=== PATIENT | male | born 1930 | race Caucasian/White ===

== ENCOUNTER 2018-04-02 04:56 | Inpatient (IN) ==
[2018-04-02 05:44] LABS: ALLEN TEST YES; BE 1.8 mmoll (-3.0-3.0); BLOOD TYPE ARTERIAL; HCO3-(ACT) 26.2 mmoll (20.0-26.0); METHB 0.7 % (0.0-1.5); O2(CT) 15.1 mL/dL (15.0-23.0); O2HB 91.6 % (95.0-99.0); PCO2(98.6) 48 mmHg (35-45); PO2(98.6) 63 mmHg (60-100); SAMPLE BLOOD; SAO2 93.9 % (95.0-100.0); THB 11.7 g/dL (11.5-17.4); pH(98.6) 7.37 (7.35-7.45)
[2018-04-02 05:45] LABS: MODALITY ROOM AIR
[2018-04-02] MEDS ORDERED: NS 1,000 ML IV ONE (06:03)
[2018-04-02] MEDS ORDERED: VANCOMYCIN 1 GM/NS 1 GM/250 ML IVPB IV ONE (06:03)
[2018-04-02] MEDS ORDERED: ZOSYN 3.375 GM in NS 50 ML IV ONE (06:03)
[2018-04-02 06:11] LABS: INR 0.92; PROTIME 13.1 Seconds (11.0-16.0)
[2018-04-02 06:12] LABS: PTT 23.3 Seconds (22.3-41.8)
[2018-04-02 06:28] LABS: BASO# 0.02 X1000 (0.0-0.2); BASO% 0.1 % (0.0-0.8); EOS# 0.07 X1000 (0.0-0.7); EOS% 0.3 % (0.0-10.0); HEMATOCRIT 38.5 % (42.0-52.0); HEMOGLOBIN 12.2 g/dL (14.0-18.0); IMM GRAN# 0.06 X1000 (0.0-0.04); IMM GRAN% 0.3 % (0.0-0.5); LYMPH# 1.61 X1000 (1.2-3.4); LYMPH% 7.8 % (20.5-51.1); MCH 29.5 PG (27-31); MCHC 31.7 g/dL (33-37); MONO# 2.12 X1000 (0.11-0.59); MONO% 10.3 % (1.7-9.3); MPV 8.9 FL (7.4-10.4); NEUT# 16.66 X1000 (1.4-6.5); NEUT% 81.2 % (42.2-75.2); PLT 328 X1000 (130-400); RBC 4.14 XMIL (4.7-6.1); RDW 13.2 % (11.5-14.5); WBC 20.54 X1000 (4.8-10.8)
--- NOTE | 2018-04-02 06:29 | Diag Imaging Result Doc PS360 ---
CHEST-1 VIEW - 04/02/2018 INDICATION: fever, sob COMPARISON: None FINDINGS: There is a left-sided dual-chamber pacemaker in good position. There is cardiomegaly and mild pulmonary vascular congestion. There are ill-defined interstitial markings laterally suggesting mild interstitial pulmonary edema. No pneumothorax or pleural effusion. IMPRESSION: Cardiomegaly. Mild interstitial pulmonary edema. Electronically signed by Ru Chen 04/02/2018 6:26 AM
[2018-04-02 06:32] LABS: ALBUMIN 4.1 g/dL (3.5-5.0); CALCIUM 9.3 mg/dL (8.8-10.2); CREATININE 1.2 mg/dL (0.7-1.2); TOTAL BILIRUBIN 0.24 mg/dL (0.20-1.00); TOTAL PROTEIN 8.4 g/dL (6.3-8.3)
--- NOTE | 2018-04-02 07:37 | PROVIDER DOCUMENTATION ---
HPI-General Adult - General Chief Complaint: Possible Sepsis-D Stated Complaint: SOB Time Seen by Provider: 04/02/18 05:19 Source: patient, EMS Allergies/Adverse Reactions: Patient Allergies Allergy/AdvReac Type Severity Reaction Status Date / Time No Known Allergies Allergy Verified 04/02/18 05:58 Home Medications: Home Medication List Medication Instructions Recorded Confirmed Last Taken Type Amlodipine Besylate [Norvasc] 10 mg PO HS 04/02/18 04/02/18 Unknown History Aspirin 81 mg PO DAILY 04/02/18 04/02/18 Unknown History Carbamazepine 200 mg PO TID 04/02/18 04/02/18 Unknown History Carvedilol 25 mg PO BID 04/02/18 04/02/18 Unknown History Clonidine HCl 0.1 mg PO DAILY PRN PRN 04/02/18 04/02/18 Unknown History Clopidogrel [Plavix] 75 mg PO DAILY 04/02/18 04/02/18 Unknown History Docusate Sodium 100 mg PO DAILY 04/02/18 04/02/18 Unknown History Duloxetine HCl 60 mg PO DAILY 04/02/18 04/02/18 Unknown History Furosemide 40 mg PO DAILY 04/02/18 04/02/18 Unknown History Gabapentin 400 mg PO TID 04/02/18 04/02/18 Unknown History Guanfacine HCl 2 mg PO HS 04/02/18 04/02/18 Unknown History Hydrocodone Bit/Acetaminophen 1 each PO Q4H PRN PRN 04/02/18 04/02/18 Unknown History [Hydrocodon-Acetaminophn 10-325] Ipratropium/Albuterol Sulfate 3 ml IH Q6HR 04/02/18 04/02/18 Unknown History [Iprat-Albut 0.5-3(2.5) mg/3 ml] Isosorbide Mononitrate [Isosorbide 30 mg PO DAILY 04/02/18 04/02/18 Unknown History Mononitrate ER] Levothyroxine Sodium 25 mcg PO DAILY 04/02/18 04/02/18 Unknown History Lisinopril 40 mg PO DAILY 04/02/18 04/02/18 Unknown History Mag Hydrox/Al Hydrox/Simeth [Mi 30 ml PO Q4H PRN PRN 04/02/18 04/02/18 Unknown History Acid Suspension] Multivits,Ca,Minerals/Iron/FA 1 each PO DAILY 04/02/18 04/02/18 Unknown History [Thera-M Tablet] Nicotine Patch [Nicoderm Patch] 21 mg TD DAILY 04/02/18 04/02/18 Unknown History Nitroglycerin Sl [Nitroglycerin] 0.4 mg SL PRN PRN 04/02/18 04/02/18 Unknown History Pantoprazole Sodium 40 mg PO DAILY 04/02/18 04/02/18 Unknown History Potassium Chloride E.r. [Klor-Con] 10 meq PO DAILY 04/02/18 04/02/18 Unknown History Sertraline HCl 25 mg PO DAILY 04/02/18 04/02/18 Unknown History Simvastatin 20 mg PO HS 04/02/18 04/02/18 Unknown History Review of Systems - Adult - REVIEW OF SYSTEMS - ADULT Constitutional: reports: no symptoms reported Eyes: reports: no symptoms reported Ears, Nose, Mouth & Throat: reports: no symptoms reported Cardiovascular: reports: no symptoms reported Respiratory: reports: see HPI Gastrointestinal: reports: no symptoms reported Genitourinary: reports: no symptoms reported Musculoskeletal: reports: no symptoms reported Integumentary: reports: no symptoms reported Neurological: reports: no symptoms reported Psychiatric: reports: no symptoms reported Endocrine: reports: no symptoms reported Hematologic/Lymphatic: reports: no symptoms reported Allergic/Immunologic: reports: no symptoms reported All Other Systems: Reviewed and Negative Past History - Adult - PAST MEDICAL HISTORY-ADULT Review of Records: reports: Nursing Assessment Review Physical Exam-General - PHYSICAL EXAM-ADULT Initial Vital Signs Reviewed: Yes - CONSTITUTIONAL General Appearance: appears well - EYES Eyes: PERRL/EOMI - HEAD, EARS, NOSE, MOUTH & THROAT HENMT: normocephalic/atraumatic - NECK Neck: non-tender - RESPIRATORY Respiratory: crackles - CARDIOVASCULAR Cardiovascular: normal peripheral pulses - GASTROINTESTINAL (ABDOMEN) Abdominal Exam: normal bowel sounds - LYMPHATIC Lymphatic: no adenopathy - MUSCULOSKELETAL Back Exam: normal inspection Extremity: normal range of motion - SKIN Integumentary: normal color - NEUROLOGIC 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 - PSYCHIATRIC Psych/Mental Status: normal mood/affect Progress - PLAN OF CARE/RESULTS Progress/Plan/Lab Results: Vital Signs - 8 hr 04/02/18 05:07 04/02/18 05:10 04/02/18 05:20 Temperature Pulse Rate 60 Respiratory Rate 25 H Blood Pressure O2 Sat by Pulse Oximetry 74 L 89 L 94 L 04/02/18 05:22 04/02/18 05:30 04/02/18 05:37 Temperature 98.3 F Pulse Rate 60 60 60 Respiratory Rate 21 20 22 Blood Pressure 141/80 141/80 O2 Sat by Pulse Oximetry 95 95 95 04/02/18 05:40 04/02/18 05:50 04/02/18 06:00 Temperature Pulse Rate 60 61 60 Respiratory Rate 19 20 23 Blood Pressure O2 Sat by Pulse Oximetry 96 98 95 04/02/18 06:04 04/02/18 06:10 04/02/18 06:20 Temperature Pulse Rate 60 62 60 Respiratory Rate 18 22 22 Blood Pressure 144/65 O2 Sat by Pulse Oximetry 95 94 L 93 L 04/02/18 06:30 04/02/18 06:34 04/02/18 06:40 Temperature Pulse Rate 60 60 60 Respiratory Rate 16 20 13 Blood Pressure 132/64 O2 Sat by Pulse Oximetry 94 L 93 L 94 L Laboratory Results - last 24 hr 04/02/18 04/02/18 04/02/18 05:15 05:15 05:15 WBC 20.54 H RBC 4.14 L Hgb 12.2 L Hct 38.5 L MCV 93.0 MCH 29.5 MCHC 31.7 L RDW Std Deviation 13.2 Plt Count 328 MPV 8.9 Immature Gran % (Auto) 0.3 Neut % (Auto) 81.2 H Lymph % (Auto) 7.8 L Summers % (Auto) 10.3 H Eos % (Auto) 0.3 Baso % (Auto) 0.1 Immature Gran # (Auto) 0.06 H Neut # (Auto) 16.66 H Lymph # (Auto) 1.61 Summers # (Auto) 2.12 H Eos # (Auto) 0.07 Baso # (Auto) 0.02 Segmented Neutrophils Not Reportable PT INR PTT (Actin FS) Specimen Type Sample Site pH pCO2 pO2 HCO3 Base Excess Oxyhemoglobin ABG O2 Sat (Calculated) ABG O2 Saturation ABG Carboxyhemoglobin ABG Methemoglobin Junior Test A-a O2 Difference Total Hemoglobin Lactate Liter Flow Blood Gas Modality FiO2 % Sodium 143 Potassium 5.0 Chloride 98 Carbon Dioxide 29 Anion Gap 16 BUN 29 H Creatinine 1.2 Estimated GFR/1.73 m2 57 BUN/Creatinine Ratio 24 Glucose 111 H Calculated Osmolality 292 Calcium 9.3 Total Bilirubin 0.24 AST 20 ALT 12 Alkaline Phosphatase 129 H Creatine Kinase 90 Troponin T Total Protein 8.4 H Albumin 4.1 Globulin 4.3 Albumin/Globulin Ratio 1.0 Plasma Lactate 1.0 04/02/18 04/02/18 04/02/18 05:15 05:15 05:34 WBC RBC Hgb Hct MCV MCH MCHC RDW Std Deviation Plt Count MPV Immature Gran % (Auto) Neut % (Auto) Lymph % (Auto) Summers % (Auto) Eos % (Auto) Baso % (Auto) Immature Gran # (Auto) Neut # (Auto) Lymph # (Auto) Summers # (Auto) Eos # (Auto) Baso # (Auto) Segmented Neutrophils PT 13.1 INR 0.92 PTT (Actin FS) 23.3 Specimen Type ARTERIAL Sample Site R RADIAL pH 7.37 pCO2 48 H pO2 63 HCO3 26.2 H Base Excess 1.8 Oxyhemoglobin 91.6 L ABG O2 Sat (Calculated) 15.1 ABG O2 Saturation 93.9 L ABG Carboxyhemoglobin 1.70 ABG Methemoglobin 0.7 Junior Test YES A-a O2 Difference 105.0 Total Hemoglobin 11.7 Lactate 0.80 Liter Flow 3.0 Blood Gas Modality ROOM AIR FiO2 % 32.0 Sodium Potassium Chloride Carbon Dioxide Anion Gap BUN Creatinine Estimated GFR/1.73 m2 BUN/Creatinine Ratio Glucose Calculated Osmolality Calcium Total Bilirubin AST ALT Alkaline Phosphatase Creatine Kinase Troponin T 0.021 Total Protein Albumin Globulin Albumin/Globulin Ratio Plasma Lactate Orders Category Date Time Status Cardiac Monitoring DIRECTED Care 04/02/18 05:20 Active IV Insertion ORDERED Care 04/02/18 05:20 Completed Notify MD of + Sepsis Screen NOW Care 04/02/18 05:20 Active Notify Physician As Ordered Care 04/02/18 05:20 Active CHEST-1 VIEW [RAD] Stat Exams 04/02/18 05:20 Completed ABG [RESP] Routine Lab 04/02/18 05:34 Completed BLOOD CULTURE [BLDCUL] Stat Lab 04/02/18 05:32 Results CBC WITH DIFF [HEME] Stat Lab 04/02/18 05:15 Completed CK PROFILE [SP CHEM] Stat Lab 04/02/18 05:15 Completed COMPREHENSIVE METABOLIC PANEL [CHEM] Stat Lab 04/02/18 05:15 Completed LACTATE, PLASMA [CHEM] Stat Lab 04/02/18 05:15 Completed PROTIME WITH INR [COAG] Stat Lab 04/02/18 05:15 Completed PTT [COAG] Stat Lab 04/02/18 05:15 Completed TROPONIN T Stat Lab 04/02/18 05:15 Completed URINALYSIS W/POSS RFLX CULT [URINALYSIS] Stat Lab 04/02/18 05:20 Uncollected 0.9% Sodium Chloride Inj [Ns] 1,000 ml Med 04/02/18 06:03 Discontinued IV 999 mls/hr Piperacillin/Tazobactam [Zosyn] 3.375 gm Med 04/02/18 06:03 Discontinued 0.9% Sodium Chloride Inj [Ns] 50 ml IV NOW Vancomycin 1 gm/Ns Med 04/02/18 06:03 Discontinued 1 gm in 250 ml IV NOW Oxygen Device Stat Oth 04/02/18 05:20 Completed Result Diagrams: 04/02/18 05:15 04/02/18 05:15 Departure - Departure Date of Disposition Decision: 04/02/18 Time of Disposition Decision: 07:34 DIAGNOSIS: Pneumonia Qualifiers: Pneumonia type: due to unspecified organism Laterality: unspecified laterality Lung location: unspecified part of lung Qualified Code(s): J18.9 - Pneumonia, unspecified organism Disposition: ADMITTED INPATIENT 09 Certified Medical Emergency: Emergent Condition: Stable Referrals and Follow-Ups: Cristian Hendrickson MD [Primary Care Provider] - - Critical Care Note This patient required my direct & personal management of CC.: No Attestation - Physician/ JARED Attestation Patient care was provided by Advanced Practice Provider:: No The physician spent face to face time with patient:: Yes Advanced Practice Provider documentation review:: Supervising physician onsite and consulted in the evaluation and care of this patient. The physician did have a face to face encounter with the patient.
[2018-04-02 08:22] LABS: URINE SOURCE CATH
[2018-04-02 08:25] LABS: BILIRUBIN URINE NEGATIVE (NEGATIVE); BLOOD URINE NEGATIVE (NEGATIVE); COLOR YELLOW; GLUCOSE URINE NEGATIVE (NEGATIVE); KETONE URINE NEGATIVE (NEGATIVE); LEUKOCYTES URINE NEGATIVE (NEGATIVE); NITRITE URINE NEGATIVE (NEGATIVE); PH URINE 5.5; PROTEIN URINE NEGATIVE (NEGATIVE); SP GRAVITY URINE 1.017; TURBIDITY URINE CLEAR (CLEAR); UROBILINOGEN URINE NORMAL (NORMAL)
[2018-04-02 08:26] LABS: UR EPITHELIAL CELLS <10 /HPF (<10); URINE BACTERIA NEGATIVE /HPF; URINE RBC <10 /HPF (<10); URINE WBC <10 /HPF (<10)
[2018-04-02] MEDS ORDERED: NITROGLYCERIN SL PRN (08:55)
[2018-04-02] MEDS ORDERED: MAALOX PLUS LIQUID PO PRN (08:55)
--- NOTE | 2018-04-02 09:09 | HISTORY AND PHYSICAL ---
HISTORY OF PRESENT ILLNESS: He is in a care home at [facility]. Apparently, he had been treating for pneumonia over there. He has been off antibiotics. For the last 3 or 4 days, it has just felt worse and increased cough, increased general malaise. He is very hard of hearing. I do not have much in the way of past medical history. PAST MEDICAL HISTORY: It appears that he has a history of hypertension, hypothyroidism. He does have a nicotine patch. He has presumed coronary artery disease. He is also on nitroglycerin p.r.n. He has peripheral neuropathy and a history of hypercholesterolemia. I do not know the details of his coronary history. FAMILY HISTORY: There is apparently history of coronary artery disease in his family. SOCIAL HISTORY: He has a history of smoking. He does have a nicotine patch. No history of illicit drugs or alcohol. REVIEW OF SYSTEMS: General: Does not report any weight gain or loss. No fever or chills that he is aware. It is just general malaise. Apparently, his appetite is good. His weight has held steady. HEENT: No complaints of change in his vision. He is very hard of hearing. 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 You have to speak loudly, close to his left ear. Respiratory: No increased work of breathing, but he has had increased cough and sputum production. Cardiovascular: No chest pain reported. No complaints palpitations. Gastrointestinal and Genitourinary: No gross hematuria or dysuria. Endocrinologic/Hematologic: No significant history. PHYSICAL EXAMINATION: VITAL SIGNS: Temperature 98.3 degrees, pulse 66, respirations 21, blood pressure 149/75. EYES: Pupils are equal and round. LUNGS: Clear in all lung katz. He does have a cough provoked by deep inspiration. No wheezing at this time. CARDIOVASCULAR: Regular rhythm and rate without murmur S3. Monitor shows sinus rhythm. ABDOMEN: Soft. SKIN: Warm and dry. No pedal edema. LAB: White count 20,540, hematocrit 38, platelet count 328,000. Sodium 143, potassium 5.0, chloride 98, BUN 29, creatinine 1.2. Albumin 4.1. Pro-time is 13. Blood gases pH is 7.37, pCO2 48, pO2 is 63. O2 saturation is 91% and his chest x-ray shows cardiomegaly, mild interstitial pulmonary edema. Suspect pneumonia as well. Ill-defined interstitial markings. ASSESSMENT AND PLAN: 1. Appears to have pulmonary venous hypertension with pulmonary edema and some pleural effusions. We will try to diurese a little bit. 2. Clinically, it sounds like he has probable bronchopneumonia, we will cover broad spectrum since he is from [facility], and will obtain sputum cultures and blood cultures. 3. It appears that he has a history of coronary artery disease. See if we get some old records and get that defined a little better. 4. History of smoking. He is on a nicotine patch, which will continue. 5. History of hypercholesterolemia. 6. History of hypertension. At present time, we will put him on vancomycin and Zosyn. Give him bronchodilators and some supplementary O2. We will give him some guaifenesin as well try to thin secretions. We probably need to obtain an echocardiogram to look at his left ventricular function. It appears he has an element of congestive heart failure. Whether that is systolic or diastolic, probably needs to be defined. cc: Junior Berrios MD
--- NOTE | 2018-04-02 09:23 | EKG Report ---
Test Performed on : 04/02/2018 05:17:28 AM Test Reason : NO EKG ORDER FOR MUSE Blood Pressure : / mmHG Vent. Rate : 060 BPM Atrial Rate : 113 BPM P-R Int : 000 ms QRS Dur : 148 ms QT Int : 458 ms P-R-T Axes : 000 -74 099 degrees QTc Int : 458 ms Ventricular-paced rhythm with frequent supraventricular complexes Abnormal ECG No previous ECGs available Unconfirmed Result
[2018-04-02] MEDS: DUONEB (A & A) INH SCH ×3 (10:00→21:00)
[2018-04-02] MEDS ORDERED: NITROGLYCERIN ONE (10:54)
[2018-04-02] MEDS: LEVAQUIN 750 MG/D5W 750 MG/150 ML IVPB IV SCH (11:10)
[2018-04-02] MEDS: LASIX IV SCH ×2 (11:10→20:04)
[2018-04-02] MEDS: NICODERM PATCH TD SCH (11:12)
[2018-04-02] MEDS: NS 1,000 ML IV SCH (11:14)
[2018-04-02] MEDS: CYMBALTA PO SCH (11:15)
[2018-04-02] MEDS: MUCINEX DM PO SCH ×2 (11:16→20:24)
[2018-04-02] MEDS: NEURONTIN PO SCH ×3 (11:17→20:11)
[2018-04-02] MEDS: SYNTHROID PO SCH (11:18)
[2018-04-02] MEDS: TEGRETOL PO SCH ×3 (11:18→20:24)
[2018-04-02] MEDS: THERA M PLUS PO SCH (11:18)
[2018-04-02] MEDS: ZOLOFT PO SCH (11:19)
[2018-04-02 11:20] LABS: ALLEN TEST YES; BE 1.3 mmoll (-3.0-3.0); BLOOD TYPE ARTERIAL; HCO3-(ACT) 25.8 mmoll (20.0-26.0); O2(CT) 14.9 mL/dL (15.0-23.0); PCO2(98.6) 44 mmHg (35-45); PO2(98.6) 55 mmHg (60-100); SAMPLE BLOOD; SAO2 92.3 % (95.0-100.0); THB 11.8 g/dL (11.5-17.4); pH(98.6) 7.39 (7.35-7.45)
[2018-04-02 11:21] LABS: MODALITY CANNULA; O2HB 89.9 % (95.0-99.0)
[2018-04-02] MEDS: PROTONIX PO SCH (11:32)
[2018-04-02] MEDS: ASPIRIN PO SCH (11:32)
[2018-04-02] MEDS: IMDUR PO SCH (11:33)
[2018-04-02] MEDS: COREG PO SCH ×2 (11:33→20:11)
[2018-04-02] MEDS: PRINIVIL PO SCH (11:33)
[2018-04-02] MEDS: PLAVIX PO SCH (11:33)
[2018-04-02] MEDS: COLACE PO SCH (11:34)
[2018-04-02] MEDS ORDERED: NITROGLYCERIN TOP ONE (11:35)
--- NOTE | 2018-04-02 14:10 | ECHO REPORT ---
ORDER DATE: 04/02/2018 SUMMARY: 1. Technically suboptimal study. Very poor acoustic window. 2. This is a limited echocardiogram. 3. Aortic valve leaflets were sclerosed. Not well visualized. 4. Mitral valve was normal. 5. Tricuspid valve was normal. 6. Pulmonic valve was normal. 7. Definity was used to assess left ventricular systolic function. 8. Normal left ventricular cavity size. Estimated ejection fraction of 60% to 65%. 9. There is no pericardial effusion. cc: MD Junior Ly MD
[2018-04-02] MEDS: ZOCOR PO SCH (20:11)
[2018-04-02] MEDS: NORVASC PO SCH (20:11)
[2018-04-03] MEDS: DUONEB (A & A) INH SCH ×4 (03:10→21:02)
[2018-04-03] MEDS ORDERED: LASIX IV SCH (06:00)
[2018-04-03 06:20] LABS: AGAP 14; ALB/GLOB RATIO 0.9; ALBUMIN 3.2 g/dL (3.5-5.0); ALKALINE PHOSPHATASE 101 U/L (32-122); BUN 27 mg/dL (8-22); CALCIUM 8.6 mg/dL (8.8-10.2); CHLORIDE 100 mmol/L (98-107); COSMO 281; CREATININE 1.1 mg/dL (0.7-1.2); ESTIMATED GFR > 60; GLUCOSE 110 mg/dL (70-104); GOT 12 U/L (10-34); GPT 10 U/L (10-44); POTASSIUM 4.2 mmol/L (3.5-5.1); SODIUM 138 mmol/L (136-145); TCO2 24 mmol/L (25-35); TOTAL BILIRUBIN 0.26 mg/dL (0.20-1.00); TOTAL PROTEIN 6.7 g/dL (6.3-8.3)
[2018-04-03 06:22] LABS: BASO# 0.03 X1000 (0.0-0.2); BASO% 0.2 % (0.0-0.8); EOS# 0.09 X1000 (0.0-0.7); EOS% 0.5 % (0.0-10.0); HEMATOCRIT 31.5 % (42.0-52.0); IMM GRAN# 0.07 X1000 (0.0-0.04); IMM GRAN% 0.4 % (0.0-0.5); LYMPH# 1.59 X1000 (1.2-3.4); LYMPH% 8.6 % (20.5-51.1); MCH 29.9 PG (27-31); MCHC 31.7 g/dL (33-37); MCV 94.3 FL (81-99); MONO# 1.89 X1000 (0.11-0.59); MONO% 10.2 % (1.7-9.3); NEUT# 14.79 X1000 (1.4-6.5); NEUT% 80.1 % (42.2-75.2); PLT 257 X1000 (130-400); RBC 3.34 XMIL (4.7-6.1); RDW 13.1 % (11.5-14.5); WBC 18.46 X1000 (4.8-10.8)
[2018-04-03 06:30] LABS: FREE T4 0.9 ng/dL (0.93-1.70); TSH 0.8 uIUmL (0.27-4.20)
[2018-04-03] MEDS: SYNTHROID PO SCH (06:35)
[2018-04-03] MEDS: PROTONIX PO SCH (06:35)
--- NOTE | 2018-04-03 07:21 | Diag Imaging Result Doc PS360 ---
EXAM: CHEST-PORTABLE INDICATION: Pneumonia TECHNIQUE: One view COMPARISON: 04/02/2018 FINDINGS: Bilateral interstitial infiltrates are approximately stable. No new consolidation is appreciated. Cardiac silhouette is stable. IMPRESSION: Essentially stable chest. Electronically signed by Marcial Goel 04/03/2018 7:18 AM
--- NOTE | 2018-04-03 08:16 | PROGRESS NOTE ---
DATE: 04/03/2018 SUBJECTIVE: Mr. Burch was admitted yesterday. He is followed by Dr. Hendrickson. He comes from [facility]. He has been on some antibiotics, treating for a respiratory tract infection. On presentation, appeared to have significant pulmonary hypertension. Could not get much in the way of past medical history. But this morning, he had some trouble breathing, a lot of gurgling. Put him on a little nitro paste and diuresed him some yesterday. This morning, he has got quite a bit of airway secretions and rattling. OBJECTIVE: Vital signs: Temp 98.9 degrees, pulse 80, respirations 19, blood pressure 103/37. Eyes: Pupils are equal and round. Neck: He appears to have elevated CVP. Lungs: With scattered rhonchi. Prolonged expiratory phase. Abdomen: Soft. Cardiovascular: Regular rhythm and rate. DIAGNOSTIC DATA: Urine output was 2400 mL. Of note, he appears to have a paced rhythm at a rate of 60. Echocardiogram done yesterday, technically suboptimal study. Aortic valve was sclerosed but not well visualized. Mitral valve normal. Tricuspid valve normal. His left ventricular ejection fraction appeared to be 60% to 65%. Normal left ventricular cavity size. No pericardial effusion. Chest x-ray from this morning, essentially stable chest. Bilateral interstitial infiltrates. No consolidation. ASSESSMENT AND PLAN: 1. Appears to have nonspecific infiltrates in the face of what appears to be normal ventricular function and some pleural effusions. We have him on vancomycin and Zosyn initially. I am giving him levofloxacin now 750 mg IV daily. Chest x-ray really unchanged, no fever. 2. Left ventricular function appears normal. So, he may have some pulmonary congestion from diastolic dysfunction. We are unable to assess his diastolic function on the echocardiogram. 3. He does have a history of coronary artery disease. His troponin and CPK, just a mild elevation in the troponin and CK look okay. I am going to stop his Lasix. I am going to ask Cardiology to help with his management, and decrease the Coreg down to 12.5 twice a day. His blood pressure is running a low. He is on carbamazepine 200 mg, and he takes that 3 times a day. cc: Junior Berrios MD
[2018-04-03] MEDS ORDERED: COREG PO SCH (09:00)
[2018-04-03] MEDS: LEVAQUIN 750 MG/D5W 750 MG/150 ML IVPB IV SCH (09:32)
[2018-04-03] MEDS: CYMBALTA PO SCH (09:32)
[2018-04-03] MEDS: PLAVIX PO SCH (09:33)
[2018-04-03] MEDS: ZOLOFT PO SCH (09:33)
[2018-04-03] MEDS: IMDUR PO SCH (09:33)
[2018-04-03] MEDS: ASPIRIN PO SCH (09:33)
[2018-04-03] MEDS: NEURONTIN PO SCH ×3 (09:33→21:57)
[2018-04-03] MEDS: THERA M PLUS PO SCH (09:33)
[2018-04-03] MEDS: NICODERM PATCH TD SCH (09:33)
[2018-04-03] MEDS: TEGRETOL PO SCH ×3 (09:33→21:58)
[2018-04-03] MEDS: PRINIVIL PO SCH (09:33)
[2018-04-03] MEDS: COLACE PO SCH (09:33)
[2018-04-03] MEDS: MUCINEX DM PO SCH ×2 (09:34→21:59)
[2018-04-03] MEDS: NS 1,000 ML IV SCH (14:48)
[2018-04-03] MEDS: ZOCOR PO SCH (21:57)
[2018-04-03] MEDS: COREG PO SCH (21:57)
[2018-04-03] MEDS: NORVASC PO SCH (21:58)
[2018-04-04] MEDS: DUONEB (A & A) INH SCH ×4 (03:33→21:00)
[2018-04-04] MEDS ORDERED: LASIX IV ONE (03:54)
[2018-04-04] MEDS: PROTONIX PO SCH (06:38)
[2018-04-04] MEDS: SYNTHROID PO SCH (06:38)
[2018-04-04] MEDS: COLACE PO SCH (08:57)
[2018-04-04] MEDS: CYMBALTA PO SCH (08:57)
[2018-04-04] MEDS: NEURONTIN PO SCH ×4 (08:57→20:55)
[2018-04-04] MEDS: COREG PO SCH ×3 (08:57→20:55)
[2018-04-04] MEDS: PLAVIX PO SCH (08:57)
[2018-04-04] MEDS: THERA M PLUS PO SCH (08:57)
[2018-04-04] MEDS: ASPIRIN PO SCH (08:57)
[2018-04-04] MEDS: PRINIVIL PO SCH (08:57)
[2018-04-04] MEDS: ZOLOFT PO SCH (08:57)
[2018-04-04] MEDS: MUCINEX DM PO SCH ×3 (08:58→20:55)
[2018-04-04] MEDS: LEVAQUIN 750 MG/D5W 750 MG/150 ML IVPB IV SCH (08:58)
[2018-04-04] MEDS: TEGRETOL PO SCH ×4 (08:58→20:55)
[2018-04-04] MEDS: NICODERM PATCH TD SCH (08:58)
[2018-04-04] MEDS: NS 1,000 ML IV SCH (08:58)
--- NOTE | 2018-04-04 09:07 | PROGRESS NOTE ---
DATE: 04/04/2018 SUBJECTIVE: Mr. Burch sounds like he has a lot of upper airway secretions. He was sleeping, was easy to arouse. He is coughing. The sputum seems to be looser and overall, he says he feels better. His breathing is better. OBJECTIVE: Vital signs: Temperature 98.1 degrees, pulse 57, respirations 18, blood pressure 115/58. Pupils: Are equal and round. Lungs: Clear in all lung katz. Cardiovascular: Regular rate without murmur or S3. He has upper airway noise, but he seems to be moving air well. Urine output is 4400 mL. ASSESSMENT AND PLAN: 1. Essentially stable chest on chest x-ray from yesterday, bilateral interstitial infiltrates are proximally stable. Clinically, seems to be doing a little better. He seems to have more bronchitis picture. So continue present antibiotics and bronchodilators. I am going to put him on a steroid inhaler. We will use Advair and continue his guaifenesin. 2. Left ventricular function. Appears normal. I suspect he may have some diastolic dysfunction. 3. History of coronary artery disease. I do not see any active sign of ischemia at this time. Echocardiogram shows normal left ventricular function. Ejection fraction 60% to 65%. So will add Advair inhaler, and I may give him a little bit of Solu-Medrol too and see if that will help with his bronchitis. cc: Junior Berrios MD
[2018-04-04] MEDS: SOLU-MEDROL IV SCH ×2 (09:15→15:50)
[2018-04-04] MEDS: ADVAIR 250/50 DISKUS INH SCH ×2 (09:45→21:00)
[2018-04-04] MEDS: ZOCOR PO SCH ×2 (20:55)
[2018-04-04] MEDS: NORVASC PO SCH ×2 (20:55)
[2018-04-04 21:45] LABS: ALLEN TEST YES; BE 1.5 mmoll (-3.0-3.0); BLOOD TYPE ARTERIAL; METHB 1.6 % (0.0-1.5); O2(CT) 13.6 mL/dL (15.0-23.0); PO2(98.6) 80 mmHg (60-100); SAMPLE BLOOD; SAO2 97.1 % (95.0-100.0); THB 10.2 g/dL (11.5-17.4); pH(98.6) 7.32 (7.35-7.45)
[2018-04-04 21:50] LABS: MODALITY VENTIMASK; PCO2(98.6) 55 mmHg (35-45)
[2018-04-05] MEDS: SOLU-MEDROL IV SCH ×4 (01:01→23:56)
[2018-04-05] MEDS: DUONEB (A & A) INH SCH ×4 (03:07→22:40)
[2018-04-05] MEDS: TEGRETOL PO SCH ×4 (06:09→22:02)
[2018-04-05] MEDS: SYNTHROID PO SCH (06:29)
[2018-04-05] MEDS: PROTONIX PO SCH (06:29)
--- NOTE | 2018-04-05 09:22 | PROGRESS NOTE ---
DATE: 04/05/2018 SUBJECTIVE: Mr. Burch has got some wheezing at the present time, but he seems to go in spells where he gets very short of breath, and it sounds like he has increased pulmonary venous hypertension. I believe he has got bibasilar infiltrates, so we are treating for bibasilar pneumonia, but concerned about possible flash edema. He seems to be seems cyclic, where he will get very short of breath. I contemplated moving him to the floor, but he came short of breath again yesterday. OBJECTIVE: Vital Signs: Temperature 97.7 degrees, pulse 62, respirations 20, blood pressure 164/71. Eyes: Pupils are equal. Lungs: At the present time, he has expiratory wheezing throughout, but he is moving air pretty good. Cardiovascular exam: Regular rhythm and rate without murmur or S3. Abdomen: Soft. Skin: Warm and dry. : Urine output was 1500 mL. LABS: His lab reviewed from yesterday. We will check another basic metabolic profile today. X-RAYS: Note that his echocardiogram seems to show ejection fraction of 60% to 65%. Normal left ventricular size and no significant valvular dysfunction. ASSESSMENT AND PLAN: 1. Treated for bibasilar pneumonia. He seems to have a cyclic event where it sounds like his lungs are wet, and I wonder about a flash edema or something that could be disturbing his left ventricular function. Echocardiogram shows a normal ventricle. Continue his present antibiotics and bronchodilators. He is on a steroid inhaler. 2. Left ventricular function appears normal. 3. History of coronary artery disease. I am going to ask Pulmonary if they could assist. He will have times where he seems to be moving air well, and then an hour later seemed to be in trouble. I am going to put him back on some Lasix and diurese him. We will check his basic metabolic profile today. Continue levofloxacin. Also, his family has noticed that his blood pressures would be very labile and seemed to bounce up and down. He is on lisinopril 40 mg a day and he is on Coreg 6.25 mg twice daily. I may see if we can add Apresoline 25 mg three times a day, and I am going to diurese him a little more. cc: Junior Berrios MD
[2018-04-05] MEDS: NICODERM PATCH TD SCH (09:29)
[2018-04-05] MEDS: ASPIRIN PO SCH (09:31)
[2018-04-05] MEDS: LASIX IV SCH ×2 (09:31→21:14)
[2018-04-05] MEDS: PRINIVIL PO SCH (09:31)
[2018-04-05] MEDS: CYMBALTA PO SCH (09:32)
[2018-04-05] MEDS: COLACE PO SCH (09:32)
[2018-04-05] MEDS: NEURONTIN PO SCH ×3 (09:32→21:13)
[2018-04-05] MEDS: PLAVIX PO SCH (09:32)
[2018-04-05] MEDS: THERA M PLUS PO SCH (09:33)
[2018-04-05] MEDS: COREG PO SCH ×2 (09:33→21:14)
[2018-04-05] MEDS: ZOLOFT PO SCH (09:34)
[2018-04-05] MEDS: MUCINEX DM PO SCH ×2 (09:34→22:02)
[2018-04-05] MEDS: LEVAQUIN 750 MG/D5W 750 MG/150 ML IVPB IV SCH (09:40)
[2018-04-05 10:21] LABS: AGAP 13; BUN 27 mg/dL (8-22); CALCIUM 9.3 mg/dL (8.8-10.2); CHLORIDE 101 mmol/L (98-107); COSMO 285; CREATININE 0.9 mg/dL (0.7-1.2); ESTIMATED GFR > 60; GLUCOSE 138 mg/dL (70-104); MAGNESIUM 1.7 mg/dL (1.5-2.7); POTASSIUM 4.2 mmol/L (3.5-5.1); SODIUM 139 mmol/L (136-145); TCO2 25 mmol/L (25-35)
[2018-04-05 11:31] LABS: I-STAT BE 3 mmoll (-2-3); I-STAT GLUCOSE 214 mg/dL (70-105); I-STAT HEMOGLOBIN 10.5 g/dL (11.5-17.5); I-STAT K 3.7 mmoll (3.5-4.9); I-STAT TCO2 28 mmoll (23-27); I-STAT pH 7.449 (7.350-7.450)
[2018-04-05 11:37] LABS: BLOOD TYPE ARTERIAL; HCO3-(ACT) 26.6 mmoll (20.0-26.0); PCO2(98.6) 38 mmHg (35-45); PO2(98.6) 144 mmHg (60-100); SAMPLE BLOOD; pH(98.6) 7.44 (7.35-7.45)
[2018-04-05 11:38] LABS: MODALITY VENTIMASK
[2018-04-05 11:39] LABS: ALLEN TEST YES
--- NOTE | 2018-04-05 12:07 | Diag Imaging Result Doc PS360 ---
CHEST-PORTABLE - 04/05/2018 INDICATION: chf COMPARISON: 04/03/2018 FINDINGS: Stable left-sided pacemaker. Stable cardiomegaly and pulmonary vascular congestion. Stable background interstitial pulmonary edema. Stable patchy infiltrates or atelectasis in both lung bases. IMPRESSION: No change from prior. Electronically signed by Ru Chen 04/05/2018 12:05 PM
[2018-04-05] MEDS: APRESOLINE PO SCH ×2 (13:00→16:50)
[2018-04-05] MEDS: ADVAIR 250/50 DISKUS INH SCH ×2 (18:00→19:26)
[2018-04-05] MEDS: NORVASC PO SCH (21:13)
[2018-04-05] MEDS: ZOCOR PO SCH (21:13)
[2018-04-05] MEDS: NS 1,000 ML IV SCH (21:54)
[2018-04-05] MEDS: CATAPRES PO PRN (22:22)
[2018-04-06] MEDS: DUONEB (A & A) INH SCH ×4 (03:09→21:50)
[2018-04-06 04:17] LABS: ALLEN TEST YES; BE 6.7 mmoll (-3.0-3.0); BLOOD TYPE ARTERIAL; HCO3-(ACT) 30.1 mmoll (20.0-26.0); METHB 0.1 % (0.0-1.5); O2(CT) 13.3 mL/dL (15.0-23.0); O2HB 92.4 % (95.0-99.0); PO2(98.6) 60 mmHg (60-100); SAMPLE BLOOD; SAO2 96.4 % (95.0-100.0); THB 10.2 g/dL (11.5-17.4); pH(98.6) 7.38 (7.35-7.45)
[2018-04-06 04:28] LABS: MODALITY BI PAP; PCO2(98.6) 56 mmHg (35-45)
[2018-04-06] MEDS: PROTONIX PO SCH ×2 (05:29→06:05)
[2018-04-06] MEDS: CATAPRES PO PRN ×2 (05:29→20:52)
[2018-04-06] MEDS: SYNTHROID PO SCH (05:29)
[2018-04-06 06:02] LABS: BASO# 0.01 X1000 (0.0-0.2); BASO% 0.1 % (0.0-0.8); EOS# 0.01 X1000 (0.0-0.7); EOS% 0.1 % (0.0-10.0); HEMOGLOBIN 10.7 g/dL (14.0-18.0); IMM GRAN# 0.08 X1000 (0.0-0.04); IMM GRAN% 0.5 % (0.0-0.5); LYMPH# 1.16 X1000 (1.2-3.4); LYMPH% 7.9 % (20.5-51.1); MCH 29.9 PG (27-31); MCHC 32.4 g/dL (33-37); MCV 92.2 FL (81-99); MONO# 0.88 X1000 (0.11-0.59); MPV 8.7 FL (7.4-10.4); NEUT% 85.4 % (42.2-75.2); PLT 351 X1000 (130-400); RBC 3.58 XMIL (4.7-6.1); RDW 12.8 % (11.5-14.5); WBC 14.64 X1000 (4.8-10.8)
[2018-04-06 06:06] LABS: AGAP 11; BUN 30 mg/dL (8-22); CALCIUM 9.2 mg/dL (8.8-10.2); CHLORIDE 98 mmol/L (98-107); COSMO 284; CREATININE 0.9 mg/dL (0.7-1.2); ESTIMATED GFR > 60; GLUCOSE 137 mg/dL (70-104); POTASSIUM 3.9 mmol/L (3.5-5.1); SODIUM 138 mmol/L (136-145); TCO2 29 mmol/L (25-35)
--- NOTE | 2018-04-06 07:52 | CONSULTATION ---
DATE OF CONSULTATION: 04/05/2018 REQUESTING PROVIDER: Dr. Junior Berrios REASON FOR CONSULTATION: Help with evaluation and treatment. HISTORY OF PRESENT ILLNESS: This is an 88-year-old, male, with a medical history of coronary artery disease, hypertension, hypothyroidism, hypercholesterolemia, peripheral neuropathy and bradyarrhythmia with pacemaker placement. He was transferred on 04/02/2018 from [facility] with worsening cough, dyspnea, and general malaise after antibiotics therapy for pneumonia. He has been admitted since then with probable bronchopneumonia, pulmonary venous hypertension and some pleural effusions. Currently, patient is lying in bed on his right side with moderate respiratory distress. There is no family at bedside. The patient reports he still has productive cough with thick yellow sputum, shortness of breath with activities, and generalized weakness . He denies headache, fever, chill, nausea, vomiting, constipation, diarrhea, chest pain or palpitations. PAST MEDICAL HISTORY: 1. Coronary artery disease 2. hypertension 3. hypothyroidism 4. hypercholesterolemia 5. Peripheral neuropathy. 6. Kristian arrhythmia status post dual-chamber permanent pacemaker placement; followed by [facility] chief port director. SOCIAL HISTORY: The patient has a history of heavy smoking, but quit for several years. The patient lives in a longterm facility. He reports no history of alcohol or illicit drug use. FAMILY HISTORY: Unknown. ALLERGIES: Iodinated contrast REVIEW OF SYSTEMS: A 10 point review of systems is conducted, and the pertinent is listed within the HPI, otherwise noncontributory. PHYSICAL EXAMINATION: VITAL SIGNS: Temperature 97.7 degrees Fahrenheit, pulse 62, blood pressure 164/ 71, respiratory rate 28. Oxygen saturation 96% on Ventimask with FiO2 50%. GENERAL: The patient is lying on his right side with left hand holding the bedside rail. He coughs frequently with thick yellow sputum. He is in mild respiratory distress. HEENT: Atraumatic. trachea midline, he has some levels of hearing loss. RESPIRATORY: tachypnea; diminished breathing sounds with scattered rhonchi, expiratory wheezing throughout and mild inspiratory crackles bibasilarly. CARDIOVASCULAR: Regular rate and rhythm. GASTROINTESTINAL: Normoactive bowel sounds in all four quadrants. soft. and obese EXTREMITIES: No pedal edema. No cyanosis. NEUROLOGIC: Alert and oriented x3. IMAGING: Chest x-ray reveals stable cardiomegaly, pulmonary vascular congestion and background interstitial pulmonary edema with patchy infiltrates or atelectasis in both lung bases. LABORATORY DATA: Sodium 139, potassium 4.2, chloride 101, carbon dioxide 25, BUN 27, creatinine 0.9, glucose 138. ProBNP 3122. Blood gas pH 7.44, pCO2 38, pO2 144 and HCO3 26.6. ASSESSMENT: This is an 88-year-old, male, with a medical history of coronary artery disease, hypertension, hypothyroidism, hypercholesterolemia, peripheral neuropathy and kristian arrhythmias with pacemaker placement. He has been admitted since 04/02/2018 with probable brochopneumonia, pulmonary venous hypertension with pulmonary edema and some pleural effusions. 1. Respiratory failure. 2. Probable pneumonia. 3. probable congestive heart failure PLAN: 1. Continue diuretics, antibiotics, steroids, and bronchodilators as prescribed 2. Supplemental oxygen and routine BiPAP 3. routine ABG, proBNP, chest x-ray, CBC and BMP. 4. check procalcitonin. 5. Continue GI and DVT prophylaxis. Thank you for this consult. Dictated by LARS Casas for Jaimee Espinoza MD cc: LARS Casas MD [facility]
[2018-04-06] MEDS: SOLU-MEDROL IV SCH ×2 (08:09→17:15)
--- NOTE | 2018-04-06 08:44 | PROGRESS NOTE ---
DATE: 04/06/2018 SUBJECTIVE: Mr. Burch is breathing better. He is on the BiPAP at the present time. No wheezing. Moving air well. Says he ate a little bit last night and slept pretty well last night. OBJECTIVE: Vital signs: Temperature 97.4 degrees, pulse 62, respirations 13, blood pressure 183/82. Eyes: Pupils are equal. Neck: No distended neck veins. Lungs: Clear in all lung katz. Cardiovascular: Regular rhythm and rate without murmur or S3. URINE OUTPUT: Over 7 L. ASSESSMENT: 1. His chest x-ray from yesterday stable. Left-sided pacemaker stable. Cardiomegaly, pulmonary vascular congestion. Stable background interstitial pulmonary edema. Stable patchy infiltrates and atelectasis in both lung bases. We are treating for bibasilar pneumonia, but this seemed to be a cyclic event. He seems to have pulmonary venous hypertension in spite of what appears to be normal ventricle on echocardiogram. I have adjusted his medications to try and decrease his afterload. The thought is possible flash edema, but he also could have renal artery disease. His blood pressure appears to be a little better controlled and clinically he seems a little better. 2. History of coronary artery disease. Aware. 3. He seemed to have some bronchospasm and bronchial irritation, which seems better. He is on a steroid inhaler. We need to start getting him out of bed and think about getting his Hoyos catheter out, so we will ask Physical Therapy to start working with him. I should also add that he is on carbamazepine, he takes 200 mg 3 times a day. He is on Coreg 6.25 mg b.i.d., aspirin 81 mg a day, amlodipine 10 mg a day, started hydralazine 25 mg t.i.d. We are giving him Levaquin 750 mg IV 24 hours, Synthroid 25 mcg p.o. daily, Prinivil 40 mg a day and he is on methylprednisone 40 mg IV q.8, multivitamin, nicotine patch, and Protonix 40 mg daily for gastrointestinal prophylaxis, Zoloft 25 mg a day, and Zocor 20 mg at bedtime. We also are giving him breathing treatments, albuterol, ipratropium. I think he has made a little bit of progress. I had given him Lasix. He is getting it 40 mg IV q.12h. 4. His laboratory, white count has come down to 14,000, hematocrit is 33, hemoglobin 10. Electrolytes look good. Sodium 138, potassium 3.9, chloride 98, BUN 30, creatinine 0.9. We will start some physical therapy. Note his proBNP was 2914 at present time. cc: Junior Berrios MD
[2018-04-06] MEDS: NICODERM PATCH TD SCH (08:47)
[2018-04-06] MEDS: LASIX IV SCH ×2 (08:47→22:58)
[2018-04-06] MEDS: COLACE PO SCH (08:48)
[2018-04-06] MEDS: ASPIRIN PO SCH (08:48)
[2018-04-06] MEDS: PLAVIX PO SCH (08:48)
[2018-04-06] MEDS: LEVAQUIN 750 MG/D5W 750 MG/150 ML IVPB IV SCH (08:48)
[2018-04-06] MEDS: NEURONTIN PO SCH ×3 (08:49→20:51)
[2018-04-06] MEDS: APRESOLINE PO SCH ×3 (08:49→17:15)
[2018-04-06] MEDS: CYMBALTA PO SCH (08:49)
[2018-04-06] MEDS: THERA M PLUS PO SCH (08:50)
[2018-04-06] MEDS: ZOLOFT PO SCH (08:50)
[2018-04-06] MEDS: COREG PO SCH ×2 (08:50→20:52)
[2018-04-06] MEDS: PRINIVIL PO SCH (08:51)
[2018-04-06] MEDS: MUCINEX DM PO SCH ×2 (08:51→20:52)
[2018-04-06] MEDS: TEGRETOL PO SCH ×3 (08:52→22:32)
[2018-04-06] MEDS: ADVAIR 250/50 DISKUS INH SCH ×2 (11:52→21:50)
--- NOTE | 2018-04-06 13:08 | Diag Imaging Result Doc PS360 ---
CHEST-1 VIEW - 04/06/2018 INDICATION: SOB COMPARISON: 04/05/2018 FINDINGS: Stable pacemaker. Stable severe cardiomegaly and pulmonary vascular congestion. There is increase in size and density of a focal infiltrate in the right lung base. No pneumothorax or large pleural effusion. IMPRESSION: Increasing infiltrate in the right lung base. Electronically signed by Ru Chen 04/06/2018 1:06 PM
[2018-04-06] MEDS: NORVASC PO SCH (20:51)
[2018-04-06] MEDS: ZOCOR PO SCH (20:52)
[2018-04-06] MEDS ORDERED: LASIX IV SCH (22:15)
[2018-04-06] MEDS: NS 1,000 ML IV SCH (23:49)
[2018-04-07] MEDS: SOLU-MEDROL IV SCH ×3 (01:32→16:01)
[2018-04-07] MEDS: DUONEB (A & A) INH SCH ×4 (03:28→22:09)
[2018-04-07 04:17] LABS: ALLEN TEST YES; BLOOD TYPE ARTERIAL; HCO3-(ACT) 31.8 mmoll (20.0-26.0); METHB 1.3 % (0.0-1.5); O2HB 92.5 % (95.0-99.0); PO2(98.6) 65 mmHg (60-100); SAMPLE BLOOD; SAO2 95.2 % (95.0-100.0); THB 11.5 g/dL (11.5-17.4); pH(98.6) 7.42 (7.35-7.45)
[2018-04-07 04:18] LABS: MODALITY VENTIMASK
[2018-04-07 04:20] LABS: PCO2(98.6) 54 mmHg (35-45)
[2018-04-07] MEDS: LASIX IV SCH ×3 (05:53→21:30)
[2018-04-07 06:00] LABS: AGAP 11; BUN 30 mg/dL (8-22); CALCIUM 9.2 mg/dL (8.8-10.2); CHLORIDE 97 mmol/L (98-107); COSMO 283; CREATININE 0.9 mg/dL (0.7-1.2); ESTIMATED GFR > 60; GLUCOSE 124 mg/dL (70-104); MAGNESIUM 1.6 mg/dL (1.5-2.7); SODIUM 138 mmol/L (136-145); TCO2 30 mmol/L (25-35)
[2018-04-07] MEDS: SYNTHROID PO SCH (06:42)
[2018-04-07] MEDS: PROTONIX PO SCH (06:42)
--- NOTE | 2018-04-07 08:50 | PROGRESS NOTE ---
DATE: 04/07/2018 SUBJECTIVE: Mr. Burch seems like he is moving air better. He seems to feel like he is breathing better. He is a little stronger. The chest x-ray shows a little more density in the left middle and left lower lung. OBJECTIVE: Vital Signs: Temperature 97.5 degrees, pulse 66, respirations 16, blood pressure 195/79. Blood pressure is still fluctuating from 145 to 195 over 55 to 82. HEENT: Pupils are equal. Neck: No distended neck veins. Lungs: Scattered rhonchi on the left side. No wheezing today. He was using BiPAP last night. Abdomen: Soft. Skin: Warm and dry. DIAGNOSTIC STUDIES: Chest x-ray: Increasing infiltrate in the right lung base. It looks like there is increased haziness in the left as well. ASSESSMENT AND PLAN: 1. I am going to expand his antibiotics, continue his bronchodilators and steroid dilators, and continue to use BiPAP as needed. 2. Hypertension. Blood pressure still seems to go above 170s to 180s. Suspicious of possible renal artery disease. I will go up on the Apresoline to 50 mg p.o. t.i.d. and continue to diurese. He is on Lasix 40 mg intravenously q.12. Creatinine is 0.9. Electrolytes look good. 3. History of coronary artery disease. Aware. 4. He was having some bronchospasm and bronchial irritation. That seems to be a little better. 5. He is eating pretty good. 6. General weakness and deconditioning. We need to have physical therapy ordered and need to keep working on his strength. cc: Junior Berrios MD
[2018-04-07] MEDS: ZOSYN 3.375 GM in NS 50 ML IV SCH ×3 (09:33→21:24)
--- NOTE | 2018-04-07 10:00 | Diag Imaging Result Doc PS360 ---
CHEST-PORTABLE - 04/07/2018 INDICATION: pulmonary HTN COMPARISON: 04/06/2018 FINDINGS: Stable pacemaker. Stable significant cardiomegaly and pulmonary vascular congestion. There has been improvement in the right basilar infiltrate or atelectasis. There is worsening left perihilar infiltrate or atelectasis. No large pleural effusion. IMPRESSION: Mixed changes, with overall little change from prior. Likely representing shifting atelectasis. Electronically signed by Ru Chen 04/07/2018 9:58 AM
[2018-04-07] MEDS: LEVAQUIN 750 MG/D5W 750 MG/150 ML IVPB IV SCH (10:09)
[2018-04-07] MEDS: ADVAIR 250/50 DISKUS INH SCH ×2 (10:09→22:09)
[2018-04-07] MEDS: NICODERM PATCH TD SCH (10:12)
[2018-04-07] MEDS: PLAVIX PO SCH (10:12)
[2018-04-07] MEDS: COLACE PO SCH (10:12)
[2018-04-07] MEDS: ASPIRIN PO SCH (10:12)
[2018-04-07] MEDS: CYMBALTA PO SCH (10:12)
[2018-04-07] MEDS: PRINIVIL PO SCH (10:12)
[2018-04-07] MEDS: COREG PO SCH ×2 (10:12→21:27)
[2018-04-07] MEDS: THERA M PLUS PO SCH (10:12)
[2018-04-07] MEDS: APRESOLINE PO SCH ×3 (10:13→21:29)
[2018-04-07] MEDS: ZOLOFT PO SCH (10:13)
[2018-04-07] MEDS: MUCINEX DM PO SCH ×2 (10:13→21:31)
[2018-04-07] MEDS: TEGRETOL PO SCH ×3 (10:13→21:28)
[2018-04-07] MEDS: NEURONTIN PO SCH ×3 (10:13→21:28)
[2018-04-07] MEDS: NS 1,000 ML IV SCH ×2 (11:09→21:23)
[2018-04-07] MEDS: ZOCOR PO SCH (21:29)
[2018-04-07] MEDS: NORVASC PO SCH (21:29)
[2018-04-08] MEDS: SOLU-MEDROL IV SCH ×3 (01:27→15:57)
[2018-04-08] MEDS: ZOSYN 3.375 GM in NS 50 ML IV SCH ×4 (01:30→21:40)
[2018-04-08] MEDS: DUONEB (A & A) INH SCH ×4 (03:03→21:22)
[2018-04-08 03:56] LABS: ALLEN TEST YES; BE 12.5 mmoll (-3.0-3.0); BLOOD TYPE ARTERIAL; HCO3-(ACT) 34.5 mmoll (20.0-26.0); METHB 0.9 % (0.0-1.5); O2(CT) 15.7 mL/dL (15.0-23.0); O2HB 91.5 % (95.0-99.0); PO2(98.6) 64 mmHg (60-100); SAMPLE BLOOD; SAO2 93.5 % (95.0-100.0); THB 12.2 g/dL (11.5-17.4); pH(98.6) 7.46 (7.35-7.45)
[2018-04-08 04:06] LABS: MODALITY BI PAP; PCO2(98.6) 54 mmHg (35-45)
[2018-04-08] MEDS: PROTONIX PO SCH (06:34)
[2018-04-08] MEDS: SYNTHROID PO SCH (06:34)
--- NOTE | 2018-04-08 07:13 | Diag Imaging Result Doc PS360 ---
CHEST-1 VIEW - 04/08/2018 INDICATION: SOB COMPARISON: 04/07/2018 FINDINGS: Stable pacemaker. Stable significant cardiomegaly and pulmonary vascular congestion. Stable infiltrate or collapse in the retrocardiac left lower lobe. There has been significant improvement in the left perihilar infiltrate. There are probably small pleural effusions. IMPRESSION: Improvement in the left perihilar infiltrate. Other findings are stable. Electronically signed by Ru Chen 04/08/2018 7:11 AM
[2018-04-08] MEDS: NICODERM PATCH TD SCH (08:29)
[2018-04-08] MEDS: COLACE PO SCH (08:31)
[2018-04-08] MEDS: THERA M PLUS PO SCH (08:31)
[2018-04-08] MEDS: MUCINEX DM PO SCH ×2 (08:31→21:41)
[2018-04-08] MEDS: PLAVIX PO SCH (08:31)
[2018-04-08] MEDS: NEURONTIN PO SCH ×3 (08:32→21:41)
[2018-04-08] MEDS: PRINIVIL PO SCH (08:32)
[2018-04-08] MEDS: CYMBALTA PO SCH (08:33)
[2018-04-08] MEDS: COREG PO SCH ×2 (08:33→21:41)
[2018-04-08] MEDS: ZOLOFT PO SCH (08:34)
[2018-04-08] MEDS: ASPIRIN PO SCH (08:34)
[2018-04-08] MEDS: TEGRETOL PO SCH ×3 (08:34→21:41)
[2018-04-08] MEDS: APRESOLINE PO SCH ×2 (08:35→12:35)
[2018-04-08] MEDS: LEVAQUIN 750 MG/D5W 750 MG/150 ML IVPB IV SCH (08:39)
--- NOTE | 2018-04-08 08:42 | PROGRESS NOTE ---
DATE: 04/08/2018 SUBJECTIVE: Seems to be breathing better. Seems to be getting a little stronger, but very slowly. OBJECTIVE: Vital Signs: Temperature 98.3 degrees, pulse 67, respirations 20, blood pressure 139/89. Eyes: Pupils are equal and round. Lungs: Clear in all lung katz anterolateral. Cardiovascular exam: Regular rhythm and rate without murmur or S3. Abdomen: Soft. Skin: Warm and dry. IMAGING STUDIES: Note, x-ray improvement in left perihilar infiltrate. ASSESSMENT AND PLAN: 1. Pneumonia and bronchial irritation. Continue present treatment with antibiotics, bronchodilators. I had changed his antibiotics yesterday. Added to his Levaquin 750 mg 24 hours. I added Zosyn 3.375 grams intravenous every 6 hours. 2. Sporadic blood pressure with hypertension that seems to be better. I increased his hydralazine. 3. General weakness and deconditioning. Continue to work on physical therapy. 4. History of coronary artery disease. No sign of active ischemia. He is still requiring some BiPAP and supplemental O2. Hopefully this is going to improve. My thoughts were possible flash edema, but also possible renal artery disease the way his blood pressure has bounced around. Continue to adjust medications. I think we are making progress. He may need to go to rehab for awhile. cc: Junior Berrios MD
[2018-04-08] MEDS: ADVAIR 250/50 DISKUS INH SCH ×2 (09:42→21:22)
[2018-04-08] MEDS: LASIX IV SCH ×2 (12:15→21:40)
[2018-04-08] MEDS: ZOCOR PO SCH (21:41)
[2018-04-08] MEDS: NORVASC PO SCH (21:42)
[2018-04-09] MEDS: NS 1,000 ML IV SCH ×2 (01:59→09:31)
[2018-04-09] MEDS: SOLU-MEDROL IV SCH ×3 (01:59→16:19)
[2018-04-09] MEDS: ZOSYN 3.375 GM in NS 50 ML IV SCH ×4 (01:59→21:36)
[2018-04-09] MEDS: DUONEB (A & A) INH SCH ×5 (03:39→23:01)
[2018-04-09 04:24] LABS: ALLEN TEST YES; BE 10.5 mmoll (-3.0-3.0); BLOOD TYPE ARTERIAL; METHB 1.1 % (0.0-1.5); O2(CT) 17.7 mL/dL (15.0-23.0); O2HB 93.7 % (95.0-99.0); PCO2(98.6) 45 mmHg (35-45); PO2(98.6) 72 mmHg (60-100); SAMPLE BLOOD; SAO2 95.9 % (95.0-100.0); THB 13.4 g/dL (11.5-17.4)
[2018-04-09 04:25] LABS: MODALITY BI PAP
[2018-04-09] MEDS: PROTONIX PO SCH ×2 (05:40→06:28)
[2018-04-09] MEDS: SYNTHROID PO SCH (05:41)
--- NOTE | 2018-04-09 07:40 | Diag Imaging Result Doc PS360 ---
CHEST-1 VIEW - 04/09/2018 INDICATION: SOB COMPARISON: 04/08/2018 FINDINGS: Stable pacemaker. Stable severe cardiomegaly and pulmonary vascular congestion. Stable fine interstitial pulmonary edema. No new infiltrates. No large pleural effusion. IMPRESSION: No change from prior. Electronically signed by Ru Chen 04/09/2018 7:37 AM
--- NOTE | 2018-04-09 08:17 | PROGRESS NOTE ---
DATE: 04/09/2018 SUBJECTIVE: This patient is complaining of generalized weakness and shortness of breath. As per the patient, he did not have a good night because he has been coughing a lot. He is having a lot off green phlegm. OBJECTIVE: Vital Signs: Temperature 98 degrees, pulse 61, respiratory rate 18, blood pressure 131/53, oxygen saturation 94% on nasal cannula. HEENT: Head normocephalic. No trauma. PERRLA. Neck: Supple. No JVD. No masses. Central trachea. Chest: Coarse breath sounds bilaterally with crackles at the bases and some rhonchi. Abdomen: Soft, nontender, nondistended. No hepatosplenomegaly. Extremities: No edema. No clubbing. No cyanosis. Neurological: The patient is alert and oriented x3. No focal neurological deficits. LABORATORY: Pending CBC and CMP. pCO2 45, pO2 72. ASSESSMENT AND PLAN: 1. Hypoxemic respiratory failure likely secondary to bilateral lower lobe pneumonia. We will continue with antibiotics. No fever has been reported since admission. He is getting Zosyn and also, he is getting levofloxacin. This patient used to be a smoker, and there is a possibility of underlying COPD, but has never been diagnosed. He has been placed on breathing treatment and steroids, which I will continue for today, and I will start decreasing the dose slowly. 2. Bilateral lower lobe pneumonia. 3. Continue with antibiotics as per #1. 4. Hypertension, controlled. 5. History of coronary artery disease. No chest pain at this moment. No signs of ischemic heart disease, currently. 6. Hypothyroidism. I will continue with levothyroxine. 7. Nicotine dependence. As per the patient, he stopped smoking a year ago. This patient has been highly advised against tobacco use, and I will continue with daily cessation education. 8. Gastrointestinal prophylaxis with Protonix. 9. Deep vein thrombosis prophylaxis with sequential compression devices. cc: Jevon Hobson MD
[2018-04-09 08:24] LABS: BASO# 0.02 X1000 (0.0-0.2); BASO% 0.1 % (0.0-0.8); EOS# 0.03 X1000 (0.0-0.7); EOS% 0.2 % (0.0-10.0); HEMATOCRIT 37.1 % (42.0-52.0); IMM GRAN# 0.51 X1000 (0.0-0.04); IMM GRAN% 2.7 % (0.0-0.5); LYMPH# 2.13 X1000 (1.2-3.4); LYMPH% 11.2 % (20.5-51.1); MCH 29.4 PG (27-31); MCHC 32.3 g/dL (33-37); MCV 90.9 FL (81-99); MONO# 1.02 X1000 (0.11-0.59); MONO% 5.4 % (1.7-9.3); MPV 8.5 FL (7.4-10.4); NEUT# 15.23 X1000 (1.4-6.5); NEUT% 80.4 % (42.2-75.2); PLT 508 X1000 (130-400); RBC 4.08 XMIL (4.7-6.1); WBC 18.94 X1000 (4.8-10.8)
[2018-04-09 08:45] LABS: LYMPHS 13 % (21-51); MONO 3 % (1-9); SEGS 84 % (42-75)
[2018-04-09 08:46] LABS: AGAP 12; ALB/GLOB RATIO 0.9; ALBUMIN 3.2 g/dL (3.5-5.0); ALKALINE PHOSPHATASE 96 U/L (32-122); BUN 23 mg/dL (8-22); CALCIUM 8.8 mg/dL (8.8-10.2); CHLORIDE 95 mmol/L (98-107); COSMO 281; CREATININE 0.9 mg/dL (0.7-1.2); ESTIMATED GFR > 60; GLUCOSE 129 mg/dL (70-104); GOT 17 U/L (10-34); GPT 37 U/L (10-44); POTASSIUM 4.2 mmol/L (3.5-5.1); SODIUM 138 mmol/L (136-145); TCO2 31 mmol/L (25-35); TOTAL BILIRUBIN 0.24 mg/dL (0.20-1.00); TOTAL PROTEIN 6.9 g/dL (6.3-8.3)
[2018-04-09] MEDS: CYMBALTA PO SCH (09:28)
[2018-04-09] MEDS: COLACE PO SCH (09:28)
[2018-04-09] MEDS: COREG PO SCH ×2 (09:28→21:37)
[2018-04-09] MEDS: ASPIRIN PO SCH (09:28)
[2018-04-09] MEDS: PLAVIX PO SCH (09:29)
[2018-04-09] MEDS: THERA M PLUS PO SCH (09:29)
[2018-04-09] MEDS: APRESOLINE PO SCH ×3 (09:29→16:28)
[2018-04-09] MEDS: NEURONTIN PO SCH ×3 (09:29→21:37)
[2018-04-09] MEDS: NICODERM PATCH TD SCH (09:29)
[2018-04-09] MEDS: TEGRETOL PO SCH ×3 (09:29→21:37)
[2018-04-09] MEDS: PRINIVIL PO SCH (09:29)
[2018-04-09] MEDS: LEVAQUIN 750 MG/D5W 750 MG/150 ML IVPB IV SCH (09:30)
[2018-04-09] MEDS: MUCINEX DM PO SCH ×2 (09:30→21:37)
[2018-04-09] MEDS: ZOLOFT PO SCH (09:31)
[2018-04-09] MEDS: LASIX IV SCH ×2 (09:31→21:37)
[2018-04-09] MEDS: ADVAIR 250/50 DISKUS INH SCH ×2 (11:27→19:04)
[2018-04-09] MEDS: ZOCOR PO SCH (21:37)
[2018-04-09] MEDS: NORVASC PO SCH (21:37)
[2018-04-10] MEDS: SOLU-MEDROL IV SCH ×4 (01:35→23:41)
[2018-04-10] MEDS: ZOSYN 3.375 GM in NS 50 ML IV SCH ×2 (01:35→08:07)
[2018-04-10] MEDS: DUONEB (A & A) INH SCH ×6 (03:26→23:16)
[2018-04-10 04:44] LABS: ALLEN TEST YES; BE 10.5 mmoll (-3.0-3.0); BLOOD TYPE ARTERIAL; O2(CT) 18.9 mL/dL (15.0-23.0); O2HB 93.3 % (95.0-99.0); PO2(98.6) 73 mmHg (60-100); SAMPLE BLOOD; SAO2 95.3 % (95.0-100.0); THB 14.4 g/dL (11.5-17.4); pH(98.6) 7.46 (7.35-7.45)
[2018-04-10 05:03] LABS: MODALITY CANNULA; PCO2(98.6) 51 mmHg (35-45)
[2018-04-10 05:39] LABS: BASO# 0.03 X1000 (0.0-0.2); BASO% 0.2 % (0.0-0.8); EOS# 0.04 X1000 (0.0-0.7); EOS% 0.2 % (0.0-10.0); HEMATOCRIT 38.7 % (42.0-52.0); HEMOGLOBIN 12.8 g/dL (14.0-18.0); IMM GRAN# 0.49 X1000 (0.0-0.04); IMM GRAN% 2.8 % (0.0-0.5); LYMPH# 1.75 X1000 (1.2-3.4); LYMPH% 10.1 % (20.5-51.1); MCH 29.8 PG (27-31); MCHC 33.1 g/dL (33-37); MCV 90.2 FL (81-99); MONO# 0.56 X1000 (0.11-0.59); MONO% 3.2 % (1.7-9.3); MPV 8.1 FL (7.4-10.4); NEUT# 14.51 X1000 (1.4-6.5); NEUT% 83.5 % (42.2-75.2); PLT 499 X1000 (130-400); RBC 4.29 XMIL (4.7-6.1); RDW 13.1 % (11.5-14.5); WBC 17.38 X1000 (4.8-10.8)
[2018-04-10 05:40] LABS: AGAP 11; BUN 28 mg/dL (8-22); CALCIUM 9.1 mg/dL (8.8-10.2); CHLORIDE 95 mmol/L (98-107); COSMO 282; ESTIMATED GFR > 60; GLUCOSE 145 mg/dL (70-104); SODIUM 137 mmol/L (136-145); TCO2 31 mmol/L (25-35)
[2018-04-10] MEDS: PROTONIX PO SCH ×2 (05:45→06:05)
[2018-04-10] MEDS: SYNTHROID PO SCH (05:45)
--- NOTE | 2018-04-10 07:55 | Diag Imaging Result Doc PS360 ---
EXAM: CHEST-1 VIEW 04/10/2018 HISTORY: SOB TECHNIQUE: AP portable at 0540 COMMENT: There is cardiomegaly. There are multiple old rib fractures, particularly on the left. There is some retrocardiac opacity on both sides which has not changed since the previous study. Otherwise, there is no evidence of focal opacity. IMPRESSION: Cardiomegaly. Questionable atelectasis versus pneumonia both lower lobes. Electronically signed by Mika Graham 04/10/2018 7:53 AM
[2018-04-10] MEDS: MUCINEX DM PO SCH ×2 (08:11→21:45)
[2018-04-10] MEDS: NICODERM PATCH TD SCH (08:11)
[2018-04-10] MEDS: TEGRETOL PO SCH ×3 (08:12→21:45)
[2018-04-10] MEDS: CYMBALTA PO SCH (08:12)
[2018-04-10] MEDS: PRINIVIL PO SCH (08:12)
[2018-04-10] MEDS: NEURONTIN PO SCH ×3 (08:13→21:45)
[2018-04-10] MEDS: COREG PO SCH ×2 (08:13→21:45)
[2018-04-10] MEDS: ZOLOFT PO SCH (08:13)
[2018-04-10] MEDS: ASPIRIN PO SCH (08:14)
[2018-04-10] MEDS: PLAVIX PO SCH (08:14)
[2018-04-10] MEDS: THERA M PLUS PO SCH (08:14)
[2018-04-10] MEDS: COLACE PO SCH (08:14)
[2018-04-10] MEDS: APRESOLINE PO SCH ×4 (08:15→16:19)
[2018-04-10] MEDS: LEVAQUIN 750 MG/D5W 750 MG/150 ML IVPB IV SCH (08:42)
--- NOTE | 2018-04-10 10:39 | PROGRESS NOTE ---
DATE: 04/10/2018 SUBJECTIVE: This patient feels a little bit better compared with yesterday. He is still coughing up a lot of green phlegm. I have requested an evaluation by the infectious disease department since he still seems to be coughing up a lot of phlegm and the white blood cells are still elevated. It looks like he spent the night without using the BiPAP machine and the oxygen saturation has been stable with only nasal cannula. We will continue with the same treatment. I have requested an evaluation by occupational therapy and physical therapy. This patient seems to be very weak. OBJECTIVE: Vital Signs: Temperature 96.8 degrees, pulse 65, respiratory rate 17, blood pressure 128/63, oxygen saturation 95% on 5 L of nasal cannula. HEENT: Head normocephalic. No trauma. PERRLA. Neck: Supple. No JVD. No masses. Central trachea. Chest: Coarse breath sounds bilaterally with rhonchi, mostly at the bases. Abdomen: Soft, nontender, nondistended. No hepatosplenomegaly. Extremities: No edema. No clubbing. No cyanosis. Neurological Examination: The patient is alert and oriented x3. No focal neurological deficits. Laboratory: WBCs 17.3, hemoglobin 12.8, hematocrit 38.7, platelets 499,000. Sodium 137, potassium 4, chloride 95, bicarbonate 31, BUN 28, creatinine 1, glucose 145, calcium 9.1. PCO2 51. ASSESSMENT AND PLAN: 1. Hypoxemic and hypercapnic respiratory failure secondary to bilateral lower lobe pneumonia. I will continue with antibiotics. I have requested an evaluation by infectious disease department. He is getting Zosyn and levofloxacin. This patient used to be a smoker and there is a possibility of underlying chronic obstructive pulmonary disease but he has never been diagnosed. He has been placed on breathing treatments, steroids which I have decreased, and I will continue decreasing the dose slowly. 2. Bilateral lower lobe pneumonia. As above. 3. Hypertension, controlled. 4. Leukocytosis, likely a combination of pneumonia and steroids. I have decreased the dose of the steroids today. 5. History of coronary artery disease. No chest pain at this moment. No signs of ischemic heart disease currently. 6. Hypothyroidism. Continue with levothyroxine. 7. Nicotine dependence. Apparently, this patient already stopped smoking, I believe a year ago. This patient has been highly advised against tobacco use. I will continue with cessation education on a daily basis. 8. Gastrointestinal prophylaxis with Protonix. 9. Deep vein thrombosis prophylaxis with sequential compression devices. 10. Physical deconditioning and generalized weakness. I have requested an evaluation by physical therapy again and occupational therapy. Likely, this patient will be discharged to a rehabilitation facility/long-term care once he is better. cc: Jevon Hobson MD
[2018-04-10] MEDS ORDERED: LASIX PO ONE (10:53)
[2018-04-10] MEDS: ADVAIR 250/50 DISKUS INH SCH ×2 (11:44→19:01)
[2018-04-10] MEDS ORDERED: LASIX IV ONE (14:41)
[2018-04-10] MEDS: NS 1,000 ML IV SCH (14:51)
--- NOTE | 2018-04-10 15:57 | INFECTIOUS DISEASE CONSULT REP ---
DATE: 04/10/2018 CONCLUSION: The patient was sent from [facility] with possible pneumonia. There may be bibasilar infiltrates suggestive of pneumonia on the patient's x-ray. Against this patient having pneumonia is the fact that his procalcitonin was only 0.11. RECOMMENDATIONS: I have discontinued Levaquin and Zosyn, and I placed the patient on ceftaroline. DISCUSSION: The patient is very hard of hearing. I was unable to get any history from him. The history I did get was from the computer. He was in [facility] where he was given antibiotics for presumed pneumonia. It got worse with increased cough and increased general malaise, and was transferred to [facility]. The patient is very hard of hearing. PAST MEDICAL HISTORY: Positive for hypertension, hypothyroidism, coronary artery disease, peripheral neuropathy, hyperlipidemia. FAMILY HISTORY: Positive for coronary artery disease. SOCIAL HISTORY: The patient has a history of smoking cigarettes and no history of illicit drug use or alcoholism. REVIEW OF SYSTEMS: Unable to be obtained. PHYSICAL EXAMINATION: Vital Signs: Temperature is 97.2, pulse 60, respirations 19, blood pressure 151/48. The patient is 6 feet 2 inches tall, weighs 233 pounds. General: This is an obese, elderly male. He is in no acute distress. Head, Eyes, Ears, Nose and Throat: He has decreased hearing. There is no drainage from the nose or ears. The patient's tongue does not have any white patches on it. He is very hard of hearing. Neck: No stiffness. Thorax: Increased AP diameter of the chest. Lungs: Clear to auscultation. Cardiovascular: Heart rate was regular. Abdomen: Soft, without masses or tenderness. Extremities: There was bilateral leg edema, but no erythema. LABORATORY STUDIES: The patient's CBC shows a white count of 17,380, hemoglobin 12.8 and platelet count 499,000. Creatinine is 1. GFR is greater than 60. Stool was negative for Clostridium difficile toxin and antigen. The influenza screen was negative. Chest x-ray shows bilateral atelectasis versus pneumonia. Thank you for the consult. cc: Javier Alamo MD
[2018-04-10] MEDS: TEFLARO 600 MG in NS 250 ML IV SCH (16:19)
[2018-04-10] MEDS: ZOCOR PO SCH (21:45)
[2018-04-10] MEDS: NORVASC PO SCH (21:45)
[2018-04-11] MEDS: TEFLARO 600 MG in NS 250 ML IV SCH ×2 (03:27→15:10)
[2018-04-11] MEDS: DUONEB (A & A) INH SCH ×6 (03:39→23:10)
[2018-04-11 05:26] LABS: BASO# 0.03 X1000 (0.0-0.2); BASO% 0.2 % (0.0-0.8); EOS# 0.04 X1000 (0.0-0.7); EOS% 0.2 % (0.0-10.0); HEMATOCRIT 39.9 % (42.0-52.0); IMM GRAN# 0.48 X1000 (0.0-0.04); IMM GRAN% 2.9 % (0.0-0.5); LYMPH% 13.1 % (20.5-51.1); MCH 29.5 PG (27-31); MCHC 32.6 g/dL (33-37); MCV 90.7 FL (81-99); MONO# 1.04 X1000 (0.11-0.59); MONO% 6.2 % (1.7-9.3); MPV 8.2 FL (7.4-10.4); NEUT# 12.98 X1000 (1.4-6.5); NEUT% 77.4 % (42.2-75.2); PLT 475 X1000 (130-400); RDW 13.4 % (11.5-14.5); WBC 16.77 X1000 (4.8-10.8)
[2018-04-11] MEDS: SYNTHROID PO SCH (05:41)
[2018-04-11] MEDS: PROTONIX PO SCH ×2 (05:42→06:29)
[2018-04-11 05:55] LABS: AGAP 13; BUN 32 mg/dL (8-22); CHLORIDE 94 mmol/L (98-107); COSMO 282; ESTIMATED GFR > 60; GLUCOSE 122 mg/dL (70-104); POTASSIUM 3.8 mmol/L (3.5-5.1); SODIUM 137 mmol/L (136-145); TCO2 30 mmol/L (25-35)
--- NOTE | 2018-04-11 07:42 | INFECTIOUS DISEASE PROGRESS NO ---
DATE: 04/11/2018 PRESENT ILLNESS: The patient may have a bibasilar pneumonia. In his favor that he does have a bibasilar pneumonia is the fact that the patient has a leukocytosis. Against the fact that he has pneumonia is that his procalcitonin is 0.11. MEDICATIONS: The patient is on ceftaroline. This is day 1 of treatment with it. PHYSICAL EXAMINATION: Vital Signs: Temperature is 98.4 degrees, pulse 60, respirations 14, blood pressure 118/54. General: This is an ill-appearing, obese, elderly male. He is in no acute distress. Head/eyes/ears/nose/throat: He has a BiPAP mask on. There is no drainage from his nose or the ears. Neck: No meningismus. Lungs: There were some expiratory rales bilaterally. Cardiovascular: Heart rate is regular. Abdomen: Soft and nontender. Neurologic: The patient currently is sleeping. He does not have a tremor. Integument: No rash noted. MEDICATIONS: This is day 1 of treatment with ceftaroline. LAB AND X-RAY: Chest x-ray shows bibasilar left and right pneumonia versus atelectasis. Creatinine is 1. GFR is greater than 60. [place] [address], hemoglobin 13, platelet count is 475,000. PHYSICAL EXAMINATION: Temperature is 98.4 degrees, pulse 60, respirations 14, blood pressure 118/54.GENERAL: This is an obese, elderly male. He does not appear to be in any acute distress, although he does have some audible expiratory wheezes. Head, Eyes, Ears, Nose, and throat: No drainage noted from the nose or the ears. Neck: Not stiff. Lungs: The patient had some distant breath sounds that appeared clear with the stethoscope, but hearing just with the ear and not the stethoscope that there were times the patient appeared to be having wheezes. Abdomen: Soft and nontender Neurologic: The patient is sleeping. There is no tremor. Integument: No rash. LAB AND X-RAY: A procalcitonin is 0.11. Chest x-ray shows bibasilar left and right pneumonias versus atelectasis. Creatinine is 1. GFR is greater than 60. [place] [address]. Hemoglobin 13 and platelet count 475,000. ASSESSMENT AND PLAN: The patient may have a bibasilar pneumonia. I am going to continue his ceftaroline as it appears that he is getting somewhat better. COMORBIDITIES: He is elderly and has other diseases such as hypertension, coronary artery disease, peripheral neuropathy and hyperlipidemia. The patient also has a history of smoking cigarettes. cc: Javier Alamo MD
[2018-04-11] MEDS: ADVAIR 250/50 DISKUS INH SCH ×2 (08:00→19:18)
[2018-04-11] MEDS ORDERED: LASIX PO SCH (09:00)
[2018-04-11] MEDS: MUCINEX DM PO SCH ×2 (09:03→20:13)
[2018-04-11] MEDS: SOLU-MEDROL IV SCH ×2 (09:03→20:13)
[2018-04-11] MEDS: ZOLOFT PO SCH (09:03)
[2018-04-11] MEDS: NICODERM PATCH TD SCH (09:03)
[2018-04-11] MEDS: COLACE PO SCH (09:03)
[2018-04-11] MEDS: PRINIVIL PO SCH (09:04)
[2018-04-11] MEDS: THERA M PLUS PO SCH (09:04)
[2018-04-11] MEDS: APRESOLINE PO SCH ×3 (09:04→17:57)
[2018-04-11] MEDS: COREG PO SCH ×2 (09:04→20:12)
[2018-04-11] MEDS: PLAVIX PO SCH (09:04)
[2018-04-11] MEDS: ASPIRIN PO SCH (09:04)
[2018-04-11] MEDS: CYMBALTA PO SCH (09:04)
[2018-04-11] MEDS: TEGRETOL PO SCH ×3 (09:04→20:12)
[2018-04-11] MEDS: NS 1,000 ML IV SCH (09:05)
[2018-04-11] MEDS: NEURONTIN PO SCH ×3 (09:05→20:13)
--- NOTE | 2018-04-11 10:39 | PROGRESS NOTE ---
DATE: 04/11/2018 SUBJECTIVE: This patient seems to be doing better today. So far, his balance has been 20 L negative. I have stopped the furosemide IV and I put him on p.o. Usually he takes once a day at home, but I will put him on twice a day to see how he does. Since admission he has been getting IV 40 twice a day, and the kidney function has been stable. OBJECTIVE: Vital Signs: Temperature 97.5 degrees, pulse 64, respiratory rate 12, blood pressure 133/54, oxygen saturation 96 on 5 L of nasal cannula. HEENT: Head normocephalic. No trauma. PERRLA. Neck: Supple. No JVD. No masses. Central trachea. Chest: Coarse breath sounds bilaterally with rhonchi mostly at the bases. Abdomen: Soft, nontender, nondistended. No hepatosplenomegaly. Extremities: No edema. No clubbing. No cyanosis. Neurological examination: This patient is alert. He is oriented x3. He is hard of hearing. No neurological or focal deficits. LABORATORY: WBC 16.7, hemoglobin 13, hematocrit 39.9, platelets 475. Sodium 137, potassium 3.8, chloride 94, bicarbonate 30. BUN 32, creatinine 1, glucose 122, calcium 9. ProBNP 886 and upon admission was 3122. ASSESSMENT AND PLAN: 1. Hypoxemic and hypercapnic respiratory failure secondary to bilateral lower lobe pneumonia. Probably this patient also has an underlying chronic obstructive pulmonary disease, but it has been never diagnosed. Infectious Disease Department and Pulmonary Department following this patient. We will continue with antibiotics, breathing treatment and BiPAP on and off. 2. Bilateral lower lobe pneumonia, as above. 3. Hypertension, controlled. 4. Leukocytosis likely a combination of pneumonia and steroids, which I have decreased from 40 mg intravenous every 8 hours to 20 mg intravenous every 8 hours yesterday. Today, I will go ahead and put it every 12 hours. 5. History of coronary artery disease. No chest pain at this moment. 6. Hypothyroidism. Continue levothyroxine. 7. Nicotine dependence. Apparently this patient already stopped smoking I believe a year ago. I will continue with daily cessation education. 8. Gastrointestinal prophylaxis with Protonix. 9. Deep vein thrombosis prophylaxis with sequential compression devices. 10. Physical deconditioning and generalized weakness. As per the patient, he has not been walking for about 10 months; he has been using a wheelchair, I have requested an evaluation by physical therapy, occupational therapy to see how he does. cc: Jevon Hobson MD
--- NOTE | 2018-04-11 16:24 | PULMONOLOGY PROGRESS NOTE ---
DATE: 04/11/2018 SUBJECTIVE: The patient is awake and alert. He reports that he feels better. He has a cough productive of grossly purulent sputum. OBJECTIVE: Vital Signs: The patient has been afebrile for the last 24 hours. BP is 148/71, heart rate 65, respiratory rate 17, and oxygen saturation 96% on nasal cannula. HEENT: Pupils are equal and reactive. Oropharynx is clear. Neck: Supple. Respiratory: Chest reveals a prolonged expiratory phase with coarse rhonchi. Cardiac: S1, S2. Abdomen: The abdomen is soft without hepatosplenomegaly. Extremities: The extremities are without edema. LABORATORIES: White blood count is 16.77, hemoglobin 13, and platelet count 475,000. Sodium is 137, potassium 3.8, chloride 94, bicarbonate 30, BUN 32, and creatinine 1. Chest x-ray yesterday revealed bibasilar infiltrates and cardiomegaly. Microbiology preliminary culture reveals normal yoselin. IMPRESSION: An 88-year-old with grossly purulent sputum, bibasilar pneumonia, leukocytosis, chronic hypercapnic respiratory failure, and acute hypoxemic respiratory failure. RECOMMENDATIONS: 1. Continue oxygen for hypoxemic respiratory failure. 2. Continue bronchodilators and bronchial hygiene. 3. Continue antibiotics under the direction of Dr. Javier Alamo. cc: Vance Keene MD
[2018-04-11] MEDS: ZOCOR PO SCH (20:13)
[2018-04-11] MEDS: NORVASC PO SCH (20:13)
[2018-04-11] MEDS: LASIX PO SCH (20:13)
[2018-04-12] MEDS: DUONEB (A & A) INH SCH ×6 (03:22→23:20)
[2018-04-12] MEDS: TEFLARO 600 MG in NS 250 ML IV SCH ×2 (04:57→15:52)
[2018-04-12 05:31] LABS: ALLEN TEST YES; BE 5.7 mmoll (-3.0-3.0); BLOOD TYPE ARTERIAL; HCO3-(ACT) 29.2 mmoll (20.0-26.0); METHB 0.9 % (0.0-1.5); O2(CT) 18.6 mL/dL (15.0-23.0); O2HB 90.5 % (95.0-99.0); PO2(98.6) 61 mmHg (60-100); SAMPLE BLOOD; SAO2 92.2 % (95.0-100.0); THB 14.6 g/dL (11.5-17.4); pH(98.6) 7.38 (7.35-7.45)
[2018-04-12 05:34] LABS: BASO# 0.04 X1000 (0.0-0.2); BASO% 0.2 % (0.0-0.8); EOS% 0.6 % (0.0-10.0); HEMATOCRIT 37.9 % (42.0-52.0); HEMOGLOBIN 12.3 g/dL (14.0-18.0); IMM GRAN# 0.48 X1000 (0.0-0.04); LYMPH# 3.19 X1000 (1.2-3.4); LYMPH% 19.6 % (20.5-51.1); MCH 29.3 PG (27-31); MCHC 32.5 g/dL (33-37); MCV 90.2 FL (81-99); MONO# 0.99 X1000 (0.11-0.59); MONO% 6.1 % (1.7-9.3); MPV 8.2 FL (7.4-10.4); NEUT# 11.44 X1000 (1.4-6.5); NEUT% 70.5 % (42.2-75.2); PLT 443 X1000 (130-400); RDW 13.2 % (11.5-14.5); WBC 16.24 X1000 (4.8-10.8)
[2018-04-12 05:44] LABS: MODALITY CANNULA; PCO2(98.6) 55 mmHg (35-45)
[2018-04-12 05:57] LABS: ALB/GLOB RATIO 0.9; CALCIUM 8.9 mg/dL (8.8-10.2); CREATININE 1.2 mg/dL (0.7-1.2); POTASSIUM 3.9 mmol/L (3.5-5.1); TOTAL BILIRUBIN 0.2 mg/dL (0.20-1.00); TOTAL PROTEIN 6.3 g/dL (6.3-8.3)
[2018-04-12] MEDS: PROTONIX PO SCH (06:15)
[2018-04-12] MEDS: SYNTHROID PO SCH (06:15)
[2018-04-12] MEDS: ADVAIR 250/50 DISKUS INH SCH ×2 (07:43→18:56)
--- NOTE | 2018-04-12 07:59 | Diag Imaging Result Doc PS360 ---
EXAM: CHEST-PORTABLE INDICATION: dyspnea TECHNIQUE: One view COMPARISON: 04/10/2018 FINDINGS: There is worsening infiltrate at both lung bases probably representing pulmonary edema +/- pneumonia. No other new consolidations are appreciated. Cardiac silhouette is stable. IMPRESSION: Worsening bibasilar infiltrates. Electronically signed by Marcial Goel 04/12/2018 7:57 AM
[2018-04-12] MEDS: PRINIVIL PO SCH (08:09)
[2018-04-12] MEDS: NICODERM PATCH TD SCH (08:09)
[2018-04-12] MEDS: TEGRETOL PO SCH ×3 (08:09→21:10)
[2018-04-12] MEDS: APRESOLINE PO SCH ×3 (08:09→16:42)
[2018-04-12] MEDS: ASPIRIN PO SCH (08:10)
[2018-04-12] MEDS: NEURONTIN PO SCH ×3 (08:10→21:10)
[2018-04-12] MEDS: LASIX PO SCH (08:10)
[2018-04-12] MEDS: NS 1,000 ML IV SCH (08:10)
[2018-04-12] MEDS: THERA M PLUS PO SCH (08:10)
[2018-04-12] MEDS: SOLU-MEDROL IV SCH (08:10)
[2018-04-12] MEDS: COLACE PO SCH (08:10)
[2018-04-12] MEDS: PLAVIX PO SCH (08:10)
[2018-04-12] MEDS: ZOLOFT PO SCH (08:10)
[2018-04-12] MEDS: MUCINEX DM PO SCH ×2 (08:10→21:10)
[2018-04-12] MEDS: CYMBALTA PO SCH (08:10)
[2018-04-12] MEDS: COREG PO SCH ×2 (08:10→21:10)
--- NOTE | 2018-04-12 13:34 | PROGRESS NOTE ---
DATE: 04/12/2018 SUBJECTIVE: No acute events overnight. This patient is resting comfortably in bed. He is still complaining of some shortness of breath. He is still having negative balance and bowel movement. OBJECTIVE: Vital Signs: Temperature 98.4, pulse 61, respiratory rate 17, blood pressure 110/68, oxygen saturation 95% on 3 L of nasal cannula. HEENT: Head normocephalic. No trauma. PERRLA. Neck: Supple. No JVD. No masses. Central trachea. Chest: Coarse breath sounds bilaterally with rhonchi at the bases. Abdomen: Soft, nontender, nondistended. No hepatosplenomegaly. Extremities: No edema. No clubbing. No cyanosis. Neurological: The patient is sleepy, but arousable. Oriented x3. He is hard of hearing. No focal deficits. LABORATORY: WBC 6.2, hemoglobin 12.3, hematocrit 37.9, platelets 443. Sodium 137, potassium 3.9, chloride 98, bicarbonate 28, BUN 39, creatinine 1.2, glucose 111. Calcium 8.9. Albumin 3. ASSESSMENT AND PLAN: 1. Hypoxemic and hypercapnic respiratory failure secondary to lower lobe pneumonia. Probably this patient has an underlying COPD, but he has never been diagnosed. Infectious Disease Department and Pulmonary Department following this patient. Continue with antibiotics, breathing treatment, oxygen supplementation. 2. Bilateral lower lobe pneumonia. As above. 3. Hypertension, controlled. 4. Leukocytosis, likely a combination of pneumonia and steroids. I will decrease the dose of IV steroids from 20 IV q.12 hours to 20 daily. 5. History of coronary artery disease. No chest pain at this moment. 6. Hypothyroidism, continue with levothyroxine. 7. Nicotine dependence. Apparently, this patient already stopped smoking a year ago. I will continue with daily cessation education. 8. Gastrointestinal prophylaxis with Protonix. 9. Deep vein thrombosis prophylaxis with sequential compression devices. 10. Physical deconditioning and generalized weakness. Apparently, he has not been walking for about 10 months. He has been not using a wheelchair. I have requested an evaluation by physical therapy and occupational therapy already and they are working on this patient. cc: Jevon Hobson MD
--- NOTE | 2018-04-12 17:19 | PULMONOLOGY PROGRESS NOTE ---
DATE: 04/12/2018 SUBJECTIVE: The patient reports that he is doing okay. He has decreased cough. Sputum production appears to have diminished. OBJECTIVE: Vital signs: The patient has been afebrile for the last 24 hours. Blood pressure 110/68, heart rate 61, respiratory rate 17 and oxygen saturation 95% on nasal cannula. HEENT: Pupils are equal and reactive. Oropharynx is clear. Neck: Supple. Chest: Reveals scattered rhonchi bilaterally. Cardiac: S1, S2. Abdomen: Soft without hepatosplenomegaly. Extremities: Trace edema. LABORATORY: Chest x-ray showed some rotation and appears slightly worse in the lung bases. Microbiology showed normal yoselin on sputum cultures. WBC 16.24, hemoglobin 12.3 and platelet count 443,000. Arterial blood gas reveals a pH of 7.38, pCO2 of 55 and pO2 of 61. IMPRESSION: 88-year-old with bilateral pneumonia, hypercapnic respiratory failure which is chronic, acute hypoxemic respiratory failure and leukocytosis. Sputum production appears to be decreased. His prognosis remains guarded. RECOMMENDATIONS: 1. Continue current antibiotics per Dr. Javier Alamo. 2. Continue bronchial hygiene. 3. Continue oxygen for hypoxemic respiratory failure. 4. Overall prognosis is guarded. Consider end of life discussions if clinical status declines. cc: Vance Keene MD
[2018-04-12] MEDS: ZOCOR PO SCH (21:09)
[2018-04-12] MEDS: NORVASC PO SCH (21:10)
[2018-04-13] MEDS: TEFLARO 600 MG in NS 250 ML IV SCH ×2 (03:30→17:08)
[2018-04-13] MEDS: DUONEB (A & A) INH SCH ×6 (03:38→23:32)
[2018-04-13 05:02] LABS: ALLEN TEST YES; BE 2.2 mmoll (-3.0-3.0); BLOOD TYPE ARTERIAL; HCO3-(ACT) 26.6 mmoll (20.0-26.0); METHB 0.9 % (0.0-1.5); O2(CT) 17.2 mL/dL (15.0-23.0); O2HB 94.6 % (95.0-99.0); PCO2(98.6) 49 mmHg (35-45); PO2(98.6) 78 mmHg (60-100); SAMPLE BLOOD; SAO2 96.5 % (95.0-100.0); THB 12.9 g/dL (11.5-17.4); pH(98.6) 7.37 (7.35-7.45)
[2018-04-13 05:05] LABS: MODALITY CANNULA
[2018-04-13 05:32] LABS: BASO# 0.04 X1000 (0.0-0.2); BASO% 0.2 % (0.0-0.8); EOS# 0.32 X1000 (0.0-0.7); EOS% 1.9 % (0.0-10.0); HEMATOCRIT 35.6 % (42.0-52.0); HEMOGLOBIN 11.6 g/dL (14.0-18.0); IMM GRAN# 0.44 X1000 (0.0-0.04); IMM GRAN% 2.7 % (0.0-0.5); LYMPH# 3.48 X1000 (1.2-3.4); LYMPH% 21.2 % (20.5-51.1); MCH 29.7 PG (27-31); MCHC 32.6 g/dL (33-37); MONO# 1.23 X1000 (0.11-0.59); MONO% 7.5 % (1.7-9.3); MPV 8.6 FL (7.4-10.4); NEUT# 10.92 X1000 (1.4-6.5); NEUT% 66.5 % (42.2-75.2); PLT 429 X1000 (130-400); RBC 3.91 XMIL (4.7-6.1); RDW 13.3 % (11.5-14.5); WBC 16.43 X1000 (4.8-10.8)
[2018-04-13 06:02] LABS: AGAP 9; BUN 34 mg/dL (8-22); CALCIUM 7.6 mg/dL (8.8-10.2); CHLORIDE 97 mmol/L (98-107); COSMO 274; CREATININE 1.1 mg/dL (0.7-1.2); ESTIMATED GFR > 60; GLUCOSE 101 mg/dL (70-104); SODIUM 133 mmol/L (136-145); TCO2 27 mmol/L (25-35)
[2018-04-13] MEDS: SYNTHROID PO SCH (06:03)
[2018-04-13] MEDS: PROTONIX PO SCH (06:03)
[2018-04-13] MEDS: ADVAIR 250/50 DISKUS INH SCH ×2 (07:06→19:17)
[2018-04-13] MEDS: NEURONTIN PO SCH ×3 (08:32→21:41)
[2018-04-13] MEDS: THERA M PLUS PO SCH (08:32)
[2018-04-13] MEDS: PLAVIX PO SCH (08:32)
[2018-04-13] MEDS: NICODERM PATCH TD SCH (08:32)
[2018-04-13] MEDS: TEGRETOL PO SCH ×3 (08:33→21:41)
[2018-04-13] MEDS: ZOLOFT PO SCH (08:33)
[2018-04-13] MEDS: CYMBALTA PO SCH (08:33)
[2018-04-13] MEDS: COLACE PO SCH (08:33)
[2018-04-13] MEDS: MUCINEX DM PO SCH ×2 (08:33→21:41)
[2018-04-13] MEDS: PRINIVIL PO SCH (08:33)
[2018-04-13] MEDS: APRESOLINE PO SCH ×3 (08:33→17:08)
[2018-04-13] MEDS: ASPIRIN PO SCH (08:33)
[2018-04-13] MEDS: COREG PO SCH ×2 (08:33→21:41)
[2018-04-13] MEDS: LASIX PO SCH (08:33)
[2018-04-13] MEDS: NS 1,000 ML IV SCH (08:37)
[2018-04-13] MEDS ORDERED: SOLU-MEDROL IV SCH (09:00)
--- NOTE | 2018-04-13 11:24 | PROGRESS NOTE ---
DATE: 04/13/2018 SUBJECTIVE: No acute events overnight. This patient seems to be a little bit better today. He is sitting up and eating at the edge of the bed. He is oriented. He is still coughing up a lot of green phlegm. Generalized weakness. OBJECTIVE: Vital Signs: Temperature 96.7 degrees, pulse 60, respiratory rate 17, blood pressure 143/63, oxygen saturation 95% on 3 L of nasal cannula. HEENT: Head normocephalic, no trauma. PERRLA. Neck: Supple. No JVD. No masses. Central trachea. Chest: Coarse breath sounds bilaterally with rhonchi, mostly at the bases, and expiratory wheezing. Abdomen: Soft, nontender, nondistended. No hepatosplenomegaly. Extremities: No edema. No clubbing. No cyanosis. Neurological: The patient is completely alert. He is sitting at the edge of the bed, and he is eating by himself. Oriented x3. He is hard of hearing. No focal deficits. LABORATORY: WBC 16.4, hemoglobin 11.6, hematocrit 35.6, platelets 429,000. Sodium 133, potassium 4, chloride 97, bicarbonate 27, BUN 34, creatinine 1.1, glucose 101, calcium 7.6. ASSESSMENT AND PLAN: 1. Hypoxemic and hypercapnic respiratory failure, secondary to lower lobe pneumonia, probably underlying chronic obstructive pulmonary disease. Infectious Disease Department and Pulmonary Department are following this patient. Continue with antibiotics, breathing treatment, and oxygen supplementation. 2. Bilateral lower lobe pneumonia. As above. 3. Hypertension, controlled. 4. Leukocytosis, likely a combination of pneumonia and steroids. I will continue with IV steroids low dose because this patient is still wheezing. 5. History of coronary artery disease. No chest pain at this moment. 6. Hypothyroidism. Continue with levothyroxine. 7. Nicotine dependence. Apparently, this patient stopped smoking a year ago, and I will continue with daily cessation education. 8. Gastrointestinal prophylaxis with Protonix. 9. Deep vein thrombosis prophylaxis with SCDs. 10. Physical deconditioning and generalized weakness. Apparently, he has not been walking for about 10 months. Apparently, also he has been using a wheelchair. Occupational Therapy and Physical Therapy are working on this patient. I do believe he can be probably discharged in the next 48 to 72 hours, depending on his progression. cc: Jevon Hobson MD
--- NOTE | 2018-04-13 19:43 | PULMONOLOGY PROGRESS NOTE ---
DATE: 04/13/2018 SUBJECTIVE: The patient is arousable. He denies complaints. He continues to have cough with purulent sputum production. OBJECTIVE: Vital signs: The patient has been afebrile for the last 24 hours. Blood pressure 164/65, heart rate 62, respiratory rate 18 and oxygen saturation 98% on 3 L. HEENT: Pupils are equal and reactive. Oropharynx is clear. Neck: Supple. Chest: Reveals coarse rhonchi bilaterally. Cardiac: S1, S2. Abdomen: Soft and obese. Extremities: Without edema. LABORATORY: No new microbiology data. White blood count 16.43, hemoglobin 11.6 and platelet count 429,000. Chemistries: Sodium 133, potassium 4.0, chloride 97, bicarbonate 27, BUN 34, creatinine 1.1. IMPRESSION: An 88-year-old male with bilateral pneumonia, hypercapnic respiratory failure which is chronic, acute hypoxemic respiratory failure with purulent sputum production. Sputum cultures have been unrevealing as to the pathogens associated with his pneumonia. RECOMMENDATIONS: 1. Continue bronchial hygiene. 2. Continue oxygen for hypoxemic respiratory failure. 3. Continue antibiotics per Dr. Javier Alamo. 4. Follow up chest x-ray tomorrow. 5. Recommend end-of-life discussions if patient's clinical status declines. cc: Vance Keene MD
[2018-04-13] MEDS: NORVASC PO SCH (21:41)
[2018-04-13] MEDS: ZOCOR PO SCH (21:41)
[2018-04-14] MEDS: DUONEB (A & A) INH SCH ×6 (03:00→22:59)
[2018-04-14 03:29] LABS: BLOOD TYPE ARTERIAL; SAMPLE BLOOD
[2018-04-14 03:31] LABS: HCO3-(ACT) 27.2 mmoll (20.0-26.0); METHB 0.8 % (0.0-1.5); O2(CT) 17.9 mL/dL (15.0-23.0); PCO2(98.6) 46 mmHg (35-45); PO2(98.6) 76 mmHg (60-100); SAO2 96.8 % (95.0-100.0); THB 13.4 g/dL (11.5-17.4)
[2018-04-14 03:32] LABS: MODALITY CANNULA
[2018-04-14] MEDS: TEFLARO 600 MG in NS 250 ML IV SCH ×2 (04:20→15:00)
[2018-04-14 05:54] LABS: BASO# 0.03 X1000 (0.0-0.2); BASO% 0.2 % (0.0-0.8); EOS# 0.33 X1000 (0.0-0.7); EOS% 2.5 % (0.0-10.0); HEMATOCRIT 35.5 % (42.0-52.0); HEMOGLOBIN 11.5 g/dL (14.0-18.0); IMM GRAN# 0.23 X1000 (0.0-0.04); IMM GRAN% 1.8 % (0.0-0.5); LYMPH# 2.84 X1000 (1.2-3.4); LYMPH% 21.6 % (20.5-51.1); MCH 29.6 PG (27-31); MCHC 32.4 g/dL (33-37); MCV 91.3 FL (81-99); MONO# 0.96 X1000 (0.11-0.59); MONO% 7.3 % (1.7-9.3); MPV 8.4 FL (7.4-10.4); NEUT# 8.75 X1000 (1.4-6.5); NEUT% 66.6 % (42.2-75.2); PLT 398 X1000 (130-400); RBC 3.89 XMIL (4.7-6.1); RDW 13.4 % (11.5-14.5); WBC 13.14 X1000 (4.8-10.8)
[2018-04-14] MEDS: PROTONIX PO SCH (06:07)
[2018-04-14] MEDS: SYNTHROID PO SCH (06:07)
[2018-04-14 06:48] LABS: AGAP 9; BUN 27 mg/dL (8-22); CALCIUM 8.7 mg/dL (8.8-10.2); CHLORIDE 102 mmol/L (98-107); COSMO 283; CREATININE 1.1 mg/dL (0.7-1.2); ESTIMATED GFR > 60; GLUCOSE 105 mg/dL (70-104); SODIUM 139 mmol/L (136-145); TCO2 28 mmol/L (25-35)
[2018-04-14 06:58] LABS: ALLEN TEST YES
--- NOTE | 2018-04-14 07:11 | INFECTIOUS DISEASE PROGRESS NO ---
DATE: 04/14/2018 DISCUSSION: The patient has bibasilar pneumonia and/or pulmonary edema. MEDICATIONS: This is the 4th day of treatment with ceftaroline. PHYSICAL EXAMINATION: Vital Signs: Temperature is 97.6 degrees, pulse 62, respirations 18, blood pressure 124/47. General: This is an ill-appearing, elderly male. He is in no acute distress. Head, Eyes, Ears, Nose, and Throat: He does not have any white coating on his tongue. He can hear my spoken words and see near objects. Neck: No stiffness. Thorax: Increased AP diameter. On the left side, there is a pacemaker present. The site is not erythematous or swollen. Lungs: There were some bibasilar rales. Cardiovascular: Heart rate is regular. Abdomen: Soft and nontender. Neurologic: The patient remains lethargic. He is arousable. He did follow requests to move his extremities. There was no tremor. Integument: No rash noted. LAB AND X-RAY: CBC shows a white count of 13,140, hemoglobin 11.5, and platelet count 398,000. Sputum is growing normal florae. Creatinine is 1.1. GFR is greater than 60. Blood gases show a pH of 7.4, a PO2 of 76, a pCO2 of 46. Chest x-ray shows bibasilar infiltrates, worsening pulmonary edema and/or pneumonia. ASSESSMENT AND PLAN: The patient appears to have a bibasilar pneumonia and/or pulmonary venous congestion. I plan to continue the patient's current antibiotic. He is afebrile and his white count has come down. I am going to get a procalcitonin level also. COMORBIDITIES: The patient is elderly and he has a history of being a smoker, although he is not currently smoking. To me, the patient has elements of COPD. cc: Javier Alamo MD [facility] CENTERMark
--- NOTE | 2018-04-14 07:24 | Diag Imaging Result Doc PS360 ---
EXAM: CHEST-PORTABLE 04/14/2018 HISTORY: dyspnea TECHNIQUE: AP portable at 0611 COMMENT: There is cardiomegaly and increased pulmonary vascularity. There is interstitial and some alveolar opacity particularly the latter in the lower portions of the right upper and lower lobes. There is definitely been clearing of opacity in the left base compared to 04/12/2018. The opacity in the right upper lobe is more conspicuous but some of this may be due to differences in positioning. IMPRESSION: Improved pulmonary edema plus minus pneumonia in the left lower lobe. Electronically signed by Mika Graham 04/14/2018 7:21 AM
[2018-04-14] MEDS: ADVAIR 250/50 DISKUS INH SCH ×2 (07:27→19:50)
--- NOTE | 2018-04-14 08:34 | PROGRESS NOTE ---
DATE: 04/14/2018 SUBJECTIVE: Patient seems to be doing much better. His oxygen saturation has been stable only with 3 L of nasal cannula. Vital signs are stable as well. X-ray showed an improved pulmonary edema plus/minus pneumonia in the left lower lobe. Infectious Disease Department following this patient. We will continue with the antibiotics since he is getting better. OBJECTIVE: Vital Signs: Temperature 97.6 degrees, pulse 62, respiratory rate 18, blood pressure 124/47, oxygen saturation 95% on 3 L of nasal cannula. HEENT: Head normocephalic. No trauma. PERRLA. Neck: Supple. No JVD. No masses. Central trachea. Chest: Coarse breath sounds mostly at the bases with some rhonchi at the bases as well. Abdomen: Soft, nontender, nondistended. No hepatosplenomegaly. Extremities: No edema. No clubbing. No cyanosis. Neurological: The patient is alert. He is sitting at the edge of the bed, and he is eating by himself, oriented x3. He is hard of hearing. No focal deficits, but generalized weakness mostly at the level of the lower extremities. LABORATORY: WBC 13.1, hemoglobin 11.5, hematocrit 35.5, platelets 398. Sodium 139, potassium 4, chloride 102, bicarbonate 28, BUN 27, creatinine 1.1, glucose 105, calcium 8.7. ASSESSMENT AND PLAN: 1. Hypoxemic and hypercapnic respiratory failure secondary to lower lobe pneumonia, probably underlying chronic obstructive pulmonary disease. Infectious Disease Department and Pulmonary Department following this patient. This is getting better. Continue with antibiotics. White blood cell trending down. X-ray looks better also. 2. Bilateral lower lobe pneumonia. As above. 3. Hypertension, controlled. 4. Leukocytosis trending down nicely. Since this patient is no longer wheezing, I will stop the steroids completely and monitor. 5. History of coronary artery disease. No chest pain at this moment. 6. Hypothyroidism. Continue with levothyroxine. 7. Nicotine dependence. This patient has been highly advised to stop smoking and apparently, he stopped a year ago. I will continue with daily cessation education. 8. Gastrointestinal prophylaxis with Protonix. 9. Deep vein thrombosis prophylaxis with sequential compression devices. 10. Physical deconditioning and generalized weakness. Apparently, he has not been walking for about 10 months or so. Apparently, also he has been using a wheelchair. Occupational therapy and physical therapy are working on this patient. I do believe he probably can be discharged in the next 72 hours depending on his progress. cc: Jevon Hobson MD
[2018-04-14] MEDS: CYMBALTA PO SCH (09:13)
[2018-04-14] MEDS: MUCINEX DM PO SCH ×2 (09:13→20:17)
[2018-04-14] MEDS: NEURONTIN PO SCH ×3 (09:13→20:18)
[2018-04-14] MEDS: COREG PO SCH ×2 (09:13→20:18)
[2018-04-14] MEDS: ASPIRIN PO SCH (09:13)
[2018-04-14] MEDS: LASIX PO SCH (09:13)
[2018-04-14] MEDS: COLACE PO SCH (09:13)
[2018-04-14] MEDS: PRINIVIL PO SCH (09:13)
[2018-04-14] MEDS: APRESOLINE PO SCH ×3 (09:13→17:31)
[2018-04-14] MEDS: PLAVIX PO SCH (09:13)
[2018-04-14] MEDS: TEGRETOL PO SCH ×3 (09:13→20:17)
[2018-04-14] MEDS: THERA M PLUS PO SCH (09:13)
[2018-04-14] MEDS: NICODERM PATCH TD SCH (09:13)
[2018-04-14] MEDS: NS 1,000 ML IV SCH (09:14)
[2018-04-14] MEDS: ZOLOFT PO SCH (09:14)
--- NOTE | 2018-04-14 17:05 | PULMONOLOGY PROGRESS NOTE ---
DATE: 04/14/2018 SUBJECTIVE: The patient is awake, alert, and conversant. He is hard of hearing. He reports he feels better. His sputum production appears less purulent. OBJECTIVE: The patient has been afebrile for the last 24 hours. Blood pressure is 143/66, heart rate 65, respiratory rate 16, oxygen saturation 95% on 3 L per nasal cannula. HEENT: Pupils are equal and reactive. Oropharynx is clear. Neck is supple. Chest reveals scattered rhonchi bilaterally. Cardiac: S1, S2. Abdomen is soft. Extremities without edema. DIAGNOSTIC DATA: White blood count is 13.1, hemoglobin 11.5, platelet count 398,000. Arterial blood gas reveals a pH of 7.40, pCO2 of 46, pO2 of 76. Chemistry shows sodium 139, potassium 4.0, chloride 102, bicarbonate 28, BUN is 27, creatinine 1.1. Chest x-ray reveals decreased infiltrates in both lung bases along with right upper lobe. IMPRESSION: An 88 year old with bilateral pneumonia, hypercapnic respiratory failure, acute hypoxemic respiratory failure. Clinically and radiographically, he continues to improve. RECOMMENDATIONS: 1. Continue current antibiotic regimen. 2. Continue bronchial hygiene. 3. Continue oxygen for hypoxemic respiratory failure. 4. Consider end of life discussions if the patient has a clinical decline, but he appears to be improving. cc: Vance Keene MD
[2018-04-14] MEDS: NORVASC PO SCH (20:18)
[2018-04-14] MEDS: ZOCOR PO SCH (20:18)
[2018-04-15] MEDS: DUONEB (A & A) INH SCH ×6 (04:28→23:22)
[2018-04-15] MEDS: PROTONIX PO SCH ×2 (05:51→06:18)
[2018-04-15] MEDS: SYNTHROID PO SCH (05:51)
[2018-04-15] MEDS: TEFLARO 600 MG in NS 250 ML IV SCH ×2 (05:51→17:44)
[2018-04-15 07:04] LABS: BASO# 0.03 X1000 (0.0-0.2); BASO% 0.2 % (0.0-0.8); EOS# 0.34 X1000 (0.0-0.7); EOS% 2.8 % (0.0-10.0); HEMATOCRIT 36.9 % (42.0-52.0); IMM GRAN# 0.18 X1000 (0.0-0.04); IMM GRAN% 1.5 % (0.0-0.5); LYMPH# 1.96 X1000 (1.2-3.4); LYMPH% 16.1 % (20.5-51.1); MCH 29.8 PG (27-31); MCHC 32.5 g/dL (33-37); MCV 91.6 FL (81-99); MONO# 1.11 X1000 (0.11-0.59); MONO% 9.1 % (1.7-9.3); MPV 8.6 FL (7.4-10.4); NEUT# 8.59 X1000 (1.4-6.5); NEUT% 70.3 % (42.2-75.2); PLT 358 X1000 (130-400); RBC 4.03 XMIL (4.7-6.1); RDW 13.3 % (11.5-14.5); WBC 12.21 X1000 (4.8-10.8)
[2018-04-15 07:33] LABS: AGAP 10; BUN 20 mg/dL (8-22); CALCIUM 8.8 mg/dL (8.8-10.2); CHLORIDE 101 mmol/L (98-107); COSMO 281; CREATININE 0.8 mg/dL (0.7-1.2); ESTIMATED GFR > 60; GLUCOSE 106 mg/dL (70-104); POTASSIUM 4.4 mmol/L (3.5-5.1); SODIUM 139 mmol/L (136-145); TCO2 28 mmol/L (25-35)
[2018-04-15] MEDS: ADVAIR 250/50 DISKUS INH SCH ×2 (07:38→19:22)
[2018-04-15] MEDS: TEGRETOL PO SCH ×3 (10:26→20:23)
[2018-04-15] MEDS: THERA M PLUS PO SCH (10:26)
[2018-04-15] MEDS: NICODERM PATCH TD SCH (10:26)
[2018-04-15] MEDS: PLAVIX PO SCH (10:26)
[2018-04-15] MEDS: APRESOLINE PO SCH ×3 (10:26→20:23)
[2018-04-15] MEDS: COLACE PO SCH (10:26)
[2018-04-15] MEDS: MUCINEX DM PO SCH ×2 (10:26→20:23)
[2018-04-15] MEDS: CYMBALTA PO SCH (10:27)
[2018-04-15] MEDS: ASPIRIN PO SCH (10:27)
[2018-04-15] MEDS: NEURONTIN PO SCH ×3 (10:27→20:23)
[2018-04-15] MEDS: ZOLOFT PO SCH (10:27)
[2018-04-15] MEDS: NS 1,000 ML IV SCH (10:27)
[2018-04-15] MEDS: COREG PO SCH ×2 (10:27→20:23)
[2018-04-15] MEDS: PRINIVIL PO SCH (10:27)
[2018-04-15] MEDS: LASIX PO SCH (10:27)
--- NOTE | 2018-04-15 13:11 | PROGRESS NOTE ---
DATE: 04/15/2018 SUBJECTIVE: Mr. Burch is doing better. He is getting a little stronger. His breathing is better. So, he was moved to the regular floor. OBJECTIVE: Vital signs: Temperature 97.5 degrees, pulse 61, respirations 16, blood pressure 119/60. HEENT: Pupils are equal and round. Lungs: Clear in all lung katz. Cardiovascular: Regular rhythm and rate without murmur or S3. Abdomen: Soft. Skin: Warm and dry. Urine output 5,300 mL. ASSESSMENT: 1. Hypoxemic, hypercapnic respiratory failure secondary to lower lobe pneumonia, probably underlying chronic obstructive pulmonary disease. Infectious Disease Department and Pulmonary Department continue to follow. He seems to be making some improvement. White blood cell count seems to be diminishing. 2. Bilateral lower lobe pneumonia. 3. Hypertension. 4. Leukocytosis. The patient's wheezing and bronchospasm has improving and we have been able to cut down on steroids. 5. History of coronary artery disease. No chest pain at this time. 6. Hypothyroidism. 7. Nicotine dependence. 8. Gastrointestinal prophylaxis. 9. Deep venous thrombosis prophylaxis still in place. REVIEW OF ORDERS: The patient is on albuterol ipratropium q.4 hours treatment, Norvasc 10 mg a day, aspirin 81 mg a day, Tegretol 200 mg 3 times a day, Coreg 12.5 mg b.i.d., ceftaroline 600 mg q.12, clonidine or Catapres 0.1 mg p.r.n., Plavix 75 mg a day, Colace 100 mg daily, Cymbalta 60 mg a day, fluticasone salmeterol 1 treatment inhalation b.i.d., Lasix 40 mg a day, Neurontin 400 mg 3 times a day, guaifenesin and dextromethorphan ER 1 b.i.d., hydralazine 50 mg t.i.d., Synthroid 25 mcg a day, lisinopril 40 mg a day, multivitamin 1 a day, nicotine patch 21 mg daily, Protonix 40 mg daily, sertraline or Zoloft 25 mg a day, and Zocor 20 mg at bedtime. PLAN: He seems to be clinically improving. Continue present regimen. Dr. Keene following as well, bilateral pneumonia, hypercapnic respiratory failure, acute hypoxemic respiratory failure. Dr. Alamo is following and treating for bibasilar pneumonia. cc: Junior Berrios MD
--- NOTE | 2018-04-15 15:58 | INFECTIOUS DISEASE PROGRESS NO ---
DATE: 04/15/2018 PRESENT ILLNESS: The patient has a bibasilar pneumonia and/or pulmonary edema. MEDICATION The patient has been on ceftaroline now for 5 days. PHYSICAL EXAMINATION: Vital Signs: Temperature is 97.5 degrees, pulse 61, respirations 16, blood pressure 119/60. General: This is an ill-appearing elderly male. He is in no acute distress. He is lethargic. Head, eyes, ears, nose, and throat: He does not have any drainage coming from his nose or ears. He does not have any white coating on his tongue. Thorax: The patient has an increased AP diameter of the chest. The patient has a pacemaker present on the left side. The site is not erythematous or tender Lungs: Have bibasilar rales. Cardiovascular: Heart rate is regular. Abdomen: Soft and nontender. Neurologic: The patient is lethargic. He does not have any tremor. He did not answer my questions. LAB AND X-RAY: There is no x-ray for today. Lab tests for today show a CBC with a white count of 12,210, hemoglobin 12, and platelet count 358,000. Creatinine 0.8. GFR is greater than 60. Two different sputum specimens are growing normal yoselin. ASSESSMENT AND PLAN: The patient has bibasilar pneumonia and/or pulmonary venous congestion. I am going to continue his current antibiotics pending the results of the procalcitonin level. The patient is not running a fever now, and his white count is not as high as it was , so he may well have a component of pneumonia. COMORBIDITIES: The patient is elderly. He has a history of cigarette smoking, and he also has COPD. cc: Javier Alamo MD MTDD
[2018-04-15] MEDS: NORVASC PO SCH (20:23)
[2018-04-15] MEDS: ZOCOR PO SCH (20:24)
--- NOTE | 2018-04-15 21:09 | PULMONOLOGY PROGRESS NOTE ---
DATE: 04/15/2018 SUBJECTIVE: The patient is awake and alert. He is hard of hearing. He reports he does feel better. His cough has diminished, and it appears less purulent. OBJECTIVE: Vital Signs: The patient is afebrile. Blood pressure is 145/71, heart rate 76, respiratory rate 15, oxygen saturation 96% on 3 liters per nasal cannula. HEENT: Pupils are equal and reactive. Oropharynx is clear. Neck: Supple. Chest: Reveals rhonchi bilaterally which have diminished. Cardiac: S1 and S2. Abdomen: Soft and without hepatosplenomegaly. Extremities: Reveal trace edema. LABORATORIES: White blood count 12.21, hemoglobin 358,000. Chemistries: Sodium 139, potassium 4.4, chloride 101, bicarbonate 28, BUN 20, creatinine 0.8. IMPRESSION: An 88-year-old with bilateral pneumonia, hypercapnic respiratory failure, and acute hypoxemic respiratory failure. His sputum production continues to decrease in amount and appears less purulent. RECOMMENDATIONS: 1. Continue current antibiotic regimen. 2. Schedule followup chest x-ray tomorrow morning. cc: Vance Keene MD
[2018-04-16] MEDS: DUONEB (A & A) INH SCH ×6 (03:22→23:07)
[2018-04-16] MEDS: TEFLARO 600 MG in NS 250 ML IV SCH ×2 (05:21→15:38)
[2018-04-16] MEDS: SYNTHROID PO SCH (06:11)
[2018-04-16] MEDS: PROTONIX PO SCH (06:11)
--- NOTE | 2018-04-16 07:24 | Diag Imaging Result Doc PS360 ---
EXAM: CHEST-PORTABLE 04/16/2018 HISTORY: abnormal exam TECHNIQUE: AP portable at 0609 COMMENT: There is interstitial and alveolar opacity in the left lower lobe, the right lower lobe, and the right upper lobe. This is slightly worse than on 04/14/2018, particularly with regard to the left lower lobe. IMPRESSION: Worsened pulmonary edema and/or pneumonia. Electronically signed by Mika Graham 04/16/2018 7:21 AM
[2018-04-16] MEDS: ADVAIR 250/50 DISKUS INH SCH ×2 (07:40→19:07)
[2018-04-16] MEDS: ASPIRIN PO SCH (09:04)
[2018-04-16] MEDS: PRINIVIL PO SCH (09:05)
[2018-04-16] MEDS: LASIX PO SCH (09:05)
[2018-04-16] MEDS: COREG PO SCH ×2 (09:05→20:09)
[2018-04-16] MEDS: TEGRETOL PO SCH ×3 (09:05→20:09)
[2018-04-16] MEDS: THERA M PLUS PO SCH (09:05)
[2018-04-16] MEDS: CYMBALTA PO SCH (09:05)
[2018-04-16] MEDS: PLAVIX PO SCH (09:05)
[2018-04-16] MEDS: MUCINEX DM PO SCH ×2 (09:06→20:09)
[2018-04-16] MEDS: NEURONTIN PO SCH ×3 (09:06→20:10)
[2018-04-16] MEDS: APRESOLINE PO SCH ×3 (09:06→21:00)
[2018-04-16] MEDS: ZOLOFT PO SCH (09:06)
[2018-04-16] MEDS: COLACE PO SCH (09:06)
[2018-04-16] MEDS: NICODERM PATCH TD SCH (09:10)
[2018-04-16 14:01] LABS: ALLEN TEST YES; BE 5.6 mmoll (-3.0-3.0); BLOOD TYPE ARTERIAL; HCO3-(ACT) 29.2 mmoll (20.0-26.0); METHB 1.2 % (0.0-1.5); O2(CT) 16.3 mL/dL (15.0-23.0); O2HB 93.5 % (95.0-99.0); PCO2(98.6) 45 mmHg (35-45); PO2(98.6) 69 mmHg (60-100); SAMPLE BLOOD; SAO2 96.3 % (95.0-100.0); THB 12.4 g/dL (11.5-17.4); pH(98.6) 7.44 (7.35-7.45)
[2018-04-16 14:02] LABS: MODALITY CANNULA
[2018-04-16] MEDS: NS 1,000 ML IV SCH (15:47)
--- NOTE | 2018-04-16 15:52 | INFECTIOUS DISEASE PROGRESS NO ---
DATE: 04/16/2018 PRESENT ILLNESS: Mr. Burch has a bibasilar pneumonia and/or pulmonary edema. MEDICATIONS: Today is day 6 of ceftaroline 600 mg IV every 12 hours. PHYSICAL EXAMINATION: Vital Signs: Temperature is 96.3, pulse rate 87, respiratory rate 16, blood pressure 102/52, O2 saturation 93% on 5 L nasal cannula. General: This is a chronically ill-appearing, elderly gentleman. He is lying in bed, on his right lateral side in no acute distress. HEENT: Atraumatic, normocephalic. Oral mucous membranes are pink and moist. Conjunctivae are pink. Neck: Supple. Trachea is midline. Cardiovascular: Heart rate and rhythm are regular. Paced rhythm on the monitor. Pedal and radial pulses are palpable bilaterally. Mild lower extremity edema noted bilaterally. Lung Sounds: Have wheezes bilaterally with some rhonchi in the upper lobes. He does have a cough which is dry at this point. Abdomen: Soft, round and nontender. Bowel sounds are active. Neurologic: He is drowsy, but arousable and appropriate. He is, however, extremely hard of hearing. No tremor is noted. LABORATORY AND X-RAY: Today on 3 L nasal cannula his pH is 7.44, pCO2 of 45, pO2 of 69, and HCO-3 of 29.2. No CBC or BMP today. Chest x-ray shows worsening pulmonary edema and/or pneumonia with interstitial and alveolar opacities in the left lower lobe, the right lower lobe and the right upper lobe. ASSESSMENT AND PLAN: Mr. Burch has bibasilar pneumonia and/or pulmonary venous congestion. He is on day 6 of ceftaroline which we will continue at this time. We still have not received his procalcitonin level as of yet. He is afebrile. However, we do not have a white count drawn today, so I have gone ahead and ordered CBC and BMP for in the morning. These plans have been discussed with and recommended by Dr. Alamo. COMORBIDITIES: For Mr. Burch include that he is elderly with a history of cigarette smoking and COPD, peripheral neuropathy and pacemaker. Dictated by LARS Cortes for Javier Alamo MD This chart was documented by, LARS Cortes and accurately reflects the services performed, treatment plan and medical decisions as attested by the providers signature Javier Alamo MD. cc: Javier Alamo MD MTDD
--- NOTE | 2018-04-16 18:08 | PROGRESS NOTE ---
DATE: 04/16/2018 SUBJECTIVE: Mr. Burch is feeling better, and he feels like he could go back to [facility]. We will try to get him back to [facility]. He came from [facility] originally. OBJECTIVE: Vital Signs: He remains afebrile. Temperature 97.7 degrees, pulse 56, respirations 16, blood pressure 130/67. Pupils are equal and round. Lungs: Clear anterior lateral. Moving air easily. Cardiovascular: Regular rhythm and rate without murmur or S3. Abdomen: Soft. Skin: Warm and dry. LABORATORY DATA: Urine output was 6600 mL which is really good. ASSESSMENT AND PLAN: 1. Bibasilar pneumonia. Pulmonary edema. He is on ceftaroline 600 mg IV q.12. This is day 6 of that, and he seems to be breathing better. His chest x-ray from this morning showed worsened pulmonary edema but clinically seems to be doing better. 2. Bilateral pneumonia with hypercapnic respiratory failure and acute hypoxemic respiratory failure. Sputum production continues to decrease, and amount appears to be less purulent. So he is making improvement. We will see about possibly going to rehab tomorrow. We will discuss this with Dr. Keene and Dr. Alamo. 3. Hypertension. Blood pressure very well controlled. He did have a history coming in of very sporadic blood pressures, and these appear to be much more stable. He was put on some Apresoline. 4. History of coronary artery disease. No chest pain or sign of ischemia. 5. Hypothyroidism. Appears euthyroid. 6. Nicotine dependence. 7. Continue gastrointestinal prophylaxis, and we will see about discharge. 8. Looking at his white count, it has come down to 12,000, and his kidney function has come down to creatinine of 0.8. cc: Junior Berrios MD
[2018-04-16] MEDS: NORVASC PO SCH (20:09)
[2018-04-16] MEDS: ZOCOR PO SCH (20:10)
[2018-04-17] MEDS: DUONEB (A & A) INH SCH ×6 (03:10→23:32)
[2018-04-17] MEDS: TEFLARO 600 MG in NS 250 ML IV SCH (05:10)
[2018-04-17] MEDS: SYNTHROID PO SCH (05:10)
[2018-04-17 05:50] LABS: ALLEN TEST YES; BE 5.2 mmoll (-3.0-3.0); BLOOD TYPE ARTERIAL; HCO3-(ACT) 28.8 mmoll (20.0-26.0); METHB 1.1 % (0.0-1.5); O2(CT) 14.4 mL/dL (15.0-23.0); PCO2(98.6) 47 mmHg (35-45); PO2(98.6) 50 mmHg (60-100); SAMPLE BLOOD; SAO2 89.8 % (95.0-100.0); THB 11.7 g/dL (11.5-17.4); pH(98.6) 7.42 (7.35-7.45)
[2018-04-17 05:53] LABS: MODALITY CANNULA; O2HB 87.4 % (95.0-99.0)
[2018-04-17] MEDS: PROTONIX PO SCH (06:00)
[2018-04-17 07:04] LABS: BASO# 0.06 X1000 (0.0-0.2); BASO% 0.4 % (0.0-0.8); EOS# 0.42 X1000 (0.0-0.7); EOS% 3.1 % (0.0-10.0); HEMATOCRIT 36.1 % (42.0-52.0); HEMOGLOBIN 11.6 g/dL (14.0-18.0); IMM GRAN% 0.7 % (0.0-0.5); LYMPH# 1.79 X1000 (1.2-3.4); LYMPH% 13.2 % (20.5-51.1); MCH 29.2 PG (27-31); MCHC 32.1 g/dL (33-37); MCV 90.9 FL (81-99); MONO# 1.41 X1000 (0.11-0.59); MONO% 10.4 % (1.7-9.3); MPV 8.6 FL (7.4-10.4); NEUT# 9.77 X1000 (1.4-6.5); NEUT% 72.2 % (42.2-75.2); PLT 332 X1000 (130-400); RBC 3.97 XMIL (4.7-6.1); RDW 13.3 % (11.5-14.5); WBC 13.55 X1000 (4.8-10.8)
[2018-04-17 07:26] LABS: AGAP 11; BUN 15 mg/dL (8-22); CALCIUM 8.9 mg/dL (8.8-10.2); CHLORIDE 96 mmol/L (98-107); COSMO 271; CREATININE 0.7 mg/dL (0.7-1.2); ESTIMATED GFR > 60; GLUCOSE 100 mg/dL (70-104); POTASSIUM 4.4 mmol/L (3.5-5.1); SODIUM 135 mmol/L (136-145); TCO2 28 mmol/L (25-35)
[2018-04-17] MEDS: ADVAIR 250/50 DISKUS INH SCH ×2 (08:01→19:04)
[2018-04-17] MEDS: TEGRETOL PO SCH ×3 (08:39→21:00)
[2018-04-17] MEDS: PLAVIX PO SCH (08:39)
[2018-04-17] MEDS: CYMBALTA PO SCH (08:39)
[2018-04-17] MEDS: THERA M PLUS PO SCH (08:39)
[2018-04-17] MEDS: COREG PO SCH ×2 (08:39→21:00)
[2018-04-17] MEDS: ASPIRIN PO SCH (08:39)
[2018-04-17] MEDS: PRINIVIL PO SCH (08:39)
[2018-04-17] MEDS: NEURONTIN PO SCH ×3 (08:39→21:00)
[2018-04-17] MEDS: NS 1,000 ML IV SCH (08:40)
[2018-04-17] MEDS: APRESOLINE PO SCH ×3 (08:40→17:18)
[2018-04-17] MEDS: NICODERM PATCH TD SCH (08:40)
[2018-04-17] MEDS: MUCINEX DM PO SCH ×2 (08:40→21:00)
[2018-04-17] MEDS: LASIX PO SCH (08:40)
[2018-04-17] MEDS: ZOLOFT PO SCH (08:40)
[2018-04-17] MEDS: COLACE PO SCH (08:40)
--- NOTE | 2018-04-17 16:21 | PROGRESS NOTE ---
DATE: 04/17/2018 SUBJECTIVE: Mr. Burch is doing better. His breathing is definitely better. He remains afebrile, still pretty weak. He is eating. His bowels are moving okay. OBJECTIVE: Vital Signs: Temperature 97.9 degrees, pulse 66, respirations 20, blood pressure 104/50. Urine output is 4200 mL. HEENT: The pupils are equal and round. Lungs: Clear in all lung katz. Cardiovascular: Regular rhythm and rate without murmur or S3. Abdomen: Soft. Skin: Warm and dry. ASSESSMENT AND PLAN: 1. Bibasilar pneumonia, pulmonary edema. This is the 7th day, I believe, of ceftaroline. He has bilateral pneumonia, hypercapnic respiratory failure, acute hypoxemic respiratory failure, and these are all improved. 2. Hypertension. Blood pressure well controlled. 3. History of coronary artery disease. 4. Hypothyroidism. 5. Nicotine dependence. 6. Continue gastrointestinal prophylaxis. Hopefully, he is ready to go back to [facility]. cc: Junior Berrios MD
[2018-04-17] MEDS ORDERED: MILK OF MAGNESIA PO ONE (16:52)
[2018-04-17] MEDS: CEFTIN PO SCH (21:00)
[2018-04-17] MEDS: ZOCOR PO SCH (21:00)
[2018-04-17] MEDS: NORVASC PO SCH (21:00)
[2018-04-17] MEDS: DOXYCYCLINE PO SCH (21:00)
[2018-04-18] MEDS: DUONEB (A & A) INH SCH ×4 (03:18→15:36)
--- NOTE | 2018-04-18 04:24 | INFECTIOUS DISEASE PROGRESS NO ---
DATE: 04/17/2018 PRESENT ILLNESS: The patient has bibasilar infiltrates that could be due to pneumonia and/or pulmonary edema. He does have a procalcitonin of less than 0.1, which would make a bacterial pneumonia highly unlikely. MEDICATIONS: This is the seventh day of treatment with ceftaroline 600 mg IV every 12 hours. PHYSICAL EXAMINATION: Vital Signs: Temperature 97.6 degrees, pulse 62, respirations 20, blood pressure 143/71. General: This is an ill-appearing, elderly gentleman. He is sitting up in a chair tonight. Head, eyes, ears, nose, and throat: The patient does not have any drainage from his nose or ears. He has a marked decrease in his hearing. There are no white patches on his tongue. Neck: No meningismus. Lungs: There were bibasilar rales. Cardiovascular: Heart rate is regular. Thorax: The patient has an increased AP diameter of the chest and pacemaker present on the left side. Neurologic: The patient is alert. He has decreased hearing. He can move his extremities. LAB AND X-RAY: There is no new x-ray for today. The patient's CBC shows a white count of 13,550, hemoglobin 11.6, and platelet count 332,000. As mentioned above, procalcitonin was less than 0.1. Creatinine is 0.7. GFR is greater than 60. Blood gases show a pH of 7.42, a PO2 of 50, and a pCO2 of 47. ASSESSMENT AND PLAN: The patient has bilateral pneumonia and/or pulmonary venous congestion. The low procalcitonin level would make a bacterial pneumonia very unlikely. However, the patient does have leukocytosis. My plan is to stop ceftaroline and put the patient on Ceftin 500 mg p.o. every 12 hours and doxycycline 100 mg p.o. every 12 hours for 7 more days. I have also ordered for tomorrow a CBC and a chest x-ray. COMORBIDITIES: He is elderly. He also has a history of cigarette smoking. He does have COPD. cc: Javier Almao MD
[2018-04-18] MEDS: SYNTHROID PO SCH (05:57)
[2018-04-18] MEDS: PROTONIX PO SCH (05:59)
--- NOTE | 2018-04-18 06:39 | Diag Imaging Result Doc PS360 ---
EXAM: CHEST-1 VIEW HISTORY: SOB TECHNIQUE: Chest single view COMPARISON: 04/16/2018 FINDINGS: Poor inspiratory effort. The heart is enlarged. There is a left sided pacemaker. There are increased interstitial markings throughout the lungs which may represent pulmonary edema although the could be underlying infiltrates. There is atelectasis in the right base and there is a small right pleural effusion. IMPRESSION: Mild interval worsening. Electronically signed by Frank Boudreaux 04/18/2018 6:37 AM
[2018-04-18 07:20] LABS: BASO# 0.07 X1000 (0.0-0.2); BASO% 0.6 % (0.0-0.8); EOS# 0.39 X1000 (0.0-0.7); EOS% 3.6 % (0.0-10.0); HEMATOCRIT 35.1 % (42.0-52.0); HEMOGLOBIN 11.4 g/dL (14.0-18.0); IMM GRAN# 0.07 X1000 (0.0-0.04); IMM GRAN% 0.6 % (0.0-0.5); LYMPH% 15.5 % (20.5-51.1); MCH 29.7 PG (27-31); MCHC 32.5 g/dL (33-37); MCV 91.4 FL (81-99); MONO# 1.29 X1000 (0.11-0.59); MONO% 11.8 % (1.7-9.3); MPV 8.6 FL (7.4-10.4); NEUT# 7.43 X1000 (1.4-6.5); NEUT% 67.9 % (42.2-75.2); PLT 329 X1000 (130-400); RBC 3.84 XMIL (4.7-6.1); RDW 13.2 % (11.5-14.5); WBC 10.95 X1000 (4.8-10.8)
[2018-04-18] MEDS: ADVAIR 250/50 DISKUS INH SCH (07:27)
[2018-04-18] MEDS: APRESOLINE PO SCH ×3 (08:10→18:54)
[2018-04-18] MEDS: COLACE PO SCH (08:10)
[2018-04-18] MEDS: THERA M PLUS PO SCH (08:10)
[2018-04-18] MEDS: CEFTIN PO SCH (08:10)
[2018-04-18] MEDS: LASIX PO SCH (08:10)
[2018-04-18] MEDS: NEURONTIN PO SCH ×2 (08:11→15:21)
[2018-04-18] MEDS: CYMBALTA PO SCH (08:11)
[2018-04-18] MEDS: ASPIRIN PO SCH (08:11)
[2018-04-18] MEDS: COREG PO SCH (08:11)
[2018-04-18] MEDS: TEGRETOL PO SCH ×2 (08:11→15:21)
[2018-04-18] MEDS: DOXYCYCLINE PO SCH (08:12)
[2018-04-18] MEDS: PLAVIX PO SCH (08:12)
[2018-04-18] MEDS: NICODERM PATCH TD SCH (08:12)
[2018-04-18] MEDS: ZOLOFT PO SCH (08:12)
[2018-04-18] MEDS: MUCINEX DM PO SCH (08:12)
[2018-04-18] MEDS: PRINIVIL PO SCH (08:12)
--- NOTE | 2018-04-18 12:32 | PROGRESS NOTE ---
DATE: 04/18/2018 SUBJECTIVE: Mr. Burch is feeling much better. He would like to get his Hoyos catheter out. He is very hard of hearing, so you have to speak loudly in his left ear. OBJECTIVE: He is afebrile, temperature 97.4, pulse 60, respirations 16, blood pressure 142/68. Pupils are equal and round. Lungs are clear in all lung katz. Cardiovascular: Regular rate and rhythm without murmur or S3. Abdomen is soft. Skin is warm and dry. Urine output is 5700 mL. DIAGNOSTIC DATA: Chest x-ray with mild interval worsening, poor inspiratory effort, left-sided pacemaker appreciated. Increased interstitial markings to the lungs which may be pulmonary edema. ASSESSMENT AND PLAN: 1. He has bibasilar infiltrates that could be due to pneumonia or pulmonary edema. His procalcitonin was less than 0.1, which would make bacterial pneumonia less likely. This is the eighth day of treatment with ceftaroline 600 mg IV q.12. I will give some additional Lasix today. 2. Hypertension. Blood pressures appear well controlled. 3. History of coronary artery disease. I do not see any evidence of coronary ischemia. 4. Hypothyroidism. 5. Nicotine dependence. 6. Gastroesophageal reflux. 7. We will discontinue his Hoyos catheter. I think he is able to go back to [facility]. We might see if we can get him back today. Make sure he can void okay. cc: Junior Berrios MD
[2018-04-18 14:45] VITALS: BP 130/63
--- NOTE | 2018-04-18 18:35 | DISCHARGE SUMMARY ---
ADMISSION DATE: 04/02/2018 DISCHARGE DATE: His doctor is Dr. Cristian Hendrickson, came from [facility], had been treating for pneumonia over there, had been off his antibiotics but breathing became more labored and seemed to have blood pressures fluctuating, appeared to have some pulmonary edema and appeared to have bibasilar pneumonia, was put in, treated with antibiotics. We did an echocardiogram on 04/02. His left ventricular function was normal. Ejection fraction 60% to 65%. I did not see significant valvular dysfunction. He had aortic sclerosis but no stenosis. Breathing seemed to wax and wane for a while wondered about possible flash edema. I did get pulmonary to evaluate. He has known underlying coronary artery disease but no definite evidence of ischemia and wondered about possible renal artery insufficiency or renal artery stenosis. Blood pressures remained high and we added some Apresoline and adjusted his medicines. He seemed to show steady improvement. He had to use BiPAP and supplemental O2. We are treating for bilateral pneumonia. He seemed to get better and we never I think had any culture data, his procalcitonin was 0.11 and it clinically improved, chest x-ray improved and felt he could go back to [facility]. He is very weak, general weakness, deconditioning so we will continue physical therapy. He will continue his current medications DuoNeb treatments, Norvasc 10 mg at bedtime, aspirin 81 mg a day, Tegretol was at 200 mg 3 times a day, will keep him on Ceftin 500 mg twice a day just for another 7 days, Coreg 12.5 b.i.d., Plavix 75 mg a day, Colace 100 mg twice a day, Cymbalta 60 mg a day, Lasix 40 mg a day, Mucinex 1 twice a day, Apresoline 50 mg t.i.d., Synthroid 25 mcg daily, lisinopril 40 mg a day, Thera M Plus 1 a day, nicotine patch 21 mg daily, Protonix 40 mg a day, Zoloft 25 mg a day, Zocor 20 mg daily. cc: Junior Berrios MD
[2018-04-18] MEDS: NS 1,000 ML IV SCH (18:53)
--- NOTE | 2018-04-19 02:56 | INFECTIOUS DISEASE PROGRESS NO ---
DATE: 04/18/2018 PRESENT ILLNESS: The patient has bilateral infiltrates that could be due to pneumonia and/or pulmonary edema. His low procalcitonin level would make bacterial pneumonia highly unlikely; however, the patient did have leukocytosis and now it is coming down, possibly secondary to the patient's antibiotics. MEDICATIONS: The patient has been on since yesterday p.o. Ceftin and doxycycline. LAB AND RADIOLOGY: CBC-WBC 10.95, hgb 11.4, platelets 329K. Chest x-ray- increased interstitial markings bilaterally. PHYSICAL EXAMINATION: Vital Signs: Temperature is 97.4 degrees, pulse 60, respirations 17, blood pressure 130/63. General: This is an ill-appearing elderly male. He is in no acute distress. He does cough fairly frequently however and he brings up sputum, but it has no color to it and there is no blood in it. Head/eyes/ears/nose/throat: The patient has decreased hearing. He does not have any white patches on his tongue. Neck: No stiffness. Lungs: There were some bibasilar rales. Cardiovascular: Heart rate is regular. Thorax: The patient has an increased AP diameter of the chest. He also has a left-sided pacemaker. The pacemaker site is not erythematous or swollen. Abdomen: Soft and nontender. Neurologic: The patient is alert. He has decreased hearing. He can see close objects. He can move his extremities. There is no tremor. ASSESSMENT AND PLAN: The patient is to be discharged today on his current antibiotics namely p.o. Ceftin and doxycycline for another week. [facility]. COMORBIDITIES: The patient is elderly. He has a history of cigarette smoking and he also has chronic obstructive pulmonary disease. cc: Javier Alamo MD [facility] CENTERMark
== END 2018-04-18 19:40 | DRG 291 ==
LOC: ED 04:56 → SUATTDRO 09:28 → EDIPHOLD 09:28 → 3S 16:02 → 3N 04-14 09:29
PROVIDERS: ATTEND Emergency Medicine
CPT/HCPCS: 51702; 71010; 71045; 80048; 80053; 81001; 82330; 82550; 82805; 82947; 82948; 83605; 83735; 83880; 84132; 84145; 84295; 84439; 84443; 84484; 85014; 85018; 85025; 85610; 85730; 87040; 87070; 87205; 87275; 87276; 87324; 87449; 87804; 93005; 93306; 93308; 94640; 94660; 94667; 94668; 94761; 94762; 94799; 96365; 96367; 96368; 96375; 97110; 97161; 97165; 97530; 99285; A9270; C8924; J0712; J1940; J1956; J2543; J2920; J3370; J7030; J7050; Q9957; XXXXX

== ENCOUNTER 2018-06-22 18:34 | Inpatient (IN) ==
[2018-06-22 19:33] LABS: BASO# 0.03 X1000 (0.0-0.2); BASO% 0.3 % (0.0-0.8); EOS# 0.12 X1000 (0.0-0.7); EOS% 1.2 % (0.0-10.0); HEMATOCRIT 36.4 % (42.0-52.0); HEMOGLOBIN 11.9 g/dL (14.0-18.0); IMM GRAN# 0.03 X1000 (0.0-0.04); IMM GRAN% 0.3 % (0.0-0.5); LYMPH# 1.55 X1000 (1.2-3.4); LYMPH% 15.9 % (20.5-51.1); MCH 30.1 PG (27-31); MCHC 32.7 g/dL (33-37); MCV 92.2 FL (81-99); MONO# 0.75 X1000 (0.11-0.59); MONO% 7.7 % (1.7-9.3); MPV 8.9 FL (7.4-10.4); NEUT# 7.25 X1000 (1.4-6.5); NEUT% 74.6 % (42.2-75.2); PLT 299 X1000 (130-400); RBC 3.95 XMIL (4.7-6.1); WBC 9.73 X1000 (4.8-10.8)
[2018-06-22 19:39] LABS: INR 0.83; PROTIME 12.1 Seconds (11.0-16.0)
[2018-06-22 19:40] LABS: PTT 28.5 Seconds (22.3-41.8)
[2018-06-22 19:43] LABS: ALB/GLOB RATIO 1.4; ALBUMIN 3.9 g/dL (3.5-5.0); CALCIUM 8.6 mg/dL (8.8-10.2); CREATININE 2.8 mg/dL (0.7-1.2); POTASSIUM 5.1 mmol/L (3.5-5.1); TOTAL BILIRUBIN 0.19 mg/dL (0.20-1.00); TOTAL PROTEIN 6.7 g/dL (6.3-8.3)
--- NOTE | 2018-06-22 19:44 | Diag Imaging Result Doc PS360 ---
EXAM: CHEST-PORTABLE 06/22/2018 HISTORY: sob TECHNIQUE: AP portable at 1919 COMMENT: There is cardiomegaly. There is interstitial opacity and platelike opacities in the lung bases. The lungs are better expanded than on 04/18/2018, and the pleural thickening or pleural effusion which was present on the right side has resolved. IMPRESSION: Cardiomegaly, pulmonary edema, and bibasilar subsegmental atelectasis. Electronically signed by Mika Graham 06/22/2018 7:42 PM
--- NOTE | 2018-06-22 20:41 | PROVIDER DOCUMENTATION ---
This chart was entered by Sabina Goel Scribe, acting as scribe for Abimael Merritt MD. HPI-General Adult - General Chief Complaint: B/P Problems Stated Complaint: hypotension Time Seen by Provider: 06/22/18 19:42 Source: family Allergies/Adverse Reactions: Patient Allergies Allergy/AdvReac Type Severity Reaction Status Date / Time Iodinated Contrast- Oral and Allergy Unknown Verified 06/12/18 07:34 IV Dye Home Medications: Home Medication List Medication Instructions Recorded Confirmed Last Taken Type Amlodipine Besylate [Norvasc] 10 mg PO DAILY 04/02/18 06/09/18 06/11/18 07:00 History Aspirin 81 mg PO DAILY 04/02/18 06/09/18 06/09/18 History Clonidine HCl 0.1 mg PO DAILY PRN PRN 04/02/18 06/12/18 Unknown History Docusate Sodium 100 mg PO DAILY 04/02/18 06/09/18 06/11/18 07:00 History Duloxetine HCl 60 mg PO DAILY 04/02/18 06/09/18 06/11/18 07:00 History Furosemide 40 mg PO DAILY 04/02/18 06/09/18 06/11/18 07:00 History Gabapentin 400 mg PO TID 04/02/18 06/09/18 06/11/18 18:00 History Isosorbide Mononitrate [Isosorbide 30 mg PO DAILY 04/02/18 06/09/18 06/11/18 07:00 History Mononitrate ER] Levothyroxine Sodium 25 mcg PO DAILY 04/02/18 06/09/18 06/11/18 07:00 History Lisinopril 40 mg PO DAILY 04/02/18 06/09/18 06/11/18 07:00 History Multivits,Ca,Minerals/Iron/FA 1 each PO DAILY 04/02/18 06/09/18 06/11/18 07:00 History [Thera-M Tablet] Nicotine Patch [Nicoderm Patch] 21 mg TD DAILY 04/02/18 06/12/18 06/11/18 History Nitroglycerin Sl [Nitroglycerin] 0.4 mg SL PRN PRN 04/02/18 06/12/18 Unknown History Pantoprazole Sodium 40 mg PO DAILY 12/06/09/18 06/11/18 07:00 History Potassium Chloride E.r. [Klor-Con] 10 meq PO DAILY 04/02/18 06/09/18 06/11/18 07:00 History Sertraline HCl 25 mg PO DAILY 04/02/18 06/09/18 06/11/18 07:00 History Simvastatin 20 mg PO HS 04/02/18 06/09/18 06/11/18 18:00 History Carvedilol [Coreg] 12.5 mg PO BID tablet 04/18/18 06/09/18 06/12/18 05:30 Rx Clopidogrel [Plavix] 75 mg PO DAILY tablet 04/18/18 06/09/18 06/09/18 Rx Fluticasone/Salmet 250/50 INH 1 puff INH RTBID inhaler 04/18/18 06/12/18 06/12/18 05:30 Rx [Advair 250/50 Diskus] Guaifenesin/Dm E.r. [Mucinex Dm] 1 each PO BID tablet 04/18/18 06/09/18 06/11/18 18:00 Rx Albuterol 2.5MG/Ipratrop 0.5MG 1 dose NEB Q4H 06/09/18 06/09/18 06/12/18 05:30 History [Duoneb (A & A)] Carbamazepine [Tegretol] 200 mg PO TID 06/09/18 06/09/18 06/11/18 18:00 History Hydralazine [Apresoline] 50 mg PO TID 06/09/18 06/09/18 06/11/18 18:00 History Doxycycline 50 mg PO BID #10 capsule 06/12/18 Unknown Rx Hydrocodone/Acetaminophen [Linden 1 each PO Q4H PRN PRN #10 tablet 06/12/18 Unknown Rx 7.5-325 Tablet] - History of Present Illness -Gen Adult Nature of Presenting Problems: 88 yom presents w/family to ed w/co pt lives at [facility] and was having trouble breathing and low bp starting today. pt arrived via ems. ems reports ams. 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 pt is responsive to verbal stimuli but talking very minimally. pt has hx of dementia, kidney stones, and has a pacemaker. pt has no cp, fever, or nvd. Blood pressure on arrival is within normal limits Review of Systems - Adult - REVIEW OF SYSTEMS - ADULT ROS:: ROS per family Constitutional: reports: no symptoms reported Eyes: reports: no symptoms reported Ears, Nose, Mouth & Throat: reports: no symptoms reported Cardiovascular: reports: see HPI, other (low bp). denies: chest pain, syncope Respiratory: reports: no symptoms reported, shortness of breath. denies: cough, excessive sputum production, pleurisy Gastrointestinal: reports: no symptoms reported. denies: diarrhea, nausea, vom iting Genitourinary: reports: no symptoms reported Musculoskeletal: reports: no symptoms reported Integumentary: reports: no symptoms reported Neurological: reports: no symptoms reported, other (ams). denies: dizziness/vertigo, loss of balance, numbness Psychiatric: reports: no symptoms reported Endocrine: reports: no symptoms reported Hematologic/Lymphatic: reports: no symptoms reported Allergic/Immunologic: reports: no symptoms reported All Other Systems: Reviewed and Negative Past History - Adult - PAST MEDICAL HISTORY-ADULT Review of Records: reports: Old Records Reviewed, Nursing Assessment Review, Medications Reviewed, Social history reviewed & non-contributory. Major Childhood Illnesses: reports: denies history Cardiovascular: reports: CHF, HTN (hypo), hyperlipidemia, pacemaker Respiratory: reports: asthma Gastrointestinal: reports: GERD Obstetrical/Gynecological: reports: denies history Genitourinary: reports: kidney stones Musculoskeletal: reports: denies history Neurological: reports: dementia Psychiatric: reports: anxiety, depression Endocrine/Immune: reports: denies history Other Conditions: reports: cataract/glaucoma - PRIOR SURGERIES/PROCEDURES Surgical/Procedure History: reports: recent surgery (melanoma removal on face, sutures still in place.), other (cataract removal) - IMMUNIZATION STATUS Childhood Immunizations: See Nurse Assessment Flu Vaccine: See Nurse Assessment - FAMILY HISTORY Family History: reviewed, not pertinent - SOCIAL HISTORY Smoking: other (former) Substance Use: none/never Physical Exam-General - PHYSICAL EXAM-ADULT Initial Vital Signs Reviewed: Yes - CONSTITUTIONAL General Appearance: no apparent distress, slow to respond. negative: alert, anxious, combative - EYES Eyes: PERRL/EOMI, pink conjunctivae - HEAD, EARS, NOSE, MOUTH & THROAT HENMT: normocephalic/atraumatic, moist mucous membranes - NECK Neck: non-tender, full range of motion, supple - RESPIRATORY Respiratory: chest non-tender, lungs clear, decreased breath sounds, crackles (mild). negative: normal breath sounds, rhonchi - CARDIOVASCULAR Cardiovascular: normal peripheral pulses, friction rub - GASTROINTESTINAL (ABDOMEN) Abdominal Exam: normal bowel sounds, non tender, soft - LYMPHATIC Lymphatic: no adenopathy - MUSCULOSKELETAL Back Exam: normal inspection Extremity: normal range of motion, non-tender, normal inspection, no pedal edema - SKIN Integumentary: normal turgor, warm/dry, other (sutures over right infraorbital area noted). negative: diaphoresis, decubitus - NEUROLOGIC Neurologic: no motor/sensory deficits - PSYCHIATRIC Psych/Mental Status: disoriented x 3. negative: disheveled, paranoid, tearful Progress - PLAN OF CARE/RESULTS Progress/Plan/Lab Results: Vital Signs - 8 hr 06/22/18 18:44 06/22/18 18:48 Pulse Rate 84 Respiratory Rate 16 Blood Pressure 97/53 102/61 O2 Sat by Pulse Oximetry 90 L 89 L Laboratory Results - last 24 hr 06/22/18 06/22/18 06/22/18 18:54 18:54 18:54 WBC 9.73 RBC 3.95 L Hgb 11.9 L Hct 36.4 L MCV 92.2 MCH 30.1 MCHC 32.7 L RDW Std Deviation 14.0 Plt Count 299 MPV 8.9 Immature Gran % (Auto) 0.3 Neut % (Auto) 74.6 Lymph % (Auto) 15.9 L Mayes % (Auto) 7.7 Eos % (Auto) 1.2 Baso % (Auto) 0.3 Immature Gran # (Auto) 0.03 Neut # (Auto) 7.25 H Lymph # (Auto) 1.55 Mayes # (Auto) 0.75 H Eos # (Auto) 0.12 Baso # (Auto) 0.03 PT INR PTT (Actin FS) Sodium 134 L Potassium 5.1 Chloride 94 L Carbon Dioxide 26 Anion Gap 14 BUN 56 H Creatinine 2.8 H Estimated GFR/1.73 m2 22 BUN/Creatinine Ratio 20 Glucose 108 H Calculated Osmolality 284 Calcium 8.6 L Total Bilirubin 0.19 L AST 19 ALT 18 Alkaline Phosphatase 84 Creatine Kinase 123 Troponin T Ilf-[id number]-Gslohznkevf Pept 944 H Total Protein 6.7 Albumin 3.9 Globulin 2.8 Albumin/Globulin Ratio 1.4 06/22/18 06/22/18 18:54 18:54 WBC RBC Hgb Hct MCV MCH MCHC RDW Std Deviation Plt Count MPV Immature Gran % (Auto) Neut % (Auto) Lymph % (Auto) Mayes % (Auto) Eos % (Auto) Baso % (Auto) Immature Gran # (Auto) Neut # (Auto) Lymph # (Auto) Mayes # (Auto) Eos # (Auto) Baso # (Auto) PT 12.1 INR 0.83 PTT (Actin FS) 28.5 Sodium Potassium Chloride Carbon Dioxide Anion Gap BUN Creatinine Estimated GFR/1.73 m2 BUN/Creatinine Ratio Glucose Calculated Osmolality Calcium Total Bilirubin AST ALT Alkaline Phosphatase Creatine Kinase Troponin T 0.070 Ukp-M-Phjhrnixmzx Pept Total Protein Albumin Globulin Albumin/Globulin Ratio Orders Category Date Time Status Cardiac Monitoring DIRECTED Care 06/22/18 19:12 Active Oxygen Therapy- ED Nursing DIRECTED Care 06/22/18 19:12 Active Saline Loc NOW Care 06/22/18 19:12 Active CHEST-PORTABLE [RAD] Stat Exams 06/22/18 19:13 Completed CBC WITH ELECTRONIC DIFF [HEME] Stat Lab 06/22/18 18:54 Completed CK PROFILE [SP CHEM] Stat Lab 06/22/18 18:54 Completed COMPREHENSIVE METABOLIC PANEL [CHEM] Stat Lab 06/22/18 18:54 Completed PRO B-NATRIURETIC PEPTIDE Stat Lab 06/22/18 18:54 Completed PROTIME WITH INR [COAG] Stat Lab 06/22/18 18:54 Completed PTT [COAG] Stat Lab 06/22/18 18:54 Completed TROPONIN T Stat Lab 06/22/18 18:54 Completed CP/SOB/Palp >45 yrs of Age Stat Oth 06/22/18 19:12 Ordered EKG [EKG] Stat Ther 06/22/18 19:12 Ordered Result Diagrams: 06/22/18 18:54 06/22/18 18:54 - EKG 1 Time of EKG reading by physician:: 18:52 EKG Read and Signed by:: Kalli Avalos EKG Interpretation (*Must complete 3 of following elements*): Abnormal Rate: 72 Rhythm: Ventricle paced rhythm QRS: other (prolonged qrs duration) NC Interval: prolonged - XRAY 1 XRAY Study: Chest Impression: Abnormal ( EXAM: CHEST-PORTABLE 06/22/2018 HISTORY: sob TECHNIQUE: AP portable at 1919 COMMENT: There is cardiomegaly. There is interstitial opacity and platelike opacities in the lung bases. The lungs are better expanded than on 04/18/2018, and the pleural thickening or pleural effusion which was present on the right side has resolved. IMPRESSION: Cardiomegaly, pulmonary edema, and bibasilar subsegmental atelectasis. Electronically signed by Mika Graham 06/22/2018 7:42 PM 06/22/181941 Interpreting Physician: Mika Graham MD Dictated Date/Time: 06/22/181940) - CONSULTS/PCP/HOSPITALIST Notification #1 *Consult/PCP/Hospitalist*: Dr. Poe Time Discussed: 20:39 Consult Disposition: Admit Departure - Departure Date of Disposition Decision: 06/22/18 Time of Disposition Decision: 20:40 DIAGNOSIS: Shortness of breath Pulmonary edema Qualifiers: Chronicity: acute Qualified Code(s): J81.0 - Acute pulmonary edema Acute on chronic renal failure Qualifiers: Acute renal failure type: unspecified Chronic kidney disease stage: unspecified stage Qualified Code(s): N17.9 - Acute kidney failure, unspecified; N18.9 - Chronic kidney disease, unspecified Hypotension Qualifiers: Hypotension type: other hypotension type Qualified Code(s): I95.89 - Other hypotension Disposition: ADMITTED INPATIENT 09 Certified Medical Emergency: Emergent Condition: Serious Referrals and Follow-Ups: Critsian Hendrickson MD [Primary Care Provider] - - Critical Care Note This patient required my direct & personal management of CC.: No Attestation - Physician/ JARED Attestation Patient care was provided by Advanced Practice Provider:: No The physician spent face to face time with patient:: Yes Advanced Practice Provider documentation review:: Supervising physician onsite and consulted in the evaluation and care of this patient. The physician did have a face to face encounter with the patient. This chart was documented by the indicated scribe, (Sabina Goel Scribe) and accurately reflects the services I performed and decisions made by me, Abimael Merritt MD, as attested by the provider's signature.
[2018-06-22 22:02] LABS: URINE SOURCE CATH
[2018-06-22 22:11] LABS: BILIRUBIN URINE NEGATIVE (NEGATIVE); BLOOD URINE NEGATIVE (NEGATIVE); COLOR YELLOW; GLUCOSE URINE NEGATIVE (NEGATIVE); KETONE URINE NEGATIVE (NEGATIVE); LEUKOCYTES URINE NEGATIVE (NEGATIVE); NITRITE URINE NEGATIVE (NEGATIVE); PROTEIN URINE NEGATIVE (NEGATIVE); SP GRAVITY URINE 1.008; TURBIDITY URINE CLEAR (CLEAR); UR EPITHELIAL CELLS <10 /HPF (<10); URINE BACTERIA NEGATIVE /HPF; URINE WBC <10 /HPF (<10); UROBILINOGEN URINE NORMAL (NORMAL)
[2018-06-22 22:20] LABS: UR AMPHETAMINES QUAL NONE DETECTED (NONE DETECT); UR BARBITUATES QUAL NONE DETECTED (NONE DETECT); UR BENZODIAZEPIN QUAL NONE DETECTED (NONE DETECT); UR CANNABINOIDS QUAL NONE DETECTED (NONE DETECT); UR COCAINE QUAL NONE DETECTED (NONE DETECT); UR METHADONE QUAL NONE DETECTED (NONE DETECT); UR OPIATES QUAL NONE DETECTED (NONE DETECT); UR OXYCODONE QUAL NONE DETECTED (NONE DETECT); UR PCP QUAL NONE DETECTED (NONE DETECT)
[2018-06-22] MEDS: NS 1,000 ML IV SCH (22:39)
[2018-06-23] MEDS ORDERED: NORCO-7.5 PO PRN (01:44)
[2018-06-23] MEDS ORDERED: ZOFRAN IV PRN (01:44)
[2018-06-23] MEDS ORDERED: LASIX IV ONE (01:44)
--- NOTE | 2018-06-23 02:17 | HISTORY AND PHYSICAL ---
PRIMARY CARE PHYSICIAN: Dr. Hendrickson. CHIEF COMPLAINT: The patient was sent from care home for hypotension. HISTORY OF PRESENT ILLNESS: This is a chronically ill-looking 88-year-old male who apparently has a history of dementia according to ER physician, who lives in [facility]. There is no family members in the room. Apparently he was sent here because he was having problems with breathing on low blood pressure. It started today. The patient was brought by ambulance. ER workup revealed white cell count within normal limits, with acute kidney injury. No urinalysis is ordered yet. The patient not able to provide any information at all. He is confused and he does not answer questions. He talks very minimally. The patient denies any chest pain, fever or any other pain. He reports just mild headache. The patient as we mentioned before is unable to provide any pertinent information. As mentioned before this H P information is taken from ER notes and from previous encounters. PAST MEDICAL HISTORY: 1. Hypertension. 2. Hypothyroidism. 3. Coronary artery disease. 4. Peripheral neuropathy. 5. Hypercholesteremia. PAST SURGICAL HISTORY: Unobtainable. FAMILY HISTORY: Apparently there is a history of coronary artery disease running in his family. SOCIAL HISTORY: The patient lives in a care home. The patient does have a nicotine patch. Apparently there is no history of drinking alcohol or using illicit drugs. ALLERGIES: The patient is allergic to iodinated contrast oral and IV dye. REVIEW OF SYSTEMS: Unobtainable. PHYSICAL EXAMINATION: VITAL SIGNS: Temperature 97.4, heart rate 62, respiratory rate 20, blood pressure 130/63, O2 saturation 99% on 3 L nasal cannula. GENERAL: This is a chronically ill-appearing 88-year-old, male lying in bed in no acute distress. HEENT: Head is normocephalic and atraumatic. Mucous membranes are dry. Pupils are equal, round, and reactive to light and accommodation. Anicteric sclerae. Pale conjunctivae. NECK: No JVD noted. No carotid bruits. No lymphadenopathy. No thyromegaly. CARDIOVASCULAR: S1, S2 heard. No murmurs, gallops, or rubs. Regular rate and rhythm. RESPIRATORY: Minimal crackles in both pulmonary bases. The patient is not using any accessory muscles or having work of breathing. ABDOMEN: Soft, a little bit distended, but nontender to palpation. Bowel sounds present. No organomegaly. EXTREMITIES: No clubbing, cyanosis, or edema. Peripheral pulses present in both legs. NEUROLOGICAL: The patient is confused, does not answer my questions appropriately. He does reports some headache and nausea. He does follow basic commands like squeeze my fingers. Not possible to evaluate properly cranial nerves. LABORATORY DATA: White cell count 9.73, hemoglobin 11.9, hematocrit 36.4, platelets 299, with BMP that shows creatinine 2.8, sodium 134, calcium 8.6, total bilirubin 0.19, proBNP 944. LABS: X-ray done here showed cardiomegaly, pulmonary edema and bibasilar subsegmental atelectases. ASSESSMENT AND PLAN: 1. Metabolic encephalopathy. At this point I do not know the reason why this patient has become confused. The patient is basically requiring the same amount of oxygen as in his last hospitalization. Urinalysis and urine drug screen is still pending at the time of dictation. I do not know if this is part of his dementia and he is at his baseline or not. In any case we will continue to monitor this patient closely. 2. Acute kidney injury. The last creatinine that we have checked in the hospital for this patient has been completely normal so this is definitely not acute kidney injury. So at this point we are going to start normal saline at 75 mL per hour. So we will hydrate him gently. We will check basic metabolic panel daily and if no improvement we will make consultation to Nephrology. We will check a renal ultrasound and we will go from there. 3. Pulmonary edema. That is what the x-ray shows even though the patient is requiring the same amount of oxygen, and basically there is minimal crackles noted in both pulmonary bases. The patient has not received anything in the emergency room like Lasix. Considering her renal function that is not good I prefer to hold any Lasix and see how this patient does. We are going to check an echocardiogram limited views, the last one that we have from here was done on 06/03/2018, which basically showed an ejection fraction of 60%-65%. I think at this point we are going to consult Cardiology and we will go from there. 4. Advanced dementia. We will continue with home medications. 5. Hypertension. Blood pressure is better, it is 110/59, and at arrival to the emergency room it was 81/52. We will continue to monitor, but we are going to hold blood pressure medications at this time. 6. Disposition. We will send this patient to [facility] unit. cc: Kash Cano MD MTDD
[2018-06-23] MEDS: HEPARIN SUBQ SCH ×2 (02:50→13:59)
[2018-06-23] MEDS ORDERED: LASIX ONE (03:01)
[2018-06-23 03:55] LABS: ALLEN TEST YES; BE -0.3 mmoll (-3.0-3.0); BLOOD TYPE ARTERIAL; HCO3-(ACT) 24.5 mmoll (20.0-26.0); METHB 1.1 % (0.0-1.5); O2(CT) 15.1 mL/dL (15.0-23.0); PO2(98.6) 59 mmHg (60-100); SAMPLE BLOOD; pH(98.6) 7.31 (7.35-7.45)
[2018-06-23 03:56] LABS: MODALITY CANNULA
[2018-06-23 03:57] LABS: PCO2(98.6) 53 mmHg (35-45)
[2018-06-23 03:58] LABS: O2HB 89.4 % (95.0-99.0)
[2018-06-23 06:53] LABS: ALLEN TEST YES; BE -0.8 mmoll (-3.0-3.0); BLOOD TYPE ARTERIAL; HCO3-(ACT) 24.2 mmoll (20.0-26.0); MODALITY CANNULA; O2(CT) 16.2 mL/dL (15.0-23.0); O2HB 93.5 % (95.0-99.0); PCO2(98.6) 47 mmHg (35-45); PO2(98.6) 72 mmHg (60-100); SAMPLE BLOOD; SAO2 96.1 % (95.0-100.0); THB 12.3 g/dL (11.5-17.4); pH(98.6) 7.34 (7.35-7.45)
--- NOTE | 2018-06-23 07:00 | Diag Imaging Result Doc PS360 ---
EXAM: CT HEAD W/O CONTRAST 06/22/2018 HISTORY: ams, headache TECHNIQUE: This exam was performed using automated exposure control, adjustment of mA or kV according to patient size, and/or use of iterative reconstruction technique. COMMENT: There is moderate generalized cerebral atrophy. There is no evidence of mass effect, bleed, or abnormal extra-axial fluid collection. There is mild periventricular white matter lucency particularly adjacent to the left atrium. There is no evidence of acute bony abnormality. There are effusions in both mastoids and middle ears. IMPRESSION: No evidence of acute intracranial disease. Atrophy and mild microvascular ischemic change. Bilateral mastoid effusions and otitis media. Electronically signed by Mika Graham 06/23/2018 6:57 AM
--- NOTE | 2018-06-23 07:09 | Diag Imaging Result Doc PS360 ---
EXAM: CT THORAX W/O CONTRAST 06/22/2018 HISTORY: pulmonary edema, r/o pna TECHNIQUE: This exam was performed using automated exposure control, adjustment of mA or kV according to patient size, and/or use of iterative reconstruction technique. COMMENT: There is emphysematous change bilaterally particularly in the subpleural zones posteriorly in the upper lobes. There are atelectatic or fibrotic changes present in the right middle lobe inferior lingula and both lower lobes. There is a partially calcified nodule in the left posterior costophrenic sulcus. This was present on the previous study of the abdomen dated 01/01/2012. It is most likely granulomatous. There is slightly more density and consolidation in the right lower lobe posterior costophrenic sulcus which may indicate pneumonia. There is fluid in the esophagus. There is a precarinal node measuring excess of 2.1 cm. There is extensive coronary calcification. Multiple old rib fractures are present. There are spondylotic changes in the thoracic spine. There is a anterior wedge compression fracture which has been treated with kyphoplasty at T5. There is some lobulation of the upper pole of the left kidney which was also present at the time the previous abdominal study. There is enlargement of the left adrenal gland which is probably due to hyperplasia and was also present previously. There is a nodule in the lateral lobe of the right adrenal gland which was present at the time the previous study and is presumably an adenoma. IMPRESSION: COPD, atelectasis, and right lower lobe pneumonia. The possibility of reflux and aspiration cannot be excluded. Electronically signed by Mika Graham 06/23/2018 7:06 AM
[2018-06-23] MEDS: ADVAIR 250/50 DISKUS INH SCH ×2 (07:30→19:30)
--- NOTE | 2018-06-23 08:15 | Diag Imaging Result Doc PS360 ---
EXAM: US RENAL 2 (RETROPER) COMPLETE INDICATION: corine/arf TECHNIQUE: COMPARISON: None. FINDINGS: There is a 1.4 cm simple left renal cyst. The renal echotexture is unremarkable, otherwise. No renal masses or hydronephrosis is identified. The right kidney measures 10.2 cm and the left kidney measures 11.5 cm in the greatest longitudinal axes. The right renal cortex measures up to 0.8 cm and the left renal cortex measures up to 1 cm in thickness. There is a Hoyos catheter in the urinary bladder and the bladder is completely nondistended. IMPRESSION: Essentially unremarkable renal ultrasound. Electronically signed by Marcial Goel 06/23/2018 8:13 AM
[2018-06-23] MEDS: DUONEB (A & A) INH PRN ×5 (08:27→22:47)
[2018-06-23] MEDS ORDERED: LEVAQUIN 500 MG/D5W 500 MG/100 ML IVPB IV SCH (09:00)
--- NOTE | 2018-06-23 09:04 | EKG Report ---
Test Performed on : 06/22/2018 6:47:39 PM Test Reason : sob Blood Pressure : / mmHG Vent. Rate : 072 BPM Atrial Rate : 057 BPM P-R Int : 000 ms QRS Dur : 170 ms QT Int : 456 ms P-R-T Axes : 000 -81 090 degrees QTc Int : 499 ms Ventricular-paced rhythm Abnormal ECG When compared with ECG of 02-APR-2018 05:17, Vent. rate has increased BY 12 BPM Unconfirmed Result
[2018-06-23] MEDS: SYNTHROID PO SCH (09:05)
[2018-06-23] MEDS: PRILOSEC PO SCH (09:05)
[2018-06-23] MEDS: PLAVIX PO SCH (09:05)
[2018-06-23] MEDS: ASPIRIN PO SCH (09:05)
[2018-06-23] MEDS: NICODERM PATCH TD SCH (09:05)
[2018-06-23] MEDS: COLACE PO SCH (09:06)
[2018-06-23] MEDS: CYMBALTA PO SCH (09:06)
[2018-06-23] MEDS: NEURONTIN PO SCH ×4 (09:06→17:51)
[2018-06-23 10:34] LABS: BASO# 0.02 X1000 (0.0-0.2); BASO% 0.2 % (0.0-0.8); EOS# 0.11 X1000 (0.0-0.7); EOS% 1.3 % (0.0-10.0); HEMATOCRIT 38.1 % (42.0-52.0); HEMOGLOBIN 12.5 g/dL (14.0-18.0); IMM GRAN# 0.02 X1000 (0.0-0.04); IMM GRAN% 0.2 % (0.0-0.5); LYMPH# 1.54 X1000 (1.2-3.4); LYMPH% 18.9 % (20.5-51.1); MCH 30.3 PG (27-31); MCHC 32.8 g/dL (33-37); MCV 92.5 FL (81-99); MONO# 0.79 X1000 (0.11-0.59); MONO% 9.7 % (1.7-9.3); MPV 8.7 FL (7.4-10.4); NEUT# 5.68 X1000 (1.4-6.5); NEUT% 69.7 % (42.2-75.2); PLT 298 X1000 (130-400); RBC 4.12 XMIL (4.7-6.1); RDW 14.1 % (11.5-14.5); WBC 8.16 X1000 (4.8-10.8)
--- NOTE | 2018-06-23 10:51 | PROGRESS NOTE ---
DATE: 06/23/2018 SUBJECTIVE: This patient is completely alert. He is oriented x2. He is not oriented to time. He knows who is the president of [employer]. He is following commands. He does not have focal weakness. He does not remember how he came to the hospital or why. I do not have any new lab work today. It is pending. He does have acute kidney injury. He has been getting some IV fluids. It looks like compared with the admission, he is more responsive and he looks better. I have requested a swallow evaluation for this patient so we can start feeding this patient. OBJECTIVE: Vital signs: Pulse 61, respiratory rate 18, blood pressure 108/61, oxygen saturation 96 on 3 L of nasal cannula. HEENT: Head normocephalic. No trauma. PERRLA. He has some stitches on the right cheek right in the intraorbital area. They do not look infected. Neck: Supple. No JVD. Central trachea. Chest: Decreased breath sounds at the bases with some rales. Abdomen: Soft. Nontender, nondistended no hepatosplenomegaly. He does have multiple big scars on his abdomen. Positive bowel sounds. Extremities: No edema. No clubbing. No cyanosis. Neurological: The patient is alert and oriented x2, he is not oriented to time. He is able to follow commands and moves all 4 extremities. LABORATORY: Pending lab work at this moment. ABG pH 7.3, pCO2 47, pO2 72, bicarbonate 24. ASSESSMENT AND PLAN: 1. Metabolic encephalopathy this could be multifactorial due to acute kidney injury, acute respiratory failure with hypercapnia and hypoxemia, dementia. Urinalysis looks fine. No fever. It looks like this is much better. Probably this is his baseline. We will continue to monitor. 2. Acute kidney injury. We stopped all the blood pressure medications and we will avoid nephrotoxic medications. He is getting gentle hydration. It looks like he has a baseline between 0.9 and 1.1. Yesterday the creatinine was 2.8, pending lab work today. Urine toxicology is negative. 3. This patient has some pulmonary edema. He has some rales, probably crackles at the bases. His oxygen is better with oxygen supplementation, will monitor. ABGs are better as well. 4. Advanced dementia, continue home medications. 5. Hypertension. Actually we stopped all the blood medications blood pressure medication because this patient came in hypotensive. Blood pressure seems to be doing better. At this moment in the systolic blood pressure is in the 100. But at some point dropped to the low 80s. We will continue with gentle hydration. We will continue to monitor. 6. Hypoxemic and hypercapnic respiratory failure. This is getting better. Continue with oxygen supplementation. Probably this patient has an underlying chronic obstructive pulmonary disease, no wheezing though. 7. History of coronary artery disease. It looks like he has a pacemaker also. He is not complaining of chest pain at this moment. 8. Deep vein thrombosis prophylaxis with heparin, renally dosed. 9. Possible underlying pneumonia, not sure about these but this patient has been placed on antibiotics. For now, we will continue with the same management. I have requested a sputum culture. Blood culture as well. cc: Jevon Hobson MD
[2018-06-23 10:54] LABS: ALB/GLOB RATIO 1.1; ALBUMIN 3.7 g/dL (3.5-5.0); CALCIUM 8.7 mg/dL (8.8-10.2); CREATININE 1.9 mg/dL (0.7-1.2); POTASSIUM 4.5 mmol/L (3.5-5.1); TOTAL BILIRUBIN 0.26 mg/dL (0.20-1.00); TOTAL PROTEIN 7.2 g/dL (6.3-8.3)
[2018-06-23 12:00] LABS: MAGNESIUM 2.3 mg/dL (1.5-2.7); PHOSPHORUS 4.2 mg/dL (2.7-4.5)
[2018-06-23] MEDS: NS 1,000 ML IV SCH ×2 (12:45→17:52)
[2018-06-23 15:36] LABS: UR CREAT RANDOM 63.7 mg/dL (14-26); UR PROT RANDOM 18.8 mg/dL
[2018-06-23 15:58] LABS: HEMATOCRIT 38.3 % (42.0-52.0); HEMOGLOBIN 12.7 g/dL (14.0-18.0); MCH 30.2 PG (27-31); MCHC 33.2 g/dL (33-37); MCV 91.2 FL (81-99); MPV 8.9 FL (7.4-10.4); RBC 4.2 XMIL (4.7-6.1); RDW 13.9 % (11.5-14.5); WBC 7.59 X1000 (4.8-10.8)
[2018-06-23 16:25] LABS: ALBUMIN 3.8 g/dL (3.5-5.0); CALCIUM 8.7 mg/dL (8.8-10.2); CREATININE 1.5 mg/dL (0.7-1.2); PHOSPHORUS 3.3 mg/dL (2.7-4.5); POTASSIUM 4.4 mmol/L (3.5-5.1)
--- NOTE | 2018-06-23 16:30 | ECHO REPORT ---
ORDER DATE: 06/22/2018 INDICATION: Pulmonary edema. FINDINGS: This is an extremely difficult study with poor resolution the endocardial borders. I do not believe the measurements on this study are accurate. This study is inadequate to assess the left ventricular systolic function. Could consider repetition of the study with Definity echo contrast. There was no Doppler evaluation on this study. There is no evidence of pericardial effusion. Some prominence of the right ventricle but very difficult views of the right ventricle to be conclusive. cc: MD Kash Potter MD
--- NOTE | 2018-06-23 16:50 | CONSULTATION ---
DATE OF CONSULTATION: 06/23/2018 IMPRESSIONS: 1. Recent brief syncope and hypotension. Clinically patient appears to be intravascularly volume depleted. 2. Acute on chronic renal dysfunction. 3. Right lower lobe pneumonia reported on chest x-ray. 4. Hypertension. 5. Hard of hearing. 6. Status post permanent pacemaker. RECOMMENDATIONS: 1. Continue gentle hydration as you are doing. 2. Agree with treatment for pulmonary infectious process. 3. Try to arrange interrogation of pacemaker. HISTORY: This 88-year-old white male with a past history of previous permanent dual-chamber pacemaker for bradyarrhythmias, hypertension, and hyperlipidemia was transfer from the alf for further management after he had an episode of near syncope/syncope while emptying his bladder. He has had some recent GI issues with diarrhea and vomiting over the past week. He describes having diarrhea with green stools. This seemed to improve over the last day or so. He reports that he was sitting on the commode and became lightheaded and momentarily passed out. He was found to be somewhat disoriented and hypotensive. He was brought to the emergency room for evaluation. He denies shortness of breath or chest pain. There has been no orthopnea. Previous echocardiography indicated normal left ventricular ejection fraction. PAST MEDICAL HISTORY: 1. Status post permanent dual-chamber pacemaker for bradyarrhythmias. 2. Hypertension. 3. Hypothyroidism. 4. Atherosclerotic coronary disease by history. 5. Hyperlipidemia. 6. History of allergy to iodinated contrast. 7. History of hearing loss, particularly in the right ear. MEDICATIONS PRIOR TO ADMISSION: As listed. SOCIAL HISTORY: He is and retired. He resides in a alf. He does not smoke or use alcohol. FAMILY HISTORY: Negative for premature coronary disease. REVIEW OF SYSTEMS: Pulmonary: Noncontributory. Gastrointestinal: Noteworthy for recent nausea and vomiting and diarrhea, although he indicates he was still able to eat during this period of time. Constitutional: Noncontributory beyond history of present illness. Remainder of review of systems negative/noncontributory beyond history of present illness with 14 total systems reviewed. PHYSICAL EXAMINATION: General: Exam reveals an elderly white male who is hard of hearing, particularly in right ear, in no distress. Vital signs: Blood pressure 156/89, heart rate 69. HEENT: Extraocular muscles appear intact. Mucous membranes are dry. Neck: Supple. Jugular venous pressure is normal based on inspection of neck veins. Chest: Clear to auscultation bilaterally. Cardiac Exam: Reveals a regular rate and rhythm without appreciable murmur or gallop. Abdomen: Soft. Bowel sounds are normal. Extremities: Without edema. Neurologic: Reveals him to be awake and very responsive. Speech is fluent. He moves all 4 extremities equally well. PERTINENT DATA: Twelve-lead EKG demonstrates a ventricular paced rhythm. Laboratory data includes sodium 137, potassium 4.5, chloride 99, carbon dioxide 26, BUN 50, creatinine 1.9, glucose 126, magnesium 2.3. Pro-B natriuretic peptide level 944. CPK 123. Initial troponin T 0.07. Follow-up troponin T 0.052 and 0.061. White blood cell count 8.16, hematocrit 38.1, hemoglobin 12.5, platelet count 298,000. Chest CT suggests COPD and right lower lobe pneumonia. cc: Romero Tyson MD
--- NOTE | 2018-06-23 17:26 | NEPHROLOGY CONSULTATION ---
DATE: 06/23/2018 REASON FOR ADMISSION: Hypotension at the group home with increased work of breathing. REASON FOR CONSULT: Acute kidney injury on CKD stage 2. PHYSICIAN REQUESTING CONSULT: Kash Cano MD. HISTORY OF PRESENT ILLNESS: Mr. Burch is an 88-year-old, white male, who has a known history of dementia, who lives in [facility]. The patient was sent to [facility]'s Emergency Department today for hypotension. In the ER, his workup revealed that patient's BUN and creatinine were elevated at 56 and 2.8 consecutively. He states that he has not had a good appetite. We have looked at his medication list. He takes lisinopril Lasix, and gabapentin at the clinic. He is very pleasant to talk to. He is a poor historian. He does at this time deny any chest pain, fever, increased work of breathing. No chills. He states he has a mild headache. States that again he has not been eating well, but no nausea, vomiting. Positive for diarrhea. PAST MEDICAL HISTORY: Hypertension, hypothyroidism, coronary artery disease, peripheral neuropathy, hypercholesterolemia, and chronic kidney disease stage 2. Again, baseline creatinine previously noted at 0.7 in April 2018. PAST SURGICAL HISTORY: Unobtainable. FAMILY HISTORY: Unobtainable from the patient. SOCIAL HISTORY: He is a resident of [facility]. History of previous tobacco use. No current tobacco, alcohol or illicit drug use. ALLERGIES: Listed as iodinated oral and IV contrast. HOME MEDICATIONS: Norvasc, aspirin, clonidine, docusate, furosemide, gabapentin, isosorbide, lisinopril, multivitamin, nicotine patch, nitroglycerin, pantoprazole, sertraline, simvastatin, duloxetine, hydrochloride, levothyroxine, potassium chloride, Coreg, Plavix, Advair inhaler, guaifenesin, hydralazine, Tegretol, DuoNeb, and hydrocodone. REVIEW OF SYSTEMS: Unable to obtain per patient except for pertinent positives listed above in the HPI. VITAL SIGNS: His most recent vital signs, temperature has yet been checked. Blood pressure in the ER 129/65, heart rate 62, respirations are 16. He is on 3 L nasal cannula. Last recorded saturation 93%. He has had 0 recorded in, 2670 out of his Hoyos catheter. They just emptied it with a greater than 800 mL. LABS: This a.m. have yet to get to be repeated. His sodium is 134, potassium 5.1, chloride 94, CO2 of 26, BUN 56, creatinine 2.8, glucose 108. Anion gap of 14, calcium 8.6, albumin 3.9. White count 9.73, hemoglobin 11.9, hematocrit 36.4 with a platelet count of 299. His ProTime is 12.1, INR 0.83, PTT 28.5. ABGs: pH 7.34, CO2 of 47, pO2 of 72, bicarb 24.2 on 3 L nasal cannula. PHYSICAL EXAMINATION: General: This is an 88-year-old, elderly gentleman. He is currently resting quietly in bed. He is cooperative though a poor historian. Skin: Warm and dry. HEENT: Normocephalic, atraumatic. Conjunctiva is pale. He has LULÚ. Mucous membranes dry. Neck: Supple. Trachea midline. No evidence of JVD in patient's positioning on the stretcher. Cardiovascular: S1, S2 noted. No appreciable murmur or gallop. Lungs: Clear to auscultation anterior. Equal excursion on O2. Abdomen: Soft, slightly distended. Large, round, nontender. Positive bowel sounds. Genitourinary: The patient has a Hoyos catheter in place with adequate urine out being documented. Neurological: The patient is pleasantly confused except to current status of his condition. Otherwise, poor historian to most recent events. He is able to follow commands. ASSESSMENT AND PLAN: 1. Acute kidney injury on chronic kidney disease stage 2. Patient's baseline creatinine is 0.7. BUN of 56, with a creatinine of 2.8. This more than likely is in context of decreased fluid intake in the context of lisinopril and Lasix. He currently has normal saline at 75 mL an hour infusing. Renal ultrasound had been completed indicating his right kidney measuring 10.2 and the left measuring 11.5. Urine electrolytes are to be sent off for further evaluation. No indications for intervention. Patient was hypotensive in the emergency room now continues with IV fluids of normal saline at 75 mL an hour. 2. Electrolytes and acid-base balance. These are acceptable. 3. Anemia. This is close to target. 4. Metabolic encephalopathy. Patient has known dementia at the group home. 5. Hypertension. Blood pressure is currently stable in the context of having had hypotension on admission. I would like to thank you for allowing us to follow with this patient. Dictated by LARS Morrissey for Иван Le MD cc: LARS Morrissey MD [facility]
--- NOTE | 2018-06-23 19:42 | CONSULTATION ---
DATE OF CONSULTATION: 06/23/2018 REQUESTING PROVIDER: Dr. Kash Poe. REASON FOR CONSULTATION: Acute respiratory failure. HISTORY OF PRESENT ILLNESS: This is an 88-year-old male with a medical history of asthma, coronary artery disease, hypertension, hypothyroidism, hypercholesterolemia, GERD, peripheral neuropathy, bradyarrhythmia, chronic kidney disease and dementia. He had been last admitted on 04/02/2018 to 04/18/2018 with bilateral pneumonia, pulmonary edema and acute hypoxemic hypercapnic respiratory failure. He presented to the ER last night from [facility] with altered mental status, trouble breathing and low blood pressure for one day. Initial workup in the ER revealed metabolic encephalopathy, acute kidney injury, pulmonary edema and acute hypoxemic hypercapnic respiratory failure. Patient has been admitted to the [facility] for further evaluation and management. At the time of my examination, patient is lying in bed with some anxiety and confusion noted. An echocardiogram is pending at the bedside. He keeps stating that I just have one done. When I call his name, he turns to face me, but keeps telling me that he can't hear me. PAST MEDICAL AND SURGICAL HISTORY: 1. Asthma 2. Coronary artery disease. 3. Hypertension. 4. Hypothyroidism. 5. Hypercholesterolemia. 6. GERD 7. Peripheral neuropathy. 8. 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 9. Kidney stones 10. Chronic kidney disease stage II 11. Dementia, advanced. 11. Right ear hearing loss 12. Recent facial melanoma removal, sutures still in place over right infraorbital area 13. Cataract removal. SOCIAL HISTORY: Patient has a history of heavy smoking, but quit for years. The patient lives in lives at [facility]. He reports no history of alcohol or illicit drug use. FAMILY HISTORY: Unknown. ALLERGIES: Iodinated contrast. REVIEW OF SYSTEMS: Difficult to be obtained PHYSICAL EXAMINATION: Vital Signs: Blood pressure 108/61, pulse 60, respiratory rate 18, oxygen saturation 96% on nasal cannula at 3 L. General: The patient is lying on the stretcher in the ER. He is in no acute respiratory distress, but he did show some anxiety and confusion. He keeps stating that he cannot hear me. HEENT: Atraumatic. Trachea midline. He has some levels of hearing loss. Respiratory: Lung expansion equal bilaterally. Auscultation revealed diminished breathing sounds bilaterally with mild early inspiratory crackles bilaterally. Cardiovascular: Regular rate and rhythm. Gastrointestinal: Normoactive bowel sounds in all 4 quadrants. Soft, nontender and obese. Extremities: No pedal edema. No cyanosis. No clubbing. Dorsalis pedis 2+ bilaterally. Neurologic: The patient is awake and alert. He has some anxiety and confusion at this time. His speech is fluent, but not follow commands likely due to hearing loss. IMAGING DATA: Chest CT without contrast on 06/22/2018 revealed COPD, atelectasis, and right lower lobe pneumonia. The possibility of reflux and aspiration cannot be excluded. LABORATORY DATA: ABG: pH 7.34, pCO2 47, PO2 72, HC03 24.2, base excess -0.8, oxyhemoglobin 93.5. ASSESSMENT: This is an 88-year-old male with a medical history of asthma, coronary artery disease, hypertension, hypothyroidism, hypercholesterolemia, GERD, peripheral neuropathy, bradyarrhythmia, chronic kidney disease and dementia. He has been admitted to the [facility] with metabolic encephalopathy, acute kidney injury, pulmonary edema and acute respiratory failure. 1. Acute hypoxemic hypercapnic respiratory failure. 2. Pulmonary edema. Pneumonia possible. 3. Acute kidney injury. 4. Metabolic encephalopathy. PLAN: 1. Continue supplemental oxygen as needed 2. Follow up with CBC and BMP and chest x-ray. 3. Consider BiPAP and follow up ABG if indicated 4. Follow up with blood culture and sputum culture. 5. Continue antibiotic therapy and bronchodilators. Dr. Tyson, the garbage truck driver, is on board. 5. Continue GI and DVT prophylaxis. 6. Further recommendations pending hospital course. Thank you for the courtesy of this consult. Dictated by LARS Casas for Jaimee Espinoza MD cc: LARS Casas MD [facility]
[2018-06-23] MEDS ORDERED: ZOCOR PO SCH (21:00)
[2018-06-23] MEDS ORDERED: LEVAQUIN 250 MG/D5W 250 MG/50 ML IVPB IV SCH (22:30)
[2018-06-23] MEDS: ZOCOR PO SCH (23:52)
[2018-06-24] MEDS: HEPARIN SUBQ SCH ×2 (02:13→13:39)
[2018-06-24] MEDS: DUONEB (A & A) INH PRN ×4 (03:00→19:12)
[2018-06-24 05:40] LABS: BASO# 0.03 X1000 (0.0-0.2); BASO% 0.4 % (0.0-0.8); EOS# 0.15 X1000 (0.0-0.7); EOS% 1.8 % (0.0-10.0); HEMATOCRIT 37.7 % (42.0-52.0); HEMOGLOBIN 12.3 g/dL (14.0-18.0); IMM GRAN# 0.04 X1000 (0.0-0.04); IMM GRAN% 0.5 % (0.0-0.5); LYMPH# 2.08 X1000 (1.2-3.4); LYMPH% 25.2 % (20.5-51.1); MCHC 32.6 g/dL (33-37); MONO# 0.76 X1000 (0.11-0.59); MONO% 9.2 % (1.7-9.3); MPV 8.9 FL (7.4-10.4); NEUT# 5.18 X1000 (1.4-6.5); NEUT% 62.9 % (42.2-75.2); PLT 290 X1000 (130-400); RDW 14.1 % (11.5-14.5); WBC 8.24 X1000 (4.8-10.8)
[2018-06-24] MEDS: SYNTHROID PO SCH (06:03)
[2018-06-24] MEDS: PRILOSEC PO SCH (06:03)
[2018-06-24 06:05] LABS: AGAP 13; ALBUMIN 3.4 g/dL (3.5-5.0); ALKALINE PHOSPHATASE 77 U/L (32-122); BUN 36 mg/dL (8-22); CALCIUM 8.3 mg/dL (8.8-10.2); CHLORIDE 100 mmol/L (98-107); COSMO 277; CREATININE 1.1 mg/dL (0.7-1.2); ESTIMATED GFR > 60; GLUCOSE 104 mg/dL (70-104); GOT 17 U/L (10-34); GPT 14 U/L (10-44); MAGNESIUM 2.1 mg/dL (1.5-2.7); POTASSIUM 4.3 mmol/L (3.5-5.1); SODIUM 134 mmol/L (136-145); TCO2 21 mmol/L (25-35); TOTAL BILIRUBIN 0.22 mg/dL (0.20-1.00); TOTAL PROTEIN 6.7 g/dL (6.3-8.3)
[2018-06-24] MEDS: NS 1,000 ML IV SCH ×3 (06:05→20:20)
--- NOTE | 2018-06-24 07:45 | EKG Report ---
Test Performed on : 06/23/2018 6:29:49 PM Test Reason : ED. NO EKG ORDER FOR MUSE Blood Pressure : / mmHG Vent. Rate : 060 BPM Atrial Rate : 066 BPM P-R Int : 000 ms QRS Dur : 168 ms QT Int : 468 ms P-R-T Axes : 000 -75 099 degrees QTc Int : 468 ms Ventricular-paced rhythm Abnormal ECG When compared with ECG of 22-JUN-2018 18:47, (Unconfirmed) Vent. rate has decreased BY 12 BPM Unconfirmed Result
--- NOTE | 2018-06-24 07:56 | PROGRESS NOTE ---
DATE: 06/24/2018 SUBJECTIVE: The patient is more awake, but still confused. He does not know where he is. OBJECTIVE: Vital Signs: Temperature 97.8 degrees, heart rate 70, respiratory rate 16, blood pressure 146/84, O2 saturation 100% on 2 L nasal cannula. General: This is a chronically ill- appearing, 88-year-old, male, lying in bed in no acute distress. HEENT: Head is normocephalic. Pupils equal, round, and reactive to light and accommodation. Anicteric sclerae. [place] conjunctivae. The patient has some stitches in the right cheek, also near the right eye that do not look infected. Neck: No JVD noted. No carotid bruit. No lymphadenopathy. Cardiovascular: S1, S2 heard. No murmurs, gallops, or rubs. Regular rate and rhythm. Respiratory: Decreased breath sounds globally with some rales in both bases. The patient is not using any accessory muscles or having work of breathing. Abdomen: Soft, nontender to palpation, nondistended. Bowel sounds present. He has multiple big scars on his abdomen. Extremities: No clubbing, cyanosis, or edema. Peripheral pulses are present in both legs. Neurological: The patient is awake, but he is not oriented in time and place. He follows commands. He moves all 4 extremities. LABORATORY DATA: White cell count 8.24, hemoglobin 12.3, hematocrit 37.7, platelets 290,000. BMP remarkable for creatinine 1.1, with GFR greater than 60. ASSESSMENT AND PLAN: 1. Metabolic encephalopathy. This condition is multifactorial considering his acute kidney injury, acute respiratory failure with hypercapnia, and advanced dementia as well. The patient looks like he is back to his baseline, more awake, although still confused. At this point, will continue to monitor this patient. 2. Acute kidney injury, completely resolved. The patient looks, at admission, intravascularly depleted, but after gentle hydration, the patient's renal function, as we mentioned before, is back to normal. Nephrology has been consulted. We appreciate their input. 3. Advance dementia. Will continue home medications. 4. Hypertension. Blood pressure when he came in was low. Now, blood pressure is much better. It is 146/84, last reading, and that has been around that range during the last 24 hours. At this point, I think we may need to continue monitoring this patient, but no need to restart any blood pressure medications yet. 5. Right lower lobe pneumonia. This is what we found out on the CT of the chest. Will continue with levofloxacin, but will adjust the doses accordingly because renal function is back to normal. 6. Acute on chronic hypoxemic respiratory failure. We know that this patient used oxygen at home. Now, he is requiring 2 liters of oxygen by nasal cannula. I think he is more stable. Will continue to monitor. 7. History of coronary artery disease. The patient has also a pacemaker. He did not complain of any chest pain. Cardiology was consulted. They are considering to interrogate pacemaker. 8. Deep vein thrombosis prophylaxis with heparin. 9. Disposition. I think this patient is much more stable, so will send him to regular floor. Will observe him 24 hours, and if labs and the patient continues to look better, will consider discharging him back to his senior care. cc: Kash Cano MD MTDD
[2018-06-24] MEDS: NEURONTIN PO SCH ×3 (08:27→16:52)
[2018-06-24] MEDS: LEVAQUIN 750 MG/D5W 750 MG/150 ML IVPB IV SCH (08:27)
[2018-06-24] MEDS: CYMBALTA PO SCH (08:27)
[2018-06-24] MEDS: NICODERM PATCH TD SCH (08:27)
[2018-06-24] MEDS: COLACE PO SCH (08:28)
[2018-06-24] MEDS: PLAVIX PO SCH (08:28)
[2018-06-24] MEDS: ASPIRIN PO SCH (08:28)
[2018-06-24] MEDS: TEGRETOL PO SCH ×3 (09:56→16:52)
[2018-06-24] MEDS: COREG PO SCH ×2 (09:56→20:24)
[2018-06-24] MEDS: ADVAIR 250/50 DISKUS INH SCH ×2 (09:58→19:12)
--- NOTE | 2018-06-24 14:11 | NEPHROLOGY PROGRESS NOTE ---
DATE: 06/24/2018 TIME SEEN: 0855. SUBJECTIVE: Mr. Burch is sitting up in bed. His is sitting at his bedside. He states that he is feeling much better today. He remains on IV fluids at 100 mL an hour. OBJECTIVE: Vital Signs: The patient's most recent vital signs, temperature 97.8 degrees, blood pressure 146/84, heart rate 70, respirations 16. He is on 2 L nasal cannula. Last recorded saturation was 100%. He has had 2539 in. He has had 2100 out to Hoyos catheter. Labs: Sodium 134, potassium 4.3, chloride is 100, CO2 21, BUN 36, creatinine 1.1, glucose 104, his anion gap is 13, calcium 8.3, albumin 3.4. White count 8.24, hemoglobin 12.3, hematocrit 37.7, with a platelet count of 290,000. Physical Examination: General: This is an 88-year-old, white male. He is resting quietly in bed. He appears chronically ill. No acute distress. Skin: Warm and dry. HEENT: Normocephalic. He does have stitches that are now in appearance under his left eye, approximately four. His pupils are equal and reactive. Mucous membranes are dry. Neck: Supple. Trachea midline. He has no evidence of JVD. Cardiovascular: Regular rate and rhythm. He is without any appreciable murmur or gallop. Lungs: Clear to auscultation anteriorly. Equal excursion. He is on O2. Abdomen: Soft, slightly distended, nontender. Positive bowel sounds. Genitourinary: Hoyos catheter is in place with large amounts of urine undocumented. Neurological: The patient is alert to person and to place today, though according to his , he does drift off into a confused state at times. Neurological as mentioned. ASSESSMENT AND PLAN: Acute kidney injury on chronic kidney disease stage 2. Patient's historical baseline creatinine is 0.7 in April of this year. His BUN is 36 with a creatinine of 1.1 with adequate urine output. Due to these findings, we will sign off at this time. The patient is close to his historical baseline. We will remain available if needed. I would like to thank you for allowing us to follow with this patient. Dictated by LARS Morrissey for Иван Le MD cc: LARS Morrissey MD [facility]TD[facility]
--- NOTE | 2018-06-24 18:26 | PROGRESS NOTE ---
DATE: 06/24/2018 SUBJECTIVE: Patient reports feeling better. He reports some pleuritic chest pain, as well as some cough productive of white to yellow to green sputum. He denies shortness of breath. OBJECTIVE: VITAL SIGNS: Blood pressure 117/52, heart rate 64, oxygen saturation 96% on nasal cannula oxygen. Neck: Jugular venous distention cannot be appreciated. Chest: Auscultation of the chest reveals bibasilar coarse crackles. Cardiac Exam: Reveals a regular rate and rhythm without appreciable murmur or gallop. There is no evidence of peripheral edema. LABORATORY DATA: Includes a white blood cell count 8.24, hematocrit 37.7, hemoglobin 12.3, platelet count 290. Sodium 134, potassium 4.3, chloride 100, carbon dioxide 21, BUN 36, creatinine 1.1, glucose 104. Albumin 3.4. IMPRESSION: 1. Brief syncope and hypotension prior to admission with clinical evidence of intravascular volume depletion. Appears to be improving clinically with hydration. 2. Acute on chronic renal dysfunction. This also is improving with hydration. 3. Right lower lobe pneumonia reported on chest x-ray. 4. Hypertension. 5. Status post permanent pacemaker. 6. Very hard of hearing. Essentially, he has no hearing in the right ear and can only interact when you talk to him from his left side. RECOMMENDATIONS: 1. Continue gentle hydration. 2. Arrange pacemaker interrogation. 3. Conservative cardiovascular management overall. cc: Romero Tyson MD
[2018-06-24] MEDS: ZOCOR PO SCH (20:23)
[2018-06-25] MEDS: HEPARIN SUBQ SCH ×2 (06:01→16:15)
[2018-06-25] MEDS: PRILOSEC PO SCH (06:01)
[2018-06-25] MEDS: SYNTHROID PO SCH (06:01)
[2018-06-25] MEDS: NS 1,000 ML IV SCH ×2 (06:49→19:54)
[2018-06-25 07:06] LABS: BASO# 0.02 X1000 (0.0-0.2); BASO% 0.3 % (0.0-0.8); EOS# 0.19 X1000 (0.0-0.7); EOS% 2.7 % (0.0-10.0); HEMATOCRIT 35.7 % (42.0-52.0); HEMOGLOBIN 11.7 g/dL (14.0-18.0); IMM GRAN# 0.02 X1000 (0.0-0.04); IMM GRAN% 0.3 % (0.0-0.5); LYMPH# 1.95 X1000 (1.2-3.4); LYMPH% 27.9 % (20.5-51.1); MCH 30.5 PG (27-31); MCHC 32.8 g/dL (33-37); MONO# 0.65 X1000 (0.11-0.59); MONO% 9.3 % (1.7-9.3); MPV 8.8 FL (7.4-10.4); NEUT# 4.15 X1000 (1.4-6.5); NEUT% 59.5 % (42.2-75.2); PLT 263 X1000 (130-400); RBC 3.84 XMIL (4.7-6.1); RDW 13.7 % (11.5-14.5); WBC 6.98 X1000 (4.8-10.8)
[2018-06-25 07:14] LABS: AGAP 9; BUN 23 mg/dL (8-22); CALCIUM 8.9 mg/dL (8.8-10.2); CHLORIDE 105 mmol/L (98-107); COSMO 280; ESTIMATED GFR > 60; GLUCOSE 104 mg/dL (70-104); POTASSIUM 4.6 mmol/L (3.5-5.1); SODIUM 138 mmol/L (136-145); TCO2 24 mmol/L (25-35)
--- NOTE | 2018-06-25 07:18 | Diag Imaging Result Doc PS360 ---
EXAM: CHEST-1 VIEW INDICATION: SOB TECHNIQUE: One view COMPARISON: 06/22/2018 FINDINGS: Increased interstitial markings are again identified there appears to have worsened slightly on the right as compared to the previous study, especially at the lower lung zone. Basilar atelectasis is again noted. No other new consolidations are identified. Cardiac silhouette is stable. IMPRESSION: Slight increase in interstitial markings on the right as compared to the previous study. Stable chest, otherwise. Electronically signed by Marcial Goel 06/25/2018 7:16 AM
[2018-06-25] MEDS: ADVAIR 250/50 DISKUS INH SCH (08:04)
[2018-06-25] MEDS: NICODERM PATCH TD SCH (08:09)
[2018-06-25] MEDS: CYMBALTA PO SCH (08:09)
[2018-06-25] MEDS: LEVAQUIN 750 MG/D5W 750 MG/150 ML IVPB IV SCH (08:09)
[2018-06-25] MEDS: COLACE PO SCH (08:09)
[2018-06-25] MEDS: NEURONTIN PO SCH ×3 (08:09→16:16)
[2018-06-25] MEDS: ASPIRIN PO SCH (08:09)
[2018-06-25] MEDS: PLAVIX PO SCH (08:09)
[2018-06-25] MEDS: COREG PO SCH (08:09)
[2018-06-25] MEDS: TEGRETOL PO SCH ×3 (08:09→16:16)
[2018-06-25 13:07] VITALS: BP 147/56
--- NOTE | 2018-06-25 15:14 | DISCHARGE SUMMARY ---
ADMISSION DATE: 06/23/2018 DISCHARGE DATE: 06/25/2018 ADMISSION DIAGNOSIS: 1. Metabolic encephalopathy. 2. Acute kidney injury. 3. Pulmonary edema. 4. Advanced dementia. 5. Hypertension with hypotension. DISCHARGE DIAGNOSIS: 1. Brief syncope with hypotension prior to admission with evidence of intravascular volume depletion that improved with hydration. 2. [id number] kidney disease improved with hydration. 3. Right lower lobe pneumonia that was reported on chest x-ray, continued on Levaquin while he was here. 4. Hypertension but had hypotension, which was resolved. 5. Metabolic encephalopathy multifactorial was probably due to acute kidney injury, acute respiratory failure with hypercapnia and advance dementia along with hypotension, but is back to baseline. 6. [id number] hypoxemic respiratory failure. Uses oxygen and is requiring 2 L of oxygen and is more stable. 7. History of coronary artery disease. Has a pacemaker. Denied any chest pain. CONSULTATIONS: 1. Romero Tyson MD with Cardiology due to the syncopal episode with hypotension and history of coronary artery disease. 2. Иван Le MD due to acute kidney injury on top of CKD stage 2. 3. Jaimee Espinoza MD due to acute hypercapnic respiratory failure and pneumonia. PROCEDURES OR SURGERIES: None. HOSPITAL COURSE: Mr. Mark Burch is an 88-year-old male, who was at [facility], who presented here due to syncopal episode and hypotension. There were no family members in the room when he presented but the low blood pressures issues had started the day of admit. He had a normal white blood cell count. He did have acute kidney injury and was confused. He did report a mild headache at that time. He was unable to provide any pertinent information, and H and P information was taken from the ER notes and previous encounters. He was started on oxygen for the hypoxia, given IV fluids for the acute kidney injury, started on Levaquin for the pneumonia, and his blood pressure improved with the IV fluid hydration and withholding antihypertensives. Home medications were resumed. He was not resumed however on his Coreg until the 12th yesterday and so far his heart rate has been in the 60s with his pacemaker and blood pressures ranged anywhere from as low as 105 to as high as 159 systolic. He has remained stable. He has also remained stable on 2 L of nasal cannula with a 95 O2 saturation and will be discharged back to the [facility], where he lives. He uses a wheelchair and oxygen, is dependent with most of his ADLs. DISCHARGE VITAL SIGNS: Temperature 97.6, heart rate 60, respiratory rate 18, blood pressure 159/62, O2 saturation 95% on 2 L. DISCHARGE LAB DATA: White blood cells 6000, hemoglobin 11, hematocrit 35, platelet count 263. Sodium 138, potassium 4.6, BUN 23, creatinine 1.0, glucose 104. PERTINENT IMAGING: Chest x-ray on admit: Cardiomegaly, pulmonary edema, and bibasilar atelectasis. Chest CT was then performed, which showed COPD, atelectasis, right lower lobe pneumonia, possibility of reflux aspiration could not be excluded. Head CT was performed due to the confusion and there was no acute finding. There was bilateral mastoid effusion and otitis media. Renal ultrasound on the was essentially unremarkable, and chest x- ray on the showed slight increased interstitial markings on the right but stable. EKG on admit showed a ventricularly paced rhythm, rate was 72 at that time. He had an echocardiogram on the due to pulmonary edema, apparently was a very difficult study and felt that the measurements were inaccurate and unable to perform left ventricular systolic function readings. They did say could consider repetition of the study with a [employer]secrets echocontrast. No pericardial effusion. DISCHARGE DIET: Mechanical soft. DISCHARGE ACTIVITY: Physical therapy, wheelchair-bound. DISCHARGE MEDICATIONS: 1. New medication is Levaquin 750 mg p.o. daily for 10 days. 2. [place] 7.5 1 tablet p.o. every 4 hours p.r.n. 3. Apresoline 50 mg p.o. 3 times a day. 4. Aspirin 81 mg p.o. daily. 5. Docusate sodium 100 mg p.o. daily. 6. Duloxetine 60 mg p.o. daily. 7. Albuterol and Atrovent every 4 hours as needed. 8. Lasix 40 mg p.o. daily. 9. Neurontin 400 mg p.o. t.i.d. 10.Isosorbide mononitrate 30 mg p.o. daily. 11.Potassium chloride extended release 10 mEq p.o. daily. 12.Synthroid 25 mcg p.o. daily. 13.Nicotine patch transdermal daily. 14.Nitroglycerin 0.4 mg sublingual p.r.n. 15.Norvasc 10 mg p.o. daily. 16.Protonix 40 mg p.o. daily. 17.Sertraline 25 mg p.o. daily. 18.Simvastatin 20 mg p.o. nightly. 19.Tegretol 200 mg p.o. t.i.d. 20.Multivitamin with iron once daily. 21.Advair 250/50 inhaled twice a day. 22.Coreg 12.5 mg p.o. twice a day. 23.Mucinex 1 tablet p.o. twice a day. 24.Plavix 75 mg p.o. daily. PHYSICIAN FOLLOWUP: None. DISCHARGE INSTRUCTIONS: Monitor for hypotension and return for any signs or symptoms of syncope or hypertension from [facility]. DISCHARGE DISPOSITION: [facility], which is his home. Dictated by LARS Finnegan for Kash Cano MD Addendum: Patient seen and examined by myself. Agree with LARS note. It reflects my assessment and plan. Patient is being discharged in stable condition back to his residential. cc: LARS Finnegan MD [facility]
== END 2018-06-25 20:30 | DRG 682 ==
LOC: SUPCPDRO → ED 18:34 → EDIPHOLD 06-23 00:34 → SUATTDRO 06-23 00:34 → 3S 06-23 23:52 → 3N 06-24 09:24
PROVIDERS: ATTEND Internal Medicine
CPT/HCPCS: 51702; 70450; 71010; 71045; 71250; 76770; 80048; 80053; 80069; 80101; 80301; 80307; 80324; 80345; 80346; 80353; 80358; 80361; 80365; 81001; 82550; 82570; 82805; 83735; 83880; 83992; 84100; 84156; 84300; 84484; 84540; 85025; 85027; 85610; 85730; 87040; 87070; 87088; 87205; 89220; 92610; 93005; 93308; 94640; 94761; 96374; 96375; 96376; 97162; 97530; 99285; A9270; G0431; G0434; G0479; G0480; J1644; J1940; J1956; J7030

== ENCOUNTER 2018-08-09 13:47 | Inpatient (IN) ==
[2018-08-09] MEDS ORDERED: ASPIRIN PR ONE (14:02)
[2018-08-09] MEDS ORDERED: ASPIRIN PO ONE (14:02)
[2018-08-09] MEDS ORDERED: LASIX IV ONE (14:23)
[2018-08-09] MEDS ORDERED: DUONEB (A & A) INH ONE (14:25)
[2018-08-09 14:45] LABS: BASO# 0.02 X1000 (0.0-0.2); BASO% 0.2 % (0.0-0.8); EOS# 0.04 X1000 (0.0-0.7); EOS% 0.3 % (0.0-10.0); HEMATOCRIT 29.9 % (42.0-52.0); HEMOGLOBIN 9.6 g/dL (14.0-18.0); LYMPH# 1.41 X1000 (1.2-3.4); LYMPH% 12.1 % (20.5-51.1); MCH 30.8 PG (27-31); MCHC 32.1 g/dL (33-37); MCV 95.8 FL (81-99); MONO# 0.91 X1000 (0.11-0.59); MONO% 7.8 % (1.7-9.3); MPV 8.6 FL (7.4-10.4); NEUT# 9.28 X1000 (1.4-6.5); NEUT% 79.6 % (42.2-75.2); PLT 371 X1000 (130-400); RBC 3.12 XMIL (4.7-6.1); RDW 14.7 % (11.5-14.5); WBC 11.66 X1000 (4.8-10.8)
[2018-08-09 14:51] LABS: INR 1.03; PROTIME 14.3 Seconds (11.0-16.0)
[2018-08-09 14:52] LABS: PTT 32.5 Seconds (22.3-41.8)
[2018-08-09 15:01] LABS: ALLEN TEST YES; BE 5.9 mmoll (-3.0-3.0); BLOOD TYPE ARTERIAL; HCO3-(ACT) 29.5 mmoll (20.0-26.0); METHB 0.9 % (0.0-1.5); O2(CT) 13.2 mL/dL (15.0-23.0); O2HB 94.2 % (95.0-99.0); PCO2(98.6) 44 mmHg (35-45); PO2(98.6) 78 mmHg (60-100); SAMPLE BLOOD; SAO2 97.4 % (95.0-100.0); THB 9.9 g/dL (11.5-17.4); pH(98.6) 7.45 (7.35-7.45)
[2018-08-09 15:04] LABS: MODALITY CANNULA
[2018-08-09] MEDS ORDERED: ROCEPHIN 1 GM in NS 50 ML IV ONE (15:18)
[2018-08-09 15:24] LABS: AGAP 12; ALB/GLOB RATIO 1.2; ALBUMIN 4.1 g/dL (3.5-5.0); ALKALINE PHOSPHATASE 90 U/L (32-122); BUN 24 mg/dL (8-22); CALCIUM 8.9 mg/dL (8.8-10.2); CHLORIDE 90 mmol/L (98-107); CK PROFILE 166 U/L (24-204); COSMO 265; ESTIMATED GFR > 60; GLUCOSE 130 mg/dL (70-104); GOT 31 U/L (10-34); GPT 29 U/L (10-44); POTASSIUM 4.5 mmol/L (3.5-5.1); SODIUM 129 mmol/L (136-145); TCO2 27 mmol/L (25-35); TOTAL BILIRUBIN 0.55 mg/dL (0.20-1.00); TOTAL PROTEIN 7.5 g/dL (6.3-8.3)
--- NOTE | 2018-08-09 15:39 | Diag Imaging Result Doc PS360 ---
EXAM: CHEST-2 VIEWS INDICATION: SOB TECHNIQUE: 3 views COMPARISON: 06/25/2018 FINDINGS: There are bilateral infiltrates that are predominantly interstitial indicating pulmonary edema. There is coronary venous congestion. There are probably small effusions layering posteriorly. There is no evidence of pneumothorax. There is stable cardiomegaly. IMPRESSION: Pulmonary edema as described. Electronically signed by Marcial Goel 08/09/2018 3:36 PM
[2018-08-09 16:53] LABS: URINE SOURCE CATH
[2018-08-09] MEDS ORDERED: TYLENOL PO PRN (16:59)
[2018-08-09] MEDS ORDERED: ZOFRAN IV PRN (16:59)
[2018-08-09 17:09] LABS: BILIRUBIN URINE NEGATIVE (NEGATIVE); BLOOD URINE NEGATIVE (NEGATIVE); COLOR YELLOW; GLUCOSE URINE NEGATIVE (NEGATIVE); KETONE URINE NEGATIVE (NEGATIVE); LEUKOCYTES URINE TRACE (NEGATIVE); NITRITE URINE NEGATIVE (NEGATIVE); PH URINE 6.5; PROTEIN URINE NEGATIVE (NEGATIVE); TURBIDITY URINE CLEAR (CLEAR); UROBILINOGEN URINE NORMAL (NORMAL)
[2018-08-09 17:10] LABS: UR EPITHELIAL CELLS <10 /HPF (<10); URINE BACTERIA 1+ /HPF; URINE RBC <10 /HPF (<10); URINE WBC <10 /HPF (<10)
--- NOTE | 2018-08-09 18:08 | PROVIDER DOCUMENTATION ---
This chart was entered by Felipa Smith Scribe, acting as scribe for Darlyn Merino MD. HPI-Respiratory General - General Chief Complaint: Shortness of Breath Stated Complaint: SOB Time Seen by Provider: 08/09/18 14:12 Source: patient, EMS Allergies/Adverse Reactions: Patient Allergies Allergy/AdvReac Type Severity Reaction Status Date / Time Iodinated Contrast- Oral and Allergy Unknown Verified 08/09/18 14:12 IV Dye Home Medications: Home Medication List Medication Instructions Recorded Confirmed Last Taken Type Amlodipine Besylate [Norvasc] 10 mg PO DAILY 04/02/18 08/09/18 08/09/18 History Aspirin 81 mg PO DAILY 04/02/18 08/09/18 08/09/18 History Docusate Sodium 100 mg PO DAILY 04/02/18 08/09/18 08/09/18 History Duloxetine HCl 60 mg PO DAILY 04/02/18 08/09/18 08/09/18 History Furosemide 40 mg PO DAILY 04/02/18 08/09/18 08/09/18 History Gabapentin 400 mg PO TID 04/02/18 08/09/18 08/09/18 History Isosorbide Mononitrate [Isosorbide 30 mg PO DAILY 04/02/18 08/09/18 08/09/18 History Mononitrate ER] Levothyroxine Sodium 25 mcg PO DAILY 04/02/18 08/09/18 08/09/18 History Multivits,Ca,Minerals/Iron/FA 1 each PO DAILY 04/02/18 08/09/18 08/09/18 History [Thera-M Tablet] Pantoprazole Sodium 40 mg PO DAILY 04/02/18 08/09/18 08/09/18 History Potassium Chloride E.r. [Klor-Con] 10 meq PO DAILY 04/02/18 08/09/18 08/09/18 History Sertraline HCl 25 mg PO DAILY 04/02/18 08/09/18 08/09/18 History Simvastatin 20 mg PO HS 04/02/18 08/09/18 08/09/18 History Carvedilol [Coreg] 12.5 mg PO BID tablet 04/18/18 08/09/18 08/09/18 Rx Clopidogrel [Plavix] 75 mg PO DAILY tablet 04/18/18 08/09/1808/09/19 Rx Fluticasone/[place] 250/50 INH 1 puff INH RTBID inhaler 04/18/18 08/09/18 08/09/18 Rx [Advair 250/50 Diskus] Guaifenesin/Dm E.r. [Mucinex Dm] 1 each PO BID tablet 04/18/18 08/09/18 08/09/18 Rx Albuterol 2.5MG/Ipratrop 0.5MG 1 dose NEB Q4H 06/09/18 08/09/18 08/09/18 History [Duoneb (A & A)] Carbamazepine [Tegretol] 200 mg PO TID 06/09/18 08/09/18 08/09/18 History Hydralazine [Apresoline] 50 mg PO TID 06/09/18 08/09/18 08/09/18 History Hydrocodone/Acetaminophen [[place] 1 tab PO Q4H PRN PRN #30 tab 06/25/18 08/09/18 Unknown Rx 7.5-325 Tablet] Prednisone 5 mg PO QAM 08/09/18 08/09/18 08/09/18 History - History of Present Illness-Resp Nature of Presenting Problem: 88 yom presents to the ed with c/o sob with it worsening today. pt was recently d/c 1 month prior. pt appears fluid overload with edema noted around eyes and BLE Quality of Pain: reports: none Severity in ED: reports: moderate Onset/Duration: reports: 2 days ago (worsening today) Timing: reports: still present, intermittent Cough Quality/Degree: reports: mild Episode Frequency: frequent episodes Current Respiratory Medication Therapy: Initiated see nurses note Modifying Factors: improves with: oxygen, sitting upright. worse with: exertion, lying down Associated Symptoms: reports: shortness of breath, other (edema noted to BLE and eyes). denies: chest pain/soreness, dizziness Review of Systems - Adult - REVIEW OF SYSTEMS - ADULT Constitutional: denies: chills, fever Eyes: reports: see HPI, other (edema) Ears, Nose, Mouth & Throat: reports: no symptoms reported Cardiovascular: reports: edema. denies: chest pain, palpitations Respiratory: reports: dyspnea on exertion, shortness of breath. denies: cough, wheezing Gastrointestinal: denies: abdominal pain, diarrhea, nausea, vomiting Genitourinary: reports: no symptoms reported Musculoskeletal: denies: back pain, neck pain Integumentary: reports: no symptoms reported Neurological: denies: dizziness/vertigo, headache/migraines Psychiatric: reports: no symptoms reported Endocrine: reports: no symptoms reported Hematologic/Lymphatic: reports: no symptoms reported Allergic/Immunologic: reports: no symptoms reported All Other Systems: Reviewed and Negative Past History - Adult - PAST MEDICAL HISTORY-ADULT Review of Records: reports: Nursing Assessment Review, Medications Reviewed Major Childhood Illnesses: reports: denies history Cardiovascular: reports: CAD, CHF, HTN, pacemaker Respiratory: reports: asthma, COPD Gastrointestinal: reports: GERD Obstetrical/Gynecological: reports: denies history Genitourinary: reports: denies history Musculoskeletal: reports: denies history Neurological: reports: denies history Psychiatric: reports: anxiety, depression Endocrine/Immune: reports: Diabetes, thyroid disorder Diabetes Type: Type 2 Other Conditions: reports: cataract/glaucoma - PRIOR SURGERIES/PROCEDURES Surgical/Procedure History: reports: pacemaker - IMMUNIZATION STATUS Childhood Immunizations: See Nurse Assessment Flu Vaccine: See Nurse Assessment - FAMILY HISTORY Family History: reviewed, not pertinent - SOCIAL HISTORY Smoking: cigarettes, less than 1 pack/day Provider spent 3-5 mins advising pt. on dangers of tobacco.: Discussed manners to quit use, and f/u contacts for add'l counseling. Substance Use: denies Living Situation: family Physical Exam-General - PHYSICAL EXAM-ADULT Initial Vital Signs Reviewed: Yes - CONSTITUTIONAL General Appearance: appears well, alert, mild distress, obese - EYES Eyes: PERRL/EOMI, pink conjunctivae, other (eyes appear puffy) - HEAD, EARS, NOSE, MOUTH & THROAT HENMT: moist mucous membranes, normal ENT inspection - NECK Neck: full range of motion, supple, normal inspection - RESPIRATORY Respiratory: chest non-tender, respiratory distress, decreased breath sounds, accessory muscle use - CARDIOVASCULAR Cardiovascular: normal peripheral pulses, regular rate, rhythm - GASTROINTESTINAL (ABDOMEN) Abdominal Exam: normal bowel sounds, soft, tenderness, other (redness noted to lower abdominal wall) - LYMPHATIC Lymphatic: no adenopathy - MUSCULOSKELETAL Back Exam: normal inspection, no CVA tenderness, no vertebral tenderness Extremity: normal range of motion, normal gait, pelvis stable, erythema (BLE), swelling (BLE edema) - SKIN Integumentary: normal color, normal turgor, warm/dry, erythema (to lower abdominal) - NEUROLOGIC Neurologic: grossly normal, no motor/sensory deficits - PSYCHIATRIC Psych/Mental Status: normal mood/affect, normal thought content, normal thought process, oriented x 3 Progress - PLAN OF CARE/RESULTS Progress/Plan/Lab Results: Vital Signs - 8 hr 08/09/18 13:53 Temperature 97.8 F Pulse Rate 68 Respiratory Rate 20 Blood Pressure 144/91 O2 Sat by Pulse Oximetry 93 L Laboratory Results - last 24 hr 08/09/18 08/09/18 08/09/18 13:53 14:30 14:30 WBC 11.66 H RBC 3.12 L Hgb 9.6 L Hct 29.9 L MCV 95.8 MCH 30.8 MCHC 32.1 L RDW Std Deviation 14.7 H Plt Count 371 MPV 8.6 Neut % (Auto) 79.6 H Lymph % (Auto) 12.1 L [place] % (Auto) 7.8 Eos % (Auto) 0.3 Baso % (Auto) 0.2 Neut # (Auto) 9.28 H Lymph # (Auto) 1.41 [place] # (Auto) 0.91 H Eos # (Auto) 0.04 Baso # (Auto) 0.02 PT INR PTT (Actin FS) Specimen Type Sample Site pH pCO2 pO2 HCO3 Base Excess Oxyhemoglobin ABG O2 Sat (Calculated) ABG O2 Saturation ABG Carboxyhemoglobin ABG Methemoglobin Junior Test A-a O2 Difference Total Hemoglobin Lactate Liter Flow Blood Gas Modality FiO2 % Sodium 129 L Potassium 4.5 Chloride 90 L Carbon Dioxide 27 Anion Gap 12 BUN 24 H Creatinine 1.0 Estimated GFR/1.73 m2 > 60 BUN/Creatinine Ratio 24 Glucose 130 H Calculated Osmolality 265 Calcium 8.9 Total Bilirubin 0.55 AST 31 ALT 29 Alkaline Phosphatase 90 Creatine Kinase 166 Troponin T [id number]-Xsptrtucjyz Pept Total Protein 7.5 Albumin 4.1 Globulin 3.4 Albumin/Globulin Ratio 1.2 Plasma Lactate Urine Source CATH Urine Color YELLOW Urine Turbidity CLEAR Urine pH 6.5 Ur Specific [place] 1.000 Urine Protein NEGATIVE Ur Glucose (Stick) NEGATIVE Ur Ketones (Stick) NEGATIVE Urine Blood NEGATIVE Urine Nitrite NEGATIVE Urine Bilirubin NEGATIVE Urobilinogen Dipstick NORMAL Urine Leukocytes TRACE A Urine WBC (Auto) <10 Urine RBC (Auto) <10 U Epithel Cells (Auto) <10 Urine Bacteria (Auto) 1+ 04/27/19 04/27/19 04/27/19 14:30 14:30 14:30 WBC RBC Hgb Hct MCV MCH MCHC RDW Std Deviation Plt Count MPV Neut % (Auto) Lymph % (Auto) [place] % (Auto) Eos % (Auto) Baso % (Auto) Neut # (Auto) Lymph # (Auto) [place] # (Auto) Eos # (Auto) Baso # (Auto) PT 14.3 INR 1.03 PTT (Actin FS) 32.5 Specimen Type Sample Site pH pCO2 pO2 HCO3 Base Excess Oxyhemoglobin ABG O2 Sat (Calculated) ABG O2 Saturation ABG Carboxyhemoglobin ABG Methemoglobin Junior Test A-a O2 Difference Total Hemoglobin Lactate Liter Flow Blood Gas Modality FiO2 % Sodium Potassium Chloride Carbon Dioxide Anion Gap BUN Creatinine Estimated GFR/1.73 m2 BUN/Creatinine Ratio Glucose Calculated Osmolality Calcium Total Bilirubin AST ALT Alkaline Phosphatase Creatine Kinase Troponin T 0.390 H* Lum-D-Kgnotagvlza Pept 65146 H Total Protein Albumin Globulin Albumin/Globulin Ratio Plasma Lactate Urine Source Urine Color Urine Turbidity Urine pH Ur Specific [place] Urine Protein Ur Glucose (Stick) Ur Ketones (Stick) Urine Blood Urine Nitrite Urine Bilirubin Urobilinogen Dipstick Urine Leukocytes Urine WBC (Auto) Urine RBC (Auto) U Epithel Cells (Auto) Urine Bacteria (Auto) 08/09/18 08/09/18 08/09/18 14:54 17:08 17:08 WBC RBC Hgb Hct MCV MCH MCHC RDW Std Deviation Plt Count MPV Neut % (Auto) Lymph % (Auto) [place] % (Auto) Eos % (Auto) Baso % (Auto) Neut # (Auto) Lymph # (Auto) [place] # (Auto) Eos # (Auto) Baso # (Auto) PT INR PTT (Actin FS) Specimen Type ARTERIAL Sample Site L RADIAL pH 7.45 pCO2 44 pO2 78 HCO3 29.5 H Base Excess 5.9 H Oxyhemoglobin 94.2 L ABG O2 Sat (Calculated) 13.2 L ABG O2 Saturation 97.4 ABG Carboxyhemoglobin 2.40 ABG Methemoglobin 0.9 Junior Test YES A-a O2 Difference 95.0 Total Hemoglobin 9.9 L Lactate 0.80 Liter Flow 3.0 Blood Gas Modality [place] FiO2 % 32.0 Sodium Potassium Chloride Carbon Dioxide Anion Gap BUN Creatinine Estimated GFR/1.73 m2 BUN/Creatinine Ratio Glucose Calculated Osmolality Calcium Total Bilirubin AST ALT Alkaline Phosphatase Creatine Kinase 157 Troponin T Xfq-B-Sspytrhfysx Pept Total Protein Albumin Globulin Albumin/Globulin Ratio Plasma Lactate 0.9 Urine Source Urine Color Urine Turbidity Urine pH Ur Specific [place] Urine Protein Ur Glucose (Stick) Ur Ketones (Stick) Urine Blood Urine Nitrite Urine Bilirubin Urobilinogen Dipstick Urine Leukocytes Urine WBC (Auto) Urine RBC (Auto) U Epithel Cells (Auto) Urine Bacteria (Auto) Orders Category Date Time Status Admit - [facility] Routine AdmDCTranf 08/09/18 16:59 Active Cardiac Monitoring DIRECTED Care 08/09/18 14:02 Active [place] ORDERED Care 08/09/18 17:15 Active Nursing- MD Consult Request ROUTINE Care 08/09/18 16:59 Active Oxygen Therapy- ED Nursing DIRECTED Care 08/09/18 14:02 Active Resuscitation Status Routine Care 08/09/18 16:53 Ordered Saline Loc NOW Care 08/09/18 14:02 Active Physician/Provider Consults Routine Cons 08/09/18 16:59 Ordered Heart Healthy Diet Diet 08/09/18 17:00 Active CHEST-2 VIEWS [RAD] Stat Exams 08/09/18 14:02 Completed A1C HGB W EST AVG GLUCOSE [CHEM] Routine Lab 08/10/18 06:00 Uncollected ABG [RESP] Routine Lab 08/09/18 14:54 Completed BLOOD CULTURE [BLDCUL] Stat Lab 08/09/18 17:08 Results CBC WITH ELECTRONIC DIFF [HEME] Stat Lab 08/09/18 14:30 Completed CK PROFILE [SP CHEM] Q8H Lab 08/09/18 17:08 Received CK PROFILE [SP CHEM] Q8H Lab 08/10/18 00:30 Ordered CK PROFILE [SP CHEM] Q8H Lab 08/10/18 08:30 Ordered CK PROFILE [SP CHEM] Stat Lab 08/09/18 14:30 Completed COMPREHENSIVE METABOLIC PANEL [CHEM] Stat Lab 08/09/18 14:30 Completed LACTATE, PLASMA [CHEM] Stat Lab 08/09/18 17:08 Completed PRO B-NATRIURETIC PEPTIDE Stat Lab 08/09/18 14:30 Completed PROTIME WITH INR [COAG] Stat Lab 08/09/18 14:30 Completed PTT [COAG] Stat Lab 08/09/18 14:30 Completed SPUTUM CULTURE WITH GRAM STAIN [RM] Routine Lab 08/09/18 17:10 Uncollected TROPONIN T Q8H Lab 08/09/18 17:08 Received TROPONIN T Q8H Lab 08/10/18 00:30 Ordered TROPONIN T Q8H Lab 08/10/18 08:30 Ordered TROPONIN T Stat Lab 08/09/18 14:30 Completed URINALYSIS W/POSS RFLX CULT [URINALYSIS] Stat Lab 08/09/18 13:53 Completed URINE CULTURE [RM] Routine Lab 08/09/18 18:01 Received Acetaminophen [Tylenol] Med 08/09/18 16:59 Ordered 650 mg PO Q6H PRN PRN Albuterol 2.5MG/Ipratrop 0.5MG [Duoneb (A & A)] Med 08/09/18 14:25 Discontinued 3 ml INH NOW ONE Amlodipine [Norvasc] Med 08/10/18 09:00 Ordered 10 mg PO DAILY Aspirin Med 08/09/18 14:02 Discontinued 300 mg MN NOW ONE Aspirin Med 08/09/18 14:02 Discontinued 325 mg PO NOW ONE Aspirin Med 08/10/18 09:00 Ordered 81 mg PO DAILY Budesonide [Pulmicort] Med 08/09/18 19:30 Ordered 0.5 mg INH RTBID Carbamazepine [Tegretol] Med 08/09/18 17:05 Ordered 200 mg PO TID Carvedilol [Coreg] Med 08/09/18 21:00 Ordered 6.125 mg PO BID CefTRIAXONE [Rocephin] 1 gm Med 08/09/18 15:18 Discontinued 0.9% Sodium Chloride Inj [Ns] 50 ml IV NOW CefTRIAXONE [Rocephin] 1 gm Med 08/09/18 09:00 Ordered 0.9% Sodium Chloride Inj [Ns] 50 ml IV Q24H Clopidogrel [Plavix] Med 08/10/18 09:00 Ordered 75 mg PO DAILY Docusate Sodium [Colace] Med 08/10/18 09:00 Ordered 100 mg PO DAILY Duloxetine [Cymbalta] Med 08/10/18 09:00 Ordered 60 mg PO DAILY Enoxaparin [Lovenox] Med 08/10/18 09:00 Ordered 40 mg SUBQ Q24H Fluticasone/[place] 250/50 INH [Advair 250/50 Diskus] Med 08/09/18 19:30 Ordered 1 puff INH RTBID Furosemide [Lasix] Med 08/10/18 09:00 Ordered 40 mg IV BID Furosemide [Lasix] Med 08/09/18 14:23 Discontinued 60 mg IV NOW ONE Gabapentin [Neurontin] Med 08/09/18 17:05 Ordered 400 mg PO TID Guaifenesin/Dm E.r. [Mucinex Dm] Med 08/09/18 21:00 Ordered 1 each PO BID Hydralazine [Apresoline] Med 08/09/18 17:05 Ordered 50 mg PO TID Hydrocodone/APAP 7.5 mg/325 mg [[place]-7.5] Med 08/09/18 17:05 Active 1 each PO Q4H PRN PRN Ipratropium [place] Neb [Atrovent Neb] Med 08/09/18 19:30 Active 0.5 mg INH RTQ4H Isosorbide Mononitrate E.r. [Imdur] Med 08/10/18 09:00 Ordered 30 mg PO DAILY Levalbuterol Neb [Xopenex Neb] Med 08/09/18 19:30 Ordered 1.25 mg INH RTQ4H Levothyroxine [Synthroid] Med 08/10/18 09:00 Ordered 25 microgm PO DAILY Multivit,Fe,Ca,FA & Min [Thera M Plus] Med 08/10/18 09:00 Ordered 1 each PO DAILY Ondansetron [Zofran] Med 08/09/18 16:59 Ordered 4 mg IV Q4H PRN PRN Pantoprazole [Protonix] Med 08/10/18 09:00 Ordered 40 mg PO DAILY Potassium Chloride E.r. [Klor-Con] Med 08/10/18 09:00 Ordered 10 meq PO DAILY Prednisone Med 08/10/18 09:00 Ordered 5 mg PO QAM Sertraline [Zoloft] Med 08/10/18 09:00 Ordered 25 mg PO DAILY Simvastatin Med 08/09/18 21:00 Ordered 20 mg PO HS Aerosol Treatments Routine Oth 08/09/18 14:25 Completed Aerosol Treatments Routine Oth 08/09/18 16:59 Completed Aerosol Treatments Stat Oth 08/09/18 14:25 Completed CP/SOB/Palp >45 yrs of Age Stat Oth 08/09/18 14:02 Ordered MDI Treatments Stat Oth 08/09/18 17:05 Completed EKG [EKG] Stat Ther 08/09/18 14:02 Ordered Transfer/Admit Order [TRANSFER] Routine Transfer 08/09/18 16:53 Ordered Result Diagrams: 08/09/18 14:30 08/09/18 14:30 - REASSESSMENT Reassessment #1 Time Reassessed: 15:48 Status: improving - EKG 1 Time of EKG reading by physician:: 13:59 EKG Read and Signed by:: Darlyn Merino EKG Interpretation (*Must complete 3 of following elements*): Abnormal Rate: 64 Rhythm: ventricuilar paced rhythm [place]: normal QRS: normal [place] Interval: normal ST Wave: normal - XRAY 1 XRAY: Bilateral XRAY Study: Chest Impression: See EMR Report (EXAM: CHEST-2 VIEWS INDICATION: SOB TECHNIQUE: 3 views COMPARISON: 06/25/2018 FINDINGS: There are bilateral infiltrates that are predominantly interstitial indicating pulmonary edema. There is coronary venous congestion. There are probably small effusions layering posteriorly. There is no evidence of pneumothorax. There is stable cardiomegaly. IMPRESSION: Pulmonary edema as described. Electronically signed by Marcial Goel 08/09/2018 3:36 PM 08/09/18 1536 Interpreting Physician: Marcial Goel MD Dictated Date/Time: 08/09/18 1535 cc: Ken Olvera MD; Cristian Hendrickson MD) - CONSULTS/PCP/HOSPITALIST Notification #1 *Consult/PCP/Hospitalist*: spoke with haider with hospitalist service Time Discussed: 15:48 Consult Disposition: Admit Departure - Departure Date of Disposition Decision: 08/09/18 Time of Disposition Decision: 15:45 DIAGNOSIS: Tobacco use disorder, Acute exacerbation of CHF (congestive heart failure), Pulmonary edema cardiac cause Disposition: ADMITTED INPATIENT 09 Certified Medical Emergency: Emergent Condition: Stable Referrals and Follow-Ups: Cristian Hendrickson MD [Primary Care Provider] - - Critical Care Note This patient required my direct & personal management of CC.: No Attestation - Physician/ JARED Attestation Patient care was provided by Advanced Practice Provider:: No The physician spent face to face time with patient:: Yes Advanced Practice Provider documentation review:: Supervising physician onsite and consulted in the evaluation and care of this patient. The physician did have a face to face encounter with the patient. This chart was documented by the indicated scribe, (Felipa Smith Scribe) and accurately reflects the services I performed and decisions made by me, Darlyn Merino MD, as attested by the provider's signature.
--- NOTE | 2018-08-09 18:48 | HISTORY AND PHYSICAL ---
PRIMARY CARE PROVIDER: Cristian Hendrickson MD. CHIEF COMPLAINT: Shortness of breath. HISTORY OF PRESENT ILLNESS: Mr. 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 Was recently here in June 2018 for intravascular volume depletion, acute on chronic kidney disease, syncopal episode, right lower lobe pneumonia, and also [id number] hypoxemic respiratory failure. At that time he was seen by Dr. Tyson, Dr. Le, and Dr. Espinoza. He was discharged on June 25 and went to [facility]. He states that he is always short of breath but felt today like he could not breathe. He admits to coughing up yellow phlegm. He does have a leukocytosis. His chest x- ray showed pulmonary edema, and his proBNP is double what it normally is, along with the anasarca. Last echocardiogram was reviewed, and apparently it was a limited view on 06/22/2018, and he was unable to get a visualization of the ejection fraction. Prior to that, he had one in March 2018, and at that time the ejection fraction was normal. It was an essentially normal echocardiogram. He is atrial sensed ventricularly paced on his heart rhythm. Blood pressure is stable. He wishes to be a DO NOT RESUSCITATE level 1. He does not want chest compressions or a breathing tube, although he does appear very ill, so we will go ahead and monitor him in the [facility] overnight at least, and will diurese him, and consult Cardiology. PAST MEDICAL HISTORY: 1. Hypertension. 2. Hypothyroidism. 3. Coronary artery disease. 4. Peripheral neuropathy. 5. Hyperlipidemia. 6. Chronic obstructive pulmonary disease. 7. Questionable congestive heart failure. He is on Coreg and Lasix at home. PAST SURGICAL HISTORY: 1. He has a permanent pacemaker. 2. 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 SOCIAL HISTORY: Currently lives in [facility] with a history of smoking. Currently not smoking now. Denies alcohol or illicit drug use. FAMILY HISTORY: Positive for coronary artery disease. ALLERGIES: Iodine, oral contrast, IV dye contrast. HOME MEDICATIONS: 1. Hydralazine 50 mg p.o. t.i.d. 2. Aspirin 81 mg p.o. daily. 3. Docusate sodium 100 mg p.o. daily. 4. Duloxetine 60 mg p.o. daily. 5. Albuterol-Atrovent nebulizers every 4 hours. 6. Lasix 40 mg p.o. daily. 7. Neurontin 400 mg p.o. t.i.d. 8. Isosorbide mononitrate extended release 30 mg p.o. daily. 9. Potassium chloride extended release 10 mEq p.o. daily. 10.Levothyroxine sodium 25 mcg p.o. daily. 11.Norvasc 10 mg p.o. daily. 12.Protonix 40 mg p.o. daily. 13.Prednisone 5 mg p.o. daily . 14.Cetirizine HCl 25 mg p.o. daily. 15.Simvastatin 20 mg p.o. nightly. 16.Tegretol 10 mg p.o. t.i.d. 17.Multivitamin once daily. 18.Advair 250/50, 1 puff inhaled twice daily. 19.Coreg 12.5 mg p.o. twice daily. 20.Mucinex p.o. twice daily 21.[place] 7.5, 1 tab p.o. every 4 hours p.r.n. 22.Plavix 75 mg p.o. daily. REVIEW OF SYSTEMS: A 14-point review of systems was completed, and all were negative except as mentioned above in the HPI. The only positive is a complaint of shortness of breath that was worse this morning. Denies any fever, chills, nausea, vomiting or diarrhea. No other complaints. Denies chest pain. PHYSICAL EXAMINATION: VITAL SIGNS: Temperature 97.8, heart rate 68, respiratory rate 20, blood pressure 144/91, O2 saturation 93% on 4 liters nasal cannula. He is 6 feet 2 inches tall, 250 pounds, with a BMI of 32.1. GENERAL: Mr. Mark Burch is an 88-year-old, very ill-appearing male. He is in no acute distress, but he is mildly working to breathe. Very hard of hearing but answers questions once you yell loud enough into his ear. HEENT: Atraumatic, normocephalic. Pupils equal, round, and reactive to light. Extraocular movements intact. Mucous membranes are moist. NECK: Trachea midline. CARDIOVASCULAR: S1 and S2. Regular rate and rhythm. No rubs, gallops or murmurs. He has anasarca with pitting edema all the way up into the abdomen,1 to 2+, probably close to 3+ in the lower extremities. Mild JVD. Negative for carotid bruits. Has +2 dorsalis and radial pulses. PULMONARY: Expiratory wheezes throughout, decreased in the bases with crackles and prolonged expiration. Tolerating 4 L nasal cannula. GI: Soft, nontender, round. Old surgical scars. Pitting edema of 1+ in the abdomen. EXTREMITIES: Decreased range of motion. [facility]. Strength is equal in all extremities. NEUROLOGIC: Oriented x3. Follows commands. Decreased sensory in the lower extremities. SKIN: Warm, dry and intact. LABORATORY DATA: White blood cells 11,000, hemoglobin 9, hematocrit 29, platelet count 371. INR is 1.03, PTT 32.5. ABGs on 3 L nasal cannula: pH of 7.45, pCO2 of 44, pO2 of 78, bicarb of 29.5, base excess of 5.9, saturation 94%. Lactate 0.8. Sodium 129, potassium 4.5, BUN 24, creatinine 1.0, glucose 130, calcium 8.9, bilirubin 0.55. AST 31, ALT 29. CK 166, troponin 0.390, proBNP 11,498. Albumin 4.1, urinalysis trace leukocytes, otherwise negative. IMAGING: Chest x-ray: Bilateral infiltrates, predominantly interstitial, indicating pulmonary edema. There is coronary venous congestion and probably small effusions layering posteriorly. No evidence of pneumothorax. Cardiomegaly is stable. EKG has a paced rhythm. ASSESSMENT/PLAN: 1. Acute on chronic systolic likely with diastolic congestive heart failure. We need to get a repeat echocardiogram. Echo last month was not efficient enough to evaluate for his ejection fraction. He was given 60 of Lasix in the ER. He already put out immediately 1 liter of fluid. Will start him on 40 IV twice daily. His Coreg is normally at 12.5 mg p.o. twice daily. Will decrease that down to 6.25 for now until he is over his exacerbation of heart failure. Will repeat an echocardiogram, and we will consult Dr. Tyson. He will be on aspirin as well, and a statin. 2. History of coronary artery disease. He denies any chest pain but has elevation in his troponin. Will do serial cardiac enzymes, but it is likely stress related secondary to congestive heart failure. 3. Hypertension. Continue home medications. 4. Hypothyroidism. Continue Synthroid. 5. Hyperlipidemia. Continue with statin. 6. Chronic obstructive pulmonary disease, but currently hypoxemic. 7. Acute on chronic hypoxemic respiratory insufficiency or failure requiring 4 liters of oxygen. The 4 liters brought his pO2 up to 78. We will continue him on the prednisone p.o. daily and will start him on Xopenex and Atrovent every 4 hours with budesonide nebulizers as well. We will get a sputum culture as well, and start him on Rocephin. He does have some leukocytosis but no obvious source of infection. 8. Leukocytosis. Blood culture is ordered. Urinalysis negative. On chest x- ray, maybe there is some pneumonia behind the infiltrates that are seen that are considered pulmonary edema, and he is going to be on Rocephin for how. Lactate is not elevated on the ABG. 9. History of coronary disease. Will continue the Plavix. 10.Deep venous thrombosis prophylaxis with Lovenox. 11.Chronic kidney disease stage 2 at last visit. Currently he is stable. His BUN is 24, creatinine 1.0, and GFR is over 60. So, we will monitor that. Patient seen and examined by me face to face, all the laboratory, vitals and images were reviewed, patient presented to the emergency department with shortness of breath for a few days, he was placed on oxygen, he has pulmonary edema, jugular distention on my physical exam, lower extremity edema as well, likely he has CHF exacerbation, he will be placed on diuretics, breathing treatment , O2, Cardiology will be consulted, his troponin are elevated, will go to [facility], telemetry, we discussed his resuscitation status, and he wants to be DNR, I agreed with the HOME WEATHERIZING WORKER's assessment and plan, Jevon Castro MD. Dictated by LARS Finnegan for Jevon Hobson MD cc: LARS Finnegan MD [facility]
[2018-08-09] MEDS ORDERED: LOVENOX 1 MG/KG SUBQ ONE (18:49)
[2018-08-09] MEDS ORDERED: LOVENOX SUBQ ONE (20:00)
[2018-08-09] MEDS: PULMICORT INH SCH (20:20)
[2018-08-09] MEDS: ATROVENT NEB INH SCH (20:20)
[2018-08-09] MEDS: XOPENEX NEB INH SCH (20:25)
[2018-08-09] MEDS: TEGRETOL PO SCH (22:15)
[2018-08-09] MEDS: APRESOLINE PO SCH (22:16)
[2018-08-09] MEDS: COREG PO SCH (22:16)
[2018-08-09] MEDS: ZOCOR PO SCH (22:16)
[2018-08-09] MEDS: NEURONTIN PO SCH (22:16)
[2018-08-09] MEDS: MUCINEX DM PO SCH (22:16)
[2018-08-10] MEDS: ADVAIR 250/50 DISKUS INH SCH ×3 (04:21→20:26)
[2018-08-10] MEDS: ATROVENT NEB INH SCH ×8 (04:22→23:41)
[2018-08-10] MEDS: XOPENEX NEB INH SCH ×8 (04:22→23:41)
[2018-08-10 05:48] LABS: BASO# 0.03 X1000 (0.0-0.2); BASO% 0.3 % (0.0-0.8); EOS% 0.9 % (0.0-10.0); HEMATOCRIT 28.5 % (42.0-52.0); HEMOGLOBIN 9.1 g/dL (14.0-18.0); IMM GRAN# 0.04 X1000 (0.0-0.04); IMM GRAN% 0.4 % (0.0-0.5); LYMPH# 1.36 X1000 (1.2-3.4); LYMPH% 12.9 % (20.5-51.1); MCH 30.1 PG (27-31); MCHC 31.9 g/dL (33-37); MCV 94.4 FL (81-99); MONO# 1.03 X1000 (0.11-0.59); MONO% 9.8 % (1.7-9.3); MPV 8.4 FL (7.4-10.4); NEUT# 7.97 X1000 (1.4-6.5); NEUT% 75.7 % (42.2-75.2); PLT 361 X1000 (130-400); RBC 3.02 XMIL (4.7-6.1); RDW 14.8 % (11.5-14.5); WBC 10.53 X1000 (4.8-10.8)
[2018-08-10 05:57] LABS: INR 1.16; PROTIME 15.7 Seconds (11.0-16.0); PTT 36.4 Seconds (22.3-41.8)
[2018-08-10 06:08] LABS: HEMOGLOBIN A1C 5.6 % (4.8-6.0)
[2018-08-10 06:14] LABS: AGAP 12; ALBUMIN 3.4 g/dL (3.5-5.0); ALKALINE PHOSPHATASE 82 U/L (32-122); BUN 21 mg/dL (8-22); CALCIUM 8.8 mg/dL (8.8-10.2); CHLORIDE 95 mmol/L (98-107); COSMO 274; ESTIMATED GFR > 60; GLUCOSE 114 mg/dL (70-104); GOT 28 U/L (10-34); GPT 27 U/L (10-44); MAGNESIUM 1.9 mg/dL (1.5-2.7); SODIUM 135 mmol/L (136-145); TCO2 28 mmol/L (25-35); TOTAL PROTEIN 6.9 g/dL (6.3-8.3)
--- NOTE | 2018-08-10 07:24 | Diag Imaging Result Doc PS360 ---
EXAM: CHEST-PORTABLE HISTORY: sob TECHNIQUE: Chest single view COMPARISON: 08/09/2018 FINDINGS: There are increased interstitial markings throughout both lungs. Heart remains enlarged. There are small pleural effusions. Patient has a left-sided pacemaker. IMPRESSION: No interval improvement in the findings of congestive failure Electronically signed by Frank Boudreaux 08/10/2018 7:21 AM
[2018-08-10] MEDS: PULMICORT INH SCH ×2 (07:31→20:24)
[2018-08-10] MEDS ORDERED: LOVENOX SUBQ SCH (09:00)
[2018-08-10] MEDS: PLAVIX PO SCH (09:07)
[2018-08-10] MEDS: APRESOLINE PO SCH ×3 (09:07→17:15)
[2018-08-10] MEDS: NEURONTIN PO SCH ×3 (09:07→22:14)
[2018-08-10] MEDS: PROTONIX PO SCH (09:07)
[2018-08-10] MEDS: LASIX IV SCH ×2 (09:07→22:13)
[2018-08-10] MEDS: ASPIRIN PO SCH (09:07)
[2018-08-10] MEDS: MUCINEX DM PO SCH ×2 (09:07→22:13)
[2018-08-10] MEDS: IMDUR PO SCH (09:07)
[2018-08-10] MEDS: TEGRETOL PO SCH ×3 (09:07→22:14)
[2018-08-10] MEDS: CYMBALTA PO SCH (09:07)
[2018-08-10] MEDS: ZOLOFT PO SCH (09:07)
[2018-08-10] MEDS: THERA M PLUS PO SCH (09:07)
[2018-08-10] MEDS: SYNTHROID PO SCH (09:07)
[2018-08-10] MEDS: COLACE PO SCH (09:07)
[2018-08-10] MEDS: KLOR-CON PO SCH (09:07)
[2018-08-10] MEDS: PREDNISONE PO SCH (09:07)
[2018-08-10] MEDS: COREG PO SCH ×2 (09:07→22:13)
[2018-08-10] MEDS: NORVASC PO SCH (09:07)
--- NOTE | 2018-08-10 11:53 | CONSULTATION ---
DATE OF CONSULTATION: 08/10/2018 IMPRESSION: 1. Acute on chronic congestive heart failure with preserved left ventricular ejection fraction. 2. Hypertensive cardiovascular disease. 3. Atherosclerotic coronary artery disease. 4. Mild/nonspecific elevation in troponins, possibly related to congestive heart failure. 5. Chronic kidney disease. 6. Obesity. 7. Hypothyroidism. 8. Chronic obstructive pulmonary disease. 9. Possible obstructive sleep apnea. RECOMMENDATIONS: 1. Diurese with intravenous Lasix as you are doing. 2. Arrange followup echocardiography with echocontrast. 3. Consider possible obstructive sleep apnea and, during hospital stay, consider overnight pulse oximetry. 4. Conservative cardiovascular management overall in light of patient's comorbidities and debility. He has expressed a desire to be a Do Not Resuscitate level 1 as he does not want chest compressions or a breathing tube. This appears to be reasonable. HISTORY: This 88-year-old, white male with a past history of atherosclerotic coronary artery disease, hypertensive cardiovascular disease, congestive heart failure with preserved left ventricular ejection fraction, hypothyroidism, chronic kidney disease, obesity, and COPD was transferred from a [facility] facility where he resides for further management of progressive shortness of breath and edema. He relates at least a 1-week history, possibly longer, of progressive swelling. He has been getting short of breath. It finally got severe enough that he was transferred over to the emergency room for evaluation. He was noted to be edematous and with evidence of pulmonary edema on chest x-ray. He has been admitted to telemetry and started on IV Lasix. He appears to be diuresing. There has been no angina. PAST MEDICAL HISTORY: 1. Atherosclerotic coronary artery disease. 2. Hypertensive cardiovascular disease. 3. Congestive heart failure with preserved left ventricular ejection fraction. 4. Hypothyroidism. 5. Peripheral neuropathy. 6. Hyperlipidemia. 7. Chronic obstructive pulmonary disease. 8. Status post permanent pacemaker for bradyarrhythmias. 9. Status post removal of basal cell carcinoma from right lower eyelid. ALLERGIES: He is allergic or intolerant to iodine and IV contrast dye. MEDICATIONS PRIOR TO ADMISSION: As listed. SOCIAL HISTORY: He lives in [facility]. He has a history of previous cigarette use in the past but currently does not smoke nor use alcohol. FAMILY HISTORY: Positive for coronary artery disease. REVIEW OF SYSTEMS: Pulmonary: Noteworthy for dyspnea as well as some cough. Gastrointestinal: Noncontributory. Constitutional: Noncontributory. Remainder of review of systems negative/noncontributory with 14 total systems reviewed. PHYSICAL EXAMINATION: General: Physical examination reveals an obese, older, white male who is very hard of hearing and in no distress, on supplemental oxygen. Vital Signs: Blood pressure 141/54, heart rate 63, oxygen saturation 96% on nasal cannula oxygen at 4 L per minute. HEENT Examination: Extraocular movements intact. Mucous membranes are moist. Neck: Supple. Jugular venous distention is difficult to discern. Chest: Auscultation of the chest reveals a few scattered rhonchi. Cardiac Examination: Reveals a regular rate and rhythm without appreciable murmur or gallop. Abdomen: Soft. Bowel sounds normal. Extremities: Demonstrate moderate pitting edema. LABORATORY DATA: Includes a white blood cell count of 10.53, hematocrit 28.5, platelet count 361,000. Sodium 135, potassium 4.0, chloride 95, carbon dioxide 28, BUN 21, creatinine 1.0, glucose 114. Initial troponin 0.415, followup troponin 0.297. TSH 3.01. The ECG is not yet scanned in medical record. Chest x-ray reports finding suggestive of congestive heart failure. cc: Romero Tyson MD
--- NOTE | 2018-08-10 15:33 | PROGRESS NOTE ---
DATE: 08/10/2018 ADDENDUM: Urine culture has now returned back positive for gram-negative rods. Patient is currently on Rocephin IV. We will await the culture and sensitivity report on that positive urine culture. cc: Ebenezer Rubio MD
--- NOTE | 2018-08-10 15:37 | PROGRESS NOTE ---
DATE: 08/10/2018 SUBJECTIVE: The patient is resting comfortably in bed. OBJECTIVE: Vital Signs: As follows: Temperature 97.8, pulse 63, respirations 18, oxygen saturation 94%. HEENT: Atraumatic, normocephalic. Cardiovascular: S1, S2. Respiratory: Good air entry bilaterally. Abdomen: Obese nontender. No masses felt. Extremities: Has 1+ edema in the lower extremities. Central Nervous System: No obvious focal deficits noted. LABS: X-ray of the chest: No interval improvement in the findings of CHF. WBC is 10.53, hematocrit is 28.5, with a platelet count of 361,000. Sodium is 135, potassium 4.0, chloride is 95, bicarb 28, BUN is 21, creatinine is 1.0. ASSESSMENT AND PLAN: 1. Acute on chronic systolic heart failure. Continue patient on diuretics. Monitor intakes and outputs, as well as daily weights. Repeat 2D echo is pending. The patient is being followed by the Cardiology Team. 2. Elevated troponin. This may be secondary to demand ischemia. However, patient may have ST elevation DC. The patient being followed by the Cardiology Team. 3. Coronary artery disease. Asymptomatic at this time. Continue aspirin, Plavix, beta zohaib as well as a statin. Cardiology is following. 4. Hypertension. Continue current antihypertensive regimen. 5. Hypothyroidism. Continue levothyroxine. 6. Hyperlipidemia. Continue statin. 7. Chronic obstructive pulmonary disease. Stable. Use nebulized bronchodilators as needed. 8. DVT prophylaxis. Lovenox. 9. GI prophylaxis. PPI. cc: Ebenezer Rubio MD MTDD
[2018-08-10] MEDS: ROCEPHIN 1 GM in NS 50 ML IV SCH (16:02)
--- NOTE | 2018-08-10 22:05 | ECHO REPORT ---
ORDER DATE: 08/10/2018 MEASUREMENTS: Septal thickness 1.2, left ventricular internal diameter diastole 5.6, posterior wall thickness 1.1, aortic root 3.7, left atrium 4.4. SUMMARY: 1. Technically difficult study due to limited acoustic window quality. Intravenous echo contrast agent Optison was utilized to enhance endocardial definition. 2. Fibrocalcific changes of aortic valve demonstrated with reduced aortic valve leaflet mobility. Peak gradient across aortic valve is 63 mmHg with a mean gradient of 34 mmHg. Calculated aortic valve area is 0.9 to 1.0 cm2 by Doppler. Severe aortic stenosis is suggested. Mitral and tricuspid valves are without evidence of structural abnormality while pulmonic valve is not well demonstrated. There is mild mitral regurgitation. Mild to moderate tricuspid regurgitation is demonstrated with estimated systolic PA pressure by Doppler of 70 mmHg suggesting moderate to severe pulmonary hypertension. Aortic root is normal in size. 3. Upper normal left ventricular chamber size with mild concentric left hypertrophy is demonstrated. Estimated left ventricular ejection fraction approximately 35%. There is severe hypokinesis of the mid to apical anteroseptal region apex and apical inferior wall. Left atrium is mildly enlarged. Right atrium and right ventricle are normal in size with grossly preserved right ventricular systolic function. Pacemaker lead is evident in the right ventricle. 4. No pericardial effusion. 5. Inferior vena cava not well demonstrated. cc: Romero Tyson MD
[2018-08-10] MEDS: ZOCOR PO SCH (22:13)
[2018-08-11] MEDS: ATROVENT NEB INH SCH ×6 (03:43→23:50)
[2018-08-11] MEDS: XOPENEX NEB INH SCH ×6 (03:43→23:50)
[2018-08-11 05:13] LABS: ALLEN TEST YES; BLOOD TYPE ARTERIAL; HCO3-(ACT) 30.2 mmoll (20.0-26.0); METHB 0.8 % (0.0-1.5); O2(CT) 19.4 mL/dL (15.0-23.0); O2HB 91.5 % (95.0-99.0); PO2(98.6) 66 mmHg (60-100); SAMPLE BLOOD; SAO2 94.5 % (95.0-100.0); THB 15.1 g/dL (11.5-17.4); pH(98.6) 7.42 (7.35-7.45)
[2018-08-11 05:18] LABS: MODALITY CANNULA; PCO2(98.6) 51 mmHg (35-45)
[2018-08-11 06:00] LABS: BASO# 0.02 X1000 (0.0-0.2); BASO% 0.2 % (0.0-0.8); EOS# 0.11 X1000 (0.0-0.7); EOS% 1.2 % (0.0-10.0); HEMATOCRIT 29.6 % (42.0-52.0); HEMOGLOBIN 9.5 g/dL (14.0-18.0); IMM GRAN# 0.04 X1000 (0.0-0.04); IMM GRAN% 0.4 % (0.0-0.5); LYMPH# 1.58 X1000 (1.2-3.4); MCH 30.7 PG (27-31); MCHC 32.1 g/dL (33-37); MCV 95.8 FL (81-99); MONO# 1.05 X1000 (0.11-0.59); MONO% 11.3 % (1.7-9.3); MPV 8.4 FL (7.4-10.4); NEUT# 6.52 X1000 (1.4-6.5); NEUT% 69.9 % (42.2-75.2); PLT 390 X1000 (130-400); RBC 3.09 XMIL (4.7-6.1); RDW 15.2 % (11.5-14.5); WBC 9.32 X1000 (4.8-10.8)
[2018-08-11 06:29] LABS: AGAP 13; ALB/GLOB RATIO 1.1; ALBUMIN 3.5 g/dL (3.5-5.0); ALKALINE PHOSPHATASE 84 U/L (32-122); BUN 20 mg/dL (8-22); CALCIUM 8.7 mg/dL (8.8-10.2); CHLORIDE 93 mmol/L (98-107); COSMO 275; CREATININE 1.1 mg/dL (0.7-1.2); ESTIMATED GFR > 60; GLUCOSE 104 mg/dL (70-104); GOT 24 U/L (10-34); GPT 22 U/L (10-44); POTASSIUM 3.9 mmol/L (3.5-5.1); SODIUM 136 mmol/L (136-145); TCO2 30 mmol/L (25-35); TOTAL BILIRUBIN 0.51 mg/dL (0.20-1.00); TOTAL PROTEIN 6.7 g/dL (6.3-8.3)
--- NOTE | 2018-08-11 06:38 | Diag Imaging Result Doc PS360 ---
EXAM: CHEST-1 VIEW HISTORY: copd TECHNIQUE: Chest single view COMPARISON: 08/10/2018 FINDINGS: The lungs are well expanded. There are increased interstitial markings throughout both lungs. These are more pronounced in the mid right lung than they were on the prior study. The heart is enlarged. Decreased pleural fluid. There is a left-sided pacemaker. IMPRESSION: Worsening infiltrates although there is less pleural fluid. Electronically signed by Frank Boudreaux 08/11/2018 6:36 AM
[2018-08-11] MEDS: ADVAIR 250/50 DISKUS INH SCH ×2 (07:36→20:10)
[2018-08-11] MEDS: PULMICORT INH SCH ×2 (07:36→20:10)
[2018-08-11] MEDS: LASIX IV SCH ×2 (08:04→20:03)
[2018-08-11] MEDS: IMDUR PO SCH (08:05)
[2018-08-11] MEDS: COLACE PO SCH (08:05)
[2018-08-11] MEDS: PREDNISONE PO SCH (08:05)
[2018-08-11] MEDS: CYMBALTA PO SCH (08:05)
[2018-08-11] MEDS: SYNTHROID PO SCH (08:05)
[2018-08-11] MEDS: ZOLOFT PO SCH (08:05)
[2018-08-11] MEDS: PROTONIX PO SCH (08:05)
[2018-08-11] MEDS: ASPIRIN PO SCH (08:05)
[2018-08-11] MEDS: PLAVIX PO SCH (08:05)
[2018-08-11] MEDS: APRESOLINE PO SCH ×3 (08:05→17:53)
[2018-08-11] MEDS: NEURONTIN PO SCH ×3 (08:05→20:04)
[2018-08-11] MEDS: NORVASC PO SCH (08:05)
[2018-08-11] MEDS: COREG PO SCH ×2 (08:05→20:04)
[2018-08-11] MEDS: TEGRETOL PO SCH ×3 (08:05→20:03)
[2018-08-11] MEDS: THERA M PLUS PO SCH (08:05)
[2018-08-11] MEDS: KLOR-CON PO SCH (08:05)
--- NOTE | 2018-08-11 08:05 | EKG Report ---
Test Performed on : 08/10/2018 06:03:59 AM Test Reason : chf Blood Pressure : / mmHG Vent. Rate : 061 BPM Atrial Rate : 050 BPM P-R Int : 000 ms QRS Dur : 160 ms QT Int : 482 ms P-R-T Axes : 000 -68 118 degrees QTc Int : 485 ms Ventricular-paced rhythm Abnormal ECG When compared with ECG of 09-AUG-2018 13:59, (Unconfirmed) Vent. rate has decreased BY 3 BPM Confirmed by Laura DUKES, Jason ([id number]) on 08/11/2018 9:17:14 AM
[2018-08-11] MEDS: MUCINEX DM PO SCH ×2 (08:06→20:03)
--- NOTE | 2018-08-11 08:41 | EKG Report ---
Test Performed on : 08/09/2018 1:59:21 PM Test Reason : SOB Blood Pressure : / mmHG Vent. Rate : 064 BPM Atrial Rate : 441 BPM P-R Int : 000 ms QRS Dur : 148 ms QT Int : 478 ms P-R-T Axes : 000 -63 137 degrees QTc Int : 493 ms Ventricular-paced rhythm Abnormal ECG When compared with ECG of 23-JUN-2018 18:29, Vent. rate has increased BY 4 BPM Unconfirmed Result
--- NOTE | 2018-08-11 14:18 | PROGRESS NOTE ---
DATE: 08/11/2018 SUBJECTIVE: The patient is resting in bed. Not in any obvious distress. OBJECTIVE: Vital Signs: Temperature 98 degrees, pulse 64, respiratory rate 16, blood pressure 125/54, oxygen saturation is 98%. HEENT: Atraumatic, normocephalic. He is anicteric. Has poor oral hygiene. Neck: No lymphadenopathy or thyromegaly. Cardiovascular System: S1, S2. Irregular. Respiratory System: Lung katz relatively clear. Abdomen: Obese, nontender. No masses felt. Extremities: No significant edema. Central Nervous System: No significant deficits. Labs: WBCs 9.32, hematocrit is 29.6, with a platelet count of 390,000. ABG 7.42/51/51/94.5. Sodium is 136, potassium 3.9, chloride is 93, bicarb 30, BUN is 20, creatinine is 1.1. X-ray of the chest shows worsening infiltrates. ASSESSMENT AND PLAN: 1. Acute on chronic heart failure. Continue diuretics. Monitor intakes and outputs, as well as daily weights. A 2D echocardiogram of the heart shows an estimated ejection fraction of about 35%. Cardiology team following. 2. Elevated troponin. May be secondary to demand ischemia. Cardiology following. 3. Coronary artery disease, asymptomatic. Continue aspirin, Plavix, beta-zohaib, as well as statin. Cardiology following. 4. Hypertension. Continue current antihypertensive regimen. 5. Hypothyroidism. Continue levothyroxine. 6. Hyperlipidemia. Continue statin. 7. Chronic obstructive pulmonary disease. Nebulized bronchodilators as needed. 8. Urinary tract infection secondary to Morganella morganii. Continue Rocephin. 9. Deep vein thrombosis prophylaxis. Lovenox. 10. Gastrointestinal prophylaxis. Proton pump inhibitor. cc: Ebenezer Rubio MD
[2018-08-11] MEDS: ROCEPHIN 1 GM in NS 50 ML IV SCH (14:33)
--- NOTE | 2018-08-11 19:01 | PROGRESS NOTE ---
DATE: 08/11/2018 SUBJECTIVE: Patient denies shortness of breath on supplemental oxygen per nasal cannula. There has been no chest pain. OBJECTIVE: Vital Signs: Blood pressure 125/54, heart rate 64 to 74. Oxygen saturation 93 to 99 percent on nasal cannula oxygen at 4 L/minute. Neck: Jugular venous distention is not appreciated. Chest: Auscultation of the chest reveals inspiratory crackles in the right base posteriorly. Cardiac Exam: Reveals a regular rate and rhythm without appreciable murmur or gallop. Extremities: Demonstrate mild pitting edema. LABORATORY DATA: Includes a white blood cell count 9.32, hematocrit 29.6, hemoglobin 9.5, platelet count 390. Sodium 136, potassium 3.9, chloride 93, carbon dioxide 30, BUN 20, creatinine 1.1, glucose 104, echocardiography technically difficult. Estimated left ejection fraction 35%. Severe aortic stenosis suggested by Doppler. Fibrocalcific aortic valve. Doppler also suggests moderate to severe pulmonary hypertension. IMPRESSION: 1. Acute on chronic systolic heart failure. 2. Cardiomyopathy, probably ischemic in origin. 3. Atherosclerotic coronary disease. 4. Hypertensive cardiovascular disease. 5. Severe aortic stenosis. 6. Nonspecific elevation in troponin, possibly related to demand ischemia in the setting of significant coronary atherosclerosis and congestive heart failure. 7. Chronic kidney disease. 8. Chronic obstructive pulmonary disease. 9. Possible obstructive sleep apnea. 10. Moderate to severe pulmonary hypertension. RECOMMENDATIONS: 1. Continue diuresis with intravenous Lasix. 2. Conservative cardiovascular management overall in light of patient's comorbidities and debility. He has expressed desire to be a Do Not Resuscitate level 1. This is certainly reasonable. His prognosis appears to be poor. cc: Romero Tyson MD
[2018-08-11] MEDS: ZOCOR PO SCH (20:04)
[2018-08-12] MEDS: ATROVENT NEB INH SCH ×6 (06:35→23:30)
[2018-08-12] MEDS: XOPENEX NEB INH SCH ×6 (06:35→23:30)
[2018-08-12] MEDS: PULMICORT INH SCH ×2 (07:42→20:14)
[2018-08-12] MEDS: ADVAIR 250/50 DISKUS INH SCH ×2 (07:42→20:14)
[2018-08-12] MEDS: COREG PO SCH ×2 (08:32→22:46)
[2018-08-12] MEDS: CYMBALTA PO SCH (08:32)
[2018-08-12] MEDS: APRESOLINE PO SCH ×3 (08:33→22:48)
[2018-08-12] MEDS: KLOR-CON PO SCH (08:33)
[2018-08-12] MEDS: LASIX IV SCH ×2 (08:33→22:46)
[2018-08-12] MEDS: SYNTHROID PO SCH (08:33)
[2018-08-12] MEDS: PLAVIX PO SCH (08:33)
[2018-08-12] MEDS: TEGRETOL PO SCH ×3 (08:34→22:46)
[2018-08-12] MEDS: NORVASC PO SCH (08:34)
[2018-08-12] MEDS: PREDNISONE PO SCH (08:34)
[2018-08-12] MEDS: THERA M PLUS PO SCH (08:34)
[2018-08-12] MEDS: ZOLOFT PO SCH (08:34)
[2018-08-12] MEDS: ASPIRIN PO SCH (08:34)
[2018-08-12] MEDS: IMDUR PO SCH (08:34)
[2018-08-12] MEDS: COLACE PO SCH (08:34)
[2018-08-12] MEDS: NEURONTIN PO SCH ×3 (08:34→22:47)
[2018-08-12] MEDS: PROTONIX PO SCH (08:34)
[2018-08-12] MEDS: MUCINEX DM PO SCH ×2 (08:35→22:47)
[2018-08-12] MEDS ORDERED: NS NEB INH SCH (09:30)
--- NOTE | 2018-08-12 09:53 | PROGRESS NOTE ---
DATE: 08/12/2018 SUBJECTIVE: This patient is resting in bed. He is not in acute distress but he is still complaining of shortness of breath and generalized weakness. OBJECTIVE: Vital Signs: Temperature 98.3 degrees, pulse 63, respiratory rate 18, blood pressure 120/64, oxygen saturation 93 on 4 L of nasal cannula. HEENT: Head normocephalic. No trauma. PERRLA. Neck: Supple. No JVD. Central trachea. Chest: Decreased breath sounds globally with inspiratory crackles, some end-expiratory wheezing. Cardiovascular: RRR. No murmurs. Abdomen: Soft, nontender, nondistended. No hepatosplenomegaly. Extremities: There is 2+ lower extremity edema. No clubbing. No cyanosis. Neurological Examination: The patient is alert. He is following commands. He is oriented x2. Laboratory: WBC 9.3, hemoglobin 9.5, hematocrit 29.6, platelets 390,000. Sodium 136, potassium 3.9, chloride 93, bicarbonate 30, BUN 20, creatinine 1.1, glucose 104, calcium 8.7, albumin 3.5. ASSESSMENT AND PLAN: 1. Acute on chronic systolic heart failure exacerbation. We will continue with intravenous Lasix. Cardiology department on board. Compared with admission, he seems to be a little bit better but he is still complaining of shortness of breath. 2. Cardiomyopathy, likely ischemic. Continue with the same management. Cardiology on board. Troponins were elevated but then they started to decrease. This is nonspecific, probably related to demand ischemia. 3. Hypertension. Continue with the same management. 4. Chronic kidney disease. Aware. This is his baseline though. 5. Chronic obstructive pulmonary disease. He has been having some wheezing. We will continue with oxygen supplementation. I will put him on breathing treatment. 6. Moderate pulmonary hypertension. Continue with diuresis. 7. Urinary tract infection due to Morganella morganii. Continue with Rocephin. 8. Deep vein thrombosis prophylaxis with Lovenox. 9. Gastrointestinal prophylaxis with proton pump inhibitors. 10. Dyslipidemia. Continue with statin. 11. Physical deconditioning. Continue physical therapy. cc: Jevon Hobson MD
[2018-08-12] MEDS: ROCEPHIN 1 GM in NS 50 ML IV SCH (14:39)
--- NOTE | 2018-08-12 18:07 | PROGRESS NOTE ---
DATE: 08/12/2018 SUBJECTIVE: Patient continues without chest discomfort or dyspnea. He is feeling better. OBJECTIVE: Vital Signs: Blood pressure 100/80 with a heart rate of 62 beats per minute. Oxygen saturation 98 on nasal cannula oxygen. Neck: Jugular venous distention cannot be appreciated. Chest: Auscultation of the chest reveals a few inspiratory crackles in the right base posteriorly. Cardiac exam: Reveals a regular rate and rhythm without appreciable murmur or gallop. Extremities: Demonstrate mild edema. LABORATORY DATA: Includes a white blood cell count 9.32, hematocrit 29.6, platelet count 390. Sodium 136, potassium 3.9, chloride 93, carbon dioxide 30, BUN 20, creatinine 1.1. IMPRESSION: 1. Acute on chronic systolic heart failure. Patient improving with diuresis. 2. Cardiomyopathy, probably ischemic in origin. 3. Atherosclerotic coronary disease. 4. Severe aortic stenosis. 5. Hypertensive cardiovascular disease. 6. Nonspecific elevation in troponin, probably related to demand ischemia in the setting of significant coronary atherosclerosis and congestive heart failure. 7. Chronic obstructive pulmonary disease. 8. Moderate to severe pulmonary hypertension. RECOMMENDATIONS: 1. Continue diuresis with intravenous Lasix. 2. Decrease hydralazine. Consider initiation of low-dose angiotensin receptor blocking agent. 3. Conservative cardiovascular management overall in light of the patient's comorbidities and debility. He has expressed desire to be a Do Not Resuscitate level 1. This is certainly reasonable. His prognosis appears to be poor. cc: Romero Tyson MD
[2018-08-12] MEDS: NORCO-7.5 PO PRN (19:36)
[2018-08-12] MEDS: ZOCOR PO SCH (22:46)
[2018-08-13] MEDS: ATROVENT NEB INH SCH ×6 (03:16→23:21)
[2018-08-13] MEDS: XOPENEX NEB INH SCH ×6 (03:16→23:21)
[2018-08-13 05:49] LABS: BASO# 0.03 X1000 (0.0-0.2); BASO% 0.4 % (0.0-0.8); EOS# 0.21 X1000 (0.0-0.7); EOS% 2.6 % (0.0-10.0); HEMATOCRIT 29.3 % (42.0-52.0); HEMOGLOBIN 9.3 g/dL (14.0-18.0); IMM GRAN# 0.03 X1000 (0.0-0.04); IMM GRAN% 0.4 % (0.0-0.5); LYMPH# 1.41 X1000 (1.2-3.4); LYMPH% 17.3 % (20.5-51.1); MCH 30.4 PG (27-31); MCHC 31.7 g/dL (33-37); MCV 95.8 FL (81-99); MONO# 0.81 X1000 (0.11-0.59); MONO% 9.9 % (1.7-9.3); MPV 8.1 FL (7.4-10.4); NEUT# 5.67 X1000 (1.4-6.5); NEUT% 69.4 % (42.2-75.2); PLT 344 X1000 (130-400); RBC 3.06 XMIL (4.7-6.1); RDW 15.1 % (11.5-14.5); WBC 8.16 X1000 (4.8-10.8)
[2018-08-13 06:55] LABS: AGAP 9; BUN 19 mg/dL (8-22); CALCIUM 8.4 mg/dL (8.8-10.2); CHLORIDE 90 mmol/L (98-107); COSMO 262; ESTIMATED GFR > 60; GLUCOSE 113 mg/dL (70-104); POTASSIUM 3.9 mmol/L (3.5-5.1); SODIUM 129 mmol/L (136-145); TCO2 30 mmol/L (25-35)
[2018-08-13] MEDS: SYNTHROID PO SCH (07:12)
[2018-08-13] MEDS: PULMICORT INH SCH ×2 (07:33→19:16)
[2018-08-13] MEDS: ADVAIR 250/50 DISKUS INH SCH ×2 (07:36→19:16)
[2018-08-13] MEDS: PLAVIX PO SCH (09:48)
[2018-08-13] MEDS: KLOR-CON PO SCH (09:48)
[2018-08-13] MEDS: MUCINEX DM PO SCH ×2 (09:48→20:42)
[2018-08-13] MEDS: LASIX IV SCH ×2 (09:48→20:41)
[2018-08-13] MEDS: CYMBALTA PO SCH (09:48)
[2018-08-13] MEDS: ZOLOFT PO SCH (09:48)
[2018-08-13] MEDS: IMDUR PO SCH (09:48)
[2018-08-13] MEDS: COLACE PO SCH (09:48)
[2018-08-13] MEDS: APRESOLINE PO SCH ×2 (09:49→15:40)
[2018-08-13] MEDS: PROTONIX PO SCH (09:49)
[2018-08-13] MEDS: ASPIRIN PO SCH (09:49)
[2018-08-13] MEDS: NEURONTIN PO SCH ×3 (09:49→20:42)
[2018-08-13] MEDS: TEGRETOL PO SCH ×3 (09:49→20:41)
[2018-08-13] MEDS: THERA M PLUS PO SCH (09:49)
[2018-08-13] MEDS: PREDNISONE PO SCH (09:49)
[2018-08-13] MEDS: COREG PO SCH ×2 (09:49→20:39)
[2018-08-13] MEDS: NORVASC PO SCH (09:50)
--- NOTE | 2018-08-13 11:05 | PROGRESS NOTE ---
DATE: 08/13/2018 SUBJECTIVE: This patient is sitting at the bedside. He is not complaining of chest pain, but he is still complaining of shortness of breath and generalized weakness. OBJECTIVE: Vital Signs: Temperature 97.5 degrees, pulse 62, respiratory rate 16, blood pressure 137/56, oxygen saturation 94% on 4 L of nasal cannula. HEENT: Head normocephalic. No trauma. PERRLA. Neck: Supple. No JVD. Central trachea. Chest: Decreased breath sounds globally with inspiratory crackles and some end-expiratory wheezing. Cardiovascular: Regular rhythm and rate. Abdomen: Soft, nontender, nondistended. No hepatosplenomegaly. 1-to 2+ lower extremity edema. No clubbing. No cyanosis. Neurological: The patient is alert. He is oriented x2, he is following commands. LABORATORY: WBC 8.1, hemoglobin 9.3, hematocrit 29.3, platelet 344,000. Sodium 129, potassium 3.9, chloride 90, bicarbonate 30, BUN 19, creatinine 1, glucose 113, calcium 8.4. ASSESSMENT AND PLAN: 1. Acute on chronic systolic heart failure exacerbation. We will continue with IV Lasix. Continue following recommendation of Cardiology Department. So far we have a negative balance of a little bit more than 7 L. Compared with admission he seems to be feeling better, but he is still complaining of shortness of breath. 2. Cardiomyopathy, likely ischemic. Continue with same management. 3. Hypertension, continue with same treatment. 4. Chronic kidney disease. Aware. This is his baseline. 5. Chronic obstructive pulmonary disease, not in exacerbation, but he has been having a little bit of wheezing, mostly yesterday. Today seems to be better. 6. Moderate pulmonary hypertension. Continue with diuresis. 7. Urinary tract infection due to Morganella morganii. Continue with Rocephin. 8. Deep vein thrombosis prophylaxis with Lovenox. 9. Gastrointestinal prophylaxis with proton pump inhibitors. 10. Dyslipidemia. Continue with statins. 11. Physical deconditioning, continue physical therapy. 12. Hyponatremia. We will monitor. He came in hyponatremic, likely secondary to medications. cc: Jevon Hobson MD
--- NOTE | 2018-08-13 15:29 | Extremity Venous Study ---
PROCEDURE NAME: Venous U/S Bilateral Legs - 08/10/2018 REQUESTING PHYSICIAN: Dr. Tyson. READING PHYSICIAN: Dr. Maninder Marley. INVENTORY CONTROL COORDINATOR: Adam. INDICATION: Shortness of breath. FINDINGS: The deep and superficial veins of both lower extremities were imaged throughout their course. They are compressible and patent and without thrombus. INTERPRETATION: No DVT or SVT of either lower extremity. cc: MD Romero Oliver MD
[2018-08-13] MEDS: ROCEPHIN 1 GM in NS 50 ML IV SCH (15:30)
[2018-08-13] MEDS ORDERED: NS 500 ML ONE (15:39)
--- NOTE | 2018-08-13 19:23 | PROGRESS NOTE ---
DATE: 08/13/2018 SUBJECTIVE: Patient relates feeling some fatigue and some shortness of breath, although he has improved overall. There has been no chest pain. OBJECTIVE: Vital Signs: Blood pressure 114/78, heart rate 69, oxygen saturation 93%. Neck: jugular venous distention cannot be appreciated. Chest: Auscultation of the chest reveals fairly clear lung katz bilaterally. Cardiac: Regular rate and rhythm without appreciable murmur or gallop. Extremities: Mild edema, which is significantly improved. LABORATORY DATA: Includes a white blood cell count of 8.16, hematocrit 29.3, hemoglobin 9.3, platelet count 344,000. Sodium 129, potassium 3.9, chloride 90, carbon dioxide 30, BUN 19, creatinine 1.0, glucose 113. IMPRESSION: 1. Acute on chronic systolic heart failure, improved with diuresis. 2. Cardiomyopathy, ischemic. 3. Atherosclerotic coronary artery disease. 4. Severe aortic stenosis. 5. Hypertensive cardiovascular disease. 6. Nonspecific elevation in troponin, probably related to demand ischemia in the setting of significant coronary atherosclerosis and acute on chronic systolic heart failure. 7. Chronic obstructive pulmonary disease. 8. Moderate to severe pulmonary hypertension. RECOMMENDATIONS: 1. Continue diuresis. 2. Switch from hydralazine to low dose angiotensin receptor zohaib, losartan. 3. Fluid restrict. 4. Conservative cardiovascular management overall. Hopefully, with further diuresis, he will be improved sufficient to allow him to be discharged in the next 24 to 48 hours. cc: Romero Tyson MD
[2018-08-13] MEDS: ZOCOR PO SCH (20:41)
[2018-08-14] MEDS: ATROVENT NEB INH SCH ×6 (03:33→23:37)
[2018-08-14] MEDS: XOPENEX NEB INH SCH ×6 (03:33→23:37)
[2018-08-14] MEDS: SYNTHROID PO SCH (06:35)
[2018-08-14 06:38] LABS: AGAP 10; BUN 23 mg/dL (8-22); CALCIUM 8.6 mg/dL (8.8-10.2); CHLORIDE 92 mmol/L (98-107); COSMO 270; CREATININE 1.1 mg/dL (0.7-1.2); ESTIMATED GFR > 60; GLUCOSE 100 mg/dL (70-104); POTASSIUM 3.9 mmol/L (3.5-5.1); SODIUM 133 mmol/L (136-145); TCO2 31 mmol/L (25-35)
--- NOTE | 2018-08-14 07:04 | Diag Imaging Result Doc PS360 ---
EXAM: CHEST-PORTABLE 08/14/2018 HISTORY: dyspnea TECHNIQUE: AP portable at 0553 COMMENT: There is cardiomegaly. There is increased pulmonary vascularity. There is interstitial pulmonary edema with atelectasis versus pneumonia in the right middle and lower lobe. The latter has worsened slightly since 08/11/2018. IMPRESSION: Pulmonary edema, cardiomegaly, and right middle lobe and lower lobe atelectasis versus pneumonia. Electronically signed by Mika Graham 08/14/2018 7:02 AM
[2018-08-14] MEDS: CYMBALTA PO SCH (08:22)
[2018-08-14] MEDS: PREDNISONE PO SCH (08:22)
[2018-08-14] MEDS: TEGRETOL PO SCH ×3 (08:22→21:14)
[2018-08-14] MEDS: PLAVIX PO SCH (08:22)
[2018-08-14] MEDS: KLOR-CON PO SCH (08:22)
[2018-08-14] MEDS: ZOLOFT PO SCH (08:22)
[2018-08-14] MEDS: MUCINEX DM PO SCH ×2 (08:22→21:15)
[2018-08-14] MEDS: THERA M PLUS PO SCH (08:22)
[2018-08-14] MEDS: PROTONIX PO SCH (08:22)
[2018-08-14] MEDS: IMDUR PO SCH (08:22)
[2018-08-14] MEDS: NEURONTIN PO SCH ×3 (08:23→21:15)
[2018-08-14] MEDS: ASPIRIN PO SCH (08:23)
[2018-08-14] MEDS: COLACE PO SCH (08:23)
[2018-08-14] MEDS: LASIX IV SCH (08:23)
[2018-08-14] MEDS: ADVAIR 250/50 DISKUS INH SCH ×2 (08:42→19:37)
[2018-08-14] MEDS: PULMICORT INH SCH ×2 (08:42→19:37)
[2018-08-14 12:06] LABS: ALLEN TEST NO; BE 11.4 mmoll (-3.0-3.0); BLOOD TYPE ARTERIAL; HCO3-(ACT) 33.7 mmoll (20.0-26.0); METHB 0.7 % (0.0-1.5); O2(CT) 11.7 mL/dL (15.0-23.0); O2HB 90.2 % (95.0-99.0); PO2(98.6) 58 mmHg (60-100); SAMPLE BLOOD; SAO2 93.7 % (95.0-100.0); THB 9.2 g/dL (11.5-17.4); pH(98.6) 7.45 (7.35-7.45)
[2018-08-14 12:09] LABS: MODALITY CANNULA; PCO2(98.6) 53 mmHg (35-45)
--- NOTE | 2018-08-14 12:14 | PROGRESS NOTE ---
DATE: 08/14/2018 SUBJECTIVE: The patient is sitting at the bedside. He states he continues with shortness of breath as well as generalized weakness. OBJECTIVE: Vital signs: Blood pressure is 106/61 with a heart rate of 66, respirations 18, temperature is 97.5 degrees oral with O2 saturations 94% to 95% on 5 L nasal cannula. Cardiovascular: Regular rate and rhythm. S1 and S2 are appreciated. No murmurs. He has 1+ lower extremity edema. Calves are nontender to palpation and peripheral pulses are palpable. Pulmonary: He continues with expiratory wheezes. Chest rises and falls symmetrically with respiration. Chest wall is nontender to palpation. He has no increased work of breathing. Gastrointestinal: Abdomen is soft, nontender, nondistended with bowel sounds in all 4 quadrants. Neurologic: He is alert and oriented. DIAGNOSTIC STUDIES: Sodium is 133, potassium 3.9, BUN is 23, creatinine 1.1 with a glucose of 100. Chest x-ray reveals pulmonary edema with atelectasis versus pneumonia in the right middle and lower lobes, which has worsened since 08/11/2018. ASSESSMENT AND PLAN: 1. Right middle and right lower lobe pneumonia. Change antibiotic coverage to Zosyn. We will start incentive spirometer q.4 h. per Respiratory Therapy. Up in the chair with meals and p.r.n. 2. Acute on chronic systolic heart failure with exacerbation. We will continue his IV Lasix. Cardiology is following. 3. Cardiomyopathy, likely ischemic. We will continue with his current regimen. 4. Hypertension. Continue with his regimen. 5. Chronic kidney disease. The patient is at baseline. We will continue to monitor. 6. Chronic obstructive pulmonary disease, not in exacerbation. We will continue with the current treatment. 7. Moderate pulmonary hypertension. Continue diuresis. 8. Urinary tract infection due to Morganella morganii. Continue Rocephin. 9. For deep vein thrombosis prophylaxis, we will continue Lovenox. 10. Gastrointestinal prophylaxis. PPI. 11. For dyslipidemia, we will continue his statins. 12. Hyponatremia. Sodium is improving. We will continue to monitor. 13. Physical deconditioning. Continue physical therapy. Dictated by LARS Orlando for Jevon Hobson MD cc: LARS Orlando MD
[2018-08-14] MEDS: COREG PO SCH ×2 (14:41→21:15)
[2018-08-14] MEDS: COZAAR PO SCH (14:41)
[2018-08-14] MEDS: NORVASC PO SCH (14:41)
[2018-08-14] MEDS: ZOSYN 3.375 GM in NS 50 ML IV SCH ×2 (15:26→21:15)
[2018-08-14] MEDS: ROCEPHIN 1 GM in NS 50 ML IV SCH (17:27)
[2018-08-14] MEDS: NORCO-7.5 PO PRN (17:36)
--- NOTE | 2018-08-14 19:16 | PROGRESS NOTE ---
DATE: 08/14/2018 SUBJECTIVE: The patient became lethargic this afternoon, and arterial blood gas suggested CO2 retention. He has moved to the [facility] and was put on BiPAP. He is more awake now. He denies chest discomfort or shortness of breath. OBJECTIVE: Vital Signs: Blood pressure 128/57, heart rate 65, oxygen saturation 99% on BiPAP. Neck: Jugular venous distention cannot be appreciated. Chest: Clear to auscultation bilaterally. Cardiac: Regular rate and rhythm without appreciable murmur or gallop. He has very mild peripheral edema. LABORATORY DATA: Includes a sodium of 133, potassium 3.9, chloride 92, carbon dioxide 31, BUN 23, creatinine 1.1, glucose 100. IMPRESSION: 1. Acute on chronic systolic heart failure, improved with diuresis. 2. Cardiomyopathy, ischemic. 3. Atherosclerotic coronary artery disease. 4. Severe aortic stenosis. 5. Hypertensive cardiovascular disease. 6. Nonspecific elevation in troponin, probably related to demand ischemia. 7. Chronic obstructive pulmonary disease. 8. Moderate to severe pulmonary hypertension. 9. Suspect obstructive sleep apnea. RECOMMENDATIONS: 1. Transition to oral Lasix. 2. Continue BiPAP. 3. Conservative cardiovascular management overall. cc: Romero Tyson MD
[2018-08-14] MEDS: ZOCOR PO SCH (21:14)
[2018-08-15] MEDS: ATROVENT NEB INH SCH ×6 (02:38→23:12)
[2018-08-15] MEDS: XOPENEX NEB INH SCH ×6 (02:38→23:12)
[2018-08-15 03:27] LABS: ALLEN TEST YES; BE 9.4 mmoll (-3.0-3.0); BLOOD TYPE ARTERIAL; HCO3-(ACT) 32.2 mmoll (20.0-26.0); O2(CT) 14.2 mL/dL (15.0-23.0); PO2(98.6) 76 mmHg (60-100); SAMPLE BLOOD; SRATE 15 BPM; THB 10.7 g/dL (11.5-17.4); pH(98.6) 7.43 (7.35-7.45)
[2018-08-15 03:42] LABS: MODALITY BI PAP; PCO2(98.6) 53 mmHg (35-45)
[2018-08-15] MEDS: ZOSYN 3.375 GM in NS 50 ML IV SCH ×4 (03:43→20:34)
[2018-08-15 05:34] LABS: BASO# 0.05 X1000 (0.0-0.2); BASO% 0.8 % (0.0-0.8); EOS% 3.4 % (0.0-10.0); HEMATOCRIT 29.4 % (42.0-52.0); HEMOGLOBIN 9.3 g/dL (14.0-18.0); LYMPH# 0.92 X1000 (1.2-3.4); LYMPH% 15.4 % (20.5-51.1); MCH 30.4 PG (27-31); MCHC 31.6 g/dL (33-37); MCV 96.1 FL (81-99); MONO% 11.7 % (1.7-9.3); MPV 8.1 FL (7.4-10.4); NEUT# 4.09 X1000 (1.4-6.5); NEUT% 68.7 % (42.2-75.2); PLT 314 X1000 (130-400); RBC 3.06 XMIL (4.7-6.1); RDW 14.9 % (11.5-14.5); WBC 5.96 X1000 (4.8-10.8)
[2018-08-15 05:57] LABS: AGAP 13; BUN 17 mg/dL (8-22); CALCIUM 8.7 mg/dL (8.8-10.2); CHLORIDE 94 mmol/L (98-107); COSMO 275; ESTIMATED GFR > 60; GLUCOSE 98 mg/dL (70-104); POTASSIUM 3.7 mmol/L (3.5-5.1); SODIUM 137 mmol/L (136-145); TCO2 30 mmol/L (25-35)
[2018-08-15] MEDS: SYNTHROID PO SCH (06:17)
[2018-08-15] MEDS: ADVAIR 250/50 DISKUS INH SCH ×2 (07:20→19:40)
[2018-08-15] MEDS: PULMICORT INH SCH ×2 (07:20→19:40)
[2018-08-15] MEDS: KLOR-CON PO SCH (08:53)
[2018-08-15] MEDS: TEGRETOL PO SCH ×3 (08:53→20:34)
[2018-08-15] MEDS: PLAVIX PO SCH (08:53)
[2018-08-15] MEDS: PREDNISONE PO SCH (08:53)
[2018-08-15] MEDS: THERA M PLUS PO SCH (08:54)
[2018-08-15] MEDS: COZAAR PO SCH (08:54)
[2018-08-15] MEDS: MUCINEX DM PO SCH ×2 (08:54→20:34)
[2018-08-15] MEDS: CYMBALTA PO SCH (08:54)
[2018-08-15] MEDS: COREG PO SCH ×2 (08:54→20:34)
[2018-08-15] MEDS: ZOLOFT PO SCH (08:54)
[2018-08-15] MEDS: COLACE PO SCH (08:54)
[2018-08-15] MEDS: PROTONIX PO SCH (08:54)
[2018-08-15] MEDS: IMDUR PO SCH (08:54)
[2018-08-15] MEDS: ASPIRIN PO SCH (08:54)
[2018-08-15] MEDS: NORVASC PO SCH (08:54)
[2018-08-15] MEDS: NEURONTIN PO SCH ×3 (08:54→20:34)
[2018-08-15] MEDS ORDERED: LASIX PO SCH (09:00)
--- NOTE | 2018-08-15 10:02 | PROGRESS NOTE ---
DATE: 08/15/2018 SUBJECTIVE: This patient is lying in bed and he seems to be really tired. He has been complaining of shortness of breath. He has been placed on the BiPAP machine because the CO2 was elevated. He has been admitted due to COPD exacerbation. Yesterday the palliative care team met with his brother, which apparently he has his legal guardianship and apparently he has some documents about that. He has he has requested to request an evaluation by hospice. OBJECTIVE: Vital Signs: Temperature 98.4 degrees, pulse 61, respiratory rate 15, blood pressure 128/65, oxygen saturation 95% on the BiPAP machine. HEENT: Head normocephalic no trauma. PERRLA. Neck: Supple. Some jugular venous distention. Central trachea. Chest: Decreased breath sounds globally with inspiratory crackles and some expiratory wheezing. ASSESSMENT AND PLAN: 1. So far we have a negative balance of 9.6 L, as per the patient he feels extremely tired. 2. Likely acute on chronic hypercarbic respiratory failure, continue with the BiPAP machine as needed. 3. Cardiomegaly. Likely, ischemic, continue with same management. 4. Hypertension continue with same treatment. 5. Chronic kidney disease, aware. This is his baseline. 6. Chronic obstructive pulmonary disease, not in exacerbation but he is having faint expiratory wheezing today and a little bit yesterday in the afternoon. 7. Moderate pulmonary hypertension. Continue with diuresis. 8. Urinary tract infection due to Morganella morganii, continue with antibiotics. 9. Deep vein thrombosis prophylaxis with Lovenox. 10. Gastrointestinal prophylaxis with proton pump inhibitors. 11. Dyslipidemia continue with statins. 12. Physical deconditioning continue physical therapy. 13. Hyponatremia resolved. Overall, his prognosis is poor due to his age and multiple comorbidities and current condition. His brother which claims to be his guardianship has requested a hospice evaluation, palliative care on board. We will continue to monitor. cc: Jevon Hobson MD
[2018-08-15] MEDS ORDERED: LASIX IV ONE (19:21)
[2018-08-15] MEDS: NORCO-7.5 PO PRN (19:43)
--- NOTE | 2018-08-15 20:08 | PROGRESS NOTE ---
DATE: 08/15/2018 SUBJECTIVE: Patient denies shortness of breath on supplemental oxygen. He reports fatigue. He seems to be staying in the bed most of the time. There has been no chest pain. He has had some cough but little sputum production. OBJECTIVE: Vital signs: Blood pressure 106/51, heart rate 64, oxygen saturation 95% on Venturi mask. Neck: Jugular venous distention cannot be appreciated. Respiratory: Auscultation of the chest reveals a few scattered rhonchi and faint expiratory wheezes. Cardiac Exam: Reveals a regular rate and rhythm without appreciable murmur or gallop. LABORATORY DATA: Includes a white blood cell count of 5.96, hematocrit 29.4, hemoglobin 9.3, platelet count 314,000. Arterial blood gas: pH 7.43, pCO2 53, pO2 76. Sodium 137, potassium 3.7, chloride 94, carbon dioxide 30, BUN 17, creatinine 1.0. Chest x-ray from yesterday suggests worsening pulmonary edema and right middle lobe and right lower lobe atelectasis versus pneumonia. IMPRESSION: 1. Acute on chronic systolic heart failure. 2. Cardiomyopathy probably ischemic. 3. Aortic stenosis. 4. Chronic obstructive pulmonary disease. 5. Possible pneumonia developing while in the hospital. 6. Hypertensive cardiovascular disease. 7. Moderate to severe pulmonary hypertension. 8. Suspect obstructive sleep apnea. RECOMMENDATIONS: 1. Resume efforts to diurese. 2. Continue parenteral antibiotics. 3. Patient's prognosis appears to be poor. Palliative Care has been consulted, and hospice evaluation is underway. cc: Romero Tyson MD
[2018-08-15] MEDS: ZOCOR PO SCH (20:34)
[2018-08-16] MEDS ORDERED: CALMOSEPTINE OINTMENT TOP PRN (02:04)
[2018-08-16] MEDS: ZOSYN 3.375 GM in NS 50 ML IV SCH ×4 (03:31→20:49)
[2018-08-16] MEDS: XOPENEX NEB INH SCH ×6 (03:54→23:35)
[2018-08-16] MEDS: ATROVENT NEB INH SCH ×6 (03:54→23:35)
[2018-08-16 05:32] LABS: ALLEN TEST YES; BE 8.3 mmoll (-3.0-3.0); BLOOD TYPE ARTERIAL; HCO3-(ACT) 31.4 mmoll (20.0-26.0); METHB 0.9 % (0.0-1.5); O2HB 95.1 % (95.0-99.0); PO2(98.6) 88 mmHg (60-100); SAMPLE BLOOD; SAO2 98.3 % (95.0-100.0); THB 9.6 g/dL (11.5-17.4); pH(98.6) 7.41 (7.35-7.45)
[2018-08-16 05:35] LABS: MODALITY VENTIMASK; PCO2(98.6) 54 mmHg (35-45)
[2018-08-16 06:07] LABS: BASO# 0.03 X1000 (0.0-0.2); BASO% 0.4 % (0.0-0.8); EOS# 0.22 X1000 (0.0-0.7); HEMATOCRIT 29.2 % (42.0-52.0); HEMOGLOBIN 9.3 g/dL (14.0-18.0); IMM GRAN# 0.03 X1000 (0.0-0.04); IMM GRAN% 0.4 % (0.0-0.5); LYMPH# 1.51 X1000 (1.2-3.4); LYMPH% 20.5 % (20.5-51.1); MCH 30.3 PG (27-31); MCHC 31.8 g/dL (33-37); MCV 95.1 FL (81-99); MONO# 0.88 X1000 (0.11-0.59); MPV 8.2 FL (7.4-10.4); NEUT# 4.69 X1000 (1.4-6.5); NEUT% 63.7 % (42.2-75.2); PLT 322 X1000 (130-400); RBC 3.07 XMIL (4.7-6.1); RDW 14.9 % (11.5-14.5); WBC 7.36 X1000 (4.8-10.8)
[2018-08-16 06:30] LABS: CALCIUM 8.3 mg/dL (8.8-10.2); CREATININE 1.2 mg/dL (0.7-1.2); POTASSIUM 3.6 mmol/L (3.5-5.1)
[2018-08-16] MEDS: SYNTHROID PO SCH (06:35)
[2018-08-16] MEDS: PULMICORT INH SCH ×2 (08:19→19:32)
[2018-08-16] MEDS: ADVAIR 250/50 DISKUS INH SCH ×2 (08:19→19:32)
[2018-08-16] MEDS: PROTONIX PO SCH (09:18)
[2018-08-16] MEDS: COREG PO SCH ×2 (09:18→20:49)
[2018-08-16] MEDS: PLAVIX PO SCH (09:18)
[2018-08-16] MEDS: COLACE PO SCH (09:18)
[2018-08-16] MEDS: NEURONTIN PO SCH ×3 (09:18→20:49)
[2018-08-16] MEDS: LASIX IV SCH (09:18)
[2018-08-16] MEDS: PREDNISONE PO SCH (09:18)
[2018-08-16] MEDS: NORVASC PO SCH (09:19)
[2018-08-16] MEDS: KLOR-CON PO SCH (09:19)
[2018-08-16] MEDS: COZAAR PO SCH (09:19)
[2018-08-16] MEDS: ZOLOFT PO SCH (09:19)
[2018-08-16] MEDS: CYMBALTA PO SCH (09:19)
[2018-08-16] MEDS: MUCINEX DM PO SCH ×2 (09:19→20:49)
[2018-08-16] MEDS: IMDUR PO SCH (09:19)
[2018-08-16] MEDS: THERA M PLUS PO SCH (09:19)
[2018-08-16] MEDS: TEGRETOL PO SCH ×3 (09:20→20:49)
[2018-08-16] MEDS: ASPIRIN PO SCH (09:20)
--- NOTE | 2018-08-16 10:24 | PROGRESS NOTE ---
DATE: 08/16/2018 SUBJECTIVE: This patient at this moment is sitting at the edge of the bed, he is eating by himself, but he is complaining of shortness of breath. He seems to be feeling a little bit better compared with yesterday but he is using a Ventimask. CO2 is elevated. We will continue with the same management. OBJECTIVE: Vital Signs: Temperature 97.6, pulse 61, respiratory rate 18, blood pressure 140/76, and oxygen saturation 90% on a nonrebreather mask. HEENT: Head normocephalic. No trauma. PERRLA. Neck: Supple. Some JVD. Central trachea. Chest: Decreased breath sounds globally with inspiratory crackles and fine expiratory wheezing. Abdomen: Soft. Some discomfort to palpation at the periumbilical area. Extremities: Trace edema. No clubbing. No cyanosis. Neurological: The patient is alert and he is oriented times 2. He is not oriented to time. He is following commands but he is extremely weak. LABORATORY: WBC is 7.3, hemoglobin 9.3, hematocrit 29.2, and platelet 322. Sodium is 136, potassium 3.6, chloride 94, bicarbonate 30, BUN 17, creatinine 1.2, glucose 106, and calcium 8.3. ASSESSMENT AND PLAN: 1. Congestive heart failure exacerbation, so far we have a negative balance of 11.8 L. He is feeling a little bit better but he is extremely weak. We will continue with the same management. 2. Likely acute on chronic hypercarbic respiratory failure. Continue with oxygen supplementation. At this moment he is requiring a high amount of oxygen. 3. Cardiomegaly, likely ischemic. Continue with the same management. 4. Hypertension. Continue with the same treatment. 5. Chronic kidney disease. Aware. It looks like this is his baseline. 6. Chronic obstructive pulmonary disease, not in exacerbation but he is having fine expiratory wheezing which is getter better. 7. Moderate pulmonary hypertension. Continue with diuresis. 8. Urinary tract infection due to Morganella morganii. Continue with antibiotics. 9. Pneumonia, located at the right middle lobe. Continue with the same management. 10. Gastrointestinal prophylaxis with proton pump inhibitors. 11. Dyslipidemia. Continue with statins. 12. Physical deconditioning. Continue physical therapy. 13. Hyponatremia, resolved. Overall, his prognosis is poor. Palliative Care has been following this patient. The possible plan is to send this patient to [facility] with an end of life care program, but he is still requiring a high amount of oxygen. We will continue to monitor. Probably this patient can be discharged in the next 48 to 72 hours. He is extremely weak. His brother, which claims to be his warrant chief, has requested hospice. cc: Jevon Hobson MD
[2018-08-16] MEDS: ZOCOR PO SCH (20:49)
[2018-08-16] MEDS: NORCO-7.5 PO PRN (21:00)
[2018-08-17] MEDS: ZOSYN 3.375 GM in NS 50 ML IV SCH ×4 (03:26→20:16)
[2018-08-17] MEDS: ATROVENT NEB INH SCH ×6 (03:34→23:50)
[2018-08-17] MEDS: XOPENEX NEB INH SCH ×6 (03:35→23:50)
[2018-08-17 05:49] LABS: BASO# 0.06 X1000 (0.0-0.2); BASO% 0.8 % (0.0-0.8); EOS# 0.27 X1000 (0.0-0.7); EOS% 3.4 % (0.0-10.0); HEMATOCRIT 30.2 % (42.0-52.0); HEMOGLOBIN 9.7 g/dL (14.0-18.0); IMM GRAN# 0.02 X1000 (0.0-0.04); IMM GRAN% 0.3 % (0.0-0.5); LYMPH# 1.69 X1000 (1.2-3.4); LYMPH% 21.6 % (20.5-51.1); MCHC 32.1 g/dL (33-37); MCV 96.5 FL (81-99); MONO# 0.87 X1000 (0.11-0.59); MONO% 11.1 % (1.7-9.3); MPV 8.2 FL (7.4-10.4); NEUT# 4.92 X1000 (1.4-6.5); NEUT% 62.8 % (42.2-75.2); PLT 324 X1000 (130-400); RBC 3.13 XMIL (4.7-6.1); RDW 14.9 % (11.5-14.5); WBC 7.83 X1000 (4.8-10.8)
[2018-08-17 05:50] LABS: ALLEN TEST YES; BE 8.2 mmoll (-3.0-3.0); BLOOD TYPE ARTERIAL; HCO3-(ACT) 31.3 mmoll (20.0-26.0); METHB 0.8 % (0.0-1.5); O2(CT) 13.7 mL/dL (15.0-23.0); O2HB 96.7 % (95.0-99.0); PCO2(98.6) 45 mmHg (35-45); PO2(98.6) 168 mmHg (60-100); SAMPLE BLOOD; SAO2 99.8 % (95.0-100.0); THB 9.8 g/dL (11.5-17.4); pH(98.6) 7.47 (7.35-7.45)
[2018-08-17 05:51] LABS: MODALITY CANNULA
[2018-08-17 06:19] LABS: AGAP 12; BUN 17 mg/dL (8-22); CALCIUM 8.8 mg/dL (8.8-10.2); CHLORIDE 98 mmol/L (98-107); COSMO 277; CREATININE 1.1 mg/dL (0.7-1.2); ESTIMATED GFR > 60; GLUCOSE 99 mg/dL (70-104); POTASSIUM 4.1 mmol/L (3.5-5.1); SODIUM 138 mmol/L (136-145); TCO2 28 mmol/L (25-35)
[2018-08-17] MEDS: SYNTHROID PO SCH (06:44)
[2018-08-17] MEDS: PULMICORT INH SCH ×2 (07:19→19:25)
[2018-08-17] MEDS: ADVAIR 250/50 DISKUS INH SCH ×2 (07:19→19:25)
--- NOTE | 2018-08-17 09:05 | PROGRESS NOTE ---
DATE: 08/17/2018 SUBJECTIVE: This patient at this moment is sitting at the age of the bed and eating by himself. He is still complaining of shortness of breath but he seems to be feeling a little bit better compared with the previous days. We will continue with the same management and, hopefully, this patient can be discharged in the next 24 to 48 hours to [facility] with an end of life care program. OBJECTIVE: Vital Signs: Temperature 97.3 degrees, pulse 63, respiratory rate 18, blood pressure 133/57, oxygen saturation 90 on 5 L of nasal cannula. HEENT: Head normocephalic. No trauma. PERRLA. Neck: Supple. No JVD. No masses. Central trachea. Chest: Decreased breath sounds globally with inspiratory crackles, mostly at the bases, and no wheezing today. Abdomen: Soft. Some discomfort to palpation at the level of the periumbilical area. Extremities: Trace edema. No clubbing. No cyanosis. Neurological Examination: The patient is alert. He is oriented x2. He is not oriented to time. He is following commands but he is really weak. Laboratory: WBCs 7.8, hemoglobin 9.7, hematocrit 30.2, platelets 324,000. Sodium 138, potassium 4.1, chloride 98, bicarbonate 28, BUN 17, creatinine 1.1, glucose 99, calcium 8.8. ASSESSMENT AND PLAN: 1. Congestive heart failure exacerbation. So far, we have a negative balance of 13.9 L and he seems to be tolerating well the treatment. Kidney function has been stable. I will stop the furosemide intravenously and put him on oral treatment, probably tomorrow. Cardiology on board. 2. Likely acute on chronic hypercarbic respiratory failure. Continue with oxygen supplementation. At this moment, he is feeling a little bit better. 3. Cardiomegaly, likely ischemic. Continue with the same management. 4. Hypertension. Continue with the same treatment. 5. Chronic kidney disease, aware. This is his baseline. 6. Chronic obstructive pulmonary disease, not in exacerbation, but he has been having end- expiratory wheezing, which is better today. 7. Moderate pulmonary hypertension. Continue with diuresis. 8. Urinary tract infection due to Morganella morganii. Continue with antibiotics. 9. Pneumonia located at the right middle lobe. Continue with the same treatment. He is getting better. 10. Gastrointestinal prophylaxis with proton pump inhibitors. 11. Dyslipidemia. Continue with statins. 12. Physical deconditioning. Continue physical therapy. 13. Hyponatremia, resolved. cc: Jevon Hobson MD
[2018-08-17] MEDS: COLACE PO SCH (09:58)
[2018-08-17] MEDS: IMDUR PO SCH (09:58)
[2018-08-17] MEDS: ASPIRIN PO SCH (09:58)
[2018-08-17] MEDS: ZOLOFT PO SCH (09:58)
[2018-08-17] MEDS: KLOR-CON PO SCH (09:58)
[2018-08-17] MEDS: PROTONIX PO SCH (09:58)
[2018-08-17] MEDS: COREG PO SCH ×2 (09:58→20:16)
[2018-08-17] MEDS: PLAVIX PO SCH (09:58)
[2018-08-17] MEDS: LASIX IV SCH (09:58)
[2018-08-17] MEDS: PREDNISONE PO SCH (09:58)
[2018-08-17] MEDS: NEURONTIN PO SCH ×3 (09:58→20:16)
[2018-08-17] MEDS: CYMBALTA PO SCH (09:59)
[2018-08-17] MEDS: NORVASC PO SCH (09:59)
[2018-08-17] MEDS: THERA M PLUS PO SCH (09:59)
[2018-08-17] MEDS: COZAAR PO SCH (09:59)
[2018-08-17] MEDS: TEGRETOL PO SCH ×3 (10:02→20:16)
[2018-08-17] MEDS: MUCINEX DM PO SCH ×2 (10:02→20:15)
[2018-08-17] MEDS: ZOCOR PO SCH (20:16)
[2018-08-18] MEDS: ATROVENT NEB INH SCH ×6 (03:30→23:25)
[2018-08-18] MEDS: XOPENEX NEB INH SCH ×6 (03:30→23:40)
[2018-08-18] MEDS: ZOSYN 3.375 GM in NS 50 ML IV SCH ×4 (04:39→21:43)
[2018-08-18 05:02] LABS: ALLEN TEST YES; BLOOD TYPE ARTERIAL; HCO3-(ACT) 31.9 mmoll (20.0-26.0); PO2(98.6) 108 mmHg (60-100); SAMPLE BLOOD; SAO2 99.9 % (95.0-100.0); THB 9.5 g/dL (11.5-17.4); pH(98.6) 7.43 (7.35-7.45)
[2018-08-18 05:11] LABS: MODALITY CANNULA; PCO2(98.6) 52 mmHg (35-45)
[2018-08-18 07:09] LABS: HEMOGLOBIN 9.7 g/dL (14.0-18.0); MCHC 31.3 g/dL (33-37); MPV 8.3 FL (7.4-10.4); RBC 3.13 XMIL (4.7-6.1); RDW 14.9 % (11.5-14.5); WBC 8.97 X1000 (4.8-10.8)
[2018-08-18 07:41] LABS: AGAP 10; BUN 16 mg/dL (8-22); CALCIUM 9.1 mg/dL (8.8-10.2); CHLORIDE 97 mmol/L (98-107); COSMO 282; CREATININE 1.1 mg/dL (0.7-1.2); ESTIMATED GFR > 60; GLUCOSE 98 mg/dL (70-104); POTASSIUM 5.2 mmol/L (3.5-5.1); SODIUM 141 mmol/L (136-145); TCO2 34 mmol/L (25-35)
[2018-08-18] MEDS: ADVAIR 250/50 DISKUS INH SCH ×2 (07:50→19:30)
[2018-08-18] MEDS: PULMICORT INH SCH ×2 (07:50→19:30)
[2018-08-18] MEDS: COREG PO SCH ×2 (09:37→21:49)
[2018-08-18] MEDS: ASPIRIN PO SCH (09:37)
[2018-08-18] MEDS: ZOLOFT PO SCH (09:39)
[2018-08-18] MEDS: THERA M PLUS PO SCH (09:39)
[2018-08-18] MEDS: SYNTHROID PO SCH (09:39)
[2018-08-18] MEDS: PROTONIX PO SCH (09:39)
[2018-08-18] MEDS: TEGRETOL PO SCH ×3 (09:39→21:52)
[2018-08-18] MEDS: PLAVIX PO SCH (09:40)
[2018-08-18] MEDS: MUCINEX DM PO SCH ×2 (09:40→21:50)
[2018-08-18] MEDS: PREDNISONE PO SCH (09:40)
[2018-08-18] MEDS: KLOR-CON PO SCH (09:40)
[2018-08-18] MEDS: NEURONTIN PO SCH ×3 (09:40→21:51)
[2018-08-18] MEDS: NORVASC PO SCH (09:40)
[2018-08-18] MEDS: LASIX IV SCH (09:41)
[2018-08-18] MEDS: CYMBALTA PO SCH (09:41)
[2018-08-18] MEDS: COLACE PO SCH (09:42)
[2018-08-18] MEDS: COZAAR PO SCH (09:42)
[2018-08-18] MEDS: IMDUR PO SCH (09:42)
--- NOTE | 2018-08-18 13:38 | PROGRESS NOTE ---
DATE: 08/18/2018 SUBJECTIVE: This patient having some wheezing today. He is getting a breathing treatment at this moment. He is feeling more short of breath. Compared with yesterday, he feels a little bit worse. We will continue for now with the same management. We will monitor. OBJECTIVE: Vital Signs: Temperature 97.5 degrees, pulse 77, respiratory rate 20, blood pressure 112/53, oxygen saturation 97% on a Venturi mask. HEENT: Head normocephalic, no trauma. PERRLA. Neck: Supple. No JVD. No masses. Central trachea. Chest: Decreased breath sounds globally with inspiratory crackles and wheezing. Abdomen: Soft. Some discomfort to palpation at the level of the periumbilical area. Extremities: Trace edema, no clubbing, no cyanosis. Neurological: The patient is sleepy, but arousable, oriented x2. He is following commands, but he is really weak. LABORATORY: WBC 8.9, hemoglobin 9.7, hematocrit 31, platelets 320,000. Sodium 141, potassium 5.2, chloride 97, bicarbonate 34, BUN 16, creatinine 1.1, glucose 98, calcium 9.1. ASSESSMENT AND PLAN: 1. Congestive heart failure exacerbation. So far, we removed around 16.7 L. Kidney function has been stable. I will ask for a new x-ray in the morning. I will stop the furosemide IV, and I will put him on p.o. At this moment, he is getting 40 IV of Lasix. At home, he has been getting 40 p.o. so I will put him back on that dose. 2. Likely acute on chronic hypercarbic respiratory failure. This patient is wheezing today. Continue with oxygen supplementation and breathing treatment. 3. Chronic obstructive pulmonary disease with mild exacerbation, as above. 4. Cardiomegaly, likely ischemic. Aware. Continue with same management. 5. Hypertension, stable. 6. Chronic kidney disease. This is his baseline. Stable. 7. Moderate pulmonary hypertension. Continue with diuresis. 8. Urinary tract infection due to Morganella morganii. Continue with antibiotics. 9. Pneumonia located at the level of the right middle lobe. Continue with same treatment. He is pneumonia probably is getting better. I will get a new x-ray in the morning. 10. Gastrointestinal prophylaxis with proton pump inhibitors. 11. Dyslipidemia with statins. 12. Hyponatremia, resolved. 13. Physical deconditioning. Continue physical therapy and occupational therapy. Palliative Care is on board, and the case has been discussed with the brother who claims to be his guardian. He requested a hospice evaluation, and it has been done already. Also there is a possibility of sending this patient back to [facility] with an end of life care program, but he needs to required 5 L of oxygen or less than that. I will let Palliative Care continue taking care of this patient. Probably we need to start looking for another long-term facility or hospice. Case has been discussed with upper caser. cc: Jevon Hobson MD
[2018-08-18] MEDS: ZOCOR PO SCH (21:52)
[2018-08-19] MEDS: ATROVENT NEB INH SCH ×6 (03:20→22:50)
[2018-08-19] MEDS: XOPENEX NEB INH SCH ×6 (03:20→22:50)
[2018-08-19] MEDS: ZOSYN 3.375 GM in NS 50 ML IV SCH ×2 (04:28→10:11)
[2018-08-19 04:32] LABS: ALLEN TEST YES; BE 6.7 mmoll (-3.0-3.0); BLOOD TYPE ARTERIAL; HCO3-(ACT) 29.9 mmoll (20.0-26.0); METHB 0.6 % (0.0-1.5); O2(CT) 14.8 mL/dL (15.0-23.0); PCO2(98.6) 50 mmHg (35-45); PO2(98.6) 53 mmHg (60-100); SAMPLE BLOOD; SAO2 90.8 % (95.0-100.0); pH(98.6) 7.42 (7.35-7.45)
[2018-08-19 04:34] LABS: MODALITY CANNULA
[2018-08-19] MEDS: SYNTHROID PO SCH (06:19)
[2018-08-19 07:54] LABS: BASO# 0.06 X1000 (0.0-0.2); BASO% 0.7 % (0.0-0.8); EOS# 0.27 X1000 (0.0-0.7); EOS% 3.2 % (0.0-10.0); HEMATOCRIT 30.1 % (42.0-52.0); HEMOGLOBIN 9.7 g/dL (14.0-18.0); IMM GRAN# 0.02 X1000 (0.0-0.04); IMM GRAN% 0.2 % (0.0-0.5); LYMPH# 1.36 X1000 (1.2-3.4); LYMPH% 16.1 % (20.5-51.1); MCHC 32.2 g/dL (33-37); MCV 96.2 FL (81-99); MONO# 0.83 X1000 (0.11-0.59); MONO% 9.8 % (1.7-9.3); MPV 8.4 FL (7.4-10.4); NEUT# 5.92 X1000 (1.4-6.5); PLT 304 X1000 (130-400); RBC 3.13 XMIL (4.7-6.1); RDW 14.8 % (11.5-14.5); WBC 8.46 X1000 (4.8-10.8)
[2018-08-19 08:18] LABS: AGAP 11; BUN 22 mg/dL (8-22); CALCIUM 8.8 mg/dL (8.8-10.2); CHLORIDE 96 mmol/L (98-107); COSMO 274; CREATININE 1.1 mg/dL (0.7-1.2); ESTIMATED GFR > 60; GLUCOSE 106 mg/dL (70-104); POTASSIUM 4.1 mmol/L (3.5-5.1); SODIUM 135 mmol/L (136-145); TCO2 28 mmol/L (25-35)
[2018-08-19] MEDS: ADVAIR 250/50 DISKUS INH SCH ×2 (08:44→19:20)
[2018-08-19] MEDS: PULMICORT INH SCH ×2 (08:45→19:20)
[2018-08-19] MEDS ORDERED: LASIX PO SCH (09:00)
[2018-08-19] MEDS: ASPIRIN PO SCH (10:11)
[2018-08-19] MEDS: COREG PO SCH ×2 (10:12→20:04)
[2018-08-19] MEDS: COLACE PO SCH (10:12)
[2018-08-19] MEDS: KLOR-CON PO SCH (10:13)
[2018-08-19] MEDS: COZAAR PO SCH (10:13)
[2018-08-19] MEDS: CYMBALTA PO SCH (10:13)
[2018-08-19] MEDS: IMDUR PO SCH (10:13)
[2018-08-19] MEDS: MUCINEX DM PO SCH ×2 (10:14→20:04)
[2018-08-19] MEDS: NEURONTIN PO SCH ×3 (10:14→20:05)
[2018-08-19] MEDS: NORVASC PO SCH (10:14)
[2018-08-19] MEDS: PLAVIX PO SCH (10:15)
[2018-08-19] MEDS: PREDNISONE PO SCH (10:15)
[2018-08-19] MEDS: PROTONIX PO SCH (10:15)
[2018-08-19] MEDS: THERA M PLUS PO SCH (10:16)
[2018-08-19] MEDS: ZOLOFT PO SCH (10:16)
[2018-08-19] MEDS: TEGRETOL PO SCH ×3 (10:16→20:05)
--- NOTE | 2018-08-19 12:32 | Diag Imaging Result Doc PS360 ---
EXAM: CHEST-PORTABLE HISTORY: dyspnea TECHNIQUE: Chest single view COMPARISON: 08/14/2018 FINDINGS: The lungs are well expanded. Heart is enlarged and there is pulmonary edema. The edema is less prominent than on the prior study. There could be underlying pneumonia as well. There are small pleural effusions. There is a left-sided pacemaker. Old rib fractures. IMPRESSION: Decreased pulmonary edema. Electronically signed by Frank Boudreaux 08/19/2018 12:29 PM
[2018-08-19] MEDS ORDERED: LACTULOSE PO PRN (14:05)
--- NOTE | 2018-08-19 19:01 | PROGRESS NOTE ---
DATE: 08/19/2018 SUBJECTIVE: He is laying in bed and breathing is okay. OBJECTIVE: Vital Signs: Blood pressure 131/65, heart rate 68, respiratory rate 20, temperature 98.7, 98% on 50% on nasal cannula. Cardiovascular: Regular rate and rhythm. Pulmonary: Decreased breath sounds at bases. GI: Soft, nontender, nondistended. Bowel sounds are positive. LABORATORY DATA: White count is 8, hemoglobin and hematocrit 9 and 30, platelets 304. Creatinine 1.1. PROBLEM LIST: 1. Acute systolic congestive heart failure exacerbation presumably systolic. His ejection fraction is 35%, and he has significant aortic stenosis. In any case, we will continue diuretics and follow. I am going to give him a little extra Lasix because we are kind of tuning him up for rehab and then he is going to go back to his long-term care facility, likely for hospice. I think that is what they have decided at this point. 2. 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 He is on O2 breathing treatments. 3. Chronic renal failure. His kidney function is stable. 4. Morganella morganii urinary tract infection, which is fairly resistant. In fact there is not a ton of oral options. It is sensitive to Rocephin and Bactrim, cefprozil, cefpodoxime, are options. 5. Right middle lobe pneumonia. He is on empiric antibiotics. He is on Zosyn which curiously I think is not going to cover the Morganella. It is only intermediately sensitive. We will switch him to Cefepime and discharge him on Rocephin. DISPOSITION: Pending clinical status. We will continue to follow. cc: Gildardo Chamorro MD
[2018-08-19] MEDS: LASIX IV SCH (20:03)
[2018-08-19] MEDS: ZOCOR PO SCH (20:04)
[2018-08-19] MEDS: MAXIPIME 2 GM in NS 100 ML IV SCH (20:04)
[2018-08-20] MEDS: ATROVENT NEB INH SCH ×4 (03:05→15:20)
[2018-08-20] MEDS: XOPENEX NEB INH SCH ×4 (03:05→15:21)
[2018-08-20] MEDS: SYNTHROID PO SCH (06:28)
[2018-08-20] MEDS: MAXIPIME 2 GM in NS 100 ML IV SCH (07:42)
[2018-08-20] MEDS: LASIX IV SCH (07:43)
[2018-08-20] MEDS: ADVAIR 250/50 DISKUS INH SCH (07:55)
[2018-08-20] MEDS: PULMICORT INH SCH (07:56)
[2018-08-20] MEDS: COLACE PO SCH (08:10)
[2018-08-20] MEDS: ASPIRIN PO SCH (08:10)
[2018-08-20] MEDS: COZAAR PO SCH (08:11)
[2018-08-20] MEDS: COREG PO SCH (08:11)
[2018-08-20] MEDS: CYMBALTA PO SCH (08:11)
[2018-08-20] MEDS: MUCINEX DM PO SCH (08:12)
[2018-08-20] MEDS: IMDUR PO SCH (08:12)
[2018-08-20] MEDS: NORVASC PO SCH (08:12)
[2018-08-20] MEDS: NEURONTIN PO SCH (08:12)
[2018-08-20] MEDS: KLOR-CON PO SCH (08:12)
[2018-08-20] MEDS: TEGRETOL PO SCH (08:13)
[2018-08-20] MEDS: PROTONIX PO SCH (08:13)
[2018-08-20] MEDS: PLAVIX PO SCH (08:13)
[2018-08-20] MEDS: THERA M PLUS PO SCH (08:13)
[2018-08-20] MEDS: PREDNISONE PO SCH (08:13)
[2018-08-20] MEDS: ZOLOFT PO SCH (08:14)
--- NOTE | 2018-08-20 11:08 | DISCHARGE SUMMARY ---
ADMISSION DATE: 08/09/2018 DISCHARGE DATE: 08/20/2018 PRIMARY CARE PHYSICIAN: Cristian Hendrickson MD ADMISSION DIAGNOSES: 1. 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 2. History of coronary artery disease. 3. Hypertension. 4. Hypothyroidism. 5. Hyperlipidemia. 6. Chronic obstructive pulmonary disease, currently hypoxemic. 7. An acute on chronic hypoxemic respiratory insufficiency or failure on 4 L of oxygen. 8. Leukocytosis. 9. History of coronary artery disease. 10. Chronic kidney disease, stage 2. DISCHARGE DIAGNOSES: 1. Acute systolic congestive heart failure with known ejection fraction of 35% and significant aortic stenosis. 2. 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 3. Chronic renal failure. 4. Morganella morganii urinary tract infection. 5. Right middle lobe pneumonia. 6. Hypertension. 7. Hypothyroidism. 8. Hyperlipidemia summary. SUMMARY OF FINDINGS: This is an 88-year-old male who presents to the emergency room with essentially anasarca with pitting edema in the legs and abdomen as well, requiring O2 due to low O2 saturation. States he was always short of breath, but on the day of arrival, he felt like he could not breathe. Admits to coughing up yellow phlegm. Had leukocytosis. Chest x-ray showed pulmonary edema. His ProBNP was double what it normally was, along with anasarca. He wishes to be a Do Not Resuscitate level 1. He was admitted. Placed on IV diuresis, O2. Cardiology was consulted. We did a limited view echocardiogram on 08/10/2018 that showed an ejection fraction of 35% with grossly preserved right ventricular systolic function. We did a bilateral lower extremity venous Doppler on 08/10/2018 that showed no DVT or SVT in either lower extremity. Chest x-ray on 08/11/2018 showed worsening infiltrates, although there was left pleural fluid. His urine culture grew out Morganella morganii, and he was treated appropriately. Repeat chest x-ray yesterday, 08/19/2018, showed decreased pulmonary edema. He still requires 4 L of O2 via nasal cannula, which is his home regimen. We did consult Palliative Care, and we also did a hospice care consult for GIP, but it was not felt he was GIP appropriate at this time, and the patient has decided to return to [facility] for rehabilitation care. DISCHARGE MEDICATIONS: Amlodipine 10 mg p.o. daily, aspirin 81 mg p.o. daily, Tegretol 200 mg p.o. t.i.d., Coreg 12.5 mg p.o. b.i.d., Plavix 75 mg p.o. daily, Colace 100 mg p.o. daily, duloxetine 60 mg p.o. daily, Advair 250/50 one puff inhalation b.i.d., gabapentin 400 mg p.o. t.i.d., Mucinex DM 1 p.o. b.i.d., isosorbide 30 mg p.o. daily, levothyroxine 25 mcg p.o. daily, multivitamin p.o. daily, pantoprazole 40 mg p.o. daily, potassium 10 mEq p.o. daily, prednisone 5 mg p.o. q.a.m., sertraline 25 mg p.o. daily, simvastatin 20 mg p.o. at bedtime, DuoNeb q.4 h., cefdinir 300 mg p.o. b.i.d., Lasix 40 mg p.o. b.i.d., hydralazine 50 mg p.o. t.i.d., and Ong 7.5 one p.o. q.4 h. p.r.n. FOLLOW-UP: He will follow up with physician at facility while in his rehabilitation stay. COORDINATION TIME: A 35-minute discharge. Dictated by LARS Egan for Gildardo Chamorro MD cc: LARS Egan MD
[2018-08-20 12:10] VITALS: BP 112/58
--- NOTE | 2018-08-20 19:24 | DISCHARGE SUMMARY ---
ADMISSION DATE: 08/09/2018 DISCHARGE DATE: 08/20/2018 DISCHARGE DIAGNOSES: 1. Acute congestive heart failure exacerbation, systolic. 2. Vbnec-tp-lulytkg hypercapnic respiratory failure. 3. Morganella morganii urinary tract infection. HOSPITAL COURSE: In any case, the patient clinically stabilized. Day of discharge he is breathing comfortably. Seems more awake to me. He is 95% on 4 L. Lungs have some rales, but no rhonchi, no wheezing. I think he is stable for discharge, and we are doing goals of discharging him on current medications, but if he does not improve, then he will need to consider comfort measures which he is agreeable to. He is a DNR level 1. Rest of his laboratory data is stable today. No white count. Actually those were yesterday's labs, although appear stable. This is a [id number] encounter note with Julia Reyes. cc: Gildardo Chamorro MD
== END 2018-08-20 15:54 | DRG 291 ==
LOC: SUPCPDRO → ED 13:47 → SUATTDRO 18:32 → 3S 18:32 → 4N 08-12 13:43 → 3S 08-14 16:27 → 3N 08-17 21:51
PROVIDERS: ATTEND Internal Medicine
CPT/HCPCS: 51702; 71010; 71020; 71045; 71046; 80048; 80053; 81001; 82550; 82805; 83036; 83605; 83735; 83880; 84443; 84484; 85025; 85027; 85379; 85610; 85730; 87040; 87077; 87088; 87186; 93005; 93010; 93306; 93308; 93970; 94640; 94660; 94760; 94761; 94762; 94799; 96365; 96375; 97110; 97162; 97530; 99285; A9270; C8924; J0692; J0696; J1650; J1940; J2405; J2543; J7040; J7506; J7512; Q9957

== ENCOUNTER 2018-09-22 00:08 | Inpatient (IN) ==
[2018-09-22] MEDS ORDERED: DUONEB (A & A) INH ONE (00:24)
[2018-09-22 00:58] LABS: BASO# 0.03 X1000 (0.0-0.2); BASO% 0.3 % (0.0-0.8); EOS# 0.17 X1000 (0.0-0.7); EOS% 1.5 % (0.0-10.0); HEMATOCRIT 27.5 % (42.0-52.0); IMM GRAN# 0.07 X1000 (0.0-0.04); IMM GRAN% 0.6 % (0.0-0.5); LYMPH# 1.97 X1000 (1.2-3.4); LYMPH% 17.5 % (20.5-51.1); MCH 30.3 PG (27-31); MCHC 32.7 g/dL (33-37); MCV 92.6 FL (81-99); MONO% 8.9 % (1.7-9.3); MPV 8.9 FL (7.4-10.4); NEUT% 71.2 % (42.2-75.2); PLT 294 X1000 (130-400); RBC 2.97 XMIL (4.7-6.1); RDW 14.6 % (11.5-14.5); WBC 11.24 X1000 (4.8-10.8)
[2018-09-22 01:26] LABS: CALCIUM 8.9 mg/dL (8.8-10.2); CREATININE 1.2 mg/dL (0.7-1.2); POTASSIUM 3.9 mmol/L (3.5-5.1)
[2018-09-22] MEDS ORDERED: NITROGLYCERIN TOP ONE (01:38)
[2018-09-22] MEDS ORDERED: ASPIRIN PO ONE (01:38)
[2018-09-22] MEDS ORDERED: LASIX IV ONE (01:38)
[2018-09-22] MEDS ORDERED: ZOFRAN IV PRN (02:19)
--- NOTE | 2018-09-22 02:19 | PROVIDER DOCUMENTATION ---
This chart was entered by Tamera Reynolds Scribe, acting as scribe for Maribel Valencia MD. HPI-Chest Pain - General Chief Complaint: Chest Pain Stated Complaint: cp/sob Time Seen by Provider: 09/22/18 00:28 Source: patient Allergies/Adverse Reactions: Patient Allergies Allergy/AdvReac Type Severity Reaction Status Date / Time Iodinated Contrast- Oral and Allergy Unknown Verified 09/18/18 02:45 IV Dye Home Medications: Home Medication List Medication Instructions Recorded Confirmed Last Taken Type Amlodipine Besylate [Norvasc] 10 mg PO DAILY 04/02/18 08/09/18 08/09/18 History Aspirin 81 mg PO DAILY 04/02/18 08/09/18 08/09/18 History Docusate Sodium 100 mg PO DAILY 04/02/18 08/09/18 08/09/18 History Duloxetine HCl 60 mg PO DAILY 04/02/18 08/09/18 08/09/18 History Gabapentin 400 mg PO TID 04/02/18 08/09/18 08/09/18 History Isosorbide Mononitrate [Isosorbide 30 mg PO DAILY 04/02/18 08/09/18 08/09/18 History Mononitrate ER] Levothyroxine Sodium 25 mcg PO DAILY 04/02/18 08/09/18 08/09/18 History Multivits,Ca,Minerals/Iron/FA 1 each PO DAILY 04/02/18 08/09/18 08/09/18 History [Thera-M Tablet] Pantoprazole Sodium 40 mg PO DAILY 04/02/18 08/09/18 08/09/18 History Potassium Chloride E.r. [Klor-Con] 10 meq PO DAILY 04/02/18 08/09/18 08/09/18 History Sertraline HCl 25 mg PO DAILY 04/02/18 08/09/18 08/09/18 History Simvastatin 20 mg PO HS 04/02/18 08/09/18 08/09/18 History Carvedilol [Coreg] 12.5 mg PO BID tablet 04/18/18 08/09/18 08/09/18 Rx Clopidogrel [Plavix] 75 mg PO DAILY tablet 04/18/18 08/09/18 08/09/18 Rx Fluticasone/Salmet 250/50 INH 1 puff INH RTBID inhaler 04/18/18 08/09/18 08/09/18 Rx [Advair 250/50 Diskus] Guaifenesin/Dm E.r. [Mucinex Dm] 1 each PO BID tablet 04/18/18 08/09/18 08/09/18 Rx Albuterol 2.5MG/Ipratrop 0.5MG 1 dose NEB Q4H 06/09/18 08/09/18 08/09/18 History [Duoneb (A & A)] Carbamazepine [Tegretol] 200 mg PO TID 06/09/18 08/09/18 08/09/18 History Hydralazine [Apresoline] 50 mg PO TID 06/09/18 08/09/18 08/09/18 History Prednisone 5 mg PO QAM 08/09/18 08/09/18 08/09/18 History CefDINIR [Omnicef] 300 mg PO BID #14 cap 08/19/18 Unknown Rx Furosemide [Lasix] 40 mg PO BID #60 tab 08/19/18 Unknown Rx Hydrocodone/Acetaminophen [[place] 1 tab PO Q4H PRN PRN #30 tab 08/20/18 Unknown Rx 7.5-325 Tablet] - History of Present Illness-CP Nature of Presenting Problem: Pt is 88/M presenting to ED w/ chest pain that goes into his back and is accompanied by SOB. States this began 2 days ago and has persisted. With this has had a cough that is non-productive, no fever. HX of COPD, CHF and HTN. Chest pain pressure like and moderate. Location: reports: substernal Chest Pain Radiation: reports: back Quality of Pain: reports: aching Severity in ED: moderate Onset/Duration: 2 days ago Timing: still present Context/Activities at Onset: reports: none Modifying Factors: improves with: nothing Associated Symptoms: reports: back pain Nitro Today/Relief: 0.4 mg x 1 Aspirin Treatment Today: no aspirin today Similar Symptoms Previously?: No Recently Seen Here or By Another Healthcare Provider: No Review of Systems - Adult - REVIEW OF SYSTEMS - ADULT Constitutional: reports: no symptoms reported. denies: chills, fever Eyes: reports: no symptoms reported Ears, Nose, Mouth & Throat: reports: no symptoms reported Cardiovascular: reports: chest pain Respiratory: reports: cough, shortness of breath, wheezing Gastrointestinal: reports: no symptoms reported. denies: abdominal pain, nausea, vomiting Genitourinary: reports: no symptoms reported. denies: flank pain Musculoskeletal: reports: no symptoms reported Integumentary: reports: no symptoms reported Neurological: reports: no symptoms reported. denies: dizziness/vertigo, headache/migraines Psychiatric: reports: no symptoms reported Endocrine: reports: no symptoms reported Hematologic/Lymphatic: reports: no symptoms reported Allergic/Immunologic: reports: no symptoms reported All Other Systems: Reviewed and Negative Past History - Adult - PAST MEDICAL HISTORY-ADULT Review of Records: reports: Old Records Reviewed, Nursing Assessment Review, Medications Reviewed, Social history reviewed & non-contributory. Major Childhood Illnesses: reports: denies history Cardiovascular: reports: CHF, HTN Respiratory: reports: denies history Gastrointestinal: reports: denies history Obstetrical/Gynecological: reports: denies history Genitourinary: reports: other Musculoskeletal: reports: denies history Neurological: reports: denies history Endocrine/Immune: reports: denies history Other Conditions: reports: denies history - FAMILY HISTORY Family History: reviewed, not pertinent - SOCIAL HISTORY Smoking: cigarettes Provider spent 3-5 mins advising pt. on dangers of tobacco.: Discussed manners to quit use, and f/u contacts for add'l counseling. Substance Use: none/never Alcohol Use Frequency: never Living Situation: family Physical Exam-General - PHYSICAL EXAM-ADULT Initial Vital Signs Reviewed: Yes - CONSTITUTIONAL General Appearance: appears well, alert, mild distress - EYES Eyes: PERRL/EOMI, pink conjunctivae - HEAD, EARS, NOSE, MOUTH & THROAT HENMT: normocephalic/atraumatic, moist mucous membranes, normal ENT inspection - NECK Neck: non-tender, full range of motion, supple, normal inspection - RESPIRATORY Respiratory: chest non-tender, normal breath sounds, wheezing (mild BL expiratory) - CARDIOVASCULAR Cardiovascular: normal peripheral pulses, regular rate, rhythm, no JVD - GASTROINTESTINAL (ABDOMEN) Abdominal Exam: normal bowel sounds, non tender, soft - LYMPHATIC Lymphatic: no adenopathy - MUSCULOSKELETAL Back Exam: normal inspection Extremity: normal range of motion, non-tender, normal gait, normal inspection - SKIN Integumentary: normal color, normal turgor, warm/dry - NEUROLOGIC Neurologic: grossly normal, no motor/sensory deficits - PSYCHIATRIC Psych/Mental Status: normal mood/affect, normal thought content, normal thought process, oriented x 3 Progress - PLAN OF CARE/RESULTS Progress/Plan/Lab Results: Vital Signs - 8 hr 09/22/18 00:22 09/22/18 00:23 09/22/18 00:30 Temperature 97.4 F L Pulse Rate 63 69 Respiratory Rate 22 18 Blood Pressure 116/59 O2 Sat by Pulse Oximetry 85 L 91 L 94 L 09/22/18 00:40 09/22/18 00:50 09/22/18 00:57 Temperature Pulse Rate 60 60 78 Respiratory Rate 14 16 18 Blood Pressure O2 Sat by Pulse Oximetry 93 L 97 97 09/22/18 01:00 09/22/18 01:02 09/22/18 01:10 Temperature Pulse Rate 60 60 60 Respiratory Rate 19 14 16 Blood Pressure 195/123 O2 Sat by Pulse Oximetry 99 98 92 L 09/22/18 01:20 09/22/18 01:28 09/22/18 01:30 Temperature Pulse Rate 60 62 Respiratory Rate 20 14 17 Blood Pressure 134/85 O2 Sat by Pulse Oximetry 95 92 L 91 L 09/22/18 01:32 Temperature Pulse Rate 61 Respiratory Rate 13 Blood Pressure 137/73 O2 Sat by Pulse Oximetry 92 L Laboratory Results - last 24 hr 09/22/18 09/22/18 09/22/18 00:35 00:35 00:35 WBC 11.24 H RBC 2.97 L Hgb 9.0 L Hct 27.5 L MCV 92.6 MCH 30.3 MCHC 32.7 L RDW Std Deviation 14.6 H Plt Count 294 MPV 8.9 Immature Gran % (Auto) 0.6 H Neut % (Auto) 71.2 Lymph % (Auto) 17.5 L Dickenson % (Auto) 8.9 Eos % (Auto) 1.5 Baso % (Auto) 0.3 Immature Gran # (Auto) 0.07 H Neut # (Auto) 8.00 H Lymph # (Auto) 1.97 Dickenson # (Auto) 1.00 H Eos # (Auto) 0.17 Baso # (Auto) 0.03 Sodium 131 L Potassium 3.9 Chloride 92 L Carbon Dioxide 25 Anion Gap 14 BUN 33 H Creatinine 1.2 Estimated GFR/1.73 m2 57 BUN/Creatinine Ratio 28 Glucose 112 H Calculated Osmolality 271 Calcium 8.9 Troponin T Bdf-S-Ubrbxaecroa Pept 6636 H 09/22/18 00:35 WBC RBC Hgb Hct MCV MCH MCHC RDW Std Deviation Plt Count MPV Immature Gran % (Auto) Neut % (Auto) Lymph % (Auto) Dickenson % (Auto) Eos % (Auto) Baso % (Auto) Immature Gran # (Auto) Neut # (Auto) Lymph # (Auto) Dickenson # (Auto) Eos # (Auto) Baso # (Auto) Sodium Potassium Chloride Carbon Dioxide Anion Gap BUN Creatinine Estimated GFR/1.73 m2 BUN/Creatinine Ratio Glucose Calculated Osmolality Calcium Troponin T 0.198 H [id number] Pept Orders Category Date Time Status [place] Insertion ORDERED Care 09/22/18 01:58 Active IV Insertion ORDERED Care 09/22/18 00:24 Completed Resuscitation Status Routine Care 09/22/18 02:10 Ordered CHEST-1 VIEW [RAD] Stat Exams 09/22/18 00:24 Taken BASIC METABOLIC PANEL [CHEM] Stat Lab 09/22/18 00:35 Completed CBC WITH DIFF [HEME] Stat Lab 09/22/18 00:35 Completed PRO B-NATRIURETIC PEPTIDE Stat Lab 09/22/18 00:35 Completed TROPONIN T Stat Lab 09/22/18 00:35 Completed Albuterol 2.5MG/Ipratrop 0.5MG [Duoneb (A & A)] Med 09/22/18 00:24 Disc ontinued 3 ml INH NOW ONE Aspirin Med 09/22/18 01:38 Discontinued 325 mg PO NOW ONE Furosemide [Lasix] Med 09/22/18 01:38 Discontinued 40 mg IV NOW ONE Nitroglycerin Med 09/22/18 01:38 Discontinued 1 inch TOP NOW ONE Aerosol Treatments Routine Oth 09/22/18 00:25 Completed Aerosol Treatments Stat Oth 09/22/18 00:25 Completed EKG [EKG] Stat Ther 09/22/18 00:10 Ordered Transfer/Admit Order [TRANSFER] Routine Transfer 09/22/18 02:12 Ordered chest pain and dyspnea will further evaluate for causes including but not limited to ACS, Arrythmia, CHF exacerbation, pna, pe, copd exacerbatino. Result Diagrams: 09/22/18 00:35 09/22/18 00:35 - REASSESSMENT Reassessment #1 Status: improving (feeling better, symptoms likley due to CHF exacerbation but also with elevated troponin but no ekg changes. treated with ntg paste, lasix and asa and will admit for further evaluation and treatment. Discussed case with Dr. Gerardo, hospitalist, who will see and admit pt) - XRAY 1 XRAY Study: Chest Impression: Abnormal (moderate pulmonary edema, no discrete infiltrate) Departure - Departure Date of Disposition Decision: 09/22/18 Time of Disposition Decision: 02:19 DIAGNOSIS: CHF exacerbation Qualifiers: Heart failure type: unspecified Qualified Code(s): I50.9 - Heart failure, unspecified Disposition: ADMITTED INPATIENT 09 Certified Medical Emergency: Emergent Condition: Fair - Critical Care Note This patient required my direct & personal management of CC.: No Attestation - Physician/ JARED Attestation Patient care was provided by Advanced Practice Provider:: No The physician spent face to face time with patient:: Yes Advanced Practice Provider documentation review:: Supervising physician onsite and consulted in the evaluation and care of this patient. The physician did have a face to face encounter with the patient. This chart was documented by the indicated scribe, (Tamera Reynolds, Scribe) and accurately reflects the services I performed and decisions made by me, Maribel Valencia MD, as attested by the provider's signature.
[2018-09-22] MEDS ORDERED: NS NEB INH SCH (03:00)
[2018-09-22] MEDS: ATROVENT NEB INH SCH ×6 (03:31→23:15)
[2018-09-22] MEDS: XOPENEX NEB INH SCH ×6 (03:31→23:15)
--- NOTE | 2018-09-22 04:32 | HISTORY AND PHYSICAL ---
CHIEF COMPLAINT: Shortness of breath. HISTORY OF PRESENT ILLNESS: An 88-year-old male with a past medical history of hypertension, hypothyroidism, coronary artery disease, congestive heart failure on home O2, history of chronic obstructive pulmonary disease, and peripheral neuropathy who was recently discharged from this hospital on 08/20/2018 due to congestive heart failure. He presented to the emergency department with a chief complaint of shortness of breath that has been getting worse for the past 2 days. As per the patient he has been taking his medications as prescribed. I believe he is coming from a custodial, [facility]. In the emergency department, he was found to be hypoxemic. Chest x-ray showed pulmonary edema, stable cardiomegaly. He has a pacemaker. Laboratory showed an elevated Pro-BNP and some elevation of the troponin of 0.19. The patient appears to be short of breath, moderate respiratory distress, decreased breath sounds bilaterally with prolonged expiratory phase and bilateral crackles. He does have bilateral lower extremity edema, 3+, and some abdominal wall edema. Distended jugular venous distention. This patient would be admitted due to congestive heart failure exacerbation. He will be placed in the CICU unit. He already received Lasix in the emergency department and I will continue with IV Lasix. We do have a recent echocardiogram from 08/10/2018 that showed an ejection fraction of 35%. This mild elevation of troponins is nonspecific and probably related to the heart failure. I discussed with the patient the resuscitation status and he requested to be Do Not Resuscitate level 1. He denies chest pain, headache, abdominal pain, nausea, vomiting, diarrhea, constipation. REVIEW OF SYSTEMS: All the 14 points of review of systems were reviewed. All of them are negative except as per HPI. PAST MEDICAL HISTORY: This patient has been recently discharged from this hospital due to acute on chronic systolic and likely diastolic heart failure on 08/20/2018. Hypertension, hypothyroidism, coronary artery disease, peripheral neuropathy, hyperlipidemia, chronic obstructive pulmonary disease. PAST SURGICAL HISTORY: Has a permanent pacemaker. 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 SOCIAL HISTORY: I do believe he is coming from [facility]. He has a history of smoking but not anymore. No drugs, no alcohol. FAMILY HISTORY: Coronary artery disease. ALLERGIES: Iodine, oral contrast and IV dye contrast. HOME MEDICATIONS: He was recently discharged on the following medications: Amlodipine 10 mg p.o. daily, aspirin 81 mg p.o. daily, Tegretol 200 mg p.o. t.i.d., Coreg 12.5 mg p.o. b.i.d., Plavix 75 mg p.o. daily, Colace 100 mg p.o. daily, duloxetine 60 mg p.o. daily, Advair 250/50 one puff inhalation b.i.d., gabapentin 400 mg p.o. t.i.d., Mucinex DM p.o. b.i.d., isosorbide 30 mg p.o. daily, levothyroxine 25 mcg p.o. daily, multivitamin p.o. daily, pantoprazole 40 mg p.o. daily, potassium 10 mEq p.o. daily, prednisone 5 mg p.o. q.a.m., sertraline 25 mg p.o. daily, simvastatin 20 mg p.o. at bedtime, DuoNeb q.4 hours as needed, cefdinir 300 mg p.o. b.i.d., Lasix 40 mg p.o. b.i.d., hydralazine 50 mg p.o. t.i.d., and Baker 7.5 mg p.o. q.4 hours as needed for pain. PHYSICAL EXAMINATION: VITAL SIGNS: Temperature 97.4 degrees, pulse 61, respiratory rate 13, blood pressure 137/73, oxygen saturation 92 on 4 L of nasal cannula. HEENT: Head normocephalic. No trauma. PERRLA. NECK: Supple. He does have jugular venous distention. Central trachea. CHEST: Decreased breath sounds globally with bilateral crackles, mostly at the bases. Prolonged expiratory phase and mild scattered end faint expiratory wheezing. ABDOMEN: Soft, nontender, nondistended. No hepatosplenomegaly. Abdominal wall edema. EXTREMITIES: 3+ lower extremity edema. No clubbing. No cyanosis. NEUROLOGICAL: This patient is alert. He is oriented x2. He is not oriented to time. He is following commands and answering to my questions. He is hard of hearing. LABORATORY: WBC 11.2, hemoglobin 9, hematocrit 27.5, platelets 294,000. Sodium 131, potassium 3.9, chloride 92, bicarbonate 25, BUN 33, creatinine 1.2, glucose 112, calcium 8.9. Troponin 0.19. ProBNP 6636. ASSESSMENT AND PLAN: 1. Acute combined systolic and diastolic congestive heart failure. Echocardiogram showed an ejection fraction of 35% a couple of months ago. He received a dose of Lasix in the ER and we will continue with IV Lasix 40 mg twice a day. I will continue with his home medications including Coreg, which he is taking at home at 12.5 mg p.o. twice a day. For now, I will decrease the dose in half but then, once he is better, hopefully we can increase it again. I will continue with the rest of the medication. Overall, we will treat this patient conservatively. In light of this patient's comorbidity and weakness, he expressed to be Do Not Resuscitate level 1. 2. History of coronary artery disease. He denies any chest pain at this moment. He has an elevation of the troponins. We will do cardiac enzymes. We will monitor. 3. Hypertension. Continue home medication. 4. Hypothyroidism. He has been placed back on levothyroxine. 5. Hyperlipidemia. Continue with statins. 6. History of chronic obstructive pulmonary disease. He is on home O2 around 4 L. He is having mild wheezing, so I will put this patient on breathing treatment. Also he has been on prednisone at home. 7. Leukocytosis, which is mild. He is not having fever or chills. I did not see any infiltrates in the x-ray to think about pneumonia, but I will get urine culture, blood culture and a sputum culture. 8. History of coronary artery disease. Continue with aspirin and Plavix. 9. Deep vein thrombosis prophylaxis with heparin subcutaneously. 10. Chronic kidney disease, stable. We will continue to monitor. 11. Resuscitation status: This patient is Do Not Resuscitate level 1. cc: Jevon Hobson MD
[2018-09-22 05:17] LABS: ALLEN TEST YES; BE 3.4 mmoll (-3.0-3.0); BLOOD TYPE ARTERIAL; HCO3-(ACT) 27.4 mmoll (20.0-26.0); PCO2(98.6) 44 mmHg (35-45); PO2(98.6) 64 mmHg (60-100); SAMPLE BLOOD; pH(98.6) 7.42 (7.35-7.45)
[2018-09-22 05:19] LABS: MODALITY CANNULA
[2018-09-22 05:23] LABS: BASO# 0.03 X1000 (0.0-0.2); BASO% 0.3 % (0.0-0.8); EOS# 0.16 X1000 (0.0-0.7); EOS% 1.5 % (0.0-10.0); HEMATOCRIT 26.8 % (42.0-52.0); HEMOGLOBIN 8.6 g/dL (14.0-18.0); IMM GRAN# 0.08 X1000 (0.0-0.04); IMM GRAN% 0.7 % (0.0-0.5); LYMPH# 1.45 X1000 (1.2-3.4); LYMPH% 13.3 % (20.5-51.1); MCH 29.9 PG (27-31); MCHC 32.1 g/dL (33-37); MCV 93.1 FL (81-99); MONO# 0.89 X1000 (0.11-0.59); MONO% 8.1 % (1.7-9.3); MPV 8.1 FL (7.4-10.4); NEUT# 8.33 X1000 (1.4-6.5); NEUT% 76.1 % (42.2-75.2); PLT 293 X1000 (130-400); RBC 2.88 XMIL (4.7-6.1); RDW 14.5 % (11.5-14.5); WBC 10.94 X1000 (4.8-10.8)
[2018-09-22 05:44] LABS: ALB/GLOB RATIO 1.3; ALBUMIN 3.7 g/dL (3.5-5.0); CALCIUM 8.6 mg/dL (8.8-10.2); CREATININE 1.2 mg/dL (0.7-1.2); MAGNESIUM 1.8 mg/dL (1.5-2.7); POTASSIUM 3.6 mmol/L (3.5-5.1); TOTAL BILIRUBIN 0.52 mg/dL (0.20-1.00); TOTAL PROTEIN 6.6 g/dL (6.3-8.3)
--- NOTE | 2018-09-22 07:51 | EKG Report ---
Test Performed on : 09/22/2018 00:13:10 AM Test Reason : cp Blood Pressure : / mmHG Vent. Rate : 072 BPM Atrial Rate : 072 BPM P-R Int : 000 ms QRS Dur : 154 ms QT Int : 466 ms P-R-T Axes : 000 -65 114 degrees QTc Int : 510 ms Ventricular-paced rhythm with occasional premature ventricular complexes. Abnormal ECG When compared with ECG of 10-AUG-2018 06:03, premature ventricular complexes. are now present Vent. rate has increased BY 11 BPM Unconfirmed Result
--- NOTE | 2018-09-22 07:58 | Diag Imaging Result Doc PS360 ---
EXAM: CHEST-1 VIEW INDICATION: dyspnea TECHNIQUE: One view COMPARISON: 08/22/2018 FINDINGS: There is bilateral diffuse interstitial thickening likely representing a combination of pulmonary edema and fibrosis. It is very similar to the previous study. There is a possible trace effusion on the right. There is stable cardiomegaly. The pacemaker is in stable position. IMPRESSION: Interstitial thickening bilaterally similar to the previous study and likely trace effusion on the right. Electronically signed by Marcial Goel 09/22/2018 7:56 AM
--- NOTE | 2018-09-22 08:21 | Diag Imaging Result Doc PS360 ---
EXAM: CHEST-PORTABLE INDICATION: dyspnea TECHNIQUE: One view COMPARISON: 09/22/2018 FINDINGS: Interstitial thickening throughout both lungs likely representing a combination of pulmonary venous congestion and interstitial edema is stable. No new consolidation is identified. There is stable cardiomegaly. IMPRESSION: Essentially stable chest. Electronically signed by Marcial Goel 09/22/2018 8:19 AM
[2018-09-22] MEDS: ZOLOFT PO SCH (08:46)
[2018-09-22] MEDS: SYNTHROID PO SCH (08:46)
[2018-09-22] MEDS: PROTONIX PO SCH (08:46)
[2018-09-22] MEDS: NEURONTIN PO SCH ×3 (08:46→22:01)
[2018-09-22] MEDS: NORVASC PO SCH (08:46)
[2018-09-22] MEDS: CYMBALTA PO SCH (08:46)
[2018-09-22] MEDS: PLAVIX PO SCH (08:46)
[2018-09-22] MEDS: COLACE PO SCH (08:46)
[2018-09-22] MEDS: PREDNISONE PO SCH (08:47)
[2018-09-22] MEDS: TEGRETOL PO SCH ×3 (08:47→22:02)
[2018-09-22] MEDS: COREG PO SCH ×2 (08:47→22:02)
[2018-09-22] MEDS: KLOR-CON PO SCH (08:47)
[2018-09-22] MEDS: APRESOLINE PO SCH ×3 (08:47→22:02)
[2018-09-22] MEDS: ASPIRIN PO SCH (08:47)
[2018-09-22] MEDS: HEPARIN SUBQ SCH ×2 (09:00→22:05)
[2018-09-22] MEDS ORDERED: IMDUR PO SCH (09:00)
[2018-09-22 13:28] LABS: URINE SOURCE CATH
[2018-09-22 13:38] LABS: BILIRUBIN URINE NEGATIVE (NEGATIVE); BLOOD URINE MODERATE (NEGATIVE); COLOR YELLOW; GLUCOSE URINE NEGATIVE (NEGATIVE); KETONE URINE NEGATIVE (NEGATIVE); LEUKOCYTES URINE MODERATE (NEGATIVE); NITRITE URINE NEGATIVE (NEGATIVE); PH URINE 5.5; PROTEIN URINE TRACE mg/dL (NEGATIVE); SP GRAVITY URINE 1.012; TURBIDITY URINE HAZY (CLEAR); UROBILINOGEN URINE NORMAL (NORMAL)
[2018-09-22 13:40] LABS: UR EPITHELIAL CELLS <10 /HPF (<10); URINE BACTERIA NEGATIVE /HPF; URINE RBC TNTC /HPF (<10)
[2018-09-22] MEDS: NORCO-7.5 PO PRN (14:38)
[2018-09-22] MEDS ORDERED: LASIX IV SCH (15:00)
[2018-09-22] MEDS ORDERED: KLOR-CON PO ONE (15:01)
[2018-09-22] MEDS: MUCINEX DM PO SCH ×2 (15:41→22:01)
[2018-09-22] MEDS ORDERED: VANCOMYCIN IV PER PHARMACY MISC SCH (16:30)
--- NOTE | 2018-09-22 17:10 | Diag Imaging Result Doc PS360 ---
CT THORAX W/O CONTRAST - 09/22/2018 INDICATION: pna COMPARISON: 09/22/2018, 06/22/2018 FINDINGS: Stable left-sided pacemaker. Stable cardiomegaly. There are trace bilateral pleural effusions. There is shotty mediastinal lymphadenopathy similar to prior. Upper abdominal images appear normal. There is peripheral pulmonary fibrosis. There is hazy interstitial infiltrate diffusely and bilaterally compatible with interstitial pulmonary edema. There is some patchy bibasilar infiltrate or atelectasis. IMPRESSION: 1. Cardiomegaly, diffuse interstitial pulmonary edema, trace pleural effusions. 2. Patchy bibasilar atelectasis or infiltrate. 3. Moderate pulmonary fibrosis. Moderate COPD. This exam was performed using automated exposure control, adjustment of mA or kV according to patient size, and/or use of iterative reconstruction technique Electronically signed by Ru Chen 09/22/2018 5:07 PM
[2018-09-22] MEDS: ZOSYN 3.375 GM in NS 50 ML IV SCH ×2 (17:28→22:05)
[2018-09-22] MEDS: SOLU-MEDROL IV SCH (17:28)
--- NOTE | 2018-09-22 17:33 | CARDIOLOGY CONSULTATION ---
DATE: 09/22/2018 HISTORY OF PRESENT ILLNESS: Mr. Burch is an 88-year-old white male with a history of hypertension, coronary disease, heart failure, aortic stenosis, COPD. He presented for complaints of shortness of breath that has been worse for the last several days. He is a poor historian secondary to not having any hearing aids presently in a very difficult conversation. He is not having any pain complaints presently. He does seem to have a somewhat increased work of breathing presently. He has 1+ bilateral lower extremity edema. He reports feeling hot and cold but did not take any temperatures at home. PAST MEDICAL HISTORY: 1. Significant for COPD. 2. Aortic stenosis that is borderline moderate to severe. It is moderate by gradients with a mean of 34 by gradient back in July 2018. It is borderline moderate to severe by valve area of 0.9 to 1 cm2. His ejection fraction was 35% by that echocardiogram. 3. Coronary artery disease. I do not have any previous records of this. 4. Hypertension. 5. Hypothyroidism. 6. Hyperlipidemia. 7. Previous issues with bradyarrhythmias status post dual chamber pacemaker. Previously followed by [facility] for this. 8. COPD. SOCIAL HISTORY: Heavy smoking up until a few years ago. Lives at a nursing home facility. No current alcohol. FAMILY HISTORY: Significant for hypertension. REVIEW OF SYSTEMS: A 10 system review of systems is very difficult secondary to patient's inability to communicate effectively. PHYSICAL: He is afebrile. Heart rate 62, blood pressure 114/69. The patient currently is 94% on Venturi mask.General: He is a ill-appearing elderly white male. He has some increased work of breathing. He is able to speak only a couple words at a time between breaths. HEENT: Oropharynx is moist. Poor dentition. Eye examination shows pink conjunctivae, white sclerae. Neck: Shows no obvious thyromegaly or thyroid tenderness Cardiovascular: He sounds to be in a regular rate and rhythm. Heart rate is currently 73 beats per minute. Ventricular paced. He has 1+ bilateral lower extremity edema and warm and well perfused extremities. Chest: Has very prolonged expiratory phase, marked wheezes. He did appear somewhat labored in his breathing. Abdomen: Soft, nontender, nondistended. He has no obvious organomegaly. Skin: Warm and dry throughout without any rashes. Neurological: He is moving all extremities well. He has no lateralizing deficits. PERTINENT DATA: His white count is 10.9, his hematocrit is 26, his platelet count is 293,000. His sodium today is 131 with a potassium of 3.6, his BUN is 31 with a creatinine of 1.2. His troponin is 0.165. ProBNP 5318. Urinalysis was reviewed. ASSESSMENT: Mr. Burch is an 88-year-old gentleman who presents with a history of heart failure, chronic obstructive pulmonary disease. He is markedly short of breath. PLAN: Differential on this patient is quite broad. Certainly could be a COPD exacerbation with or without heart failure. His wheezing could also be cardiac asthma. At this point, I will escalate his diuretics. We will place him on some Solu-Medrol, stop his oral steroids. I have asked pulmonology to see the patient. I have initiated him on BiPAP as well. His chest x-ray was reviewed. His electrocardiogram this hospitalization demonstrates difficult to tell baseline, ventricular paced complexes. Certainly could have an infectious process as well going on considering his steroid usage. His urine has been cultured. His urinalysis was reviewed. I will discuss the case with the hospitalist service. cc: Alfredo Jones MD
[2018-09-22] MEDS ORDERED: VANCOMYCIN 2 GM in NS 500 ML IV ONE (18:00)
[2018-09-22] MEDS ORDERED: HALDOL IM PRN (19:18)
[2018-09-22] MEDS ORDERED: HALDOL IV ONE (19:18)
[2018-09-22] MEDS: LASIX IV SCH (22:00)
[2018-09-22] MEDS: ZOCOR PO SCH (22:01)
[2018-09-23] MEDS: SOLU-MEDROL IV SCH ×3 (01:13→15:33)
[2018-09-23] MEDS: ATROVENT NEB INH SCH ×6 (03:10→23:20)
[2018-09-23] MEDS: XOPENEX NEB INH SCH ×6 (03:10→23:20)
[2018-09-23] MEDS: ZOSYN 3.375 GM in NS 50 ML IV SCH ×4 (05:11→21:39)
[2018-09-23 05:47] LABS: AGAP 11; ALB/GLOB RATIO 1.1; ALBUMIN 3.4 g/dL (3.5-5.0); ALKALINE PHOSPHATASE 90 U/L (32-122); BUN 23 mg/dL (8-22); CALCIUM 8.5 mg/dL (8.8-10.2); CHLORIDE 96 mmol/L (98-107); COSMO 278; ESTIMATED GFR > 60; GLUCOSE 139 mg/dL (70-104); GOT 49 U/L (10-34); GPT 87 U/L (10-44); MAGNESIUM 1.8 mg/dL (1.5-2.7); PHOSPHORUS 3.1 mg/dL (2.7-4.5); SODIUM 136 mmol/L (136-145); TCO2 29 mmol/L (25-35); TOTAL BILIRUBIN 0.55 mg/dL (0.20-1.00); TOTAL PROTEIN 6.5 g/dL (6.3-8.3)
[2018-09-23 05:50] LABS: BASO# 0.01 X1000 (0.0-0.2); BASO% 0.1 % (0.0-0.8); HEMATOCRIT 26.3 % (42.0-52.0); HEMOGLOBIN 8.3 g/dL (14.0-18.0); IMM GRAN# 0.04 X1000 (0.0-0.04); IMM GRAN% 0.4 % (0.0-0.5); LYMPH# 0.44 X1000 (1.2-3.4); LYMPH% 4.9 % (20.5-51.1); MCH 29.4 PG (27-31); MCHC 31.6 g/dL (33-37); MCV 93.3 FL (81-99); MONO# 0.22 X1000 (0.11-0.59); MONO% 2.5 % (1.7-9.3); MPV 8.6 FL (7.4-10.4); NEUT% 92.1 % (42.2-75.2); PLT 302 X1000 (130-400); RBC 2.82 XMIL (4.7-6.1); RDW 14.6 % (11.5-14.5); WBC 8.91 X1000 (4.8-10.8)
[2018-09-23] MEDS: SYNTHROID PO SCH (06:03)
[2018-09-23 06:35] LABS: BASO 1 % (0-1); LYMPHS 1 % (21-51); MONO 2 % (1-9); SEGS 96 % (42-75)
--- NOTE | 2018-09-23 07:54 | PULMONOLOGY CONSULTATION ---
DATE: 09/22/2018 REQUESTING PHYSICIAN: Dr. Alfredo Jones. REASON FOR CONSULTATION: COPD exacerbation. HISTORY OF PRESENT ILLNESS: Mr. Mark Burch is an 88-year-old white male, who presented to the hospital for his fifth time since June of this year with increased shortness of breath. The patient has a component of dementia and hearing difficulty, making it difficult to communicate with him. The patient was in the hospital between 08/09/2018 to 08/20/2018. Evaluation during that admission revealed cardiomyopathy of 35%, which was felt to be ischemic (he bumped his troponin during that admission), moderate pulmonary hypertension with a PA systolic pressure of 70, severe aortic stenosis. The patient had other comorbidities including COPD, chronic kidney disease. He was evaluated by hospice and he was a do not resuscitate, but did not feel like he qualified for inpatient admission, and he was discharged back to [facility]. He presented to the emergency room 09/22/2018 with increasing shortness of breath and chest pressure. His troponins are elevated and declining. His proBNP is markedly elevated, but less than at his admission in July. The patient had increased work of breathing and was initiated on BiPAP by Dr. Jones. CT scan of the thorax was performed which reveals cardiomegaly, peripheral pulmonary fibrosis, COPD, trace effusions and pulmonary edema. PAST MEDICAL HISTORY: 1. Chronic obstructive pulmonary disease with history of tobacco use. 2. Cardiomyopathy presumed to be ischemic. 3. Moderate to severe pulmonary hypertension. 4. Severe aortic stenosis. 5. Chronic kidney disease. 6. Peripheral neuropathy. 7. Hypothyroidism. 8. Hypertension. 9. Dyslipidemia. SOCIAL HISTORY: The patient resides in a residential. No current alcohol or tobacco use. FAMILY HISTORY: Positive for coronary artery disease. REVIEW OF SYSTEMS: Limited, but the patient reports his breathing has improved. PHYSICAL EXAMINATION: General: Reveals an obese, elderly white male with generalized edema/anasarca. Vital Signs: BP 114/69, heart rate 62, respiratory rate 15, oxygen saturation 97% on BiPAP. HEENT: Pupils are equal and reactive. Oropharynx is clear. Neck: Supple. Chest: Reveals prolonged expiratory phase with an obstructive pattern. Crackles in both lung bases. Cardiac exam: Distant heart sounds with 2-3/6 systolic ejection murmur right upper sternal border. Abdomen: Soft and bruising noted at sites of anticoagulation. Extremities: Reveal generalized edema and bruising. LABORATORIES: Arterial blood gas in the emergency room: A pH 7.42, pCO2 of 44, PO2 of 64. Sodium 131, potassium 3.6, chloride 92, bicarbonate 37, BUN 31, creatinine 1.2. White blood count 10.94, hemoglobin 8.6, platelet count 293,000. MICROBIOLOGY: Pending. Urine culture is pending. UA reveals 10-20 white blood cells per high- power field. IMPRESSION: An 88-year-old with: 1. Presumptive ischemic heart disease with recurrent elevation in troponins. 2. Ischemic cardiomyopathy with pulmonary edema. 3. Severe chronic obstructive pulmonary disease. 4. Component of pulmonary fibrosis. 5. Possible pneumonia, difficult to determine from baseline fibrosis. 6. Acute hypoxemic respiratory failure. 7. Chronic kidney disease. 8. Failure to thrive with recurrent admissions to the hospital. RECOMMENDATIONS: 1. Oxygen/BiPAP as needed for acute hypoxemic respiratory failure. 2. Continue diuretics as tolerated. 3. Agree with antibiotics to cover pneumonia. If he rapidly improves with diuresis, these can be weaned. 4. Agree with current resuscitation status. His prognosis is extremely poor, and he is a candidate for hospice, even if he might not be a candidate for inpatient hospice. cc: Vance Keene MD
[2018-09-23] MEDS ORDERED: MAGNESIUM SULFATE 2 GM/S.W.I. 2 GM/50 ML IVPB IV ONE (08:05)
[2018-09-23] MEDS: TEGRETOL PO SCH ×3 (08:34→21:02)
[2018-09-23] MEDS: CYMBALTA PO SCH (08:35)
[2018-09-23] MEDS: PLAVIX PO SCH (08:35)
[2018-09-23] MEDS: MUCINEX DM PO SCH ×2 (08:35→21:39)
[2018-09-23] MEDS: APRESOLINE PO SCH ×3 (08:35→21:02)
[2018-09-23] MEDS: NEURONTIN PO SCH ×3 (08:36→21:02)
[2018-09-23] MEDS: PROTONIX PO SCH (08:36)
[2018-09-23] MEDS: ZOLOFT PO SCH (08:36)
[2018-09-23] MEDS: COREG PO SCH ×2 (08:36→21:02)
[2018-09-23] MEDS: KLOR-CON PO SCH (08:36)
[2018-09-23] MEDS: PREDNISONE PO SCH (08:36)
[2018-09-23] MEDS: ASPIRIN PO SCH (08:36)
[2018-09-23] MEDS: COLACE PO SCH (08:36)
[2018-09-23] MEDS: IMDUR PO SCH (08:37)
[2018-09-23] MEDS: HEPARIN SUBQ SCH ×2 (08:38→21:02)
[2018-09-23] MEDS: NORVASC PO SCH (09:06)
[2018-09-23] MEDS: LASIX IV SCH ×2 (09:06→21:01)
--- NOTE | 2018-09-23 12:38 | PROGRESS NOTE ---
DATE: 09/23/2018 SUBJECTIVE: The patient reports feeling short of breath. Denies any fever or chills. Requests some assistance with his meals. OBJECTIVE: Vital Signs: Temperature 98.7, heart rate 62, respiratory rate 25, blood pressure 126/85, O2 saturation 100% on BiPAP of 50%. General Examination: This is a chronically ill- appearing and frail, 88-year-old male, lying in bed in no acute distress. HEENT: Head is normocephalic, atraumatic. Mucous membranes dry. Neck: No JVD noted. No carotid bruits. No lymphadenopathy. No thyromegaly. Cardiovascular Exam: S1, S2 heard. No murmurs, gallops, or rubs. Regular rate and rhythm. Respiratory Exam: Decreased breath sounds globally with crackles noted in both pulmonary bases, a little bit better in comparing with yesterday. The patient is not using any accessory muscles or having work of breathing. Abdomen: Soft, nontender to palpation, nondistended. Bowel sounds present. No organomegaly. Abdominal wall edema noted. Extremity: There is 3+ bilateral lower extremity edema. No clubbing or cyanosis noted. Neurological Exam: Patient is alert. Oriented x1. He is oriented to person only. Not oriented to time. The patient does follow commands. Very hard of hearing. Moves 4 extremities. LABORATORY DATA: White cell count 8.91, hemoglobin 8.3, hematocrit 26.3, platelets 302. Normal BMP. ASSESSMENT: 1. Acute respiratory failure, multifactorial. 2. Acute systolic congestive heart failure. 3. Coronary artery disease. 4. Hypertension. 5. Hypothyroidism. 6. Hyperlipidemia. 7. Chronic obstructive pulmonary disease exacerbation. 8. Chronic kidney disease stage III. 9. Acute kidney injury. PLAN: This patient basically came to the emergency department complaining of shortness of breath. Upon physical examination yesterday, he has symptoms of congestive heart failure with lower extremity edema, abdominal wall edema and crackles in both pulmonary katz. There is interstitial edema noted in the x-ray. The CT of the chest basically showed cardiomegaly with diffuse interstitial pulmonary edema, trace pleural effusion, patchy bibasilar atelectasis or infiltrates and some moderate pulmonary fibrosis. In that regard, patient has been started on antibiotics, in this case vancomycin and Zosyn. Blood cultures from today returned positive for gram-positive cocci. So, we will continue with vancomycin. Also, for CHF component of this shortness of breath we talked with Dr. Jones from Cardiology, who has decided to place him on Lasix 60 mg IV b.i.d. plus isosorbide p.o. daily and IV steroids as well. The patient is a little bit better today, even though his prognosis is very poor. He is also requiring BiPAP for this acute hypoxemic respiratory failure. So for hypertension, hypothyroidism and hyperlipidemia, we will continue with home medications. We will continue to monitor this patient closely in the [facility]. cc: Kash Cano MD
--- NOTE | 2018-09-23 13:42 | CARDIOLOGY PROGRESS NOTE ---
DATE: 09/23/2018 SUBJECTIVE: Mr. Burch reports he feels much better today. He wore BiPAP over the night. PHYSICAL EXAMINATION: Vital Signs: He is afebrile. Heart rate is 62, blood pressure 126/85. General: No acute distress. Cardiovascular: He sounds to be in a regular rate and rhythm. I do not hear any obvious murmurs. He has no S3. He has warm and well perfused extremities with no edema. Chest: Sounds much better today. Some coarse breath sounds but much less wheezing. He has much less work of breathing today. Abdomen: Soft, nontender, nondistended. He has no obvious organomegaly. He is afebrile with a temperature 98.7 degrees, heart rate 62, blood pressure 126/85. LABORATORY DATA: His white count is 8.9, hematocrit 26, platelet count 302,000. His sodium is 136, potassium 4, BUN 23, creatinine is 1. ASSESSMENT: Mr. Burch is an 88-year-old gentleman who has moderate to severe aortic stenosis as well as a history of coronary artery disease and heart failure. PLAN: His lungs sound much better today. He has had been instituted on antibiotics. I will titrate his anti-ischemics by increasing his Imdur to 60. We will continue to trend his laboratories. I will recheck a proBNP in the morning. He continues on diuretics. We have limited intake and output data on this patient. cc: Alfredo Jones MD
[2018-09-23] MEDS: VANCOMYCIN 1.5 GM in NS 250 ML IV SCH (17:08)
[2018-09-23] MEDS: ZOCOR PO SCH (21:03)
--- NOTE | 2018-09-23 21:35 | PULMONOLOGY PROGRESS NOTE ---
DATE: 09/23/2018 SUBJECTIVE: The patient is on a nonrebreather mask. He reports he feels better today than yesterday. OBJECTIVE: Vital Signs: BP 145/80, heart rate 71, respiratory rate 19, oxygen saturation 97%. HEENT: Pupils are equal and reactive. Oropharynx appears clear. Neck: Is supple. Chest: Reveals prolonged expiratory phase with decreased breath sounds in both lung bases. Cardiac exam: S1-S2. Abdomen: Soft. Extremities: Reveal generalized edema. LABORATORIES: White blood count 8.9, hemoglobin 8.3, platelet count 302,000. Sodium 136, potassium 4.0, chloride 96, bicarbonate 29, BUN 23, creatinine 1.0. IMPRESSION: An 88-year-old with 1. Ischemic cardiomyopathy with pulmonary edema. 2. Severe chronic obstructive pulmonary disease with obstructive breathing pattern. 3. Component of pulmonary fibrosis. 4. Acute hypoxemic respiratory failure. 5. Chronic kidney disease. 6. Anasarca. 7. Failure to thrive. RECOMMENDATIONS: 1. Continue oxygen/BiPAP as needed for hypoxemic respiratory failure. 2. Continue diuretics as tolerated. 3. Agree with antibiotics to cover pneumonia. Sputum culture is pending. 4. Overall prognosis is poor and end of life discussions have been held with the patient. cc: Vance Keene MD
[2018-09-24] MEDS: SOLU-MEDROL IV SCH ×4 (00:19→23:18)
[2018-09-24] MEDS: ATROVENT NEB INH SCH ×6 (03:15→23:39)
[2018-09-24] MEDS: XOPENEX NEB INH SCH ×6 (03:15→23:39)
[2018-09-24] MEDS: ZOSYN 3.375 GM in NS 50 ML IV SCH ×4 (04:29→23:18)
[2018-09-24 05:59] LABS: BASO# 0.01 X1000 (0.0-0.2); BASO% 0.1 % (0.0-0.8); EOS# 0.01 X1000 (0.0-0.7); EOS% 0.1 % (0.0-10.0); HEMATOCRIT 26.1 % (42.0-52.0); HEMOGLOBIN 8.2 g/dL (14.0-18.0); IMM GRAN# 0.04 X1000 (0.0-0.04); IMM GRAN% 0.3 % (0.0-0.5); LYMPH# 0.73 X1000 (1.2-3.4); LYMPH% 5.5 % (20.5-51.1); MCH 29.5 PG (27-31); MCHC 31.4 g/dL (33-37); MCV 93.9 FL (81-99); MONO# 0.54 X1000 (0.11-0.59); MONO% 4.1 % (1.7-9.3); MPV 8.7 FL (7.4-10.4); NEUT# 11.84 X1000 (1.4-6.5); NEUT% 89.9 % (42.2-75.2); PLT 307 X1000 (130-400); RBC 2.78 XMIL (4.7-6.1); RDW 14.7 % (11.5-14.5); WBC 13.17 X1000 (4.8-10.8)
[2018-09-24] MEDS: SYNTHROID PO SCH (06:10)
[2018-09-24 06:15] LABS: AGAP 12; BUN 25 mg/dL (8-22); CALCIUM 8.2 mg/dL (8.8-10.2); CHLORIDE 95 mmol/L (98-107); COSMO 279; CREATININE 1.1 mg/dL (0.7-1.2); ESTIMATED GFR > 60; GLUCOSE 140 mg/dL (70-104); POTASSIUM 3.8 mmol/L (3.5-5.1); SODIUM 136 mmol/L (136-145); TCO2 29 mmol/L (25-35)
--- NOTE | 2018-09-24 07:26 | Diag Imaging Result Doc PS360 ---
CHEST-PORTABLE - 09/24/2018 INDICATION: abnormal exam COMPARISON: 09/22/2018 FINDINGS: Stable pacemaker. Stable severe cardiomegaly. Stable significant pulmonary vascular congestion. Lung volumes are lower. There is some new patchy atelectasis or infiltrate in the right lung base. No large pleural effusion. IMPRESSION: Lower lung volumes. Small nonspecific area of atelectasis or infiltrate in the right lung base. Otherwise no change from prior. Electronically signed by Ru Chen 09/24/2018 7:23 AM
--- NOTE | 2018-09-24 09:06 | CARDIOLOGY PROGRESS NOTE ---
DATE: 09/24/2018 SUBJECTIVE: Mr. Burch reports he is feeling better. He is sleeping peacefully with BiPAP on but wakes easily. He says his breathing is doing well. PHYSICAL EXAMINATION: Vital Signs: He is afebrile, heart rate is 60. He is ventricular paced. Based on telemetry blood pressure 118/55. His I's and O's seem negative for the hospitalization in the last 24 hours. He is around 1500 mL negative. General: No acute distress. Cardiovascular: He sounds to be in a regular rate and rhythm with no obvious murmurs. Lungs: He has quite a bit of lung sound interfering with the exam. Extremities: He has no lower extremity edema. Warm and well perfused. Chest: Exam continues to be coarse but expiratory wheezes are much better. He has no increased work of breathing. Again he is on BiPAP. Abdomen: Soft and nontender. PERTINENT DATA: His chest x-ray shows a small nonspecific area of atelectasis or infiltrate in the right base, otherwise low lung volumes. Lab data shows a white count of 13, hematocrit 26, platelet count 307,000. His sodium is 136, potassium 3.8, BUN 25, creatinine is 1.1. His proBNP is 6837. ASSESSMENT: Mr. Burch is an 88-year-old gentleman who presented with respiratory distress. PLAN: Clinically he appears better. His BNP continues to be up but he seems to be diuresing. I will continue him on the current rate of diuresis. His chest x-ray looks like it is relatively improved. His vital signs seemed to show better blood pressures in the last 24 hours. We will continue on his current regimen. cc: Alfredo Jones MD
[2018-09-24] MEDS: IMDUR PO SCH (09:15)
[2018-09-24] MEDS: MUCINEX DM PO SCH ×2 (09:15→20:10)
[2018-09-24] MEDS: ASPIRIN PO SCH (09:15)
[2018-09-24] MEDS: PREDNISONE PO SCH (09:15)
[2018-09-24] MEDS: CYMBALTA PO SCH (09:15)
[2018-09-24] MEDS: NEURONTIN PO SCH ×3 (09:15→20:10)
[2018-09-24] MEDS: PROTONIX PO SCH (09:16)
[2018-09-24] MEDS: KLOR-CON PO SCH (09:16)
[2018-09-24] MEDS: APRESOLINE PO SCH ×3 (09:16→20:10)
[2018-09-24] MEDS: ZOLOFT PO SCH (09:16)
[2018-09-24] MEDS: COREG PO SCH ×2 (09:16→20:10)
[2018-09-24] MEDS: COLACE PO SCH (09:16)
[2018-09-24] MEDS: PLAVIX PO SCH (09:18)
[2018-09-24] MEDS: NORVASC PO SCH (09:18)
[2018-09-24] MEDS: TEGRETOL PO SCH ×3 (09:18→20:10)
[2018-09-24] MEDS: HEPARIN SUBQ SCH ×2 (09:19→20:10)
[2018-09-24] MEDS: LASIX IV SCH ×2 (09:24→20:09)
--- NOTE | 2018-09-24 09:25 | PROGRESS NOTE ---
DATE: 09/24/2018 SUBJECTIVE: The patient reports breathing better. He is using BiPAP mask at this time. Denies any other complaints. OBJECTIVE: Vital Signs: Temperature 98, heart rate 60, respiratory 14, blood pressure 118/55 and O2 saturation 99% on BiPAP with FiO2 of 50%. General: This is a chronically ill-appearing and frail 88-year-old male, lying in bed in no acute distress. Cardiovascular: S1, S2 heard. Tachycardic. No murmurs, gallops, or rubs noted. Respiratory: Decreased breath sounds globally with crackles and rhonchi noted in both pulmonary bases. Basically, the same in compared with yesterday. Patient is not using any accessory muscles or having work of breathing. Abdomen: Soft. Nontender to palpation. Nondistended. Bowel sounds present. No organomegaly. Abdominal wall edema noted. Extremities: 3+ pitting edema in both lower extremities. No clubbing or cyanosis noted. Neurological: Patient is awake, not too much talkative today. He is oriented to person only. Hard of hearing, but does follow commands. LABORATORY DATA: White cell count 13.17, hemoglobin 8.2, hematocrit 26.1, and platelets 307,000. BMP unremarkable except glucose of 140. ProBNP 6837. ASSESSMENT/PLAN: 1. Acute respiratory failure multifactorial. Patient continues to require oxygen provided by BiPAP mask. Pulmonary is following this patient. We will follow recommendations. 2. Acute systolic congestive heart failure. Patient is on Lasix 60 mg IV b.i.d. Will continue to monitor Ins/Outs strictly. Clinically, he is still having some shortness of breath. We will continue with the same management. Troponins were mildly elevated most likely because supply demand mismatch. Cardiology following patient. 3. Coronary artery disease. Patient is stable, not complaining of any chest pain at this time. 4. Chronic obstructive pulmonary disease exacerbation. Patient is receiving breathing treatments, IV steroids and also antibiotics because I am suspecting that he may have some lung infection around. We will continue with vancomycin and Zosyn. 5. Chronic kidney disease stage 2. Creatinine actually is back to normal. 6. Hypothyroidism. We will continue home doses of Synthroid. 7. Gram-positive cocci bacteremia. We have checked that the blood culture returned positive for Staphylococcus epidermidis, which I think is a contaminant. Also, he was positive only in 1 out of 2 cultures. In any case, we will continue to monitor this patient closely. 8. Disposition. I think his baseline situation is not good. Considering all of his comorbidities and age, his prognosis is very poor. We have informed the family about it. cc: Kash Cano MD MTDD
[2018-09-24] MEDS: VANCOMYCIN 1.5 GM in NS 250 ML IV SCH (18:26)
[2018-09-24] MEDS: ZOCOR PO SCH (20:11)
--- NOTE | 2018-09-24 22:33 | PULMONOLOGY PROGRESS NOTE ---
DATE: 09/24/2018 SUBJECTIVE: The patient is sleeping but arousable. His oxygen requirements are decreasing, and he is now on nasal cannula and resting comfortably. OBJECTIVE: Vital signs: Intake 1303, output 2775. The patient has been afebrile for the last 24 hours. Blood pressure 109/47, heart rate 68, respiratory rate 14, oxygen saturation 99%. HEENT: Pupils are equal and reactive. Oropharynx appears clear. Neck: Supple. Chest: Reveals bilateral crackles. Cardiac exam: S1, S2. Abdomen: Soft and obese. Extremities: Reveal 1+ peripheral edema with some increased evidence of volume contraction. LABORATORIES: Chest x-ray reveals severe cardiomegaly with pulmonary vascular congestion. He has a slightly more shallow infiltrate. White blood count 13.1, hemoglobin 8.2, platelet count 307,000. Sputum culture reveals normal yoselin. Sodium 136, potassium 3.8, chloride 95, bicarbonate 25, BUN 1.1. ProBNP remains elevated at 6837. IMPRESSION: An 88-year-old with: 1. Ischemic cardiomyopathy with pulmonary edema. 2. Severe chronic obstructive pulmonary disease. 3. Component of pulmonary fibrosis. 4. Acute hypoxemic respiratory failure. 5. Chronic kidney disease. 6. Anasarca. DISCUSSION: An 88-year-old with problems outlined above. He appears to be diuresing, and he has had significant improvement in his clinical status. RECOMMENDATIONS: 1. Continue oxygen/BiPAP/high-flow oxygen as needed for hypoxemic respiratory failure. 2. Continue diuretics. 3. Agree with antibiotics to cover pneumonia, but they can be deescalated over the next few days if he continues to improve with diuresis. 4. Prognosis is poor. The patient will be allowed to have a natural if he dies. cc: Vance Keene MD
[2018-09-25] MEDS: XOPENEX NEB INH SCH ×6 (03:39→23:05)
[2018-09-25] MEDS: ATROVENT NEB INH SCH ×6 (03:39→23:07)
[2018-09-25] MEDS: ZOSYN 3.375 GM in NS 50 ML IV SCH ×4 (03:48→21:36)
[2018-09-25 05:27] LABS: BASO# 0.01 X1000 (0.0-0.2); BASO% 0.1 % (0.0-0.8); EOS# 0.01 X1000 (0.0-0.7); EOS% 0.1 % (0.0-10.0); HEMATOCRIT 27.9 % (42.0-52.0); HEMOGLOBIN 8.8 g/dL (14.0-18.0); IMM GRAN# 0.04 X1000 (0.0-0.04); IMM GRAN% 0.3 % (0.0-0.5); LYMPH# 0.77 X1000 (1.2-3.4); LYMPH% 5.3 % (20.5-51.1); MCH 29.6 PG (27-31); MCHC 31.5 g/dL (33-37); MCV 93.9 FL (81-99); MONO# 0.62 X1000 (0.11-0.59); MONO% 4.3 % (1.7-9.3); MPV 8.2 FL (7.4-10.4); NEUT# 12.97 X1000 (1.4-6.5); NEUT% 89.9 % (42.2-75.2); PLT 318 X1000 (130-400); RBC 2.97 XMIL (4.7-6.1); RDW 14.6 % (11.5-14.5); WBC 14.42 X1000 (4.8-10.8)
[2018-09-25 05:57] LABS: POTASSIUM 4.5 mmol/L (3.5-5.1)
[2018-09-25 05:58] LABS: CALCIUM 8.9 mg/dL (8.8-10.2); CREATININE 1.2 mg/dL (0.7-1.2)
[2018-09-25] MEDS: SYNTHROID PO SCH (06:42)
[2018-09-25 07:03] LABS: LYMPHS 4 % (21-51); SEGS 96 % (42-75)
[2018-09-25] MEDS: LASIX IV SCH ×2 (08:50→21:39)
[2018-09-25] MEDS: KLOR-CON PO SCH (08:50)
[2018-09-25] MEDS: IMDUR PO SCH (08:50)
[2018-09-25] MEDS: CYMBALTA PO SCH (08:53)
[2018-09-25] MEDS: COREG PO SCH ×2 (08:54→21:36)
[2018-09-25] MEDS: PROTONIX PO SCH (08:54)
[2018-09-25] MEDS: PLAVIX PO SCH (08:54)
[2018-09-25] MEDS: PREDNISONE PO SCH (08:54)
[2018-09-25] MEDS: TEGRETOL PO SCH ×3 (08:54→21:36)
[2018-09-25] MEDS: NORVASC PO SCH (08:54)
[2018-09-25] MEDS: ASPIRIN PO SCH (08:54)
[2018-09-25] MEDS: ZOLOFT PO SCH (08:55)
[2018-09-25] MEDS: SOLU-MEDROL IV SCH ×2 (08:55→09:36)
[2018-09-25] MEDS: MUCINEX DM PO SCH ×2 (08:55→21:36)
[2018-09-25] MEDS: NEURONTIN PO SCH ×3 (08:55→21:37)
[2018-09-25] MEDS: HEPARIN SUBQ SCH ×3 (08:55→21:37)
[2018-09-25] MEDS: COLACE PO SCH (08:55)
[2018-09-25] MEDS: APRESOLINE PO SCH ×3 (08:56→21:36)
--- NOTE | 2018-09-25 09:24 | PROGRESS NOTE ---
DATE: 09/25/2018 INTERVAL HISTORY: No acute events overnight. SUBJECTIVE: The patient is sitting by the edge of the bed, using oxygen, about 5 L, appears in mild shortness of breath, and is trying to eat his breakfast. He states he is feeling much better now than he did before. He is denying more than usual cough. He is not making any sputum. OBJECTIVE: Vital Signs: Temperature 98 degrees, pulse 61, respiratory rate 17, blood pressure 126/57, saturating 96% on 5 L nasal cannula. Input and output suggests he was - 1.4 L, -4 L today. Since admission, he has been -6 L. General: He does not appear in any acute distress. He does have missing teeth. Oral cavity is moist. Lungs: He has decreased breath sound bilaterally. He does not have any wheeze or rhonchi. He has mild bilateral infrascapular crackles. Cardiovascular: S1, S2 normal. No murmur, rub, or gallop. Abdomen: Soft, nontender. Extremities: He has bilateral lower extremity edema extending up to knee. LABORATORY DATA: He has leukocytosis, normocytic anemia, normal platelet count, and eosinophil count of 0.1%. His electrolytes are suggestive of hyponatremia, hypochloremia, and what appears to be chronic kidney disease stage 2 to stage 3A. His proBNP was initially elevated. MICROBIOLOGY: Sputum culture, blood culture has not shown any growth. IMAGING: No new chest x-ray today. ASSESSMENT AND PLAN: 1. Acute hypoxic respiratory failure due to bilateral lower lobe pneumonia, acute chronic obstructive pulmonary disease exacerbation, acute congestive heart failure exacerbation. Continue oxygen through nasal cannula. He also has chronic hypoxic respiratory failure because of chronic obstructive pulmonary disease, and he is on home 2 liters of nasal cannula oxygen. 2. Acute systolic congestive heart failure exacerbation with ejection fraction of 30%. Continue intravenous Lasix as per Cardiology recommendation. I will continue his home aspirin, clopidogrel for documented history of coronary artery disease; amlodipine, hydralazine, isosorbide for history of [id number] aortic stenosis and essential hypertension; I will continue his simvastatin for hyperlipidemia as well. 3. Acute chronic obstructive pulmonary disease exacerbation. Continue levalbuterol, ipratropium nebulization. Decrease the intravenous steroid frequency since she is not wheezing on current examination. 4. History of chronic kidney disease stage 2 to stage 3A. Appears stable at the moment. 5. Bilateral lower lobe pneumonia. Continue intravenous vancomycin and Zosyn. Looking at the CT scan, it could be related to his atelectasis as well. I will stop antibiotics for a total of 5 days duration. 6. Others. Continue home carbamazepine, gabapentin, [place] and sertraline for chronic pain and anxiety, hypothyroidism, levothyroxine. 7. Disposition. The patient continues to remain in [facility] for close monitoring of his respiratory status because of persistent hypoxia. Plan of care discussed with him. All of his questions have been answered. Code status DNR level 1 cc: Nam Alejandra MD MTDD
[2018-09-25] MEDS ORDERED: MORPHINE IV PRN (13:16)
--- NOTE | 2018-09-25 15:42 | CARDIOLOGY PROGRESS NOTE ---
DATE: 09/25/2018 SUBJECTIVE: Mr. Burch reports he is doing better. He is sitting up in bed, eating. He is on a nasal cannula. PHYSICAL EXAMINATION: Vital Signs: The patient is afebrile. Heart rate is 62. Blood pressure 118/53. His Is and Os yesterday were documented -4.3 L with 1.4 L the day previous. His total output is -6.4 L. General: He is in no acute distress. Cardiovascular: He sounds to be in a regular rate and rhythm with a 2/6 systolic murmur at the right upper sternal border. He has no lower extremity edema. His chest exam has coarse breath sounds. No increased work of breathing. Abdomen: Soft, nontender. PERTINENT DATA: His sodium is 135, potassium is 4.5, his BUN is 25, creatinine is 1.2 which is stable. ASSESSMENT: Mr. Burch is an 88-year-old gentleman who presented with heart failure, possible chronic obstructive pulmonary disease exacerbation, as well as potential pneumonia. PLAN: He seems to be diuresing. I will continue on his current diuretic dosage. We will recheck a BMP in the morning. He had a net fluid balance of -4.3 L, it seems in the last 24 hours. For the time being, I will not make any change to his diuretic doses. cc: Alfredo Jones MD
[2018-09-25] MEDS: VANCOMYCIN 1.5 GM in NS 250 ML IV SCH (18:45)
[2018-09-25] MEDS: NORCO-7.5 PO PRN (18:48)
--- NOTE | 2018-09-25 20:40 | PULMONOLOGY PROGRESS NOTE ---
DATE: 09/25/2018 SUBJECTIVE: The patient is resting comfortably in his bed. He has no increased work of breathing. OBJECTIVE: The patient has been afebrile for the last 24 hours. Blood pressure 118/53, heart rate 62, respiratory rate 18, oxygen saturation 95% on 5 L per nasal cannula. Intake 700 mL, output 5225 mL. HEENT: Pupils are equal and reactive. Oropharynx appears clear. Neck is supple. Chest reveals crackles in both lung bases. Cardiac exam: S1, S2. Abdomen is obese and soft. Extremities reveal decreasing edema. LABORATORY DATA: [*]14.4, hemoglobin 8.8, platelet count 318,000. Sodium 135, potassium 4.5, chloride 92, bicarbonate 30, BUN 25, creatinine 1.2. IMPRESSION: An 88-year-old with: 1. Ischemic heart disease. 2. Pulmonary edema. 3. Severe chronic obstructive pulmonary disease. 4. Component of pulmonary fibrosis. 5. Acute hypoxemic respiratory failure. 6. Anasarca. 7. Chronic kidney disease. DISCUSSION: An 88-year-old with problems outlined above. He continues to do well with ongoing diuresis. He does have mild leukocytosis, but no other signs of infection. PLAN: 1. Continue diuretics as tolerated. 2. Follow up chest x-ray tomorrow. 3. Consider deescalation of antibiotics. 4. Overall prognosis is poor. cc: Vance Keene MD
[2018-09-25] MEDS: ZOCOR PO SCH (21:37)
[2018-09-26] MEDS: ATROVENT NEB INH SCH ×6 (03:17→22:58)
[2018-09-26] MEDS: XOPENEX NEB INH SCH ×6 (03:17→22:58)
[2018-09-26] MEDS: ZOSYN 3.375 GM in NS 50 ML IV SCH ×4 (03:51→22:00)
[2018-09-26 05:45] LABS: BASO# 0.02 X1000 (0.0-0.2); BASO% 0.2 % (0.0-0.8); EOS# 0.21 X1000 (0.0-0.7); EOS% 1.6 % (0.0-10.0); HEMOGLOBIN 8.9 g/dL (14.0-18.0); IMM GRAN# 0.04 X1000 (0.0-0.04); IMM GRAN% 0.3 % (0.0-0.5); LYMPH# 1.99 X1000 (1.2-3.4); LYMPH% 14.9 % (20.5-51.1); MCHC 31.8 g/dL (33-37); MCV 94.3 FL (81-99); MONO# 1.13 X1000 (0.11-0.59); MONO% 8.5 % (1.7-9.3); MPV 8.5 FL (7.4-10.4); NEUT# 9.94 X1000 (1.4-6.5); NEUT% 74.5 % (42.2-75.2); PLT 329 X1000 (130-400); RBC 2.97 XMIL (4.7-6.1); RDW 14.5 % (11.5-14.5); WBC 13.33 X1000 (4.8-10.8)
[2018-09-26 06:01] LABS: CALCIUM 8.8 mg/dL (8.8-10.2); CREATININE 1.2 mg/dL (0.7-1.2); POTASSIUM 3.7 mmol/L (3.5-5.1)
[2018-09-26] MEDS: SYNTHROID PO SCH (06:12)
--- NOTE | 2018-09-26 06:39 | Diag Imaging Result Doc PS360 ---
EXAM: CHEST-PORTABLE HISTORY: abnormal exam TECHNIQUE: Portable chest single view COMPARISON: 09/24/2018 FINDINGS: The heart is enlarged and there is pulmonary edema. There is a small right pleural effusion. Improved inspiratory effort with decreased atelectasis in the right lung base. There is a left-sided pacemaker. There are several old rib fractures. IMPRESSION: Mild interval improvement. Electronically signed by Frank Boudreaux 09/26/2018 6:36 AM
[2018-09-26] MEDS: PROTONIX PO SCH (08:26)
[2018-09-26] MEDS: TEGRETOL PO SCH ×3 (08:26→21:57)
[2018-09-26] MEDS: CYMBALTA PO SCH (08:26)
[2018-09-26] MEDS: ASPIRIN PO SCH (08:26)
[2018-09-26] MEDS: COLACE PO SCH (08:26)
[2018-09-26] MEDS: NEURONTIN PO SCH ×3 (08:26→21:57)
[2018-09-26] MEDS: SOLU-MEDROL IV SCH (08:27)
[2018-09-26] MEDS: KLOR-CON PO SCH (08:27)
[2018-09-26] MEDS: APRESOLINE PO SCH ×3 (08:28→21:05)
[2018-09-26] MEDS: PLAVIX PO SCH (08:28)
[2018-09-26] MEDS: ZOLOFT PO SCH (08:28)
[2018-09-26] MEDS: COREG PO SCH ×2 (08:28→21:57)
[2018-09-26] MEDS: MUCINEX DM PO SCH ×2 (08:28→21:57)
[2018-09-26] MEDS: IMDUR PO SCH (08:28)
[2018-09-26] MEDS: LASIX IV SCH (08:28)
[2018-09-26] MEDS: NORVASC PO SCH (08:28)
[2018-09-26] MEDS: HEPARIN SUBQ SCH ×2 (09:59→21:06)
[2018-09-26] MEDS: FLONASE NAS SCH (11:12)
--- NOTE | 2018-09-26 12:20 | PROGRESS NOTE ---
DATE: 09/26/2018 INTERVAL HISTORY: No acute events. SUBJECTIVE: The patient is sitting at the edge of the bed, eating his breakfast. Denies new complaints. Complains of stuffy nose, but he has had it all the time. He verbalizes that at this point onwards, he would not want to come back to the hospital again and if something happens, he would like to get oxygen and pain medications and antianxiety medication and medications to help him feel better, and comfortable at his long term rather than coming back. We discussed about changing his medications to something to be taken by mouth and potentially planning discharge in next 24 to 48 hours. VITAL SIGNS: Temperature 97.9 degrees, pulse 60, respiratory rate 18, blood pressure 142/51, saturating 96% on 4 to 5 L nasal cannula. PHYSICAL EXAMINATION: General: Obese. Not in any acute distress except that he does have to stop while completing his sentence. He is not using accessory muscles though. HEENT: Oral cavity is dry. He has food particles in his mouth. Lungs: He has decreased breath sounds bilaterally. I could not appreciate any wheezes. No rhonchi. He does have mild crackles bilateral infrascapular region. Cardiovascular: S1, S2 normal. No murmur, rub, or gallop. Abdomen: Soft, nontender. Bilateral lower extremity edema extending up to mid mota levels. Genitourinary: Input and output suggests he was -1.1 L so far. LABORATORY DATA: Suggestive of a mild leukocytosis with eosinophilia of 1.6. He does have a normocytic anemia, normal platelet count. BMP suggestive of elevated BUN and creatinine. No new microbiological data. IMAGING: Chest x-ray today morning suggests mild interval improvement as compared to previous chest x-ray. However, he does have significant pulmonary edema, right-sided pleural effusion and lung fibrosis. ASSESSMENT AND PLAN: 1. Acute hypoxic respiratory failure due to bilateral lower lobe pneumonia, acute chronic obstructive pulmonary disease exacerbation, acute systolic congestive heart failure exacerbation. Continue oxygen at current rate to maintain saturation more than 92%. 2. Acute systolic congestive heart failure exacerbation with ejection fraction of 30% with moderate to severe aortic stenosis and essential hypertension. Continue him on aspirin, clopidogrel, amlodipine, hydralazine, isosorbide. I will appreciate Cardiology recommendation about changing his IV Lasix to p.o. 3. Acute chronic obstructive pulmonary disease exacerbation. Continue albuterol ipratropium nebulization and current dose of steroids. At the time of discharge, I will give him oral steroid taper that I have prescribed. My plan is to stop antibiotics today for his bilateral pneumonia. 4. Others. His chronic kidney disease stage IIIA is stable; I will continue his home carbamazepine, gabapentin and [place] for chronic pain. DISPOSITION: The patient has verbalized that he would like to go to the end-of-life care back to his long term. The Palliative Care team is also on board. The patient's brother, who is surrogate decision maker and guardian, is also in agreement. His code status is DNR level 1. My plan is to discharge him back to his long term on end-of-life care with minimal medications so as to make sure his COPD and heart failure related symptoms are controllable, and I am anticipating discharge in next 24 to 48 hours. Plan of care was discussed with the patient and the social work team. All of their questions have been answered. cc: Nam Alejandra MD MTDD
[2018-09-26] MEDS ORDERED: LASIX IV SCH ×2 (13:00→21:00)
--- NOTE | 2018-09-26 13:31 | DISCHARGE SUMMARY ---
ADMISSION DATE: 09/22/2018 DISCHARGE DATE: DISCHARGE DIAGNOSES: 1. Acute hypoxic respiratory failure. 2. Bilateral lower lobe pneumonia. 3. Acute chronic obstructive pulmonary disease exacerbation. 4. Acute systolic congestive heart failure exacerbation. 5. Chronic hypoxic respiratory failure on home oxygen. OTHER DIAGNOSES: 1. Documented history of coronary artery disease. 2. Chronic pain. 3. Hypothyroidism. 4. Essential hypertension. 5. Chronic obstructive pulmonary disease with chronic hypoxic respiratory failure. 6. Chronic kidney disease stage IIIA to stage II. 7. Peripheral neuropathy. 8. Hyperlipidemia. CONSULTATIONS DURING HOSPITALIZATION: 1. Pulmonology, Dr. Keene. 2. Cardiology, Dr. Jones. DISCHARGE MEDICATIONS: 1. Hydralazine 50 mg t.i.d. 2. Aspirin 81 mg daily. 3. Docusate 100 mg daily. 4. DuoNeb 3 mL inhaled q.4 hours. 5. Gabapentin 400 mg t.i.d. 6. Levothyroxine 25 mcg daily. 7. Amlodipine 10 mg daily. 8. Sertraline 25 mg daily. 9. Carbamazepine 200 mg t.i.d. 10. Advair 250/50 Diskus 1 puff inhaled b.i.d. 11. Carvedilol 12.5 mg b.i.d. 12. Isosorbide mononitrate 60 mg daily. 13. Furosemide 60 mg b.i.d. 14. Mucinex DM 1 p.o. b.i.d. tablet 15. [place] 7.5 1 tablet q.4 hours as needed. 16. Clopidogrel 75 mg daily. 17. Prednisone 20 mg tablet 40 mg daily for 3 days, 30 mg daily for 3 days, 20 mg daily for 3 days, and 10 mg daily for 3 days. PHYSICAL EXAMINATION ON DISCHARGE: Vital Signs: At the time of dictating this discharge summary, temperature 97.5 degrees, pulse 59, respiratory rate 20, blood pressure 112/51, saturating 94% on 4 L nasal cannula. General: Does not appear in any acute distress except mild shortness of breath. HEENT: Oral cavity is moist. Lungs: She he has significantly decreased breath sounds bilaterally without any use of accessory muscles. Oral cavity is dry. Mild crackles bilateral infrascapular region. Cardiovascular: S1, S2 normal. No murmur or gallop. Abdomen: Soft, nontender. Extremities: Bilateral lower extremity edema extending up to mid mota levels. SIGNIFICANT LABORATORY DATA: At the time of discharge, WBC 13,000, hemoglobin 8.9, platelets 329,000. Potassium 3.7, BUN 23, creatinine 1.2, magnesium 1.9. Significant microbiology during hospital admission, 1 of the 2 blood cultures was coagulase-negative Staphylococcus which was likely a contaminant. Urine culture did not have any growth. Sputum culture only had normal yoselin. SIGNIFICANT IMAGING: During hospital admission, chest CT on 09/22/2018 had detected cardiomegaly, diffuse interstitial pulmonary edema, trace pleural effusions, patchy bibasilar atelectasis or infiltrate, moderate pulmonary fibrosis and moderate COPD. Chest x-ray on 09/26/2018 had mild interval improvement. HOSPITAL COURSE SUMMARY: Mr. Burch is an 88-year-old man with history of chronic obstructive pulmonary disease on home oxygen with fibrosis and advanced COPD, chronic systolic congestive heart failure with echocardiogram in July 2018 showing ejection fraction of 35%, who was recently discharged a month prior to current presentation for congestive heart failure exacerbation, came in with chief complaints of shortness of breath which was worsening over last 2 days. In the emergency room, he was found to be hypoxemic with bilateral pulmonary edema and elevated proBNP. He was admitted for inpatient management. He was treated with nebulized bronchodilators for acute COPD exacerbation with steroids, intravenous antibiotics for bilateral pneumonia, intravenous diuresis for acute congestive heart failure exacerbation, and oxygen for his chronic hypoxic respiratory failure. With this treatment, his shortness of breath had shown marked improvement as compared to presentation. Considering his advanced COPD, systolic heart failure, and repeated hospitalization, the patient had expressed that he would not like to come to the hospital anymore and rather he would wish to go back to correction where the goal should be to address his pain, anxiety, comfort, rather than being too aggressive with treating his medical conditions, so the patient's guardian was also in agreement. It was decided to optimize the patient's oral regimen so that his shortness of breath, because of his congestive heart failure and COPD are at controllable level, and then plan was to discharge the patient back to his correction facility with end of life care. More than 30 minutes were spent in discharging this patient. All of his questions were satisfactorily answered. cc: Nam Alejandra MD ADDENDUM: On 09/27/18. I have increased his Lasix dose to 60 mg PO BID. MTDD
[2018-09-26] MEDS: VANCOMYCIN 1.5 GM in NS 250 ML IV SCH (17:24)
--- NOTE | 2018-09-26 18:43 | CARDIOLOGY PROGRESS NOTE ---
DATE: 09/26/2018 SUBJECTIVE: Mr. Burch reports he is doing somewhat better from a breathing standpoint. OBJECTIVE: On physical examination he is afebrile. Heart rate 62. His blood pressure is 97/60. Most systolics have been in the 110s to 120s. His intake and output continues to be significantly negative today. Total net negative of -12 L. Generally in no acute distress. Cardiovascular: He sounds to be in a regular rate and rhythm. He has no obvious murmurs. He has no S3. He has trace to 1+ bilateral lower extremity edema. His chest has some coarse breath sounds diffusely. No increased work of breathing. His abdomen is soft. LABORATORY DATA: His white count is 13, hematocrit 28, platelet count 329,000. His sodium is 136, potassium 3.7, BUN 23, creatinine is 1.2. His proBNP is 7500. ASSESSMENT: Mr. Burch is an 88-year-old gentleman with chronic obstructive pulmonary disease, pneumonia and a systolic heart failure exacerbation. PLAN: The patient seems to be diuresing very well. His renal function is maintained. His proBNP is relatively stable from a couple of days ago. Presently we will recheck labs in the morning. I believe a reasonable discharge and diuretic regimen would be starting off with Lasix 60 mg orally b.i.d. That will be an escalation from his previous dose. There are possibilities of him going home in some form of hospice. cc: Alfredo Jones MD
[2018-09-26] MEDS: ZOCOR PO SCH (21:57)
[2018-09-27] MEDS: XOPENEX NEB INH SCH ×3 (03:05→11:04)
[2018-09-27] MEDS: ATROVENT NEB INH SCH ×3 (03:05→11:04)
[2018-09-27] MEDS: ZOSYN 3.375 GM in NS 50 ML IV SCH (03:50)
[2018-09-27] MEDS: SYNTHROID PO SCH (06:05)
[2018-09-27 06:54] LABS: CALCIUM 8.7 mg/dL (8.8-10.2); CREATININE 1.2 mg/dL (0.7-1.2); MAGNESIUM 1.9 mg/dL (1.5-2.7); POTASSIUM 3.4 mmol/L (3.5-5.1)
[2018-09-27] MEDS ORDERED: LASIX PO SCH (09:00)
[2018-09-27] MEDS: COREG PO SCH (09:15)
[2018-09-27] MEDS: PLAVIX PO SCH (09:15)
[2018-09-27] MEDS: ASPIRIN PO SCH (09:15)
[2018-09-27] MEDS: MUCINEX DM PO SCH (09:20)
[2018-09-27] MEDS: NEURONTIN PO SCH ×2 (09:21→15:07)
[2018-09-27] MEDS: COLACE PO SCH (09:21)
[2018-09-27] MEDS: CYMBALTA PO SCH (09:21)
[2018-09-27] MEDS: ZOLOFT PO SCH (09:21)
[2018-09-27] MEDS: TEGRETOL PO SCH ×2 (09:21→15:07)
[2018-09-27] MEDS: APRESOLINE PO SCH ×2 (09:21→15:07)
[2018-09-27] MEDS: PROTONIX PO SCH (09:21)
[2018-09-27] MEDS: NORVASC PO SCH (09:21)
[2018-09-27] MEDS: IMDUR PO SCH (09:21)
[2018-09-27] MEDS: HEPARIN SUBQ SCH (09:22)
[2018-09-27] MEDS: KLOR-CON PO SCH ×3 (09:22→12:01)
[2018-09-27] MEDS: FLONASE NAS SCH (09:22)
[2018-09-27] MEDS: SOLU-MEDROL IV SCH (09:23)
[2018-09-27 12:43] VITALS: BP 109/51
--- NOTE | 2018-09-29 04:13 | DISCHARGE SUMMARY ---
ADMISSION DATE: 09/22/2018 DISCHARGE DATE: 09/27/2018 ADDENDUM: Overnight Mr. Burch did not have any acute events. He was hemodynamically stable. His vitals were unremarkable. He was needing 5 L nasal cannula. SUBJECTIVE: He is feeling fine. He is ready to be going to the half-way facility. I discussed with him about his medications. I answered all of his questions. PHYSICAL EXAMINATION: vital signs: Temperature 98.1 degrees, pulse 60, respiratory rate 22, blood pressure 125/46, saturating 95% on 5 L nasal cannula. general: He does not appear in any acute distress, sitting at the edge of the bed. heent: Oral cavity is moist. He has inspiratory crackles bilateral infrascapular region. Occasional wheezes. No rhonchi. Cardiovascular: S1, S2 normal. No murmur or gallop. Abdomen: Abdomen is soft, nontender. Extremities: He does have mild bilateral lower extremity edema. LABORATORIES TODAY: Suggestive of potassium of 3.4 which is being repleted. His BUN is 21 and creatinine of 1.2. He continues to have high proBNP. ASSESSMENT AND PLAN: The patient will be discharged on nebulized bronchodilators and oral steroid taper as well as p.o. Lasix. He would also be discharged on Lasix 60 mg b.i.d. with cardiovascular medications for his heart failure to prevent exacerbation of heart failure so as to control his symptoms. TIME SPENT: More than 30 minutes were spent in discharging this patient. Plan of care discussed with him. cc: Nam Alejandra MD
== END 2018-09-27 16:05 | DRG 291 ==
LOC: ED 00:08 → EDIPHOLD 03:01 → SUATTDRO 03:01 → 3S 11:36
PROVIDERS: ATTEND Internal Medicine
CPT/HCPCS: 51702; 71010; 71045; 71250; 80048; 80053; 80202; 81001; 82550; 82805; 83735; 83880; 84100; 84484; 85025; 87040; 87070; 87088; 87205; 93005; 94640; 94660; 94761; 96374; 99285; A9270; J1630; J1644; J1940; J2543; J2930; J3370; J3475; J7040; J7050; J7506; J7512